=== PATIENT | male | born 1950 | race Caucasian/White ===

== ENCOUNTER 2022-12-19 16:28 | Inpatient (IN) ==
[2022-12-19] MEDS ORDERED: MoRPHine SULFATE 2 MG/ML CARP ONE (16:32)
[2022-12-19] MEDS ORDERED: NITROGLYCERIN SL 0.4 MG/TAB TAB ONE ×2 (16:38→16:56)
[2022-12-19] MEDS ORDERED: TICAGRELOR 90 MG TAB ONE (16:39)
[2022-12-19] MEDS ORDERED: HEPARIN SOD (PORCINE) 1000 UNIT/ML ONE (16:39)
[2022-12-19] MEDS ORDERED: MoRPHine SULFATE 2 MG/ML CARP IV ONE (16:45)
--- NOTE | 2022-12-19 16:46 | Emergency Department Note ---
History of Present Illness General Chief Complaint: Heart Alert History of Present Illness Provider Complaint: chest pain Onset (ago): hour(s) 1 Duration: constant Onset: other (occurred after doing yardwork and mowing lawn) Pain Location: substernal Pain Radiation: none Severity: moderate Current Pain Intensity: 7 Quality: + heaviness Relieved By: + nothing Exacerbated By: + nothing Context: no recent illness, no recent surgery, no recent travel or no trauma/injury Associated symptoms: + dyspnea Treatments prior to arrival: aspirin, nitroglycerin and other (fentanyl) Home Medications Medication Instructions Recorded Confirmed Type canagliflozin 300 mg tablet 300 mg PO QAM 09/04/22 12/19/22 History (Invokana) dulaglutide 4.5 mg/0.5 mL 4.5 mg subcut WK 09/04/22 12/19/22 History subcutaneous pen injector (Trulicity) gabapentin 300 mg capsule 300 mg PO AMHS 09/04/22 12/19/22 History lisinopril 2.5 mg tablet 2.5 mg PO QAM 09/04/22 12/19/22 History metformin 1,000 mg tablet 1,000 mg PO BIDM 09/04/22 12/19/22 History metoprolol tartrate 25 mg tablet 25 mg PO BID 09/04/22 12/19/22 History rosuvastatin 5 mg tablet 5 mg PO Q OTHER DAY 09/04/22 12/19/22 History aspirin 81 mg tablet,delayed 81 mg PO DAILY 12/19/22 12/19/22 History release polyethylene glycol 3350 17 gram 17 g PO DIRECTED PRN 12/19/22 12/19/22 History oral powder packet (Miralax) Constipation Allergies Allergy/AdvReac Type Severity Reaction Status Date / Time No Known Allergies Allergy Verified 12/19/22 21:27 Past Med/Surg History Medical History CAD (coronary artery disease) Carotid artery stenosis Diabetes mellitus, type 2 Hyperlipidemia Hypertension Myocardial Infarction [facility] 2005, no longer follows with cardio Surgical History History of colonoscopy History of coronary artery stent placement 2006, stents x 2 History of surgery surgery on nose skin lesion-pt unsure Social History Smoking Status: Former smoker Second Hand Exposure: No; Do You Dip or Chew Tobacco: No; Tobacco Cessation Education Requested by Patient: No Hx Alcohol Use: Yes Alcohol type: wine Hx Substance Use: No Preferred Language: Kosovan Communication Ability: Effective Paper Cleaner Required: No Beliefs That Will Affect Care: None Current Living Situation: Spouse Other Information That Helps Us Care for You: No Feels Safe at Home: Yes Safety Concerns: Feels Safe At This Time Assistive Devices: None Physical Exam Vital Signs Vital Signs - 24 hr 12/19/22 16:25 12/19/22 16:36 12/19/22 16:47 Temperature 37 C Temperature Source Oral Pulse Rate 83 81 Pulse Rate [Apical] 104 H Pulse Rate from SpO2 Sensor Respiratory Rate 20 18 Blood Pressure 164/90 H Blood Pressure [Left Arm] 126/99 Blood Pressure Mean 114 Blood Pressure Mean [Left Arm] 108 Pulse Oximetry 98 98 Oxygen Delivery Method Nasal Cannula Nasal Cannula Oxygen Flow Rate 2 2 Sepsis Recent Fever Within 48 Hours No Sepsis New/Unexplained Change in Mental Status No Sepsis Action Taken by Nursing No Action Required 12/19/22 16:32 12/19/22 17:01 12/19/22 19:00 Temperature Temperature Source Pulse Rate Pulse Rate [Apical] 96 H 86 Pulse Rate from SpO2 Sensor Respiratory Rate 18 18 Blood Pressure 108/86 Blood Pressure [Left Arm] 134/76 139/84 Blood Pressure Mean 92 Blood Pressure Mean [Left Arm] 95 102 Pulse Oximetry 99 100 Oxygen Delivery Method Nasal Cannula Nasal Cannula Oxygen Flow Rate 2 2 Sepsis Recent Fever Within 48 Hours Sepsis New/Unexplained Change in Mental Status Sepsis Action Taken by Nursing 12/19/22 19:00 Temperature Temperature Source Pulse Rate 61 Pulse Rate [Apical] Pulse Rate from SpO2 Sensor 60 Respiratory Rate 19 Blood Pressure Blood Pressure [Left Arm] Blood Pressure Mean Blood Pressure Mean [Left Arm] Pulse Oximetry 99 Oxygen Delivery Method Oxygen Flow Rate Sepsis Recent Fever Within 48 Hours Sepsis New/Unexplained Change in Mental Status Sepsis Action Taken by Nursing Physical Exam HENT: Exam performed. - Head: Normocephalic and atraumatic. NECK: Normal range of motion. Neck supple. No JVD present. CV: Normal rate, regular rhythm, normal heart sounds and intact distal pulses. There is no peripheral edema. Palpable radial pulses bue. PULM/CHEST: Effort normal and breath sounds normal. No respiratory distress. No stridor. no wheezes. no rales. NEURO: Motor and sensation grossly intact. SKIN: Skin is warm and dry. He is diaphoretic. PSYCH: normal mood and affect. Behavior is normal. Judgment and thought content normal. Course Course 1615: Received call from EMS. EKG from EMS shows ST elevation in leads I and aVF V2 V3 and ST depression in leads II, III and aVF. Heart alert called. 1629: The patient was evaluated in room B1. A history and physical exam was performed Cardiac monitoring: An order was placed for continuous cardiac monitoring. The monitor shows a rate of 70 with sinus rhythm interpreted by hi 1637: Dr. Yi at bedside requested the patient be loaded with Brilinta and heparin. Administered Medications Acetaminophen (Acetaminophen 325 Mg Tab) 650 mg PO Q4H PRN PRN Reason: MILD Pain (Scale 1,2,3) Stop: 01/18/23 19:11 Last Admin: 12/19/22 21:48 Dose: 650 mg Documented By: TP Gabapentin (Gabapentin 300 Mg Cap) 300 mg PO BID [facility] Stop: 01/18/23 22:24 Last Admin: 12/19/22 23:02 Dose: 300 mg Documented By: TP Sodium Chloride (Nss 1000ml) 1,000 mls @ 100 mls/hr IV .Q10H [facility] Stop: 12/20/22 00:14 Last Admin: 12/19/22 20:24 Dose: 100 mls/hr Documented By: TP Eptifibatide (Integrilin) 75 mg in 100 mls @ 15.76 mls/hr IV .Q6H21M [facility]; Protocol Stop: 12/20/22 07:00 Last Admin: 12/19/22 20:23 Dose: 2 mcg/kg/min, 15.8 mls/hr Documented By: TP Co-signed By: BRUNILDA Magnesium Sulfate/Dextrose (Magnesium Sulfate / D5w) 1 gm in 100 mls @ 50 mls/hr IV Q2H [facility] Stop: 12/20/22 00:44 Last Admin: 12/19/22 23:02 Dose: 50 mls/hr Documented By: Infusion: 12/19/22 22:52 Dose: 0 mls/hr Documented By: Admin: 12/19/22 20:52 Dose: 50 mls/hr Documented By: TP Insulin Aspart (Insulin Aspart Per Unit Charge) 0 units SC ACHS [facility] Stop: 01/18/23 20:59 Last Admin: 12/19/22 21:49 Dose: 4 units Documented By: TP Co-signed By: CF Insulin Glargine (Lantus Per Unit Charge) 5 units SQ HS [facility] Stop: 01/18/23 21:09 Last Admin: 12/19/22 21:49 Dose: 5 units Documented By: TP Co-signed By: CF Metoprolol Tartrate (Metoprolol Tartrate 25 Mg Tab) 25 mg PO BID [facility] Stop: 01/18/23 20:59 Last Admin: 12/19/22 20:20 Dose: 25 mg Documented By: TP Miscellaneous (Icu Protocol For Hyperglycemia) 1 each N/A [facility] Stop: 12/21/22 20:59 Last Admin: 12/19/22 21:40 Dose: 1 each Documented By: TP Morphine Sulfate (Morphine Sulfate 4 Mg/Ml 1 Ml Carp\Vial) 4 mg IV Q4H PRN PRN Reason: Pain Stop: 01/02/23 21:59 Last Admin: 12/19/22 23:01 Dose: 4 mg Documented By: TP Ondansetron HCl (Ondansetron Inj 2 Mg/Ml 2 Ml Vial) 4 mg IV Q6H PRN PRN Reason: Nausea And Vomiting Stop: 01/18/23 19:11 Last Admin: 12/19/22 21:48 Dose: 4 mg Documented By: TP Rosuvastatin Calcium (Rosuvastatin Calcium 5 Mg Tab) 5 mg PO Q2D@2100 [facility] Stop: 01/18/23 19:29 Last Admin: 12/19/22 20:20 Dose: 5 mg Documented By: TP Discontinued Medications Eptifibatide (Eptifibatide 2 Mg/Ml 10 Ml Vial ([place] Use Only)) Confirm Administered Dose 40 mg IV .STK-MED ONE Stop: 12/19/22 18:25 Last Admin: 12/19/22 19:48 Dose: Not Given Documented By: TP Eptifibatide (Eptifibatide 0.75 Mg/Ml 75mg Vial ([place] Use Only)) Confirm Administered Dose 75 mg IV .STK-MED ONE Stop: 12/19/22 18:25 Last Admin: 12/19/22 19:48 Dose: Not Given Documented By: TP Fentanyl Citrate (Fentanyl Citrate Pf 100 Mcg/2 Ml Vial) Confirm Administered Dose 100 mcg .ROUTE .STK-MED ONE Stop: 12/19/22 17:08 Last Admin: 12/19/22 19:48 Dose: Not Given Documented By: TP Heparin Sodium (Porcine) (Heparin Sod (Porcine) 1000 Unit/Ml) Confirm Administered Dose 1,000 units .ROUTE .STK-MED ONE Stop: 12/19/22 16:40 Last Admin: 12/19/22 16:42 Dose: 5,000 units Documented By: OL Co-signed By: NA Heparin Sodium (Porcine) (Heparin (Porcine) 1000 Unit/Ml 10 Ml ([place] Use Only)) Confirm Administered Dose 10,000 units .ROUTE .STK-MED ONE Stop: 12/19/22 17:04 Last Admin: 12/19/22 19:47 Dose: Not Given Documented By: TP Midazolam HCl (Midazolam Hcl 1 Mg/Ml 2ml Vial) Confirm Administered Dose 2 mg .ROUTE .STK-MED ONE Stop: 12/19/22 17:09 Last Admin: 12/19/22 19:48 Dose: Not Given Documented By: TP Morphine Sulfate (Morphine Sulfate 2 Mg/Ml Carp) Confirm Administered Dose 4 mg .ROUTE .STK-MED ONE Stop: 12/19/22 16:33 Last Admin: 12/19/22 16:39 Dose: Not Given Documented By: OL Morphine Sulfate (Morphine Sulfate 2 Mg/Ml Carp) 2 mg IV NOW ONE Stop: 12/19/22 16:46 Last Admin: 12/19/22 16:36 Dose: 2 mg Documented By: OL Nicardipine HCl (Nicardipine Hcl Inj 2.5 Mg/Ml 10 Ml Amp) Confirm Administered Dose 25 mg .ROUTE .STK-MED ONE Stop: 12/19/22 17:04 Last Admin: 12/19/22 19:47 Dose: Not Given Documented By: TP Nitroglycerin (Nitroglycerin Sl 0.4 Mg/Tab Tab) Confirm Administered Dose 0.4 mg .ROUTE .STK-MED ONE Stop: 12/19/22 16:39 Last Admin: 12/19/22 16:41 Dose: 0.4 mg Documented By: OL Nitroglycerin (Nitroglycerin Sl 0.4 Mg/Tab Tab) Confirm Administered Dose 0.4 mg .ROUTE .STK-MED ONE Stop: 12/19/22 16:57 Last Admin: 12/19/22 16:59 Dose: 0.4 mg Documented By: OL Nitroglycerin/Dextrose (Nitroglycerin/D5w 100mcg/Ml 20ml Syr) Confirm Administered Dose 2,000 mcg .ROUTE .STK-MED ONE Stop: 12/19/22 17:04 Last Admin: 12/19/22 19:48 Dose: Not Given Documented By: TP Ticagrelor (Ticagrelor 90 Mg Tab) Confirm Administered Dose 180 mg .ROUTE .STK- MED ONE Stop: 12/19/22 16:40 Last Admin: 12/19/22 16:44 Dose: 180 mg Documented By: OL Medical Decision Making Medical Records Attestation: I reviewed the patient's medical records. Medical records narrative: No previous EKGs in our EMR Laboratory Data Attestation: I reviewed the patient's lab results. 12/19/22 16:36 12/19/22 16:36 Labs: Lab Results 12/19/22 12/19/22 12/19/22 Range/Units 16:36 16:36 16:36 WBC 11.84 H (4.8-10.8) K/ul RBC 4.54 L (4.70-6.10) M/uL Hgb 14.0 (14.0-18.0) g/dl Hct 40.9 L (42.0-52.0) % MCV 90.1 (80.0-100.0) fL MCH 30.8 (25.0-34.0) pg MCHC 34.2 (32.0-36.0) g/dL RDW Std Deviation 41.3 (36.4-46.3) fL RDW Coeff of Darlene 12.5 (11.5-14.5) % Plt Count 268 (130-400) K/uL MPV 9.0 L (9.4-12.4) fL Immature Gran % (Auto) 0.5 % Neut % (Auto) 63.7 % Lymph % (Auto) 26.1 % [place] % (Auto) 8.4 % Eos % (Auto) 1.0 % Baso % (Auto) 0.3 % Neut # (Auto) 7.54 H (1.40-6.50) K/uL Lymph # (Auto) 3.09 (1.2-3.4) K/uL [place] # (Auto) 0.99 H (0.11-0.59) K/uL Eos # (Auto) 0.12 (0-0.50) K/uL Baso # (Auto) 0.04 (0-0.2) K/uL Immature Gran # (Auto) 0.06 (0.01-0.20) K/uL PT 11.7 (9.0-12.0) Seconds INR 1.1 (0.9-1.1) APTT 21.7 (21.0-31.0) Seconds PTT Ratio 0.8 Activ Coag Time Kaolin (94-140) SECONDS Sodium 142 (136-145) mmol/L Potassium 3.7 (3.5-5.1) mmol/L Chloride 108 H (98-107) mmol/L Carbon Dioxide 22 (21-32) mmol/L Anion Gap 12 H (3-11) BUN 22 (6-23) mg/dl Creatinine 0.92 (0.6-1.4) mg/dl Est Cr Clr Drug Dosing 82.1 ml/min Est GFR ( Amer) 97.3 ml/min Est GFR (Non-Af Amer) 84.0 ml/min BUN/Creatinine Ratio 23.9 H (10-20) Glucose 169 H (70-99(Fasting)) mg/dl Calcium 7.9 L (8.6-10.3) mg/dl Magnesium 1.6 L (1.7-2.4) mg/dl Total Bilirubin 0.9 (0.2-1.0) mg/dl AST 12 L (13-39) U/L ALT 12 (7-52) U/L Alkaline Phosphatase 56 (34-104) U/L Total Creatine Kinase 24 L (30-223) U/L Troponin I High Sens 13.1 (0-20) pg/ml B-Natriuretic Peptide (0-100) pg/ml Total Protein 6.5 (6.0-8.3) gm/dl Albumin 4.0 (3.4-5.0) gm/dl Globulin 2.5 (2.5-4.0) gm/dl Albumin/Globulin Ratio 1.6 (0.9-2) Lipase 18 (11-82) U/L TSH (0.300-4.500) uIu/ml Nasal Screen MRSA (PCR) (Negative) SARS-CoV-2, RNA, NAAT (NEGATIVE) 12/19/22 12/19/22 12/19/22 Range/Units 16:36 16:36 16:45 WBC (4.8-10.8) K/ul RBC (4.70-6.10) M/uL Hgb (14.0-18.0) g/dl Hct (42.0-52.0) % MCV (80.0-100.0) fL MCH (25.0-34.0) pg MCHC (32.0-36.0) g/dL RDW Std Deviation (36.4-46.3) fL RDW Coeff of Darlene (11.5-14.5) % Plt Count (130-400) K/uL MPV (9.4-12.4) fL Immature Gran % (Auto) % Neut % (Auto) % Lymph % (Auto) % [place] % (Auto) % Eos % (Auto) % Baso % (Auto) % Neut # (Auto) (1.40-6.50) K/uL Lymph # (Auto) (1.2-3.4) K/uL [place] # (Auto) (0.11-0.59) K/uL Eos # (Auto) (0-0.50) K/uL Baso # (Auto) (0-0.2) K/uL Immature Gran # (Auto) (0.01-0.20) K/uL PT (9.0-12.0) Seconds INR (0.9-1.1) APTT (21.0-31.0) Seconds PTT Ratio Activ Coag Time Kaolin (94-140) SECONDS Sodium (136-145) mmol/L Potassium (3.5-5.1) mmol/L Chloride (98-107) mmol/L Carbon Dioxide (21-32) mmol/L Anion Gap (3-11) BUN (6-23) mg/dl Creatinine (0.6-1.4) mg/dl Est Cr Clr Drug Dosing ml/min Est GFR ( Amer) ml/min Est GFR (Non-Af Amer) ml/min BUN/Creatinine Ratio (10-20) Glucose (70-99(Fasting)) mg/dl Calcium (8.6-10.3) mg/dl Magnesium (1.7-2.4) mg/dl Total Bilirubin (0.2-1.0) mg/dl AST (13-39) U/L ALT (7-52) U/L Alkaline Phosphatase (34-104) U/L Total Creatine Kinase (30-223) U/L Troponin I High Sens (0-20) pg/ml B-Natriuretic Peptide 16 (0-100) pg/ml Total Protein (6.0-8.3) gm/dl Albumin (3.4-5.0) gm/dl Globulin (2.5-4.0) gm/dl Albumin/Globulin Ratio (0.9-2) Lipase (11-82) U/L TSH 0.441 (0.300-4.500) uIu/ml Nasal Screen MRSA (PCR) (Negative) SARS-CoV-2, RNA, NAAT NEGATIVE (NEGATIVE) 12/19/22 12/19/22 Range/Units 17:35 19:00 WBC (4.8-10.8) K/ul RBC (4.70-6.10) M/uL Hgb (14.0-18.0) g/dl Hct (42.0-52.0) % MCV (80.0-100.0) fL MCH (25.0-34.0) pg MCHC (32.0-36.0) g/dL RDW Std Deviation (36.4-46.3) fL RDW Coeff of Darlene (11.5-14.5) % Plt Count (130-400) K/uL MPV (9.4-12.4) fL Immature Gran % (Auto) % Neut % (Auto) % Lymph % (Auto) % [place] % (Auto) % Eos % (Auto) % Baso % (Auto) % Neut # (Auto) (1.40-6.50) K/uL Lymph # (Auto) (1.2-3.4) K/uL [place] # (Auto) (0.11-0.59) K/uL Eos # (Auto) (0-0.50) K/uL Baso # (Auto) (0-0.2) K/uL Immature Gran # (Auto) (0.01-0.20) K/uL PT (9.0-12.0) Seconds INR (0.9-1.1) APTT (21.0-31.0) Seconds PTT Ratio Activ Coag Time Kaolin 360 H (94-140) SECONDS Sodium (136-145) mmol/L Potassium (3.5-5.1) mmol/L Chloride (98-107) mmol/L Carbon Dioxide (21-32) mmol/L Anion Gap (3-11) BUN (6-23) mg/dl Creatinine (0.6-1.4) mg/dl Est Cr Clr Drug Dosing ml/min Est GFR ( Amer) ml/min Est GFR (Non-Af Amer) ml/min BUN/Creatinine Ratio (10-20) Glucose (70-99(Fasting)) mg/dl Calcium (8.6-10.3) mg/dl Magnesium (1.7-2.4) mg/dl Total Bilirubin (0.2-1.0) mg/dl AST (13-39) U/L ALT (7-52) U/L Alkaline Phosphatase (34-104) U/L Total Creatine Kinase (30-223) U/L Troponin I High Sens (0-20) pg/ml B-Natriuretic Peptide (0-100) pg/ml Total Protein (6.0-8.3) gm/dl Albumin (3.4-5.0) gm/dl Globulin (2.5-4.0) gm/dl Albumin/Globulin Ratio (0.9-2) Lipase (11-82) U/L TSH (0.300-4.500) uIu/ml Nasal Screen MRSA (PCR) Negative (Negative) SARS-CoV-2, RNA, NAAT (NEGATIVE) Imaging Data Chest x-ray: Attestation: I personally reviewed and interpreted this imaging study as follows: My impression: Chest x-ray negative. Airway clear. No pneumothorax. No consolidation. No cardiomegaly or cephalization.. No free air under the diaphragm. No fractures of the skeletal structures. ECG Data Attestation: I personally reviewed and interpreted this ECG as follows: Indication: chest pain Rate (beats per minute): 62 Rhythm: normal sinus Findings: + ST depression (Leads II III aVF) and + ST elevation (Leads I, aVL, V2) Additional Comments: Prehospital EKG at 1610 showed sinus rhythm with rate of 66. SD QRS and QTc intervals within normal limits. ST elevation in leads I and aVF V2 V3 and ST depression in leads II, III and aVF. [facility] Narrative 1615: Received call from EMS. EKG from EMS shows ST elevation in leads I and aVF V2 V3 and ST depression in leads II, III and aVF. Heart alert called. 1629: The patient was evaluated in room B1. A history and physical exam was performed Cardiac monitoring: An order was placed for continuous cardiac monitoring. The monitor shows a rate of 70 with sinus rhythm interpreted by me 1637: Dr. Yi at bedside requested the patient be loaded with Brilinta and heparin. Impression & Plan ST elevation (STEMI) myocardial infarction Critical Care Time Critical Care Time: Yes Total Critical Care Time: 38 I have personally spent greater than 38 minutes of critical care time in the direct management of this patient. This includes bedside care, interpretation of diagnostic studies, and testing, discussion with consultants, patient, and family members, and other required patient management activities. This 38 minutes is in excess of all separately billable procedures. Discharge Plan Visit Data Chief Complaint: Heart Alert ED Provider: Damian Russo Discharge Problem: ST elevation (STEMI) myocardial infarction Patient Disposition: Admitted As Inpatient Discharge Instructions Interventions: ED Discharge Assessment Last Done: 12/19/22 17:05
[2022-12-19 16:52] LABS: Basophils # (auto) 0.04 K/uL (0-0.2); Basophils % (auto) 0.3 %; Eosinophils # (auto) 0.12 K/uL (0-0.50); Hematocrit (blood only) 40.9 % (42.0-52.0); Immature Granulocytes # (auto) 0.06 K/uL (0.01-0.20); Immature Granulocytes % (auto) 0.5 %; Lymphocytes # (auto) 3.09 K/uL (1.2-3.4); Lymphocytes % (auto) 26.1 %; Mean Corpuscular Hemoglobin 30.8 pg (25.0-34.0); Mean Corpuscular Hgb Conc 34.2 g/dL (32.0-36.0); Mean Corpuscular Volume 90.1 fL (80.0-100.0); Monocytes # (auto) 0.99 K/uL (0.11-0.59); Monocytes % (auto) 8.4 %; Neutrophils # (auto) 7.54 K/uL (1.40-6.50); Neutrophils % (auto) 63.7 %; Platelet Count 268 K/uL (130-400); RDW Coefficient of Variation 12.5 % (11.5-14.5); RDW Standard Deviation 41.3 fL (36.4-46.3); Red Blood Count 4.54 M/uL (4.70-6.10); White Blood Count 11.84 K/ul (4.8-10.8)
--- NOTE | 2022-12-19 17:01 | XRay Report ---
XR chest 1V portable CLINICAL HISTORY: Chest pain, nonspecific COMPARISON STUDY: Chest radiograph August 26, 2013. FINDINGS: Lung volumes are normal. Lungs are clear. There is no pneumothorax or pleural effusion. Car diac size is stable. Mediastinal contours are normal. There is no evidence for pulmonary edema. IMPRESSION: No acute cardiopulmonary findings. No significant change in appearance of the chest. ACT 112: Negative or not required by law. Electronically signed by: Steve Mullins M.D. 12/19/2022 4:59 PM
[2022-12-19 17:03] LABS: INR 1.1 (0.9-1.1); Partial Thromboplastin Ratio 0.8; Partial Thromboplastin Time 21.7 Seconds (21.0-31.0); Prothrombin Time 11.7 Seconds (9.0-12.0)
[2022-12-19] MEDS ORDERED: HEPARIN (PORCINE) 1000 UNIT/ML 10 ML (CATH LAB USE ONLY) ONE (17:03)
[2022-12-19] MEDS ORDERED: NITROGLYCERIN/D5W 100MCG/ML 20ML SYR ONE (17:03)
[2022-12-19] MEDS ORDERED: niCARdipine HCL INJ 2.5 MG/ML 10 ML AMP ONE (17:03)
[2022-12-19] MEDS ORDERED: fentaNYL citrate PF 100 MCG/2 ML VIAL ONE (17:07)
[2022-12-19] MEDS ORDERED: MIDAZOLAM HCL 1 MG/ML 2ML VIAL ONE (17:08)
[2022-12-19 17:11] LABS: Albumin Globulin Ratio 1.6 (0.9-2); BUN Creatinine Ratio 23.9 (10-20); Bilirubin,Total 0.9 mg/dl (0.2-1.0); Calcium 7.9 mg/dl (8.6-10.3); Creatinine Clr Calc Pharmacy 82.1 ml/min; Est GFR (African American) 97.3 ml/min; Globulin 2.5 gm/dl (2.5-4.0); Magnesium 1.6 mg/dl (1.7-2.4); Potassium 3.7 mmol/L (3.5-5.1); Total Protein 6.5 gm/dl (6.0-8.3)
[2022-12-19 17:16] LABS: Troponin I High Sensitivity 13.1 pg/ml (0-20)
--- NOTE | 2022-12-19 17:20 | Cardiology Consultation ---
Date of Consultation December 19, 2022 Assessment & Plan (1) ST elevation (STEMI) myocardial infarction: (2) CAD (coronary artery disease): (3) Hypertension: (4) Hyperlipidemia: Plan ASSESSMENT/PLAN: 1. STEMI: Recommend urgent cardiac catheterization. Ordered Brilinta load, heparin 5000 units, and has already received aspirin. Pain improved with morphine and redosing of sublingual nitroglycerin. Risk and benefits were discussed with him in detail. He was agreeable to proceed. Echo during this hospital stay. 2. CAD: [facility] suggested prior PTCA of RCA. Patient believes he had 2 stents. Details unknown. Aspirin 81 mg daily. Dual antiplatelet therapy following cath. High intensity statin therapy recommended. Continue beta-sara. Continue JESE inhibitor. 3. Hypertension: Was intermittently hypertensive in the emergency department. Continue home medications and titrate as appropriate. 4. Dyslipidemia: High intensity statin therapy recommended. 5. Disposition: Urgent cardiac catheterization when Mud Mixer Helper available. Mud Mixer Helper was occupied at the time of heart alert activation. Discussed with bow machine operator, Dr. Ybarra, who is proceeding with coronary angiography. His remained at the bedside and remained aware of plan. Highly complex medical issues. 45 minutes critical care time spent, including 35 minutes of acute management for STEMI. Remained with patient until taken to Mud Mixer Helper. Remaining time spent reviewing records, and completing documentation. Thank you for allowing me to participate in the care of your patient. Please call for any other questions or concerns. Sincerely, Sharan Yi M.D. History of Present Illness Reason for Consultation: Heart alert Requesting Physician: Dr. Russo Attending Physician: Dr. Russo History of Present Illness Mr. Wilkerson is a very pleasant 72-year-old gentleman with a history significant for CAD s/p prior NM and PTCA vs PCI, hypertension, 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, and type 2 diabetes. He formally was followed by Dr. Prakash (last note 2017). He [place] [facility]. He presented acutely to the emergency department today (12/19/2022) with chest discomfort and ST elevation in the lateral leads. Heart alert was activated. He had been outside trimming shrubs and using his riding lawnmower. He was not having chest discomfort but felt something in his throat and thought it was due to the pollen. He went inside and watch TV. While watching TV, he became nauseated and vomited. He had chest discomfort but denies shortness of breath. Symptoms occurred approximately 2 hours prior to presentation. He received aspirin 324 mg via EMS and nitroglycerin sublingual x2. Initially the chest discomfort was rated 8 out of 10. At the bedside, he continued to have angina and was hypertensive with systolic blood pressure in the 160s and diastolic in the 90s. Additional nitroglycerin was ordered. He was also given intravenous morphine. Chest pain improved to 0- 1, before eventually increasing to 2 out of 10. Additional nitroglycerin was given. He denies syncope, near syncope, palpitations, or edema. He denies melena, hematochezia, or hematuria. His last food was approximately 1 hour to 2 hours prior to presentation. Review of systems: As above. Family history: Noncontributory. Social history: He quit smoking approximately 6 years ago. No significant alcohol consumption. He lives at home with his , Dafne ([facility]). He is retired. His was present at the bedside in the ED. Allergies Allergy/AdvReac Type Severity Reaction Status Date / Time No Known Allergies Allergy Verified 09/10/22 06:10 Home Medications Medication Instructions Recorded Confirmed Type canagliflozin 300 mg tablet 300 mg PO QAM 09/04/22 09/10/22 History (Invokana) dulaglutide 4.5 mg/0.5 mL 4.5 mg subcut 1XD 09/04/22 09/10/22 History subcutaneous pen injector (Trulicity) gabapentin 300 mg capsule 300 mg PO BID 09/04/22 09/10/22 History lisinopril 2.5 mg tablet 2.5 mg PO QAM 09/04/22 09/10/22 History metformin 1,000 mg tablet 1,000 mg PO BID 09/04/22 09/10/22 History metoprolol tartrate 25 mg tablet 25 mg PO BID 09/04/22 09/10/22 History rosuvastatin 5 mg tablet 5 mg PO Q OTHER DAY 09/04/22 09/10/22 History Patient History Medical History CAD (coronary artery disease) Carotid artery stenosis Diabetes mellitus, type 2 Hyperlipidemia Hypertension Myocardial Infarction [facility] 2005, no longer follows with cardio Surgical History History of colonoscopy History of coronary artery stent placement 2006, stents x 2 History of surgery surgery on nose skin lesion-pt unsure Social History Smoking Status: Former smoker Second Hand Exposure: No; Do You Dip or Chew Tobacco: No; Hx Alcohol Use: No Hx Substance Use: No Preferred Language: Japanese Hydrogenation Still Operator Required: No Beliefs That Will Affect Care: None Current Living Situation: Spouse Feels Safe at Home: Yes Physical Exam Physical Exam: Gen.: No acute distress. Alert and oriented. HEENT: Anicteric sclera. Neck: No JVD. Cardiac: No ventricular heave. Regular. Normal S1-S2. No murmurs, rubs, or gallops. Pulmonary: Clear to auscultation bilaterally without wheezes, rales, or rhonchi. Abdomen: Soft, nontender, nondistended, with normoactive bowel sounds. No bruits noted. Extremities: 1+ right radial pulse. 2+ left radial pulse. 2+ posterior tibialis pulses bilaterally. No edema or cyanosis. Results & Data Vital Signs (Past 12 Hours) Vital Signs Temp Pulse Pulse Resp BP BP Pulse Ox 12/19/22 17:01 86 18 139/84 100 12/19/22 16:32 96 H 18 134/76 99 12/19/22 16:47 104 H 18 126/99 98 12/19/22 16:36 81 12/19/22 16:25 37 C 83 20 164/90 H 98 O2 Del Method O2 Flow Rate 12/19/22 17:01 Nasal Cannula 2 12/19/22 16:32 Nasal Cannula 2 12/19/22 16:47 Nasal Cannula 2 12/19/22 16:36 12/19/22 16:25 Nasal Cannula 2 Laboratory Results Laboratory Results - last 24 hr 12/19/22 12/19/22 12/19/22 16:36 16:36 16:36 WBC 11.84 H RBC 4.54 L Hgb 14.0 Hct 40.9 L MCV 90.1 MCH 30.8 MCHC 34.2 RDW Std Deviation 41.3 RDW Coeff of Darlene 12.5 Plt Count 268 MPV 9.0 L Immature Gran % (Auto) 0.5 Neut % (Auto) 63.7 Lymph % (Auto) 26.1 Gregory % (Auto) 8.4 Eos % (Auto) 1.0 Baso % (Auto) 0.3 Neut # (Auto) 7.54 H Lymph # (Auto) 3.09 Gregory # (Auto) 0.99 H Eos # (Auto) 0.12 Baso # (Auto) 0.04 Immature Gran # (Auto) 0.06 PT 11.7 INR 1.1 APTT 21.7 PTT Ratio 0.8 Sodium 142 Potassium 3.7 Chloride 108 H Carbon Dioxide 22 Anion Gap 12 H BUN 22 Creatinine 0.92 Est Cr Clr Drug Dosing 82.1 Est GFR ( Amer) 97.3 Est GFR (Non-Af Amer) 84.0 BUN/Creatinine Ratio 23.9 H Glucose 169 H Calcium 7.9 L Magnesium 1.6 L Total Bilirubin 0.9 AST 12 L ALT 12 Alkaline Phosphatase 56 Total Creatine Kinase 24 L Troponin I High Sens 13.1 B-Natriuretic Peptide Total Protein 6.5 Albumin 4.0 Globulin 2.5 Albumin/Globulin Ratio 1.6 Lipase 18 TSH SARS-CoV-2, RNA, NAAT 12/19/22 12/19/22 12/19/22 16:36 16:36 16:45 WBC RBC Hgb Hct MCV MCH MCHC RDW Std Deviation RDW Coeff of Darlene Plt Count MPV Immature Gran % (Auto) Neut % (Auto) Lymph % (Auto) Gregory % (Auto) Eos % (Auto) Baso % (Auto) Neut # (Auto) Lymph # (Auto) Gregory # (Auto) Eos # (Auto) Baso # (Auto) Immature Gran # (Auto) PT INR APTT PTT Ratio Sodium Potassium Chloride Carbon Dioxide Anion Gap BUN Creatinine Est Cr Clr Drug Dosing Est GFR ( Amer) Est GFR (Non-Af Amer) BUN/Creatinine Ratio Glucose Calcium Magnesium Total Bilirubin AST ALT Alkaline Phosphatase Total Creatine Kinase Troponin I High Sens B-Natriuretic Peptide 16 Total Protein Albumin Globulin Albumin/Globulin Ratio Lipase TSH Pending SARS-CoV-2, RNA, NAAT NEGATIVE Diagnostic Findings ECG personally reviewed: Sinus rhythm [address] elevation with inferior ST depression and T wave inversion. These findings are consistent with prehospital ECGs which were also personally reviewed. Labs reviewed from 12/19/2022: Normal hemoglobin, mild leukocytosis, normal renal function, normal potassium. Normal BNP. High-sensitivity troponin 13. Chest x-ray personally reviewed from 12/19/2022: No infiltrate. Per radiology, no acute cardiopulmonary findings. PG Care Time/CCT Total # of Minutes Spent Total Time Spent with Patient: Total time spent is greater than 50% in coordination of care (as documented) at patient's floor/unit and/or counseling patient: Critical Care Time: Yes Total Critical Care Time: 45 Coding Level of Care Code 55187 CRITICAL CARE 1ST 30-74M Diagnoses ST elevation (STEMI) myocardial infarction I21.3 CAD (coronary artery disease) I25.10 Hypertension I10 Hyperlipidemia E78.5 Additional Codes Critical Care Time - Critical Care Time: Yes ([id number])
[2022-12-19] MEDS ORDERED: EPTIFIBATIDE 0.75 MG/ML 75MG VIAL (CATH LAB USE ONLY) IV ONE (18:24)
[2022-12-19] MEDS ORDERED: EPTIFIBATIDE 2 MG/ML 10 ML VIAL (CATH LAB USE ONLY) IV ONE (18:24)
[2022-12-19] MEDS ORDERED: ACETAMINOPHEN 325 MG TAB PO PRN (19:12)
[2022-12-19] MEDS ORDERED: EPTIFIBATIDE BOLUS/DRIP IV STA (19:12)
[2022-12-19] MEDS ORDERED: ONDANSETRON INJ 2 MG/ML 2 ML VIAL IV PRN (19:12)
[2022-12-19] MEDS ORDERED: SODIUM CHLORIDE 0.9% 1000ML 1,000 ML IV SCH (19:15)
--- NOTE | 2022-12-19 19:26 | Post Anesthesia Assessment ---
Date of Service December 19, 2022 Post Sedation Assessment Vital Signs Temp Pulse Pulse Resp BP BP Pulse Ox 12/19/22 17:01 86 18 139/84 100 12/19/22 16:32 96 H 18 134/76 99 12/19/22 16:47 104 H 18 126/99 98 12/19/22 16:36 81 12/19/22 16:25 98.6 F 83 20 164/90 H 98 O2 Del Method O2 Flow Rate 12/19/22 17:01 Nasal Cannula 2 12/19/22 16:32 Nasal Cannula 2 12/19/22 16:47 Nasal Cannula 2 12/19/22 16:36 12/19/22 16:25 Nasal Cannula 2 Recovery Score Activity: Moves 4 extremities Respiration: Deep Breath/Cough Circulation: +/-20% PreAnes Value Consciousness: Fully Awake Oxygen Saturation: O2 needed for >90% Discharge Sedation Level of Care: Fast Track Phase II Post Sedation Plan On clinical assessment, the patient appears to have tolerated the sedation without complications. Patient is recovering as anticipated. Patient will continue to be monitored by nursing and may be discharged when sedation discharge criteria are met per below protocol. Upon Completions of procedure up to 15 minutes continue every 5 minute vital signs and the P.A.R. score; then discharge to a Phase I or Fast Track to Phase II per the following guidelines: * Discharge Patient to appropriate Phase II area if PAR is 8 or greater or return to pre- procedure baseline. The post - procedure orders will be as directed. * If PAR score is less than 8 or not return to pre-procedure baseline then patient will follow Phase I monitoring till PAR is reached for Phase II. The Phase I may be done in procedure room or may call to secure a Phase I area. * If naloxone or flumazenil are used for reversal, hold in Phase I for continued monitoring from when last reversal dose was given for a minimum of 60 minutes or longer pending the nurse and/or physician discretion of patient condition before discharge to Phase II. Please call the Sedation Physician to re-evaluate and complete post-note for discharge to Phase II area. Do NOT discharge from procedure sedation or Phase 1 until post- sedation evaluation note is complete by procedure /sedation MD Sedation Discharge Instructions to be given to the patient at discharge to home.
[2022-12-19] MEDS ORDERED: ROSUVASTATIN CALCIUM 5 MG TAB PO SCH (19:30)
--- NOTE | 2022-12-19 19:30 | Cardiac Catheterization ---
[facility] Data: Music Producer Cardiac Status Clinical evaluation leading to the procedure CAD Presenation: STEMI Anginal Classification: CCS IV Diagnostic Physicians Name: Conrado Ybarra MD Closure Device Recommendations: PCI without planned CABG Cardiac Cath Procedure Full Procedure Date December 19, 2022 Pre-Procedure Diagnosis Pre-Procedure Diagnosis: STEMI AUC Score AUC Score: 9 Post-Procedure Diagnosis Post-Procedure Diagnosis: Severe CAD, Successful PCI and Normal Intracardiac Pressures Procedure(s) Performed Procedure(s) Performed: Coronary Angiography, Left Heart Cath, Drug Eluting Stent and IVUS Canine Service Teacher Conrado Ybarra MD Telecommunications Repairer(s) [place] Estimated Blood Loss Estimated Blood Loss: 25 Medication(s) Medication(s): Clopidogrel, Fentanyl, Heparin, Integrilin, Lidocaine 1%, Nicardipine, Nitroglycerin and Versed Summary of Findings Indication: STEMI/Heart Alert Access: 6 Fr right ulnar artery Catheters: EBU 3.5 guide, diagnostic JR4 Findings: LM -normal caliber, mildly calcified, 20% distal stenosis LAD - Medium caliber, diffuse 50% proximal disease, mid segment angulated with hazy 90% disease. Distal vessel small and tapers prior to apex. Inferior branch of medium bifurcating D3 appears acutely occluded. Circumflex -small caliber, 50 to 60% proximal disease extending into medium caliber OM1. 60% stenosis after takeoff of OM1, remainder of small AV groove circumflex with mild diffuse disease RCA -dominant, large caliber, proximal to mid stents widely patent with minimal in-stent restenosis, mid/distal luminal irregularities. PDA, PLB without significant disease LVEDP -14 -- PCI -- Antithrombotic therapy: Heparin, Integrilin, clopidogrel Procedure: Left main cannulated with EBU 3.5 guide Sewing Machinist 50 wire passed across lesion into distal vessel Mid LAD lesion predilated with 2.5 compliant balloon Aliya IVUS catheter placed into mid LAD. Pullback revealed near occlusive noncalcified plaque/thrombus in mid segment, proximal LAD with eccentric calcified disease up to 50 to 60%. Minimal disease at LAD ostium and left main. Dilated lesion stented with 2.75 x 22 mm Hoskins GRADY Stent post-dilated with 3.0 noncompliant balloon Additional whisper wire navigated into inferior branch of occluded D3 attempted. Unable to pass balloon across stent into D3. Started on IV Integrilin IC vasodilators administered for spasm At completion of case chest pain-free, DESTINY 3 flow through stent, stent well expanded with minimal residual stenosis and no apparent cardiac complications. Inferior branch of D3 remained occluded Arterial Closure: TR band Summary: 1. Acute 90% mid LAD stenosis with 2. Moderate non-culprit coronary artery disease -50 to 60% proximal circumflex extending into OM1 Patent proximal to mid RCA stents with minimal in-stent restenosis 3. Normal intracardiac filling pressure 4. Successful PCI of mid LAD with single drug-eluting stent (2.75 x 22 mm Steven; postdilated with 3.0 NC). Recommendations: Admit to ICU for continued monitoring Loaded with clopidogrel 600 mg in Music Producer Continue dual-antiplatelet therapy for at least 1 year. Continue Integrilin infusion for 12 hours for residual downstream thrombus in branch of diagonal Trend troponins until peak, Check Echo Uptitrate beta-sara/JESE as BP allows High-dose statin Consult cardiac Rehab Hemodynamics Rest Ao:: 123/64/94 Final Ao: 125/69/95 LV: 125/14 Recommendations Recommendations: PCI without planned CABG Specimens Specimens: None Radiation Exposure (mGy) 4746 Contrast (mls) 200 Anesthesia Moderate 5653-9956 Procedural Complication(s) None Disposition ICU I attest to the content of the Intraoperative Record and any orders documented therein. Any exceptions are noted below. [facility] Card Cath Procedure Codes Cardiac Catheterization Procedure 1: Cardiovascular Cath Procedures: 74960 Coronaries and LHC (+/-LV) Therapeutic Services & Ancillary Procedure 1: Cardiovascular Tx and Anc Procedures: 62640 IV Ultrasound (Coronary or Graft) Moderate Sedation Procedure 1: Sedation/Anesthesia: 32825 Mod Sedation by the same physician;Init15 Min Child Age 5 & Up Procedure 2: Sedation/Anesthesia: 04785 Mod Sedation by the same physician; Ea [id number] Minutes Stenting Procedure 1: Cardiovascular Stent Procedures: 03840 Perc transluminal revascularization of acute sub/total occl, aMI PG Care Time/CCT Total # of Minutes Spent Total Time Spent with Patient: Total time spent is greater than 50% in coordination of care (as documented) at patient's floor/unit and/or counseling patient:
--- NOTE | 2022-12-19 19:59 | Critical Care Consultation ---
Date of Consultation December 19, 2022 Assessment & Plan (1) ST elevation (STEMI) myocardial infarction: (2) Hyperlipidemia: (3) Hypertension: (4) Diabetes mellitus, type 2: (5) CAD (coronary artery disease): Plan Reason Critically Ill: 72 YOM with presented to the EMD with chest pain, nausea vomitting. ECG with ST elevations lateral leads- heart alerted and taken urgently to labor/excavator where he received GRADY to mid-LAD. To ICU post cath on DAPT therapy. Neuro - No acute needs CAM ICU: NEGATIVE - alert awake oriented following sedation Cardiac - STEMI, S/P GRADY to mid LAD, CAD, prior PCI to RCA, HTN, HLD - Patient s/p stent placement- on DAPT therapy per cardiology- asa and Plavix, Integrilin infusion completing - Currently pain free- post cath ECG completed no acute changes- no ectopy - Right wrist TR band- per protocol - BB initiated by cardiology Metoprolol tartrate 25mg PO BID, Rosuvastatin continued 5 mg PO, JESE- 2.5mg PO qam continued - ECHO in morning- already ordered - previous smoker - lipid panel and HGBA1c in am Respiratory - No acute needs - wean oxygen as able GI - No acute needs - add H2 while on DAPT- Famotidine 10mg po daily RENAL/LYTES - No acute needs - ICU electrolyte protocol - replete mag - NO acute needs ENDO - DMII - deit heart healthy carb consistent - ICU hyperglycemic protocol- hold metformin and Invokana while inpatient - HGB A1c in am HEME - No acute needs - follow HGB with DAPT therapy ID - No acute needs LINES/IV ACCESS - PIV x2 Continue use of these lines DVT PROPHYLAXIS - SCDs, ASA ambulation DISPO- ICU s/p GRADY stent await ECHO results in AM I have personally spent 40 minutes of critical care time in the direct management of this patient. This is a life/limb threatening event. This includes time spent evaluating patient, direct bedside care, chart review, placing orders, interpretation of diagnostic studies, discussion with consultants, patient, and family members, as well as other required patient management activities. This time is exclusive of all separately billable procedures, and separate from and in addition to any other critical care service time. Thank you for allowing us to participate in the care of this patient. Please refer to my attending physician's documentation for any further recommendations. History of Present Illness Reason for Consultation: STEMI s/p GRADY to mid LAD Requesting Physician: Conrado Ybarra MD Attending Physician: Conrado Ybarra MD History of Present Illness 72 YOM with medical history of: CAD with PCI 2005 (RCA), DMII, HTN, HLD. Patient came to the EMD today following tightness in his throat that occurred while he was trimming his shrubs. He originally thought he inhaled pollen, so he went inside to rest. This progressed to having left sternal chest tightness and was then followed by nausea with vomiting. He then came to the EMD where he had routine labs performed as well as ECG obtained. He was noted have ST elevations in lateral leads and heart alert was called as well as evaluated by cardiology at bedside. He received ASA, was loaded on Brilinta and heparin, received nitroglycerine and morphine. Patient was then taken to the cath suite. He had GRADY placed to mid-lad. Following procedure patient was brought to the ICU with TR band in place. He is currently pain free, pending post cath ECG, trend troponins. Obtain lipid panel and HGB A1c in morning for medical optimization of co-morbids. CODE: FULL CONSULTS: CARDIOLOGY Allergies Allergy/AdvReac Type Severity Reaction Status Date / Time No Known Allergies Allergy Verified 09/10/22 06:10 Home Medications Medication Instructions Recorded Confirmed Type canagliflozin 300 mg tablet 300 mg PO QAM 09/04/22 09/10/22 History (Invokana) dulaglutide 4.5 mg/0.5 mL 4.5 mg subcut 1XD 09/04/22 09/10/22 History subcutaneous pen injector (Trulicity) gabapentin 300 mg capsule 300 mg PO BID 09/04/22 09/10/22 History lisinopril 2.5 mg tablet 2.5 mg PO QAM 09/04/22 09/10/22 History metformin 1,000 mg tablet 1,000 mg PO BID 09/04/22 09/10/22 History metoprolol tartrate 25 mg tablet 25 mg PO BID 09/04/22 09/10/22 History rosuvastatin 5 mg tablet 5 mg PO Q OTHER DAY 09/04/22 09/10/22 History Patient History Medical History CAD (coronary artery disease) Carotid artery stenosis Diabetes mellitus, type 2 Hyperlipidemia Hypertension Myocardial Infarction [facility] 2006, no longer follows with cardio Surgical History History of colonoscopy History of coronary artery stent placement 2006, stents x 2 History of surgery surgery on nose skin lesion-pt unsure Social History Smoking Status: Former smoker Second Hand Exposure: No; Do You Dip or Chew Tobacco: No; Tobacco Cessation Education Requested by Patient: No Hx Alcohol Use: Yes Alcohol type: wine Hx Substance Use: No Preferred Language: Egyptian Communication Ability: Effective Bottle Carrier Required: No Beliefs That Will Affect Care: None Current Living Situation: Spouse Other Information That Helps Us Care for You: No Feels Safe at Home: Yes Safety Concerns: Feels Safe At This Time Assistive Devices: None Review of Systems Review of Systems: REVIEW OF SYSTEMS: Constitutional: No fever, sweats or chills Eyes: No diplopia, no worsening or blurred vision ENT: normal hearing, no trouble swallowing Respiratory: No cough, sputum, dyspnea at rest or on exertion Cardiovascular: (+) chest pain, tightness or palpitations Abdomen: (+) nausea/vomiting- resolved, No pain, diarrhea or constipation Musculoskeletal: No joint pain, calf pain, swelling Neurologic: No weakness, numbness/tingling, or balance problems Psychiatric: No anxiety or depression Skin: No rash or itch Physical Exam Physical Exam: PHYSICAL EXAM: General: awake, alert, no apparent distress Head: Normocephalic, atraumatic ENT: PERRL, EOMI, no pharyngeal exudate, mucous membranes moist Neuro: AAO x 3, speech clear and appropriate, strength intact bilaterally 5/5, sensation intact and equal all extremities and dermatomes, no pronator drift Chest: equal rise and fall of the chest, no accessory muscle use, , Clear to auscultation, on room air, Cardiac: Regular rate and rhythm, telemetry reviewed- NSR no ectopy, skin warm dry, cap refill <3 seconds, peripheral puless +2 no JVD, no murmur, no edema GI: NABS x 4 quadrants, soft, nontender to palpation, no rebound, guarding or tenderness : Spontaneously voiding, no pain, no CVA tenderness, Extremities: Normal inspection, no peripheral edema or erythema, calfs nontender to palpation Psych: Normal mood and affect Skin: TR band to right wrist Results & Data Results & Data Vital Signs (Past 12 Hours) Vital Signs Temp Pulse Pulse Resp BP BP Pulse Ox 12/19/22 19:10 36.9 C 85 18 131/81 88 L 12/19/22 19:10 36.9 C 85 18 108/86 88 L 12/19/22 17:01 86 18 139/84 100 12/19/22 16:32 96 H 18 134/76 99 12/19/22 16:47 104 H 18 126/99 98 12/19/22 16:36 81 12/19/22 16:25 37 C 83 20 164/90 H 98 O2 Del Method O2 Flow Rate 12/19/22 19:10 Room Air 12/19/22 19:10 Room Air 12/19/22 17:01 Nasal Cannula 2 12/19/22 16:32 Nasal Cannula 2 12/19/22 16:47 Nasal Cannula 2 12/19/22 16:36 12/19/22 16:25 Nasal Cannula 2 Laboratory Results Abnormal lab results 12/19/22 12/19/22 12/19/22 Range/Units 16:36 16:36 17:35 WBC 11.84 H (4.8-10.8) K/ul RBC 4.54 L (4.70-6.10) M/uL Hct 40.9 L (42.0-52.0) % MPV 9.0 L (9.4-12.4) fL Neut # (Auto) 7.54 H (1.40-6.50) K/uL [place] # (Auto) 0.99 H (0.11-0.59) K/uL Activ Coag Time Kaolin 360 H (94-140) SECONDS Chloride 108 H (98-107) mmol/L Anion Gap 12 H (3-11) BUN/Creatinine Ratio 23.9 H (10-20) Glucose 169 H (70-99(Fasting)) mg/dl Calcium 7.9 L (8.6-10.3) mg/dl Magnesium 1.6 L (1.7-2.4) mg/dl AST 12 L (13-39) U/L Total Creatine Kinase 24 L (30-223) U/L Diagnostic Findings Chest X-Ray 12/19/22 16:26 XR chest 1V portable CLINICAL HISTORY: Chest pain, nonspecific COMPARISON STUDY: Chest radiograph August 26, 2013. FINDINGS: Lung volumes are normal. Lungs are clear. There is no pneumothorax or pleural effusion. Cardiac size is stable. Mediastinal contours are normal. There is no evidence for pulmonary edema. IMPRESSION: No acute cardiopulmonary findings. No significant change in appearance of the chest. ACT 112: Negative or not required by law. Electronically signed by: Steve Mullins M.D. 12/19/2022 4:59 PM Medications Administered Home Medications canagliflozin 300 mg tablet (Invokana) 300 mg PO QAM 09/04/22 [History Confirmed 09/10/22] dulaglutide 4.5 mg/0.5 mL subcutaneous pen injector (Trulicity) 4.5 mg subcut 1XD 09/04/22 [History Confirmed 09/10/22] gabapentin 300 mg capsule 300 mg PO BID 09/04/22 [History Confirmed 09/10/22] lisinopril 2.5 mg tablet 2.5 mg PO QAM 09/04/22 [History Confirmed 09/10/22] metformin 1,000 mg tablet 1,000 mg PO BID 09/04/22 [History Confirmed 09/10/22] metoprolol tartrate 25 mg tablet 25 mg PO BID 09/04/22 [History Confirmed 09/10/22] rosuvastatin 5 mg tablet 5 mg PO Q OTHER DAY 09/04/22 [History Confirmed 09/10/22] Active Medications Acetaminophen (Acetaminophen 325 Mg Tab) 650 mg PO Q4H PRN PRN Reason: MILD Pain (Scale 1,2,3) Stop: 01/18/23 19:11 Aspirin (Aspirin 81 Mg Ectab) [address] [facility] Stop: 01/19/23 08:59 Clopidogrel Bisulfate (Clopidogrel Bisulfate 75 Mg Tab) [address] [facility] Stop: 01/19/23 08:59 Sodium Chloride (Nss 1000ml) 1,000 mls @ 100 mls/hr IV .Q10H [facility] Stop: 12/20/22 00:14 Eptifibatide (Integrilin) 75 mg in 100 mls @ 15.76 mls/hr IV .Q6H21M [facility]; Protocol Stop: 12/20/22 07:00 Lisinopril (Lisinopril 2.5 Mg Tab) 2.5 mg PO QAM [facility] Stop: 01/19/23 08:59 Metoprolol Tartrate (Metoprolol Tartrate 25 Mg Tab) 25 mg PO BID [facility] Stop: 01/18/23 20:59 Miscellaneous (Icu Protocol For Hyperglycemia) 1 each N/A ACHS [facility] Stop: 12/21/22 20:59 Ondansetron HCl (Ondansetron Inj 2 Mg/Ml 2 Ml Vial) 4 mg IV Q6H PRN PRN Reason: Nausea And Vomiting Stop: 01/18/23 19:11 Rosuvastatin Calcium (Rosuvastatin Calcium 5 Mg Tab) 5 mg PO Q2D@2100 [facility] Stop: 01/18/23 19:29 Coding Level of Care Code 65512 CRITICAL CARE 1ST 30-74M Diagnoses ST elevation (STEMI) myocardial infarction I21.3 Hyperlipidemia E78.5 Hypertension I10 Diabetes mellitus, type 2 E11.9 CAD (coronary artery disease) I25.10
[2022-12-19] MEDS: METOPROLOL TARTRATE 25 MG TAB PO SCH (20:20)
[2022-12-19] MEDS: EPTIFIBATIDE 75 MG/100 ML VIAL IV SCH (20:23)
--- NOTE | 2022-12-19 20:51 | History & Physical Report ---
Date of Service December 19, 2022 Assessment & Plan (1) ST elevation (STEMI) myocardial infarction: Plan: Acute mid LAD stenosis status post PCI hx CAD status post CABG (2005) Home aspirin noncompliance for the last few years hypertension, stable hyperlipidemia on statin Rx DM2 on oral medications, suboptimal control as of recent hemoglobin A1c of 7.8 last November 2022 past tobacco abuse ICU monitoring post PCI Management of cardiac issues as per Cardiology Basal bolus insulin, ISS BG goal 1 40-1 80 appropriate for ICU level of care, carb count coverage DVT prophylaxis. Integrilin as per post PCI orders Full code Text document was generated using [employer] voice recognition software. It may contain grammatical or spelling errors. Kindly contact undersigned for clarification of any documentation item in question. Admission and Anticipated Discharge Date Admission Date: December 19, 2022 History of Present Illness Chief Complaint: Chest pain Primary Care Provider: Ivan Templeton MD History obtained from patient and records. Medical history significant for CAD status post CABG (2005), hypertension, hyperlipidemia, DM2 on oral medications, past tobacco abuse. Last confinement August 2013 for chest pain. ACS ruled out with negative stress test. Patient stopped taking aspirin home Rx 2 years ago because he did not like how it made him feel. Last outpatient follow-up visit with Gali [facility] geographic information systems analyst was in 2017. As per patient, he did not see need to follow-up with geographic information systems analyst because his primary care doctor "was asking me the same things". Patient experienced substernal discomfort without radiation while watching TV today. He earlier did some yard work. Subsequent nausea, emesis symptoms. EMS called by patient's neighbor. Aspirin, nitroglycerin administered by EMS. EKG from EMS shows ST elevation in leads I and aVF V2 V3 and ST depression in leads II, III and aVF. Heart alert called prior to patient's arrival at the ER. Chest pain somewhat improved after morphine administration at the ER. Patient underwent emergent diagnostic cardiac catheterization findings below: 1. Acute 90% mid LAD stenosis with 2. Moderate non-culprit coronary artery disease -50 to 60% proximal circumflex extending into OM1 Patent proximal to mid RCA stents with minimal in-stent restenosis Successful PCI of mid LAD with single drug-eluting stent done. Patient currently complaining of tolerable chest discomfort at the ICU. 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 Allergies Allergy/AdvReac Type Severity Reaction Status Date / Time No Known Allergies Allergy Verified 12/19/22 21:27 Home Medications Medication Instructions Recorded Confirmed Type canagliflozin 300 mg tablet 300 mg PO QAM 09/04/22 12/19/22 History (Invokana) dulaglutide 4.5 mg/0.5 mL 4.5 mg subcut WK 09/04/22 12/19/22 History subcutaneous pen injector (Trulicity) gabapentin 300 mg capsule 300 mg PO [facility] 09/04/22 12/19/22 History lisinopril 2.5 mg tablet 2.5 mg PO QAM 09/04/22 12/19/22 History metformin 1,000 mg tablet 1,000 mg PO BIDM 09/04/22 12/19/22 History metoprolol tartrate 25 mg tablet 25 mg PO BID 09/04/22 12/19/22 History rosuvastatin 5 mg tablet 5 mg PO Q OTHER DAY 09/04/22 12/19/22 History aspirin 81 mg tablet,delayed 81 mg PO DAILY 12/19/22 12/19/22 History release polyethylene glycol 3350 17 gram 17 g PO DIRECTED PRN 12/19/22 12/19/22 History oral powder packet (Miralax) Constipation Past Med/Surg History Medical History CAD (coronary artery disease) Carotid artery stenosis Diabetes mellitus, type 2 Hyperlipidemia Hypertension Myocardial Infarction [facility] 2005, no longer follows with cardio Surgical History History of colonoscopy History of coronary artery stent placement 2005, stents x 2 History of surgery surgery on nose skin lesion-pt unsure Social History Smoking Status: Former smoker Second Hand Exposure: No; Do You Dip or Chew Tobacco: No; Tobacco Cessation Education Requested by Patient: No Hx Alcohol Use: Yes Alcohol type: wine Hx Substance Use: No Preferred Language: Greenlandic Communication Ability: Effective Pipe Line Repairer Required: No Beliefs That Will Affect Care: None Current Living Situation: Spouse Other Information That Helps Us Care for You: No Feels Safe at Home: Yes Safety Concerns: Feels Safe At This Time Assistive Devices: None Review of Systems Review of Systems: As per HPI, all other systems reviewed and negative Physical Exam Physical Exam: GENERAL: Comfortable, obese, pleasant, no respiratory distress SKIN: Normal color, warm HEENT: [place] palpebral conjunctivae, no ptosis, dry buccal mucosa NECK : Supple, short neck, no tenderness CHEST : CTA, no tenderness HEART : RRR, no obvious murmurs ABDOMEN: Some distention, nontender EXTREMITIES : No LE swelling/tenderness, no other conspicuous deformities noted NEUROLOGIC : Coherent, no facial asymmetry, no other gross focality Results & Data Results & Data Vital Signs (Past 12 Hours) Vital Signs Temp Pulse Pulse Resp BP BP Pulse Ox 12/19/22 19:10 36.9 C 85 18 131/81 88 L 12/19/22 19:10 36.9 C 85 18 108/86 88 L 12/19/22 17:01 86 18 139/84 100 12/19/22 16:32 96 H 18 134/76 99 12/19/22 16:47 104 H 18 126/99 98 12/19/22 16:36 81 12/19/22 16:25 37 C 83 20 164/90 H 98 O2 Del Method O2 Flow Rate 12/19/22 19:10 Room Air 12/19/22 19:10 Room Air 12/19/22 17:01 Nasal Cannula 2 12/19/22 16:32 Nasal Cannula 2 12/19/22 16:47 Nasal Cannula 2 12/19/22 16:36 12/19/22 16:25 Nasal Cannula 2 Laboratory Results Laboratory Results WBC 11.84 K/ul (4.8-10.8) H 12/19/22 16:36 RBC 4.54 M/uL (4.70-6.10) L 12/19/22 16:36 Hgb 14.0 g/dl (14.0-18.0) 12/19/22 16:36 Hct 40.9 % (42.0-52.0) L 12/19/22 16:36 MCV 90.1 fL (80.0-100.0) 12/19/22 16:36 MCH 30.8 pg (25.0-34.0) 12/19/22 16:36 MCHC 34.2 g/dL (32.0-36.0) 12/19/22 16:36 RDW Std Deviation 41.3 fL (36.4-46.3) 12/19/22 16:36 RDW Coeff of Darlene 12.5 % (11.5-14.5) 12/19/22 16:36 Plt Count 268 K/uL (130-400) 12/19/22 16:36 MPV 9.0 fL (9.4-12.4) L 12/19/22 16:36 Immature Gran % (Auto) 0.5 % 12/19/22 16:36 Neut % (Auto) 63.7 % 12/19/22 16:36 Lymph % (Auto) 26.1 % 12/19/22 16:36 [place] % (Auto) 8.4 % 12/19/22 16:36 Eos % (Auto) 1.0 % 12/19/22 16:36 Baso % (Auto) 0.3 % 12/19/22 16:36 Neut # (Auto) 7.54 K/uL (1.40-6.50) H 12/19/22 16:36 Lymph # (Auto) 3.09 K/uL (1.2-3.4) 12/19/22 16:36 [place] # (Auto) 0.99 K/uL (0.11-0.59) H 12/19/22 16:36 Eos # (Auto) 0.12 K/uL (0-0.50) 12/19/22 16:36 Baso # (Auto) 0.04 K/uL (0-0.2) 12/19/22 16:36 Immature Gran # (Auto) 0.06 K/uL (0.01-0.20) 12/19/22 16:36 PT 11.7 Seconds (9.0-12.0) 12/19/22 16:36 INR 1.1 (0.9-1.1) 12/19/22 16:36 APTT 21.7 Seconds (21.0-31.0) 12/19/22 16:36 PTT Ratio 0.8 12/19/22 16:36 Activ Coag Time Kaolin 360 SECONDS (94-140) H 12/19/22 17:35 Sodium 142 mmol/L (136-145) 12/19/22 16:36 Potassium 3.7 mmol/L (3.5-5.1) 12/19/22 16:36 Chloride 108 mmol/L (98-107) H 12/19/22 16:36 Carbon Dioxide 22 mmol/L (21-32) 12/19/22 16:36 Anion Gap 12 (3-11) H 12/19/22 16:36 BUN 22 mg/dl (6-23) 12/19/22 16:36 Creatinine 0.92 mg/dl (0.6-1.4) 12/19/22 16:36 Est Cr Clr Drug Dosing 82.1 ml/min 12/19/22 16:36 Est GFR ( Amer) 97.3 ml/min 12/19/22 16:36 Est GFR (Non-Af Amer) 84.0 ml/min 12/19/22 16:36 BUN/Creatinine Ratio 23.9 (10-20) H 12/19/22 16:36 Glucose 169 mg/dl (70-99(Fasting)) H 12/19/22 16:36 Calcium 7.9 mg/dl (8.6-10.3) L 12/19/22 16:36 Magnesium 1.6 mg/dl (1.7-2.4) L 12/19/22 16:36 Total Bilirubin 0.9 mg/dl (0.2-1.0) 12/19/22 16:36 AST 12 U/L (13-39) L 12/19/22 16:36 ALT 12 U/L (7-52) 12/19/22 16:36 Alkaline Phosphatase 56 U/L (34-104) 12/19/22 16:36 Total Creatine Kinase 24 U/L (30-223) L 12/19/22 16:36 Troponin I High Sens 13.1 pg/ml (0-20) 12/19/22 16:36 B-Natriuretic Peptide 16 pg/ml (0-100) 12/19/22 16:36 Total Protein 6.5 gm/dl (6.0-8.3) 12/19/22 16:36 Albumin 4.0 gm/dl (3.4-5.0) 12/19/22 16:36 Globulin 2.5 gm/dl (2.5-4.0) 12/19/22 16:36 Albumin/Globulin Ratio 1.6 (0.9-2) 12/19/22 16:36 Lipase 18 U/L (11-82) 12/19/22 16:36 TSH 0.441 uIu/ml (0.300-4.500) 12/19/22 16:36 SARS-CoV-2, RNA, NAAT NEGATIVE (NEGATIVE) 12/19/22 16:45 Impressions Chest X-Ray 12/19/22 16:26 XR chest 1V portable CLINICAL HISTORY: Chest pain, nonspecific COMPARISON STUDY: Chest radiograph August 26, 2013. FINDINGS: Lung volumes are normal. Lungs are clear. There is no pneumothorax or pleural effusion. Cardiac size is stable. Mediastinal contours are normal. There is no evidence for pulmonary edema. IMPRESSION: No acute cardiopulmonary findings. No significant change in appearance of the chest. ACT 112: Negative or not required by law. Electronically signed by: Steve Mullins M.D. 12/19/2022 4:59 PM Diagnostic Findings EKG as per my interpretation : Rate 80, NSR, normal axis, ST elevation lateral leads, T wave abnormalities inferior leads (1) ST elevation (STEMI) myocardial infarction Involved coronary artery: unspecified coronary artery Qualified Code(s): I21.3 - ST elevation (STEMI) myocardial infarction of unspecified site
[2022-12-19] MEDS: MAGNESIUM SULFATE / D5W 1 GM/100 ML BAG IV SCH ×2 (20:52→23:02)
[2022-12-19] MEDS ORDERED: DEXTROSE 50% 50 ML SYRINGE IV PRN (20:58)
[2022-12-19] MEDS ORDERED: GLUCAGON FOR INJ 1 MG VIAL SQ PRN (20:58)
[2022-12-19] MEDS ORDERED: GLUCOSE 10 TAB/TUBE PO PRN (20:58)
[2022-12-19] MEDS ORDERED: CARBOHYDRATES FOR HYPOGLYCEMIA PO PRN (20:58)
[2022-12-19] MEDS ORDERED: GLUCOSE 40% GEL 15 GM TUBE PO PRN (20:58)
[2022-12-19] MEDS: ICU Protocol for HYPERglycemia SCH (21:40)
[2022-12-19] MEDS: LANTUS PER UNIT CHARGE SQ SCH (21:49)
[2022-12-19] MEDS: INSULIN ASPART PER UNIT CHARGE SC SCH (21:49)
[2022-12-19] MEDS ORDERED: MoRPHine SULFATE 4 MG/ML 1 ML CARP\\VIAL IV PRN (22:00)
[2022-12-19] MEDS ORDERED: traMADol HCL 50 MG TABLET PO PRN (22:00)
[2022-12-19] MEDS ORDERED: PROMETHAZINE HCL 12.5 MG in SODIUM CHLORIDE 0.9% 50 ML IV PRN (22:01)
[2022-12-19] MEDS ORDERED: POLYETHYLENE (MIRALAX) 17 GM PACK PO PRN (22:21)
[2022-12-19] MEDS: GABAPENTIN 300 MG CAP PO SCH (23:02)
[2022-12-20 05:00] LABS: Basophils # (auto) 0.04 K/uL (0-0.2); Basophils % (auto) 0.4 %; Eosinophils # (auto) 0.15 K/uL (0-0.50); Eosinophils % (auto) 1.6 %; Hematocrit (blood only) 37.5 % (42.0-52.0); Hemoglobin 12.8 g/dl (14.0-18.0); Immature Granulocytes # (auto) 0.03 K/uL (0.01-0.20); Immature Granulocytes % (auto) 0.3 %; Lymphocytes # (auto) 3.55 K/uL (1.2-3.4); Lymphocytes % (auto) 38.5 %; Mean Corpuscular Hemoglobin 30.7 pg (25.0-34.0); Mean Corpuscular Hgb Conc 34.1 g/dL (32.0-36.0); Mean Corpuscular Volume 89.9 fL (80.0-100.0); Mean Platelet Volume 9.1 fL (9.4-12.4); Monocytes # (auto) 0.94 K/uL (0.11-0.59); Monocytes % (auto) 10.2 %; Neutrophils # (auto) 4.52 K/uL (1.40-6.50); Platelet Count 228 K/uL (130-400); RDW Coefficient of Variation 12.5 % (11.5-14.5); RDW Standard Deviation 41.1 fL (36.4-46.3); Red Blood Count 4.17 M/uL (4.70-6.10); White Blood Count 9.23 K/ul (4.8-10.8)
[2022-12-20 05:18] LABS: BUN Creatinine Ratio 27.5 (10-20); Calcium 8.2 mg/dl (8.6-10.3); Chol HDL Ratio 3.1 (0-5); Creatinine Clr Calc Pharmacy 109.7 ml/min; Est GFR (African American) 111.5 ml/min; Est GFR (Non-African American) 96.2 ml/min; Magnesium 2.2 mg/dl (1.7-2.4); Phosphorus 4.2 mg/dl (2.5-4.9); Potassium 3.5 mmol/L (3.5-5.1)
[2022-12-20 05:35] LABS: Troponin I High Sensitivity 9915.5 pg/ml (0-20)
[2022-12-20] MEDS: ICU ELECTROLYTE REPLACEMENT PROTOCOL SCH ×2 (05:53→11:27)
[2022-12-20] MEDS: ICU Protocol for HYPERglycemia SCH ×4 (08:00→21:09)
[2022-12-20] MEDS: lisinopril 2.5 MG TAB PO SCH (08:18)
[2022-12-20] MEDS: CLOPIDOGREL BISULFATE 75 MG TAB PO SCH (08:18)
[2022-12-20] MEDS: FAMOTIDINE 10 MG TABLET PO SCH (08:18)
[2022-12-20] MEDS: METOPROLOL TARTRATE 25 MG TAB PO SCH ×2 (08:18→21:07)
[2022-12-20] MEDS: ASPIRIN 81 MG ECTAB PO SCH (08:18)
[2022-12-20] MEDS: INSULIN ASPART PER UNIT CHARGE SC SCH ×4 (08:18→21:10)
[2022-12-20] MEDS: GABAPENTIN 300 MG CAP PO SCH ×2 (08:18→21:07)
[2022-12-20] MEDS: POTASSIUM CHLORIDE CRTAB 20 MEQ TABCR PO SCH ×2 (08:19→12:08)
--- NOTE | 2022-12-20 08:25 | Critical Care Progress Note ---
Date of Service December 20, 2022 Assessment & Plan (1) ST elevation (STEMI) myocardial infarction: (2) Diabetes mellitus, type 2: (3) CAD (coronary artery disease): (4) History of coronary artery disease: (5) Diabetes: (6) Hypertension: (7) Hyperlipidemia: Plan Reason Critically Ill: 72 YOM with presented to the EMD with chest pain, nausea vomitting. 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 To ICU post cath on DAPT therapy. Neuro - No acute needs CAM ICU: NEGATIVE - alert awake oriented following sedation Cardiac -STEMI, S/P GRADY to mid LAD, CAD, prior PCI to RCA, HTN, HLD - Patient s/p stent placement- on DAPT therapy per cardiology- asa and Plavix, s/p Integrilin infusion -Continue with metoprolol tartrate 25mg PO BID, Rosuvastatin 5 mg PO, lisinopril 2.5 mg - Follow-up echo - previous smoker - lipid panel and HGBA1c in am Respiratory - No acute needs -- Ex-smoker GI - No acute needs Pepcid RENAL/LYTES - No acute needs Monitor BUNs/creatinine - NO acute needs ENDO -DMII Continue with ICU hypoglycemia protocol HEME - No acute needs -Monitor H&H ID - No acute needs --Prophylaxis VTE:IPC GI: Pepcid Lines: Peripheral Diet: Cardiac Plan: In/out: -1.7 L, urine output 3300 Potassium being replaced Continue with dual antiplatelet therapy along with beta-sara, lisinopril and statin Patient hemodynamically stable to be downgrade to medical floor Case was discussed with Dr. Be Please note the above document was generated using voice recognition software. It may contain grammatical, syntax or spelling errors.Any formal questions or concerns about the content, text or information contained within the body of this dictation should be directly addressed to the provider for clarification. Admission and Anticipated Discharge Date Admission Date: December 19, 2022 Subjective Patient seen and examined at bedside. No acute distress, no adverse events overnight Denies any chest pain, no shortness of breath, no headache, no nausea, no vomiting Fair appetite. Denies any dizziness Review of Systems Review of Systems: All systems reviewed & are unremarkable except as noted in Subjective Physical Exam Physical Exam: Constitutional: No acute distress HEENT: EOMI, PERRLA Respiratory system: Good air entry bilaterally, no wheeze, no rhonchi, no crackles CVS: S1-S2 positive, no murmurs or gallops Abdomen: Soft, nontender, nondistended, positive bowel sounds x4 Extremities: +2 pulses bilaterally radialis/ dorsalis pedis, no cyanosis, no edema Neuro: Awake alert oriented x3 Psych: Normal mood and affect G/U: No [place] Skin: no rashes, warm and dry Lymphatic: no cervical or axillary lymphadenopathy Results & Data Results & Data Vital Signs (Past 12 Hours) Vital Signs Temp Pulse Resp BP Pulse Ox O2 Del Method 12/20/22 08:00 Room Air 12/20/22 07:00 67 16 113/68 96 Room Air 12/20/22 07:53 36.5 C 12/20/22 07:09 36.6 C 12/20/22 01:30 70 22 93 12/20/22 01:00 71 15 92 12/20/22 00:30 75 14 91 12/20/22 00:01 76 15 94 12/20/22 00:01 92/75 L 12/20/22 00:00 85 17 94 12/19/22 23:30 82 6 L 94 12/19/22 23:00 86 20 94 12/19/22 23:00 134/75 12/19/22 22:30 85 20 94 12/19/22 22:15 76 19 95 12/19/22 22:00 93 H 23 98 12/19/22 22:00 137/79 12/19/22 21:45 100 H 18 90 12/19/22 21:30 96 H 18 97 12/19/22 21:30 142/89 H 12/19/22 21:15 90 23 99 12/19/22 21:00 90 18 99 12/19/22 20:45 73 14 99 12/19/22 20:30 84 16 100 12/19/22 20:30 127/85 Laboratory Results 12/20/22 04:09 12/20/22 04:09 Coding Level of Care Code 35153 SUB INP/OBS CARE 3/50MIN Diagnoses ST elevation (STEMI) myocardial infarction I21.3 Involved coronary artery: unspecified coronary artery Diabetes mellitus, type 2 E11.9 CAD (coronary artery disease) I25.10 History of coronary artery disease Z86.79 Diabetes E11.9 Hypertension I10 Hyperlipidemia E78.5 (1) ST elevation (STEMI) myocardial infarction Involved coronary artery: unspecified coronary artery Qualified Code(s): I21.3 - ST elevation (STEMI) myocardial infarction of unspecified site
[2022-12-20 08:56] LABS: Estimated Average Glucose 183 mg/dl
[2022-12-20] MEDS ORDERED: PANTOprazole 40 MG TAB PO SCH (09:00)
--- NOTE | 2022-12-20 10:22 | Cardiology Consultation ---
Date of Consultation December 20, 2022 Assessment & Plan (1) ST elevation (STEMI) myocardial infarction: (2) Diabetes mellitus, type 2: (3) Hypertension: (4) Hyperlipidemia: Plan The patient is clinically stable after going to the [facility] and having a stent placedin the LAD. I would continue his current medications for now and if he is well and able to ambulate on his own then he can be discharged tomorrow. History of Present Illness Attending Physician: Froilan Be MD History of Present Illness This is a 72-year-old male patient with a history of coronary artery disease. He underwent a PTCA of the right coronary artery in 2005. Unfortunately, he has not been seen in our practice since 2017. He has a history of chronic angina, hyperlipidemia, hypertension and diabetes. He was admitted post STEMI from the [facility] after receiving a stent in the LAD.. Today he is tired but feeling well. No additional chest pain since admission. All questions were answered. I reviewed the patient's resting echocardiogram and there are minimal wall motion abnormalities of the distal LAD distribution and otherwise normal LV function. Allergies Allergy/AdvReac Type Severity Reaction Status Date / Time No Known Allergies Allergy Verified 12/19/22 21:27 Home Medications Medication Instructions Recorded Confirmed Type canagliflozin 300 mg tablet 300 mg PO QAM 09/04/22 12/19/22 History (Invokana) dulaglutide 4.5 mg/0.5 mL 4.5 mg subcut WK 09/04/22 12/19/22 History subcutaneous pen injector (Trulicity) gabapentin 300 mg capsule 300 mg PO AMHS 09/04/22 12/19/22 History lisinopril 2.5 mg tablet 2.5 mg PO QAM 09/04/22 12/19/22 History metformin 1,000 mg tablet 1,000 mg PO BIDM 09/04/22 12/19/22 History metoprolol tartrate 25 mg tablet 25 mg PO BID 09/04/22 12/19/22 History rosuvastatin 5 mg tablet 5 mg PO Q OTHER DAY 09/04/22 12/19/22 History aspirin 81 mg tablet,delayed 81 mg PO DAILY 12/19/22 12/19/22 History release polyethylene glycol 3350 17 gram 17 g PO DIRECTED PRN 12/19/22 12/19/22 History oral powder packet (Miralax) Constipation Patient History Medical History CAD (coronary artery disease) Carotid artery stenosis Diabetes mellitus, type 2 Hyperlipidemia Hypertension Myocardial Infarction [facility] 2006, no longer follows with cardio Surgical History History of colonoscopy History of coronary artery stent placement 2006, stents x 2 History of surgery surgery on nose skin lesion-pt unsure Social History Smoking Status: Former smoker Second Hand Exposure: No; Do You Dip or Chew Tobacco: No; Tobacco Cessation Education Requested by Patient: No Hx Alcohol Use: Yes Alcohol type: wine Hx Substance Use: No Preferred Language: Sudanese Communication Ability: Effective 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 All other 10 point review of systems are negative. Physical Exam Physical Exam: General: no acute distress and stated age Head: normocephalic, no masses, lesions, tenderness or abnormalities Eyes: conjunctiva are pink and non-injected, sclera clear Neck: supple, no adenopathy, no bruits, normal jugular venous pulse, no hepatojugular reflux Chest: normal shape and normal respiratory effort Lungs: clear to auscultation and percussion Cardiac Exam: - regular rate & rhythm, no murmurs gallops or rubs - normal S1, normal S2 Pulses: 2(+) throughout Abdomen: abdomen soft, non-tender, no abnormal masses and no hepatosplenomegaly Musculoskeletal: no gait disturbance, no joint inflammation, no deforming arthritis Extremities: no edema and no cyanosis Neuro: grossly normal exam Results & Data Vital Signs (Past 12 Hours) Vital Signs Temp Pulse Resp BP Pulse Ox O2 Del Method 12/20/22 08:00 76 16 105/80 95 Room Air 12/20/22 08:00 Room Air 12/20/22 07:00 67 16 113/68 96 Room Air 12/20/22 07:53 36.5 C 12/20/22 07:09 36.6 C 12/20/22 01:30 70 22 93 12/20/22 01:00 71 15 92 12/20/22 00:30 75 14 91 12/20/22 00:01 76 15 94 12/20/22 00:01 92/75 L 12/20/22 00:00 85 17 94 12/19/22 23:30 82 6 L 94 12/19/22 23:00 86 20 94 12/19/22 23:00 134/75 12/19/22 22:30 85 20 94 Laboratory Results Laboratory Results - last 24 hr 12/19/22 12/19/22 12/19/22 16:36 16:36 16:36 WBC 11.84 H RBC 4.54 L Hgb 14.0 Hct 40.9 L MCV 90.1 MCH 30.8 MCHC 34.2 RDW Std Deviation 41.3 RDW Coeff of Darlene 12.5 Plt Count 268 MPV 9.0 L Immature Gran % (Auto) 0.5 Neut % (Auto) 63.7 Lymph % (Auto) 26.1 [place] % (Auto) 8.4 Eos % (Auto) 1.0 Baso % (Auto) 0.3 Neut # (Auto) 7.54 H Lymph # (Auto) 3.09 [place] # (Auto) 0.99 H Eos # (Auto) 0.12 Baso # (Auto) 0.04 Immature Gran # (Auto) 0.06 PT 11.7 INR 1.1 APTT 21.7 PTT Ratio 0.8 Activ Coag Time Kaolin Sodium 142 Potassium 3.7 Chloride 108 H Carbon Dioxide 22 Anion Gap 12 H BUN 22 Creatinine 0.92 Est Cr Clr Drug Dosing 82.1 Est GFR ( Amer) 97.3 Est GFR (Non-Af Amer) 84.0 BUN/Creatinine Ratio 23.9 H Glucose 169 H POC Glucose Estimat Average Glucose Hemoglobin A1c Calcium 7.9 L Phosphorus Magnesium 1.6 L Total Bilirubin 0.9 AST 12 L ALT 12 Alkaline Phosphatase 56 Total Creatine Kinase 24 L Troponin I High Sens 13.1 B-Natriuretic Peptide Total Protein 6.5 Albumin 4.0 Globulin 2.5 Albumin/Globulin Ratio 1.6 Triglycerides Cholesterol LDL Cholesterol, Calc VLDL Cholesterol, Calc HDL Cholesterol Cholesterol/HDL Ratio Lipase 18 TSH Nasal Screen MRSA (PCR) SARS-CoV-2, RNA, NAAT 12/19/22 12/19/22 12/19/22 16:36 16:36 16:45 WBC RBC Hgb Hct MCV MCH MCHC RDW Std Deviation RDW Coeff of Darlene Plt Count MPV Immature Gran % (Auto) Neut % (Auto) Lymph % (Auto) [place] % (Auto) Eos % (Auto) Baso % (Auto) Neut # (Auto) Lymph # (Auto) [place] # (Auto) Eos # (Auto) Baso # (Auto) Immature Gran # (Auto) PT INR APTT PTT Ratio Activ Coag Time Kaolin Sodium Potassium Chloride Carbon Dioxide Anion Gap BUN Creatinine Est Cr Clr Drug Dosing Est GFR ( Amer) Est GFR (Non-Af Amer) BUN/Creatinine Ratio Glucose POC Glucose Estimat Average Glucose Hemoglobin A1c Calcium Phosphorus Magnesium Total Bilirubin AST ALT Alkaline Phosphatase Total Creatine Kinase Troponin I High Sens B-Natriuretic Peptide 16 Total Protein Albumin Globulin Albumin/Globulin Ratio Triglycerides Cholesterol LDL Cholesterol, Calc VLDL Cholesterol, Calc HDL Cholesterol Cholesterol/HDL Ratio Lipase TSH 0.441 Nasal Screen MRSA (PCR) SARS-CoV-2, RNA, NAAT NEGATIVE 12/19/22 12/19/22 12/19/22 17:35 19:00 20:57 WBC RBC Hgb Hct MCV MCH MCHC RDW Std Deviation RDW Coeff of Darlene Plt Count MPV Immature Gran % (Auto) Neut % (Auto) Lymph % (Auto) [place] % (Auto) Eos % (Auto) Baso % (Auto) Neut # (Auto) Lymph # (Auto) [place] # (Auto) Eos # (Auto) Baso # (Auto) Immature Gran # (Auto) PT INR APTT PTT Ratio Activ Coag Time Kaolin 360 H Sodium Potassium Chloride Carbon Dioxide Anion Gap BUN Creatinine Est Cr Clr Drug Dosing Est GFR ( Amer) Est GFR (Non-Af Amer) BUN/Creatinine Ratio Glucose POC Glucose 206 H Estimat Average Glucose Hemoglobin A1c Calcium Phosphorus Magnesium Total Bilirubin AST ALT Alkaline Phosphatase Total Creatine Kinase Troponin I High Sens B-Natriuretic Peptide Total Protein Albumin Globulin Albumin/Globulin Ratio Triglycerides Cholesterol LDL Cholesterol, Calc VLDL Cholesterol, Calc HDL Cholesterol Cholesterol/HDL Ratio Lipase TSH Nasal Screen MRSA (PCR) Negative SARS-CoV-2, RNA, NAAT 12/20/22 12/20/22 12/20/22 04:09 04:09 04:09 WBC 9.23 RBC 4.17 L Hgb 12.8 L Hct 37.5 L MCV 89.9 MCH 30.7 MCHC 34.1 RDW Std Deviation 41.1 RDW Coeff of Darlene 12.5 Plt Count 228 MPV 9.1 L Immature Gran % (Auto) 0.3 Neut % (Auto) 49.0 Lymph % (Auto) 38.5 [place] % (Auto) 10.2 Eos % (Auto) 1.6 Baso % (Auto) 0.4 Neut # (Auto) 4.52 Lymph # (Auto) 3.55 H [place] # (Auto) 0.94 H Eos # (Auto) 0.15 Baso # (Auto) 0.04 Immature Gran # (Auto) 0.03 PT INR APTT PTT Ratio Activ Coag Time Kaolin Sodium 138 Potassium 3.5 Chloride 105 Carbon Dioxide 25 Anion Gap 8 BUN 19 Creatinine 0.69 Est Cr Clr Drug Dosing 109.7 Est GFR ( Amer) 111.5 Est GFR (Non-Af Amer) 96.2 BUN/Creatinine Ratio 27.5 H Glucose 84 POC Glucose Estimat Average Glucose 183 Hemoglobin A1c 8.0 H Calcium 8.2 L Phosphorus 4.2 Magnesium 2.2 Total Bilirubin AST ALT Alkaline Phosphatase Total Creatine Kinase Troponin I High Sens 9915.5 H* D B-Natriuretic Peptide Total Protein Albumin Globulin Albumin/Globulin Ratio Triglycerides 154 H Cholesterol 112 LDL Cholesterol, Calc 45 VLDL Cholesterol, Calc 31 H HDL Cholesterol 36 Cholesterol/HDL Ratio 3.1 Lipase TSH Nasal Screen MRSA (PCR) SARS-CoV-2, RNA, NAAT 12/20/22 12/20/22 07:16 11:21 WBC RBC Hgb Hct MCV MCH MCHC RDW Std Deviation RDW Coeff of Darlene Plt Count MPV Immature Gran % (Auto) Neut % (Auto) Lymph % (Auto) [place] % (Auto) Eos % (Auto) Baso % (Auto) Neut # (Auto) Lymph # (Auto) [place] # (Auto) Eos # (Auto) Baso # (Auto) Immature Gran # (Auto) PT INR APTT PTT Ratio Activ Coag Time Kaolin Sodium Potassium Chloride Carbon Dioxide Anion Gap BUN Creatinine Est Cr Clr Drug Dosing Est GFR ( Amer) Est GFR (Non-Af Amer) BUN/Creatinine Ratio Glucose POC Glucose 143 H 147 H Estimat Average Glucose Hemoglobin A1c Calcium Phosphorus Magnesium Total Bilirubin AST ALT Alkaline Phosphatase Total Creatine Kinase Troponin I High Sens B-Natriuretic Peptide Total Protein Albumin Globulin Albumin/Globulin Ratio Triglycerides Cholesterol LDL Cholesterol, Calc VLDL Cholesterol, Calc HDL Cholesterol Cholesterol/HDL Ratio Lipase TSH Nasal Screen MRSA (PCR) SARS-CoV-2, RNA, NAAT Medications Administered Current Inpatient Medications Acetaminophen (Acetaminophen 325 Mg Tab) 650 mg PO Q4H PRN PRN Reason: MILD Pain (Scale 1,2,3) Stop: 01/18/23 19:11 Last Admin: 12/19/22 21:48 Dose: 650 mg Aspirin (Aspirin 81 Mg Ectab) [facility] Stop: 01/19/23 08:59 Last Admin: 12/20/22 08:18 Dose: 81 mg Clopidogrel Bisulfate (Clopidogrel Bisulfate 75 Mg Tab) [facility] [place] Stop: 01/19/23 08:59 Last Admin: 12/20/22 08:18 Dose: 75 mg Dextrose (Dextrose 50% 50 Ml Syringe) 25 - 50 ml IV UD PRN; Protocol PRN Reason: Hypoglycemia Protocol Stop: 01/18/23 20:57 Famotidine (Famotidine 10 Mg Tablet) [facility] [place] Stop: 01/19/23 08:59 Last Admin: 12/20/22 08:18 Dose: 10 mg Gabapentin (Gabapentin 300 Mg Cap) 300 mg PO BID [facility] Stop: 01/18/23 22:24 Last Admin: 12/20/22 08:18 Dose: 300 mg Glucagon (Glucagon For Inj 1 Mg Vial) 1 mg SQ UD PRN; Protocol PRN Reason: Hypoglycemia Protocol Stop: 01/18/23 20:57 Glucose (Glucose 10 Tab/Tube) 4 - 8 tab PO UD PRN; Protocol PRN Reason: Hypoglycemia Treatment Stop: 01/18/23 20:57 Glucose (Glucose 40% Gel 15 Gm Tube) 15 - 30 gm PO UD PRN; Protocol PRN Reason: Hypoglycemia Protocol Stop: 01/18/23 20:57 Promethazine HCl 12.5 mg/ (Sodium Chloride) 50.5 mls @ 202 mls/hr IV Q6H PRN PRN Reason: Nausea And Vomiting Stop: 01/18/23 22:00 Insulin Aspart (Insulin Aspart Per Unit Charge) 0 units SC ACHS [facility] Stop: 01/18/23 20:59 Last Admin: 12/20/22 12:08 Dose: 5 units Insulin Glargine (Lantus Per Unit Charge) 5 units SQ HS [facility] Stop: 01/18/23 21:09 Last Admin: 12/19/22 21:49 Dose: 5 units Lisinopril (Lisinopril 2.5 Mg Tab) 2.5 mg PO QAM [facility] Stop: 01/19/23 08:59 Last Admin: 12/20/22 08:18 Dose: 2.5 mg Metoprolol Tartrate (Metoprolol Tartrate 25 Mg Tab) 25 mg PO BID [facility] Stop: 01/18/23 20:59 Last Admin: 12/20/22 08:18 Dose: 25 mg Miscellaneous (Icu Protocol For Hyperglycemia) 1 each N/A ACHS [facility] Stop: 12/21/22 20:59 Last Admin: 12/20/22 11:27 Dose: Not Given Miscellaneous (Icu Electrolyte Replacement Protocol) 1 each N/A BID@06,18 [facility]; Protocol Stop: 12/27/22 05:59 Last Admin: 12/20/22 11:27 Dose: Not Given Miscellaneous (Carbohydrates For Hypoglycemia ) 15 - 30 gm PO UD PRN PRN Reason: Hypoglycemia Protocol Stop: 01/18/23 20:57 Morphine Sulfate (Morphine Sulfate 4 Mg/Ml 1 Ml Carp\Vial) 4 mg IV Q4H PRN PRN Reason: Pain Stop: 01/02/23 21:59 Last Admin: 12/19/22 23:01 Dose: 4 mg Ondansetron HCl (Ondansetron Inj 2 Mg/Ml 2 Ml Vial) 4 mg IV Q6H PRN PRN Reason: Nausea And Vomiting Stop: 01/18/23 19:11 Last Admin: 12/19/22 21:48 Dose: 4 mg Polyethylene Glycol (Polyethylene (Miralax) 17 Gm Pack) 17 gm PO DAILY PRN PRN Reason: Constipation Stop: 01/18/23 22:20 Rosuvastatin Calcium (Rosuvastatin Calcium 5 Mg Tab) 5 mg PO Q2D@2100 [facility] Stop: 01/18/23 19:29 Last Admin: 12/19/22 20:20 Dose: 5 mg Tramadol HCl (Tramadol Hcl 50 Mg Tablet) 25 - 50 mg PO Q4H PRN PRN Reason: Pain Stop: 01/18/23 21:59 (1) ST elevation (STEMI) myocardial infarction Involved coronary artery: unspecified coronary artery Qualified Code(s): I21.3 - ST elevation (STEMI) myocardial infarction of unspecified site
--- NOTE | 2022-12-20 11:19 | Hospitalist Progress Note ---
Date of Service December 20, 2022 Assessment & Plan (1) ST elevation (STEMI) myocardial infarction: Plan: Acute mid LAD stenosis status post PCI Past medical history of hypertension, CAD status post right coronary artery PTCA in 2005. Presented with acute onset of chest pain. Found to have STEMI; Underwent cardiac cath on December 19, 2022; mid LAD stenosis status post PCI Admitted to ICU following the procedure. Telemetry overnight did not show any significant events. Labs reviewed; potassium 3.5; repleted Echocardiogram; EF of 60 to 65%; mild hypokinesis of distal anterior wall. On DAPT, rosuvastatin, lisinopril and metoprolol. Chronic conditions; Hypertensionstable ; Blood pressure within normal limits on lisinopril and metoprolol. Hyperlipidemiaon statin Type 2 diabetes mellitussuboptimal control with A1c of 7.8 on November 09, 2022. Please note the above document was generated using voice recognition software. It may contain grammatical, syntax or spelling errors. Any formal questions or concerns about the content, text or information contained within the body of this dictation should be directly addressed to the provider for clarification Admission and Anticipated Discharge Date Admission Date: December 19, 2022 Subjective Patient seen and examined in the ICU. Is sitting up on the chair; not in any distress. He denies any recurrence of chest pain. He is saturating well on room air. Review of Systems Review of Systems: All systems reviewed & are unremarkable except as noted in Subjective Physical Exam Physical Exam: Constitutional: WD/WN, vitals as above, NAD, sitting up in bed, pleasant, conversing easily Respiratory: normal respiratory effort, lungs clear to auscultation, no wheeze, rales, rhonchi. Normal insp/exp effort, no accessory muscle use Cardiovascular: RRR, no murmur, no edema Vessels: no JVD or carotid bruit Chest: normal inspection of chest Abdomen: normal bowel sounds, soft, nontender, no hepatosplenomegaly Musculoskeletal: no cyanosis or clubbing, extremities motor strength 5/5 Skin: no rashes, warm and dry normal turgor Neurologic: PERRL, EOMI, accommodation nl, no face palsy, no dysarthria CN's II- XI intact bilaterally and moves all extremities Psychiatric: A+Ox3, euthymic affect Lymphatic: no cervical or axillary lymphadenopathy : deferred Results & Data Results & Data Vital Signs (Past 12 Hours) Vital Signs Temp Pulse Resp BP Pulse Ox O2 Del Method 12/20/22 08:00 76 16 105/80 95 Room Air 12/20/22 08:00 Room Air 12/20/22 07:00 67 16 113/68 96 Room Air 12/20/22 07:53 36.5 C 12/20/22 07:09 36.6 C 12/20/22 01:30 70 22 93 12/20/22 01:00 71 15 92 12/20/22 00:30 75 14 91 12/20/22 00:01 76 15 94 12/20/22 00:01 92/75 L 12/20/22 00:00 85 17 94 12/19/22 23:30 82 6 L 94 Laboratory Results Laboratory Results WBC 9.23 K/ul (4.8-10.8) 12/20/22 04:09 RBC 4.17 M/uL (4.70-6.10) L 12/20/22 04:09 Hgb 12.8 g/dl (14.0-18.0) L 12/20/22 04:09 Hct 37.5 % (42.0-52.0) L 12/20/22 04:09 MCV 89.9 fL (80.0-100.0) 12/20/22 04:09 MCH 30.7 pg (25.0-34.0) 12/20/22 04:09 MCHC 34.1 g/dL (32.0-36.0) 12/20/22 04:09 RDW Std Deviation 41.1 fL (36.4-46.3) 12/20/22 04:09 RDW Coeff of Darlene 12.5 % (11.5-14.5) 12/20/22 04:09 Plt Count 228 K/uL (130-400) 12/20/22 04:09 MPV 9.1 fL (9.4-12.4) L 12/20/22 04:09 Immature Gran % (Auto) 0.3 % 12/20/22 04:09 Neut % (Auto) 49.0 % 12/20/22 04:09 Lymph % (Auto) 38.5 % 12/20/22 04:09 [place] % (Auto) 10.2 % 12/20/22 04:09 Eos % (Auto) 1.6 % 12/20/22 04:09 Baso % (Auto) 0.4 % 12/20/22 04:09 Neut # (Auto) 4.52 K/uL (1.40-6.50) 12/20/22 04:09 Lymph # (Auto) 3.55 K/uL (1.2-3.4) H 12/20/22 04:09 [place] # (Auto) 0.94 K/uL (0.11-0.59) H 12/20/22 04:09 Eos # (Auto) 0.15 K/uL (0-0.50) 12/20/22 04:09 Baso # (Auto) 0.04 K/uL (0-0.2) 12/20/22 04:09 Immature Gran # (Auto) 0.03 K/uL (0.01-0.20) 12/20/22 04:09 PT 11.7 Seconds (9.0-12.0) 12/19/22 16:36 INR 1.1 (0.9-1.1) 12/19/22 16:36 APTT 21.7 Seconds (21.0-31.0) 12/19/22 16:36 PTT Ratio 0.8 12/19/22 16:36 Activ Coag Time Kaolin 360 SECONDS (94-140) H 12/19/22 17:35 Sodium 138 mmol/L (136-145) 12/20/22 04:09 Potassium 3.5 mmol/L (3.5-5.1) 12/20/22 04:09 Chloride 105 mmol/L (98-107) 12/20/22 04:09 Carbon Dioxide 25 mmol/L (21-32) 12/20/22 04:09 Anion Gap 8 (3-11) 12/20/22 04:09 BUN 19 mg/dl (6-23) 12/20/22 04:09 Creatinine 0.69 mg/dl (0.6-1.4) 12/20/22 04:09 Est Cr Clr Drug Dosing 109.7 ml/min 12/20/22 04:09 Est GFR ( Amer) 111.5 ml/min 12/20/22 04:09 Est GFR (Non-Af Amer) 96.2 ml/min 12/20/22 04:09 BUN/Creatinine Ratio 27.5 (10-20) H 12/20/22 04:09 Glucose 84 mg/dl (70-99(Fasting)) 12/20/22 04:09 POC Glucose 143 mg/dl (70-99) H 12/20/22 07:16 Estimat Average Glucose 183 mg/dl 12/20/22 04:09 Hemoglobin A1c 8.0 % (4.5-5.6) H 12/20/22 04:09 Calcium 8.2 mg/dl (8.6-10.3) L 12/20/22 04:09 Phosphorus 4.2 mg/dl (2.5-4.9) 12/20/22 04:09 Magnesium 2.2 mg/dl (1.7-2.4) 12/20/22 04:09 Total Bilirubin 0.9 mg/dl (0.2-1.0) 12/19/22 16:36 AST 12 U/L (13-39) L 12/19/22 16:36 ALT 12 U/L (7-52) 12/19/22 16:36 Alkaline Phosphatase 56 U/L (34-104) 12/19/22 16:36 Total Creatine Kinase 24 U/L (30-223) L 12/19/22 16:36 Troponin I High Sens 9915.5 pg/ml (0-20) H* D 12/20/22 04:09 B-Natriuretic Peptide 16 pg/ml (0-100) 12/19/22 16:36 Total Protein 6.5 gm/dl (6.0-8.3) 12/19/22 16:36 Albumin 4.0 gm/dl (3.4-5.0) 12/19/22 16:36 Globulin 2.5 gm/dl (2.5-4.0) 12/19/22 16:36 Albumin/Globulin Ratio 1.6 (0.9-2) 12/19/22 16:36 Triglycerides 154 mg/dl (0-150) H 12/20/22 04:09 Cholesterol 112 mg/dl (0-200) 12/20/22 04:09 LDL Cholesterol, Calc 45 mg/dl 12/20/22 04:09 VLDL Cholesterol, Calc 31 mg/dl (0-30) H 12/20/22 04:09 HDL Cholesterol 36 mg/dl 12/20/22 04:09 Cholesterol/HDL Ratio 3.1 (0-5) 12/20/22 04:09 Lipase 18 U/L (11-82) 12/19/22 16:36 TSH 0.441 uIu/ml (0.300-4.500) 12/19/22 16:36 Nasal Screen MRSA (PCR) Negative (Negative) 12/19/22 19:00 SARS-CoV-2, RNA, NAAT NEGATIVE (NEGATIVE) 12/19/22 16:45 Impressions Chest X-Ray 12/19/22 16:26 XR chest 1V portable CLINICAL HISTORY: Chest pain, nonspecific COMPARISON STUDY: Chest radiograph August 26, 2013. FINDINGS: Lung volumes are normal. Lungs are clear. There is no pneumothorax or pleural effusion. Cardiac size is stable. Mediastinal contours are normal. There is no evidence for pulmonary edema. IMPRESSION: No acute cardiopulmonary findings. No significant change in appearance of the chest. ACT 112: Negative or not required by law. Electronically signed by: Steve Mullins M.D. 12/19/2022 4:59 PM (1) ST elevation (STEMI) myocardial infarction Involved coronary artery: unspecified coronary artery Qualified Code(s): I21.3 - ST elevation (STEMI) myocardial infarction of unspecified site
[2022-12-20] MEDS: EPTIFIBATIDE 75 MG/100 ML VIAL IV SCH (11:27)
[2022-12-20] MEDS: LANTUS PER UNIT CHARGE SQ SCH (21:09)
[2022-12-21] MEDS: ICU ELECTROLYTE REPLACEMENT PROTOCOL SCH ×2 (06:15→07:39)
[2022-12-21 06:31] LABS: Basophils # (auto) 0.05 K/uL (0-0.2); Basophils % (auto) 0.6 %; Eosinophils # (auto) 0.25 K/uL (0-0.50); Eosinophils % (auto) 3.1 %; Hematocrit (blood only) 41.6 % (42.0-52.0); Hemoglobin 14.1 g/dl (14.0-18.0); Immature Granulocytes # (auto) 0.01 K/uL (0.01-0.20); Immature Granulocytes % (auto) 0.1 %; Lymphocytes % (auto) 37.8 %; Mean Corpuscular Hemoglobin 30.3 pg (25.0-34.0); Mean Corpuscular Hgb Conc 33.9 g/dL (32.0-36.0); Mean Corpuscular Volume 89.5 fL (80.0-100.0); Monocytes # (auto) 0.79 K/uL (0.11-0.59); Monocytes % (auto) 9.9 %; Neutrophils # (auto) 3.84 K/uL (1.40-6.50); Neutrophils % (auto) 48.5 %; Platelet Count 227 K/uL (130-400); RDW Coefficient of Variation 12.5 % (11.5-14.5); RDW Standard Deviation 40.9 fL (36.4-46.3); Red Blood Count 4.65 M/uL (4.70-6.10); White Blood Count 7.94 K/ul (4.8-10.8)
[2022-12-21 07:02] LABS: Calcium 9.1 mg/dl (8.6-10.3); Creatinine Clr Calc Pharmacy 102.3 ml/min; Est GFR (African American) 108.3 ml/min; Est GFR (Non-African American) 93.5 ml/min; Magnesium 1.9 mg/dl (1.7-2.4); Phosphorus 3.6 mg/dl (2.5-4.9); Potassium 4.6 mmol/L (3.5-5.1)
[2022-12-21] MEDS: ICU Protocol for HYPERglycemia SCH ×2 (07:39→09:35)
[2022-12-21] MEDS: INSULIN ASPART PER UNIT CHARGE SC SCH ×2 (07:39→11:39)
[2022-12-21] MEDS: METOPROLOL TARTRATE 25 MG TAB PO SCH (09:34)
[2022-12-21] MEDS: FAMOTIDINE 10 MG TABLET PO SCH (09:35)
[2022-12-21] MEDS: CLOPIDOGREL BISULFATE 75 MG TAB PO SCH (09:35)
[2022-12-21] MEDS: ASPIRIN 81 MG ECTAB PO SCH (09:35)
[2022-12-21] MEDS: lisinopril 2.5 MG TAB PO SCH (09:35)
[2022-12-21] MEDS: GABAPENTIN 300 MG CAP PO SCH (09:35)
--- NOTE | 2022-12-21 12:23 | Discharge Summary ---
Date of Service December 21, 2022 Admission HPI Per Admitting Provider History obtained from patient and records. Medical history significant for CAD status post CABG (2005), hypertension, hyperlipidemia, DM2 on oral medications, past tobacco abuse. Last confinement August 2013 for chest pain. ACS ruled out with negative stress test. Patient stopped taking aspirin home Rx 2 years ago because he did not like how it made him feel. Last outpatient follow-up visit with Gali [facility] development officer was in 2017. As per patient, he did not see need to follow-up with development officer because his primary care doctor "was asking me the same things". Patient experienced substernal discomfort without radiation while watching TV today. He earlier did some yard work. Subsequent nausea, emesis symptoms. EMS called by patient's neighbor. Aspirin, nitroglycerin administered by EMS. EKG from EMS shows ST elevation in leads I and aVF V2 V3 and ST depression in leads II, III and aVF. Heart alert called prior to patient's arrival at the ER. Chest pain somewhat improved after morphine administration at the ER. Patient underwent emergent diagnostic cardiac catheterization findings below: 1. Acute 90% mid LAD stenosis with 2. Moderate non-culprit coronary artery disease -50 to 60% proximal circumflex extending into OM1 Patent proximal to mid RCA stents with minimal in-stent restenosis Successful PCI of mid LAD with single drug-eluting stent done. Patient currently complaining of tolerable chest discomfort at the ICU. 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 Admission Exam Per Admitting Provider GENERAL: Comfortable, obese, pleasant, no respiratory distress SKIN: Normal color, warm HEENT: [place] palpebral conjunctivae, no ptosis, dry buccal mucosa NECK : Supple, short neck, no tenderness CHEST : CTA, no tenderness HEART : RRR, no obvious murmurs ABDOMEN: Some distention, nontender EXTREMITIES : No LE swelling/tenderness, no other conspicuous deformities noted NEUROLOGIC : Coherent, no facial asymmetry, no other gross focality Principal Diagnosis STEMI with acute mid LAD stenosis status post PCI Discharge Exam Constitutional: WD/WN, vitals as above, NAD, sitting up in bed, pleasant, conversing easily Respiratory: normal respiratory effort, lungs clear to auscultation, no wheeze, rales, rhonchi. Normal insp/exp effort, no accessory muscle use Cardiovascular: RRR, no murmur, no edema Vessels: no JVD or carotid bruit Chest: normal inspection of chest Abdomen: normal bowel sounds, soft, nontender, no hepatosplenomegaly Musculoskeletal: no cyanosis or clubbing, extremities motor strength 5/5 Skin: no rashes, warm and dry normal turgor Neurologic: PERRL, EOMI, accommodation nl, no face palsy, no dysarthria CN's II- XI intact bilaterally and moves all extremities Psychiatric: A+Ox3, euthymic affect Lymphatic: no cervical or axillary lymphadenopathy : deferred Discharge Data Allergies Allergy/AdvReac Type Severity Reaction Status Date / Time No Known Allergies Allergy Verified 12/19/22 21:27 Consultations 12/19/22 19:19 Consult Insurance Sales Supervisor Routine 12/19/22 20:59 Consult Cardiology Routine Procedures Performed Operation Date: 12/19/22 16:30 Actual Procedures p Cineradiography w/Routine Exam - Zen Ybarra MD s IVUS Coronary Single Vessel - Zen Ybarra MD p Aspiration/PCI w/GRADY for Stemi - Zen Ybarra MD Ordered Studies 12/19/22 17:04 CL Cath Imgs for PACS use only Stat 12/19/22 18:40 CL IVUS Coronary Single Vessel Routine Hospital Course (1) ST elevation (STEMI) myocardial infarction: Acute mid LAD stenosis status post PCI Past medical history of hypertension, CAD status post right coronary artery PTCA in 2005. Presented with acute onset of chest pain. Found to have STEMI; Underwent cardiac cath on December 19, 2022; mid LAD stenosis status post PCI Admitted to ICU following the procedure. Telemetry during the hospitalization did not show any significant events. Echocardiogram; EF of 60 to 65%; mild hypokinesis of distal anterior wall. He was discharged on high-dose statin, dual antiplatelet agents, beta-sara and JESE inhibitor. Patient to follow-up with PCP and cardiology. Please note the above document was generated using voice recognition software. It may contain grammatical, syntax or spelling errors. Any formal questions or concerns about the content, text or information contained within the body of this dictation should be directly addressed to the provider for clarification Total Time Total Time Spent Total Time Spent (In Minutes): 35 Total Time Includes: Examination of the Patient, Discharge Planning, Medication Reconciliation, Communication With Other Providers and Other Discharge Plan Discharge Items Patient Disposition: Home - Self-Care Reason For Visit: HEART ALERT Discharge Diagnosis: ST elevation (STEMI) myocardial infarction Activity: Resume your previous activity Non-emergency contact: Primary Care Provider Call non-emergency contact if: you have any medication questions Follow-up/Referrals: Ivan Templeton MD [Primary Care Provider] - Diet: Regular Addtl Attending Provider Instructions: You were admitted to the hospital with a heart attack. A stent was placed in one of your heart vessels (LAD). You are prescribed following medications: 1) Antiplatelet agents (aspirin and Plavix) to be taken once a day at least for 1 year 2) Rosuvastatin 20 mg once daily 3) Nitroglycerin sublingual as needed for chest pain Please continue to take metoprolol and lisinopril as prescribed before. An appointment will be set up with your primary care doctor for sometime this week or early next week. Cardiology will also call you with an appointment. Pending Studies at Discharge: No Stand-Alone Forms: My [facility], Smoking Cessation Medications and DC Order Prescriptions: New clopidogrel 75 mg Tablet 75 mg PO QAM Qty: 30 0RF rosuvastatin 20 mg tablet 20 mg PO DAILY Qty: 30 0RF aspirin 81 mg Tablet,Delayed Release (Dr/Ec) 81 mg PO QAM Qty: 30 0RF nitroglycerin 0.4 mg tablet, sublingual 0.4 mg sublingual Q5M PRN (Reason: chest pain) Qty: 30 0RF Continued metformin 1,000 mg Tablet 1,000 mg PO BIDM Rx Instructions: Take with AM & EVENING MEALS. gabapentin 300 mg Capsule 300 mg PO AMHS lisinopril 2.5 mg Tablet 2.5 mg PO QAM metoprolol tartrate 25 mg Tablet 25 mg PO BID Invokana 300 mg Tablet 300 mg PO QAM Rx Instructions: tAKE BEBORE 1ST MEAL OF DAY Trulicity 4.5 mg/0.5 mL Pen Injector 4.5 mg SUBCUT WK Rx Instructions: QMonday polyethylene glycol 3350 [Miralax] 17 gram Powder In Packet 17 g PO DIRECTED PRN (Reason: Constipation) Discontinued rosuvastatin 5 mg Tablet 5 mg PO Q OTHER DAY Discharge Orders: Discharge Order (Routine); Ordered 12/21/22 Ordered By: Froilan Moralez/Other Patient Handouts: Managing Type 2 Diabetes Admission Data Admit Date/Time: 12/19/22 19:05 Attending Provider: Froilan Be Admit Provider: Zen Ybarra Primary Care Provider: Ivan Templeton Other Providers: Zen Ybarra ; Abdi Collier ; Trang Pal ; Johnathan Underwood ; Didier Prakash ; Davidson Beaulieu ; Saqib Ponce ; Eduar Powers ; Miryam Oviedo ; Simona Duarte ; Trang Sandoval ; Pascual Cantrell ; Nolvia Nj Other Interventions: Discharge Summary Assessment (RN) Last Done: 12/21/22 11:57
--- NOTE | 2022-12-21 19:53 | Electrocardiogram Report ---
Test Reason : Blood Pressure : / mmHG Vent. Rate : 062 BPM Atrial Rate : 062 BPM P-R Int : 152 ms QRS Dur : 098 ms QT Int : 406 ms P-R-T Axes : -04 013 -25 degrees QTc Int : 412 ms Sinus rhythm with Premature atrial complexes Anterolateral infarct , possibly acute T wave abnormality, consider inferior ischemia ACUTE WA / STEMI Abnormal ECG When compared with ECG of 27-AUG-2013 07:43, Premature atrial complexes are now Present ST now depressed in Inferior leads T wave inversion now evident in Inferior leads Confirmed by Josiah Ballard ([id number]) on 12/21/2022 7:52:30 PM Referred By: REFERRED SELF Confirmed By:Josiah Ballard
--- NOTE | 2022-12-21 20:07 | Electrocardiogram Report ---
Test Reason : Blood Pressure : / mmHG Vent. Rate : 083 BPM Atrial Rate : 083 BPM P-R Int : 158 ms QRS Dur : 086 ms QT Int : 378 ms P-R-T Axes : 060 056 006 degrees QTc Int : 444 ms Poor data quality, interpretation may be adversely affected Normal sinus rhythm Cannot rule out Anterior infarct (cited on or before 19-DEC-2022) Abnormal ECG When compared with ECG of 19-DEC-2022 16:32, (unconfirmed) Premature atrial complexes are no longer Present Confirmed by Josiah Ballard ([id number]) on 12/21/2022 8:07:05 PM Referred By: REFERRED SELF Confirmed By:Josiah Ballard
--- NOTE | 2022-12-23 10:32 | Electrocardiogram Report ---
Test Reason : Blood Pressure : / mmHG Vent. Rate : 069 BPM Atrial Rate : 069 BPM P-R Int : 178 ms QRS Dur : 104 ms QT Int : 410 ms P-R-T Axes : 054 083 071 degrees QTc Int : 439 ms Normal sinus rhythm Possible Anterolateral infarct (cited on or before 19-DEC-2022) Abnormal ECG When compared with ECG of 19-DEC-2022 18:53, T wave inversion no longer evident in Inferior leads Confirmed by Conraod Smith ([id number]) on 12/23/2022 10:31:34 AM Referred By: REFERRED SELF Confirmed By:Kameron Smith
== END 2022-12-21 12:30 | disposition home or self-care (01) | DRG 247 ==
LOC: ED 16:28 → OR 17:04 → SUATTDRO 19:05 → 1E 19:05

== ENCOUNTER 2023-11-04 16:59 | Inpatient (IN) ==
[2023-11-04] MEDS: SODIUM CHLORIDE 0.9% 1,000 ML IV ONE (17:26)
[2023-11-04] MEDS: ASPIRIN CHEW 324 MG PO STA (17:26)
--- NOTE | 2023-11-04 17:30 | Emergency Department Note ---
Impression & Plan Atrial flutter with rapid ventricular response, Chest pain, Viral URI ED Provider Note NAME: ALEJANDRO GALVAN AGE: 73 SEX: M : 1950 ARRIVES VIA: Walk-In INFORMANT: Patient ED PROVIDER(S): Donald Hernandez DO CHIEF COMPLAINT: cough HPI: Patient is a 73-year-old male who presents to the ER with past medical history of diabetes and CAD for feeling his heart race. Symptoms initially started yesterday with cough and congestion and not feeling well today. He notes that he is having some pain in his chest earlier this morning which lasted for several minutes after working out. That resolved. His Apple Watch has been alarming him that his heart rate has been up. Denies any dysuria, urgency, or frequency. No other exacerbating or remitting factors. ADDITIONAL HISTORY OBTAINED: Per HPI Chronic Medical/Social Conditions Affecting Care: Per HPI PAST MEDICAL HISTORY:See Below PAST SURGICAL HISTORY:See Below FAMILY HISTORY:See Below SOCIAL HISTORY:See Below HOME MEDICATIONS:See Below ALLERGIES:See Below VITALS:See Below PHYSICAL EXAMINATION: GENERAL: Sitting up in bed, alert, well appearing, well nourished, no distress, non-toxic EYE EXAM: normal conjunctiva. OROPHARYNX: mucous membranes are moist NECK: supple, no nuchal rigidity, no adenopathy, non-tender LUNGS: Clear to auscultation. Normal chest wall mechanics HEART: no murmurs, S1 normal and S2 normal ABDOMEN: abdomen soft, non-tender, normo-active bowel sounds, no masses, no rebound or guarding. BACK: Back is symmetrical on inspection and there is no deformity, no midline tenderness, no CVA tenderness. SKIN: no rashes and no bruising UPPER EXTREMITIES: upper extremities are grossly normal. LOWER EXTREMITIES: No pitting edema. NEURO EXAM: Normal sensorium, cranial nerves II-XII grossly intact, normal speech, no gross weakness of arms, no gross weakness of legs. MEDICAL DECISION MAKING: Patient is a 73-year-old male who presents ER for above-stated complaint. IV was established blood was obtained. Labs show mild leukocytosis 11,000. No significant anemia. BMP along LFTs and bilirubin was remarkable for BSG of 300. Troponins were negative. Lipase is unremarkable. Viral panel was negative. EKG confirms atrial flutter with RVR. Given 3 doses of IV Lopressor 5 mg with no significant change. He was given IV fluids. Updated bedside. Discussed case with the hospitalist for further evaluation management treatment. Consults/Care Managements Discussions: Per [facility] Triage Nursing notes reviewed. Limited review of prior medical records performed Vital Signs: reviewed and remarkable for tachy Differential diagnosis: Cardiac ischemia, aortic dissection, pulmonary embolism, pneumothorax, pneumonia, pericarditis, myocarditis, esophageal rupture, GERD, cholecystitis, pancreatitis, musculoskeletal, as well as other pathologies. ER treatment provided: See below Diagnostics interpreted by me include EKG and cardiac monitoring as listed below: -Cardiac Monitoring: An order was placed for continuous cardiac monitoring. The monitor shows a rate of 140 with AFLUTTER rhythm. -ECG: Atrial flutter rate of 135 Normal axis No PVCs Nonspecific ST wave changes in the lateral leads QTc 405 -Laboratory studies:Interpreted by me as stated above in MDM and shown below. Imaging studies: Xrays: As interpreted by me: Portable AP upright 1 view of the chest shows no focal infiltrate CTs show: none Procedures:none Critical Care: I have personally spent 35 minutes of critical care time in the direct management of this patient. This includes bedside care, interpretation of diagnostic studies, and testing, discussion with consultants, patient, and family members, and other required patient management activities. This 35 minutes is in excess of all separately billable procedures. Past Med/Surg History Medical History (Updated 11/04/23 @ 22:57 by Donald Hernandez DO) CAD (coronary artery disease) follows with Dr. Prakash. Carotid artery stenosis Myocardial Infarction 12/2022 -- hospitalized at [facility] - 1 stent placed. [facility] 2005, no longer follows with cardio Diabetes mellitus, type 2 Hypertension Hyperlipidemia Surgical History History of cardiac catheterization most recent 12/2022 [facility] - [place] - 1 stent 2 stents placed 2005 History of colonoscopy History of surgery surgery on nose skin lesion-pt unsure History of coronary artery stent placement 12/2022 x 1 stent 2006, stents x 2 Social History Smoking Status: Never smoker Second Hand Exposure: No; Do You Dip or Chew Tobacco: No; Hx Alcohol Use: Yes Alcohol type: wine Hx Substance Use: No Preferred Language: French Communication Ability: Effective Direct Selling Counselor Required: No Beliefs That Will Affect Care: None Current Living Situation: Spouse Other Information That Helps Us Care for You: No Feels Safe at Home: Yes Safety Concerns: Feels Safe At This Time Assistive Devices: Denture - Upper, Denture - Lower and Glasses Allergies Allergies Allergy/AdvReac Type Severity Reaction Status Date / Time rosuvastatin AdvReac Muscle Pain Verified 11/04/23 19:37 Home Meds Home Medications Medication Instructions Recorded Confirmed gabapentin 300 mg capsule 300 mg PO AMHS 09/04/22 11/04/23 lisinopril 2.5 mg tablet 2.5 mg PO QAM 09/04/22 11/04/23 metoprolol tartrate 25 mg tablet 25 mg PO BID 09/04/22 11/04/23 isosorbide mononitrate 30 mg 30 mg PO QAM 03/13/23 11/04/23 tablet,extended release 24 hr dulaglutide 3 mg/0.5 mL 3 mg subcut .QSUN 11/04/23 11/04/23 subcutaneous pen injector (Trulicity) empagliflozin 25 mg tablet 25 mg PO QAM 11/04/23 11/04/23 (Jardiance) evolocumab 420 mg/3.5 mL 420 mg subcut .QMONTH 11/04/23 11/04/23 subcutaneous wearable injector (Repatha Pushtronex) metformin 500 mg tablet 500 mg PO BID 11/04/23 11/04/23 Previous Rx's Medication Instructions Recorded aspirin 81 mg tablet,delayed 81 mg PO QAM #30 tabs 12/21/22 release clopidogrel 75 mg tablet 75 mg PO QAM #30 tabs 12/21/22 nitroglycerin 0.4 mg sublingual 0.4 mg sublingual Q5M PRN chest 12/21/22 tablet pain #30 tabs Results & Data (ED) Vital Signs Vital Signs - 24 hr 11/04/23 17:05 11/04/23 17:15 11/04/23 17:27 Temperature 36.8 C Temperature Source Temporal Artery Scan Pulse Rate 139 H 135 H 135 H Pulse Rate from SpO2 Sensor 137 H Respiratory Rate 18 22 Respiratory Effort / Characteristics Non-Labored Spontaneous Respiratory Depth Normal Respiratory Pattern Regular Blood Pressure 149/77 H 123/94 Blood Pressure Mean 101 103 Blood Pressure Position Sitting Pulse Oximetry 96 95 Oxygen Delivery Method Room Air Sepsis Recent Fever Within 48 Hours No Sepsis New/Unexplained Change in Mental Status No Sepsis Action Taken by Nursing No Action Required 11/04/23 17:30 11/04/23 17:30 11/04/23 17:30 Temperature Temperature Source Pulse Rate 137 H 140 H Pulse Rate from SpO2 Sensor 140 H Respiratory Rate 18 18 Respiratory Effort / Characteristics Respiratory Depth Respiratory Pattern Blood Pressure 114/72 Blood Pressure Mean 86 Blood Pressure Position Pulse Oximetry 95 94 Oxygen Delivery Method Room Air Room Air Sepsis Recent Fever Within 48 Hours Sepsis New/Unexplained Change in Mental Status Sepsis Action Taken by Nursing 11/04/23 18:00 11/04/23 18:18 11/04/23 18:30 Temperature Temperature Source Pulse Rate 139 H 141 H 141 H Pulse Rate from SpO2 Sensor 135 H 139 H Respiratory Rate 21 18 Respiratory Effort / Characteristics Respiratory Depth Respiratory Pattern Blood Pressure 106/75 106/75 123/79 Blood Pressure Mean 85 93 Blood Pressure Position Pulse Oximetry 94 97 Oxygen Delivery Method Room Air Room Air Sepsis Recent Fever Within 48 Hours Sepsis New/Unexplained Change in Mental Status Sepsis Action Taken by Nursing 11/04/23 18:36 Temperature Temperature Source Pulse Rate 138 H Pulse Rate from SpO2 Sensor Respiratory Rate Respiratory Effort / Characteristics Respiratory Depth Respiratory Pattern Blood Pressure 123/79 Blood Pressure Mean Blood Pressure Position Pulse Oximetry Oxygen Delivery Method Sepsis Recent Fever Within 48 Hours Sepsis New/Unexplained Change in Mental Status Sepsis Action Taken by Nursing Laboratory Data 11/04/23 17:16 11/04/23 17:16 Lab Results 11/04/23 11/04/23 Range/Units 17:16 17:28 WBC 11.25 H (4.8-10.8) K/ul RBC 5.26 (4.70-6.10) M/uL Hgb 15.8 (14.0-18.0) g/dl Hct 47.0 (42.0-52.0) % MCV 89.4 (80.0-100.0) fL MCH 30.0 (25.0-34.0) pg MCHC 33.6 (32.0-36.0) g/dL RDW Std Deviation 40.6 (36.4-46.3) fL RDW Coeff of Darlene 12.4 (11.5-14.5) % Plt Count 272 (130-400) K/uL MPV 9.2 L (9.4-12.4) fL Immature Gran % (Auto) 0.4 % Neut % (Auto) 64.8 % Lymph % (Auto) 24.1 % [place] % (Auto) 9.2 % Eos % (Auto) 1.1 % Baso % (Auto) 0.4 % Neut # (Auto) 7.29 H (1.40-6.50) K/uL Lymph # (Auto) 2.71 (1.20-3.40) K/uL [place] # (Auto) 1.04 H (0.11-0.59) K/uL Eos # (Auto) 0.12 (0.00-0.50) K/uL Baso # (Auto) 0.04 (0.00-0.20) K/uL Immature Gran # (Auto) 0.05 (0.01-0.20) K/uL Sodium 135 L (136-145) mmol/L Potassium 4.1 (3.5-5.1) mmol/L Chloride 101 (98-107) mmol/L Carbon Dioxide 26 (21-32) mmol/L Anion Gap 8 (3-11) BUN 21 (6-23) mg/dl Creatinine 0.96 (0.6-1.4) mg/dl Est Cr Clr Drug Dosing 75.1 ml/min Est GFR ( Amer) 91.8 ml/min Est GFR (Non-Af Amer) 79.2 ml/min BUN/Creatinine Ratio 21.9 H (10-20) Glucose 291 H (70-99(Fasting)) mg/dl Calcium 9.2 (8.6-10.3) mg/dl Total Bilirubin 0.4 (0.2-1.0) mg/dl AST 12 L (13-39) U/L ALT 16 (7-52) U/L Alkaline Phosphatase 75 (34-104) U/L Troponin I High Sens 14.0 (0-20) pg/ml Total Protein 7.2 (6.0-8.3) gm/dl Albumin 4.3 (3.4-5.0) gm/dl Globulin 2.9 (2.5-4.0) gm/dl Albumin/Globulin Ratio 1.5 (0.9-2) Lipase 25 (11-82) U/L Adenovirus (PCR) Not Detected (NotDetected) B. pertussis DNA (PCR) Not Detected (NotDetected) B.parapertussis DNA PCR Not Detected (NotDetected) C. pneumoniae DNA (PCR) Not Detected (NotDetected) Coronavirus OC43 (PCR) Not Detected (NotDetected) Coronavirus HKU1 (PCR) Not Detected (NotDetected) Coronavirus 229E (PCR) Not Detected (NotDetected) SARS-CoV-2 (PCR) Not Detected (NotDetected) Coronavirus NL63 (PCR) Not Detected (NotDetected) Human Metapneumovir PCR Not Detected (NotDetected) Influenza Type A (PCR) Not Detected (NotDetected) Influenza Type B (PCR) Not Detected (NotDetected) M. pneumoniae (PCR) Not Detected (NotDetected) Parainfluenza 1 (PCR) Not Detected (NotDetected) Parainfluenza 2 (PCR) Not Detected (NotDetected) Parainfluenza 3 (PCR) Not Detected (NotDetected) Parainfluenza 4 (PCR) Not Detected (NotDetected) RSV (PCR) Not Detected (NotDetected) Entero/Rhino (PCR) Not Detected (NotDetected) Administered Medications Gabapentin (Gabapentin 300 Mg Cap) 300 mg PO AMHS [facility] Stop: 12/04/23 20:59 Last Admin: 11/04/23 20:51 Dose: 300 mg Documented By: EMMIE Heparin Sodium/Dextrose (Heparin Iv Adult Wt-Based Standard *No* Initial Bolus Protocol) 1 each IV Q15M [facility]; Protocol Stop: 12/04/23 20:30 Last Admin: 11/04/23 21:17 Dose: 1 each Documented By: EMMIE Heparin Sodium/Dextrose (Heparin Sodium/Dextrose) 25,000 units in 500 mls @ 27 mls/hr IV .[id number] [facility]; Protocol Stop: 12/04/23 20:44 Last Admin: 11/04/23 21:17 Dose: 1,350 units/hr, 27 mls/hr Documented By: EMMIE Co-signed By: TARA Insulin Aspart (Insulin Aspart Per Unit Charge) 0 units SC Q6H [facility] Stop: 12/04/23 20:29 Last Admin: 11/04/23 21:27 Dose: 4 units Documented By: EMMIE Co-signed By: TARA Metoprolol Tartrate (Metoprolol Tartrate 25 Mg Tab) 25 mg PO TID ASIF Stop: 12/04/23 20:19 Last Admin: 11/04/23 20:50 Dose: 25 mg Documented By: T Metoprolol Tartrate (Metoprolol Tartrate 1 Mg/Ml Vial) 5 mg IV Q6 PRN PRN Reason: HEART RATE GREATER THAN 120 Stop: 12/04/23 20:26 Last Admin: 11/04/23 21:15 Dose: 5 mg Documented By: T Discontinued Medications Aspirin (Aspirin Chew 324 Mg) 324 mg PO NOW STA Stop: 11/04/23 17:24 Last Admin: 11/04/23 17:26 Dose: 324 mg Documented By: KYLIE Diltiazem HCl (Diltiazem Hcl 5 Mg/Ml 5 Ml Vial) 10 mg IV NOW STA Stop: 11/04/23 22:31 Last Admin: 11/04/23 22:39 Dose: 10 mg Documented By: T Co-signed By: MATIAS Sodium Chloride (Nss) 1,000 mls @ 999 mls/hr IV .Q1H1M ONE Stop: 11/04/23 18:22 Last Infusion: 11/04/23 18:27 Dose: Infused Documented By: Admin: 11/04/23 17:26 Dose: 999 mls/hr Documented By: KYLIE Metoprolol Tartrate (Metoprolol Tartrate 1 Mg/Ml Vial) 5 mg IV NOW STA Stop: 11/04/23 18:09 Last Admin: 11/04/23 18:18 Dose: 5 mg Documented By: KYLIE Metoprolol Tartrate (Metoprolol Tartrate 1 Mg/Ml Vial) 5 mg IV NOW STA Stop: 11/04/23 18:33 Last Admin: 11/04/23 18:36 Dose: 5 mg Documented By: KYLIE Metoprolol Tartrate (Metoprolol Tartrate 1 Mg/Ml Vial) 5 mg IV NOW STA Stop: 11/04/23 18:52 Last Admin: 11/04/23 19:01 Dose: 5 mg Documented By: KARLENE Imaging Data Radiologist's Impression: Chest X-Ray 11/04/23 17:12 XR chest 1V portable CLINICAL HISTORY: Chest pain, nonspecific TECHNIQUE: Single frontal radiograph of the chest was obtained. Comparison: Comparison is made to chest radiograph 12/19/2022 FINDINGS: No lines and tubes are seen. The cardiomediastinal silhouette is normal. The lungs are clear. No evidence of pleural effusion or pneumothorax. IMPRESSION: No acute chest disease. ACT 112: Negative or not required by law. Electronically signed by: Milan Mckeon M.D. 11/04/2023 5:40 PM Discharge Plan Visit Data Chief Complaint: Chest Pain Stated Complaint: CHEST DISCOMFORT, DIZZY, SOME TACHYCARDIA ED Provider: Donald Hernandez Discharge Problem: Atrial flutter with rapid ventricular response, Chest pain, Viral URI Patient Disposition: Admitted As Inpatient Discharge Instructions Interventions: ED Discharge Assessment Last Done: 11/04/23 20:12 Discharge Problem: Chest pain Qualifiers: Chest pain type: unspecified Qualified Code(s): R07.9 - Chest pain, unspecified
[2023-11-04 17:36] LABS: Basophils # (auto) 0.04 K/uL (0.00-0.20); Basophils % (auto) 0.4 %; Eosinophils # (auto) 0.12 K/uL (0.00-0.50); Eosinophils % (auto) 1.1 %; Hemoglobin 15.8 g/dl (14.0-18.0); Immature Granulocytes # (auto) 0.05 K/uL (0.01-0.20); Immature Granulocytes % (auto) 0.4 %; Lymphocytes # (auto) 2.71 K/uL (1.20-3.40); Lymphocytes % (auto) 24.1 %; Mean Corpuscular Hgb Conc 33.6 g/dL (32.0-36.0); Mean Corpuscular Volume 89.4 fL (80.0-100.0); Mean Platelet Volume 9.2 fL (9.4-12.4); Monocytes # (auto) 1.04 K/uL (0.11-0.59); Monocytes % (auto) 9.2 %; Neutrophils # (auto) 7.29 K/uL (1.40-6.50); Neutrophils % (auto) 64.8 %; Platelet Count 272 K/uL (130-400); RDW Coefficient of Variation 12.4 % (11.5-14.5); RDW Standard Deviation 40.6 fL (36.4-46.3); Red Blood Count 5.26 M/uL (4.70-6.10); White Blood Count 11.25 K/ul (4.8-10.8)
--- NOTE | 2023-11-04 17:41 | XRay Report ---
XR chest 1V portable CLINICAL HISTORY: Chest pain, nonspecific TECHNIQUE: Single frontal radiograph of the chest was obtained. Comparison: Comparison is made to chest radiograph 12/19/2022 FINDINGS: No lines and tubes are seen. The cardiomediastinal silhouette is normal. The lungs are clear. No evid ence of pleural effusion or pneumothorax. IMPRESSION: No acute chest disease. ACT 112: Negative or not required by law. Electronically signed by: Milan Mckeon M.D. 11/04/2023 5:40 PM
[2023-11-04 17:55] LABS: Albumin Globulin Ratio 1.5 (0.9-2); Albumin Level 4.3 gm/dl (3.4-5.0); BUN Creatinine Ratio 21.9 (10-20); Bilirubin,Total 0.4 mg/dl (0.2-1.0); Calcium 9.2 mg/dl (8.6-10.3); Creatinine Clr Calc Pharmacy 75.1 ml/min; Est GFR (African American) 91.8 ml/min; Est GFR (Non-African American) 79.2 ml/min; Globulin 2.9 gm/dl (2.5-4.0); Potassium 4.1 mmol/L (3.5-5.1); Total Protein 7.2 gm/dl (6.0-8.3)
[2023-11-04] MEDS: METOPROLOL TARTRATE 1 MG/ML VIAL IV STA ×3 (18:18→19:01)
[2023-11-04 18:31] LABS: Adenovirus PCR Not Detected (NotDetected); Bordetella parapertussis PCR Not Detected (NotDetected); Bordetella pertussis PCR Not Detected (NotDetected); Chlamydia pneumoniae PCR Not Detected (NotDetected); Coronavirus 229E PCR Not Detected (NotDetected); Coronavirus CoV-2 (COVID19)PCR Not Detected (NotDetected); Coronavirus HKU1 PCR Not Detected (NotDetected); Coronavirus NL63 PCR Not Detected (NotDetected); Coronavirus OC43PCR Not Detected (NotDetected); Human Metapneumovirus PCR Not Detected (NotDetected); Influenza A PCR Not Detected (NotDetected); Influenza B PCR Not Detected (NotDetected); Mycoplasma pneumoniae PCR Not Detected (NotDetected); Parainfluenza Virus 1 PCR Not Detected (NotDetected); Parainfluenza Virus 2 PCR Not Detected (NotDetected); Parainfluenza Virus 3 PCR Not Detected (NotDetected); Parainfluenza Virus 4 PCR Not Detected (NotDetected); Respiratory Syncytial VirusPCR Not Detected (NotDetected); Rhinovirus/Enterovirus PCR Not Detected (NotDetected)
--- NOTE | 2023-11-04 18:47 | History & Physical Report ---
Date of Service November 04, 2023 History of Present Illness Primary Care Provider: Ivan Templeton MD Allergies Allergy/AdvReac Type Severity Reaction Status Date / Time No Known Allergies Allergy Verified 03/23/23 06:28 Home Medications Medication Instructions Recorded Confirmed Type canagliflozin 300 mg tablet 300 mg PO QAM 09/04/22 03/23/23 History (Invokana) dulaglutide 4.5 mg/0.5 mL 4.5 mg subcut WK 09/04/22 03/23/23 History subcutaneous pen injector (Trulicity) gabapentin 300 mg capsule 300 mg PO AMHS 09/04/22 03/23/23 History lisinopril 2.5 mg tablet 2.5 mg PO QAM 09/04/22 03/23/23 History metformin 1,000 mg tablet 1,000 mg PO BIDM 09/04/22 03/23/23 History metoprolol tartrate 25 mg tablet 25 mg PO BID 09/04/22 03/23/23 History polyethylene glycol 3350 17 gram 17 g PO DIRECTED PRN 12/19/22 03/23/23 History oral powder packet (Miralax) Constipation aspirin 81 mg tablet,delayed 81 mg PO QAM #30 tabs 12/21/22 03/23/23 Rx release clopidogrel 75 mg tablet 75 mg PO QAM #30 tabs 12/21/22 03/23/23 Rx nitroglycerin 0.4 mg sublingual 0.4 mg sublingual Q5M PRN chest 12/21/22 03/23/23 Rx tablet pain #30 tabs rosuvastatin 20 mg tablet 20 mg PO DAILY #30 tabs 12/21/22 03/23/23 Rx isosorbide mononitrate 30 mg 30 mg PO QAM 03/13/23 03/23/23 History tablet,extended release 24 hr Past Med/Surg History Medical History CAD (coronary artery disease) follows with Dr. Prakash. Carotid artery stenosis Myocardial Infarction 12/2022 -- hospitalized at [facility] - 1 stent placed. [facility] 2005, no longer follows with cardio Diabetes mellitus, type 2 Hypertension Hyperlipidemia Surgical History History of cardiac catheterization most recent 12/2022 [facility] - [place] - 1 stent 2 stents placed 2006 History of colonoscopy History of surgery surgery on nose skin lesion-pt unsure History of coronary artery stent placement 12/2022 x 1 stent 2006, stents x 2 Social History Smoking Status: Never smoker Second Hand Exposure: No; Do You Dip or Chew Tobacco: No; Hx Alcohol Use: Yes Alcohol type: wine Hx Substance Use: No Preferred Language: Peruvian Communication Ability: Effective 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
[2023-11-04] MEDS ORDERED: GLUCOSE 40% GEL 15 GM TUBE PO PRN (20:27)
[2023-11-04] MEDS ORDERED: GLUCOSE 10 TAB/TUBE PO PRN (20:27)
[2023-11-04] MEDS ORDERED: DEXTROSE 50% 50 ML SYRINGE IV PRN (20:27)
[2023-11-04] MEDS ORDERED: GLUCAGON FOR INJ 1 MG VIAL SQ PRN (20:27)
[2023-11-04] MEDS ORDERED: CARBOHYDRATES FOR HYPOGLYCEMIA PO PRN (20:27)
[2023-11-04] MEDS ORDERED: NITROGLYCERIN SL 0.4 MG/TAB TAB SL PRN (20:27)
--- NOTE | 2023-11-04 20:33 | History & Physical Report ---
Date of Service November 04, 2023 Assessment & Plan (1) Atrial flutter with rapid ventricular response: Plan: 73-year-old male with past medical history significant for CAD and ST elevated [place] s/p stents, hyperlipidemia, diabetes, hypertension presents with chest di scomfort and found to be in atrial flutter. Patient states since last couple of days he has some sore throat and cough. Has some runny nose. 5 days a week he goes to the gym and walks 1 mile on treadmill 2.5 mph and also does light weights. Today morning when he was in gym was not feeling well and after the gym he felt some mild chest discomfort. And felt dizzy. Not feeling well. And his Apple Watch showing his heart rate in 140s. As not getting better he called [facility] and advised to come to the ER. In the ER he was found to be in a flutter. Received IV Lopressor. Current resting comfortably . States that his chest discomfort comes and goes. Denies any shortness of breath. No headache. No blurred visions or double visions. Some mild runny nose. No earaches. No nausea or vomiting. No abdominal pain. Normal bowel and bladder movements. Denies any blood in the stools. Denies any hematuria. No swelling the legs. A flutter with rapid ventricular response Will change home metoprolol to 25 mg p.o. 3 times daily IV Lopressor as needed IV heparin Will follow serial cardiac enzymes and echo Telemetry Consult cardiology in a.m. further recommendations History of CAD s/p stents On aspirin, Plavix, lisinopril mononitrate, metoprolol Will follow echo History of diabetes Hold metformin and Jardiance Sliding scale Will follow HbA1c Hyperlipidemia On Repatha shots DVT prophylaxis SCDs for now Disposition Telemetry Full code Admission and Anticipated Discharge Date Admission Date: November 04, 2023 History of Present Illness Chief Complaint: Chest discomfort and a flutter Primary Care Provider: Ivan Templeton MD 73-year-old male with past medical history significant for CAD and ST elevated [place] s/p stents, hyperlipidemia, diabetes, hypertension presents with chest discomfort and found to be in atrial flutter. Patient states since last couple of days he has some sore throat and cough. Has some runny nose. 5 days a week he goes to the gym and walks 1 mile on treadmill 2.5 mph and also does light weights. Today morning when he was in gym was not feeling well and after the gym he felt some mild chest discomfort. And felt dizzy. Not feeling well. And his Apple Watch showing his heart rate in 140s. As not getting better he called [facility] clinic and advised to come to the ER. In the ER he was found to be in a flutter. Received IV Lopressor. Current resting comfortably . States that his chest discomfort comes and goes. Denies any shortness of breath. No headache. No blurred visions or double visions. Some mild runny nose. No earaches. No nausea or vomiting. No abdominal pain. Normal bowel and bladder movements. Denies any blood in the stools. Denies any hematuria. No swelling the legs. Past medical history. As mentioned above Past surgical history. Left shoulder arthroscopy. Colonoscopy. S/p cardiac cath and s/p stents Social history. . Quit smoking in 2017. Smoked 1 pack a day for 40 years. No alcohol use. No drug use. Family history. Mother had glaucoma. Sister had eye problems. Aunt had glaucoma. Allergies Allergy/AdvReac Type Severity Reaction Status Date / Time rosuvastatin AdvReac Muscle Pain Verified 11/04/23 19:37 Home Medications Medication Instructions Recorded Confirmed Type gabapentin 300 mg capsule 300 mg PO AMHS 09/04/22 11/04/23 History lisinopril 2.5 mg tablet 2.5 mg PO QAM 09/04/22 11/04/23 History metoprolol tartrate 25 mg tablet 25 mg PO BID 09/04/22 11/04/23 History aspirin 81 mg tablet,delayed 81 mg PO QAM #30 tabs 12/21/22 11/04/23 Rx release clopidogrel 75 mg tablet 75 mg PO QAM #30 tabs 12/21/22 11/04/23 Rx nitroglycerin 0.4 mg sublingual 0.4 mg sublingual Q5M PRN chest 12/21/22 11/04/23 Rx tablet pain #30 tabs isosorbide mononitrate 30 mg 30 mg PO QAM 03/13/23 11/04/23 History tablet,extended release 24 hr dulaglutide 3 mg/0.5 mL 3 mg subcut .QSUN 11/04/23 11/04/23 History subcutaneous pen injector (Trulicity) empagliflozin 25 mg tablet 25 mg PO QAM 11/04/23 11/04/23 History (Jardiance) evolocumab 420 mg/3.5 mL 420 mg subcut .QMONTH 11/04/23 11/04/23 History subcutaneous wearable injector (Repatha Pushtronex) metformin 500 mg tablet 500 mg PO BID 11/04/23 11/04/23 History Past Med/Surg History Medical History (Updated 11/04/23 @ 22:57 by Donald Hernandez DO) CAD (coronary artery disease) follows with Dr. Prakash. Carotid artery stenosis Myocardial Infarction 12/2022 -- hospitalized at [facility] - 1 stent placed. [facility] 2005, no longer follows with cardio Diabetes mellitus, type 2 Hypertension Hyperlipidemia Surgical History History of cardiac catheterization most recent 12/2022 [facility] - [place] - 1 stent 2 stents placed 2005 History of colonoscopy History of surgery surgery on nose skin lesion-pt unsure History of coronary artery stent placement 12/2022 x 1 stent 2006, stents x 2 Social History Smoking Status: Never smoker Second Hand Exposure: No; Do You Dip or Chew Tobacco: No; Hx Alcohol Use: Yes Alcohol type: wine Hx Substance Use: No Preferred Language: Tamaz[place] Communication Ability: Effective 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 ENT- oropharynx clear Neck- supple, no JVD Lungs- clear to auscultation no wheezing or crackles. Heart- irregular rhythm;Tachycardia, no murmur, no gallop. Abdomen- normal bowel sounds, soft, nontender, no distension. Extremities- no pretibial edema, no erythema seen. Neuro- alert, oriented PERRL, no facial palsy; no dysarthria; moves extremities. Skin- warm & dry Results & Data Results & Data Vital Signs (Past 12 Hours) Vital Signs Temp Pulse Pulse Resp BP BP Pulse Ox 11/04/23 20:00 147/98 H 11/04/23 20:00 137 H 18 97 11/04/23 19:43 140 H 25 H 97 11/04/23 19:30 139 H 17 93 11/04/23 19:30 92/70 L 11/04/23 19:16 138 H 121/87 11/04/23 19:11 137 H 19 96 11/04/23 19:11 121/87 11/04/23 19:08 139 H 111/83 11/04/23 19:08 140 H 11/04/23 19:05 111/83 11/04/23 19:05 138 H 15 96 11/04/23 19:01 137 H 119/78 11/04/23 19:00 119/78 11/04/23 19:00 139 H 16 95 11/04/23 19:00 138 H 16 111/83 11/04/23 18:36 138 H 123/79 11/04/23 18:30 141 H 18 123/79 97 11/04/23 18:18 141 H 106/75 11/04/23 18:00 139 H 21 106/75 94 11/04/23 17:30 140 H 18 114/72 94 11/04/23 17:30 137 H 18 95 11/04/23 17:30 11/04/23 17:27 135 H 11/04/23 17:15 135 H 22 123/94 95 11/04/23 17:05 36.8 C 139 H 18 149/77 H 96 O2 Del Method 11/04/23 20:00 11/04/23 20:00 11/04/23 19:43 11/04/23 19:30 11/04/23 19:30 11/04/23 19:16 11/04/23 19:11 11/04/23 19:11 11/04/23 19:08 11/04/23 19:08 11/04/23 19:05 11/04/23 19:05 11/04/23 19:01 11/04/23 19:00 11/04/23 19:00 11/04/23 19:00 11/04/23 18:36 11/04/23 18:30 Room Air 11/04/23 18:18 11/04/23 18:00 Room Air 11/04/23 17:30 11/04/23 17:30 Room Air 11/04/23 17:30 Room Air 11/04/23 17:27 11/04/23 17:15 11/04/23 17:05 Room Air Diagnostic Findings Laboratory Results WBC 11.25 K/ul (4.8-10.8) H 11/04/23 17:16 RBC 5.26 M/uL (4.70-6.10) 11/04/23 17:16 Hgb 15.8 g/dl (14.0-18.0) 11/04/23 17:16 Hct 47.0 % (42.0-52.0) 11/04/23 17:16 MCV 89.4 fL (80.0-100.0) 11/04/23 17:16 MCH 30.0 pg (25.0-34.0) 11/04/23 17:16 MCHC 33.6 g/dL (32.0-36.0) 11/04/23 17:16 RDW Std Deviation 40.6 fL (36.4-46.3) 11/04/23 17:16 RDW Coeff of Darlene 12.4 % (11.5-14.5) 11/04/23 17:16 Plt Count 272 K/uL (130-400) 11/04/23 17:16 MPV 9.2 fL (9.4-12.4) L 11/04/23 17:16 Immature Gran % (Auto) 0.4 % 11/04/23 17:16 Neut % (Auto) 64.8 % 11/04/23 17:16 Lymph % (Auto) 24.1 % 11/04/23 17:16 Cass % (Auto) 9.2 % 11/04/23 17:16 Eos % (Auto) 1.1 % 11/04/23 17:16 Baso % (Auto) 0.4 % 11/04/23 17:16 Neut # (Auto) 7.29 K/uL (1.40-6.50) H 11/04/23 17:16 Lymph # (Auto) 2.71 K/uL (1.20-3.40) 11/04/23 17:16 Cass # (Auto) 1.04 K/uL (0.11-0.59) H 11/04/23 17:16 Eos # (Auto) 0.12 K/uL (0.00-0.50) 11/04/23 17:16 Baso # (Auto) 0.04 K/uL (0.00-0.20) 11/04/23 17:16 Immature Gran # (Auto) 0.05 K/uL (0.01-0.20) 11/04/23 17:16 Sodium 135 mmol/L (136-145) L 11/04/23 17:16 Potassium 4.1 mmol/L (3.5-5.1) 11/04/23 17:16 Chloride 101 mmol/L (98-107) 11/04/23 17:16 Carbon Dioxide 26 mmol/L (21-32) 11/04/23 17:16 Anion Gap 8 (3-11) 11/04/23 17:16 BUN 21 mg/dl (6-23) 11/04/23 17:16 Creatinine 0.96 mg/dl (0.6-1.4) 11/04/23 17:16 Est Cr Clr Drug Dosing 75.1 ml/min 11/04/23 17:16 Est GFR ( Amer) 91.8 ml/min 11/04/23 17:16 Est GFR (Non-Af Amer) 79.2 ml/min 11/04/23 17:16 BUN/Creatinine Ratio 21.9 (10-20) H 11/04/23 17:16 Glucose 291 mg/dl (70-99(Fasting)) H 11/04/23 17:16 Calcium 9.2 mg/dl (8.6-10.3) 11/04/23 17:16 Total Bilirubin 0.4 mg/dl (0.2-1.0) 11/04/23 17:16 AST 12 U/L (13-39) L 11/04/23 17:16 ALT 16 U/L (7-52) 11/04/23 17:16 Alkaline Phosphatase 75 U/L (34-104) 11/04/23 17:16 Troponin I High Sens 14.2 pg/ml (0-20) 11/04/23 19:45 Total Protein 7.2 gm/dl (6.0-8.3) 11/04/23 17:16 Albumin 4.3 gm/dl (3.4-5.0) 11/04/23 17:16 Globulin 2.9 gm/dl (2.5-4.0) 11/04/23 17:16 Albumin/Globulin Ratio 1.5 (0.9-2) 11/04/23 17:16 Lipase 25 U/L (11-82) 11/04/23 17:16 Adenovirus (PCR) Not Detected (NotDetected) 11/04/23 17:28 B. pertussis DNA (PCR) Not Detected (NotDetected) 11/04/23 17:28 B.parapertussis DNA PCR Not Detected (NotDetected) 11/04/23 17:28 C. pneumoniae DNA (PCR) Not Detected (NotDetected) 11/04/23 17:28 Coronavirus OC43 (PCR) Not Detected (NotDetected) 11/04/23 17:28 Coronavirus HKU1 (PCR) Not Detected (NotDetected) 11/04/23 17:28 Coronavirus 229E (PCR) Not Detected (NotDetected) 11/04/23 17:28 SARS-CoV-2 (PCR) Not Detected (NotDetected) 11/04/23 17:28 Coronavirus NL63 (PCR) Not Detected (NotDetected) 11/04/23 17:28 Human Metapneumovir PCR Not Detected (NotDetected) 11/04/23 17:28 Influenza Type A (PCR) Not Detected (NotDetected) 11/04/23 17:28 Influenza Type B (PCR) Not Detected (NotDetected) 11/04/23 17:28 M. pneumoniae (PCR) Not Detected (NotDetected) 11/04/23 17:28 Parainfluenza 1 (PCR) Not Detected (NotDetected) 11/04/23 17:28 Parainfluenza 2 (PCR) Not Detected (NotDetected) 11/04/23 17:28 Parainfluenza 3 (PCR) Not Detected (NotDetected) 11/04/23 17:28 Parainfluenza 4 (PCR) Not Detected (NotDetected) 11/04/23 17:28 RSV (PCR) Not Detected (NotDetected) 11/04/23 17:28 Entero/Rhino (PCR) Not Detected (NotDetected) 11/04/23 17:28 Impressions Chest X-Ray 11/04/23 17:12 XR chest 1V portable CLINICAL HISTORY: Chest pain, nonspecific TECHNIQUE: Single frontal radiograph of the chest was obtained. Comparison: Comparison is made to chest radiograph 12/19/2022 FINDINGS: No lines and tubes are seen. The cardiomediastinal silhouette is normal. The lungs are clear. No evidence of pleural effusion or pneumothorax. IMPRESSION: No acute chest disease. ACT 112: Negative or not required by law. Electronically signed by: Milan Mckeon M.D. 11/04/2023 5:40 PM ECG Additional Comments: A-flutter with 2 is to 1 conduction rate of 135. Nonspecific ST and T wave abnormalities. ST depression seen inferior and lateral leads
[2023-11-04] MEDS: METOPROLOL TARTRATE 25 MG TAB PO SCH (20:50)
[2023-11-04] MEDS: GABAPENTIN 300 MG CAP PO SCH (20:51)
[2023-11-04] MEDS: METOPROLOL TARTRATE 1 MG/ML VIAL IV PRN (21:15)
[2023-11-04] MEDS: Heparin IV Adult Wt-Based Standard *NO* INITIAL Bolus Protocol IV SCH (21:17)
[2023-11-04] MEDS: HEPARIN SODIUM/DEXTROSE 25,000 UNITS/500 ML BAG IV SCH (21:17)
[2023-11-04] MEDS: INSULIN ASPART PER UNIT CHARGE SC SCH (21:27)
[2023-11-04] MEDS: dilTIAZem HCl 5 MG/ML 5 ML VIAL IV STA (22:39)
[2023-11-05] MEDS: MELATONIN 3 MG TAB PO PRN (00:04)
[2023-11-05] MEDS: dilTIAZem HCl 5 MG/ML 5 ML VIAL IV STA (05:03)
[2023-11-05 05:05] LABS: ANTI-Xa, UFH(UnfractionatedHep 0.36 IU/ml (0.3-0.7)
[2023-11-05] MEDS: METOPROLOL TARTRATE 25 MG TAB PO STA (07:03)
[2023-11-05 07:58] LABS: Basophils # (auto) 0.05 K/uL (0.00-0.20); Basophils % (auto) 0.5 %; Eosinophils # (auto) 0.21 K/uL (0.00-0.50); Eosinophils % (auto) 2.3 %; Hematocrit (blood only) 42.4 % (42.0-52.0); Hemoglobin 14.2 g/dl (14.0-18.0); Immature Granulocytes # (auto) 0.03 K/uL (0.01-0.20); Immature Granulocytes % (auto) 0.3 %; Lymphocytes # (auto) 2.96 K/uL (1.20-3.40); Lymphocytes % (auto) 31.8 %; Mean Corpuscular Hemoglobin 29.8 pg (25.0-34.0); Mean Corpuscular Hgb Conc 33.5 g/dL (32.0-36.0); Mean Corpuscular Volume 88.9 fL (80.0-100.0); Mean Platelet Volume 9.3 fL (9.4-12.4); Monocytes # (auto) 0.85 K/uL (0.11-0.59); Monocytes % (auto) 9.1 %; Neutrophils # (auto) 5.21 K/uL (1.40-6.50); Platelet Count 234 K/uL (130-400); RDW Coefficient of Variation 12.4 % (11.5-14.5); RDW Standard Deviation 40.8 fL (36.4-46.3); Red Blood Count 4.77 M/uL (4.70-6.10); White Blood Count 9.31 K/ul (4.8-10.8)
[2023-11-05 08:03] LABS: Estimated Average Glucose 220 mg/dl; Hemoglobin A1C 9.3 % (4.5-5.6)
[2023-11-05 08:22] LABS: BUN Creatinine Ratio 28.2 (10-20); Calcium 8.3 mg/dl (8.6-10.3); Creatinine Clr Calc Pharmacy 93.5 ml/min; Est GFR (African American) 105.3 ml/min; Est GFR (Non-African American) 90.8 ml/min; Magnesium 1.8 mg/dl (1.7-2.4); Potassium 4.1 mmol/L (3.5-5.1)
[2023-11-05 08:29] LABS: Troponin I High Sensitivity 12.5 pg/ml (0-20)
[2023-11-05] MEDS: lisinopril 2.5 MG TAB PO SCH (09:00)
[2023-11-05] MEDS: ISOSORBIDE MONO EXTENDED REL 30 MG TABCR PO SCH (09:00)
[2023-11-05] MEDS: CLOPIDOGREL BISULFATE 75 MG TAB PO SCH (09:08)
[2023-11-05] MEDS: ASPIRIN 81 MG ECTAB PO SCH (09:08)
[2023-11-05] MEDS: METOPROLOL TARTRATE 25 MG TAB PO SCH (10:05)
[2023-11-05] MEDS: LACTATED RINGER'S 500 ML IV ONE (10:08)
--- OUTSIDE RECORDS SUMMARY | 2023-11-05 11:43 | External Medical Summary | Summary of Care ---
Author Name Unknown Organization [facility] Address [address] [place] [address] Phone [phone] Care Team Providers Care Rehabilitation Construction Specialist Name Role Phone Ivan Templeton MD Primary Care Provider [phone]- [phone] Reason for Visit * Reason Comments Outpatient Testing Encounter Details Date Type Department Care Team (Late st Contact Info) Description 09/08/2023 11:50 AM EST Laboratory Laboratory, [place] [address] [place] [address] [place] [address] [place] [address] Dyslipidemia, goal LDL below 70 Allergies Active Allergy Reactions Criticality Noted Date Comments Rosuvastatin Muscle pain 04/27/2023 documented as of this encounter (statuses as of 09/10/2023) Medications Medication Sig Dispensed Refills Start Date End Date Status Glucose Blood (ONETOUCH ULTRA BLUE) STRPIndications:DM type 2, not at goal ([facility]),Type 2 diabetes mellitus with hemoglobin A1c goal of less than 7.0% ([facility]) Use 2 times a day as directed DX:E11.9 Diabetes Type 2 uncontrolled 300 Strip 5 04/15/2018 Active ONETOUCH LANCETS MISCIndications:Type 2 diabetes mellitus with hemoglobin A1c goal of less than 7.0% (HCC),DM type 2, not at goal (HCC) Use to test blood sugar up to twice daily: dx 250.00 3 Box Dosing Unit 5 04/15/2018 Active Lidocaine, Anorectal, 5 % CREAIndications:Exte rnal hemorrhoid, thrombosed Apply to affected area 3-4 times as needed for pain 28 g 0 07/07/2018 Active FreeStyle Alice 14 Day [place] Device Use as directed. 1 Each 0 07/27/2020 Active FreeStyle Alice 14 Day Sensor Use as directed. Use as directed to check blood sugars 4 times per day. 2 Each 4 07/27/2020 Active Polyethylene Glycol 3350 17 GM/SCOOP Oral Powder (MiraLax)Indications :Constipation, unspecified constipation type Take 17 g as needed by mouth for Constipation. Dissolve one heaping tablespoon in 8 ounces of water or juice. 850 g 1 09/03/2021 Active Nitroglycerin 0.4 MG Sublingual Tablet Sublingual (Nitrostat) Place 1 Tablet under the tongue as needed. 0 12/21/2022 Active Aleve PM 220-25 MG Oral Tablet (Naproxen Sod-diphenhydrAMINE) Take 1 Tablet by mouth at bedtime. 0 Active Aspirin 81 MG Oral Tablet Delayed Release Take 1 Tablet by mouth in the morning. 90 Tablet 3 07/20/2023 Active Clopidogrel Bisulfate 75 MG Oral Tablet (pLAVix)Indications: ST elevation myocardial infarction (STEMI) of anterior wall (HCC),History of heart artery stent Take 1 Tablet by mouth in the morning. 90 Tablet 3 07/20/2023 Active Canagliflozin 300 MG Oral Tablet (Invokana) Take 1 Tablet by mouth in the morning. 90 Tablet 3 07/20/2023 Active Gabapentin 300 MG Oral Capsule (Neurontin)Indicatio ns:Diabetic polyneuropathy associated with type 2 diabetes mellitus (HCC) Take 1 Capsule by mouth in the morning and 1 Capsule before bedtime. 180 Capsule 1 07/20/2023 Active Isosorbide Mononitrate ER 30 MG Oral Tablet Extended Release 24 Hour (Imdur)Indications:S T elevation myocardial infarction (STEMI) of anterior wall (HCC),Coronary artery disease involving squaxin coronary artery of squaxin heart without angina pectoris Take 1 Tablet by mouth in the morning. 90 Tablet 3 07/20/2023 Active Lisinopril 2.5 MG Oral Tablet (Prinivil) Take 1 Tablet by mouth in the morning. 90 Tablet 3 07/20/2023 Active metFORMIN HCl 500 MG Oral Tablet (Glucophage) Take 1 Tablet by mouth 2 times a day with morning and evening meals. 180 Tablet 3 07/20/2023 Active Metoprolol Succinate ER 25 MG Oral Tablet Extended Release 24 Hour (toPROL XL) Take 1 Tablet by mouth in the morning and 1 Tablet before bedtime. 180 Tablet 3 07/20/2023 Active Trulicity 4.5 MG/0.5ML Subcutaneous Solution Pen-injector (Dulaglutide)Indicat ions:Type 2 diabetes mellitus with hemoglobin A1c goal of less than 7.0% (HCC) Inject 4.5 mg under the skin once a week. 6 mL 3 07/20/2023 Active Repatha Pushtronex System 420 MG/3.5ML Subcutaneous Solution Cartridge (Evolocumab with Infusor)Indications: Dyslipidemia, goal LDL below 70,Coronary artery disease involving squaxin coronary artery of squaxin heart without angina pectoris Inject 420 mg (1 cartridge) under the skin Every Month. 10.5 mL 3 08/27/2023 Active documented as of this encounter (statuses as of 09/10/2023) Active Problems Problem Noted Date Diagnosed Date Type 2 diabetes mellitus with diabetic polyneuro fanta 10/27/2018 History of tobacco use 05/06/2018 Overview: 40 pack years HTN, goal below 140/90 11/12/2017 Dyslipidemia, goal LDL below 70 01/09/2017 Old [place] (myocardial infarction) 03/31/2012 Overview: Coronary disease, single vessel, status post PTCA of the right coronary artery in 2005. 2. Anterior STEMI 12/20/22 receiving GRADY to the mid LAD with moderate 50-60% stenosis circumflex extending into OM1; Patent prox to mid RCA stents with mild in stent restenosis. Inferior branch of D3 remained occluded with residual thrombus. 2.Stable class I angina pectoris. Type 2 diabetes mellitus wit h hemoglobin A1c goal of less than 7.0% 10/18/2008 Overview: ICD-10 update of inactive term Chronic ischemic heart disease 02/08/2008 documented as of this encounter (statuses as of 09/10/2023) Resolved Problems Problem Noted Date Diagnosed Date Resolved Date Chronic ischemic heart disease 12/12/2019 11/26/2020 Other specified inflammatory spondylopathies, lumbar region 05/05/2019 05/09/2019 Overview: Lumbar Facet Arthropathy Sprain of anterior talofibul ar ligament of left ankle 04/08/2018 10/27/2018 Inflamed seborrheic keratosis 07/04/2014 07/10/2017 Type 2 diabetes mellitus wit h hemoglobin A1c goal of less than 7.0% 10/04/2013 01/09/2017 Overview: ICD-10 update of inactive term Nail disorder 02/01/2013 07/10/2017 Dermatitis 02/01/2013 07/10/2017 Dyslipidemia, goal LDL below 70 07/24/2009 01/09/2017 Overview: Per Lipid Taxonomy. DM type 2, not at goal 02/13/200904/04 Benign neoplasm of colon 05/26/200808/2016 Overview: benign/repeat colonoscopy in 5 yrs Mixed 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 02/08/2008 Overview: Per Lipid Taxonomy. AORTOCORONARY BYPASS STATUS 07/200602/08/2008 03/31/2012 ACUTE OR NOS (07/14/06) 11/22/200701/09 Tobacco use disorder 11/22/2007 018 ADVANCE DIRECTIVE INFORMATION 07/27/2007 01/09/2017 Overview: Yes, Patient instructed to provide copy of advance directive for provider to review and to be scanned into Electronic Medical Record Govind 06/14/2004 07/10/2017 documented as of this encounter (statuses as of 09/10/2023) Immunizations Name Administration Dates Next Due COVID-19 mRNA, LNP-s, No Pre serve, 2-Dose Series (Moderna) 10/03/2020,09/05/2020 COVID-19, MRNA-LNP, 23-24, P F, 50 MCG/0.5 mL, 12 YRS AND ABOVE, IM (MODERNA-Spikevax) 06/15/2023 COVID-19, mRNA, LNP-s, PF, B ooster, 100mcg/0.5mg (Moderna) 06/19/2021 Covid-19, Mrna, Lnp-s, Pf, B ivalent, 50 Mcg, IM, 12 yrs and above (Moderna) 06/29/2022 Pneumococcal Conjugate Vacc, 13 Valent (Prevnar) 06/29/2022,11/12/2017 Pneumococcal Polysaccharide PPV23 (Pneumovax) 12/01/2019,07/24/2008 Seasonal Influenza, PF, 6 M & above, IM , (FluLaval or Fluzone) 05/09/2019,05/29/2018,07/10/2017 Seasonal Influenza, Quadriva lent Hd (Fluzone Hd) 05/01/2022 Seasonal Influenza, Quadriva lent Hd, 65+ Yrs 05/15/2020 Seasonal Influenza, Quadriva lent, No Preserve, IM 05/29/2018,06/23/2016,05/29/2015 Seasonal Influenza, Split, I IV3, With Preserve, Inj 05/19/2014,06/10/2013,06/03/2012,05/06,05/10/2010,2009,07/24/2008 TDAP (age 11 and older)(Adacel) 07/24/2008 Varicella Zoster Vaccine (Adult) 04/25/2013 Zoster Vaccine Recombinant (Shingrix) 09/09/2018 ,06/29/2018 documented as of this encounter Social History Tobacco Use Types Packs/Day Years Used Date Smoking Tobacco: Former Cigarettes 1 40 Q uit: 03/19/2017 Smokeless Tobacco: Never Comments:a pack a day Alcohol Use Standard Drinks/Week Comments Not Currently 0 (1 standard drink = 0.6 oz pur e alcohol) PHQ-2 Answer Date Recorded PHQ Adult Total Score 1 11/21/2022 Hunger Vital Sign Answer Date Recorded Within the past 12 months, y ou worried that your food would run out before you got the money to buy more. Never true 11/22/19 23 Within the past 12 months, t he food you bought just didn't last and you didn't have money to get more. Never true 11/21/2022 Sex and Gender Information Value Date Recorded Sex Assigned at Male 11/25/2019 11:52 AM EDT Gender Identity Male 11/25/2019 11:52 AM EDT Sexual Orientation Straight 11/25/2019 11 :52 AM EDT Job Start Date Occupation Industry Not on file Not on file Not on file documented as of this encounter Miscellaneous Notes * Result Encounter Note - Cecilia Sánchez RPh - 09/10/2023 4:12 PM EST LDL cholesterol at goal/well controlled. Will review at upcoming appointment. documented in this encounter Plan of Treatment Upcoming Encounters Date Type Department Care Team (Late st Contact Info) Description 09/17/2023 5:30 PM EST Pharmacy [facility] [place] [facility] [address] [place] [address] [address] [facility] [address] [facility] [place] [address] 09/30/2023 2:00 PM EST [facility] [place] [address] Miryam Oviedo PA-C [address] [place] [address] 10/02/2023 11:30 AM EST Office Visit Cardiology, [facility] [address] [facility] [place] [address] [facility] Cardiology [facility] [address] [facility] [place] [address] 12/05/2023 9:00 AM EDT Office Visit Family Practice [facility] [address] [facility] [place] [address] Ivan Templeton MD [address] [place] [address] Scheduled Procedures Name Priority Associated Diagnoses Date/Ti me COLONOSCOPY FLEXIBLE PROXIMAL DIAGNOSTIC Recall History of colon polyps Health Maintenance Due Date Last Done Comments Hepatitis B (1 of 3 - Risk 3-dose series) 2012 DTaP,Tdap,and Td Vaccines (2 - Td or Tdap) 07/24/2018 07/24/2008 Diabetic Foot Exam 07/27/2021 07/27/2020, 0 05/09/2019, 05/06/2018, Additional history exists Influenza Vaccine (FLU shot) (#1) 2023 05/01/2022, 05/15/2020, 05/09/2019, Additional history exists Diabetic Eye Exam 07/14/2023 07/14/2022, , 01/18/2018, Additional history exists Albumin/Creatinine Ratio 11/14/2023 023, 10/04/2021, 03/22/2021, Additional history exists Depression Screening 11/22/2023 11/21/2022 HbA1c 01/14/2024 07/15/2023, 03/12, 11/13/2022, Additional history exists GFR 04/08/2024 04/08/2023, 01/08, 11/13/2022, Additional history exists COLONOSCOPY-EVERY 5 YRS AGES 18-100 05/30/2025 05/30/2020, 05/30/2020, 08/24/2018, Additional history exists AAA Screening Completed 07/27/2017 Zoster Vaccines Completed 09/09/2018, 06/11, 04/25/2013 Pneumococcal Vaccine: 65+ Years Completed 06/29/2022, 12/01/2019, 11/12/2017, Additional history exists LUNG CANCER SCREENING - USE SMARTSET 45764 Completed 01/26/2023 COVID-19 Vaccine Completed 06/15/2023, , 06/19/2021, Additional history exists GARDASIL-HPV IMMUNIZATION SERIES Aged Out No longer eligible based on patient's age to complete this topic MENINGOCOCCAL (MENACTRA/MENVEO) Aged Out No longer eligible based on patient's age to complete this topic documented as of this encounter Medical Devices Implanted Type Area Flow Match Sofa Cutter Device Identifier Shelf Expiration Date Model / Serial / Lot Biocomposite Knotless Swivelock Gepp Implanted:Qty: 1 on 11/08/2021 by Saqib Edmond, DO at OR [facility] Left: Shoulder [employer] 09/09/2025 [id number] / / [id number] Description:with Blue #2 Sut ure documented as of this encounter Procedures Procedure Name Priority Date/Time Associated Diagnosis Comments LIPID PANEL WITH DIRECT LDL IF TG IS HIGH Routine 09/08/2023 11:58 AM EST Dyslipidemia, goal LDL below 70 documented in this encounter Results * LIPID PANEL WITH DIRECT LDL IF TG IS HIGH (09/08/2023 11:58 AM EST) Triglycerides 124 <=174 mg/dL 09/09/2023 12:07 AM EST [facility] Comment: Triglyceride Reference Ranges (mg/dL): <150 Acceptable 150-174 Borderline high 175-499 High >=500 Very high Cholesterol 100 <200 mg/dL 09/09/2023 12:07 AM EST [facility] Comment: Total Cholesterol Reference Ranges (mg/dL): <200 Desirable 200-239 Borderline high >=240 High HDL Cholesterol 53 >39 mg/dL 12:07 AM EST [facility] Comment: HDL Cholesterol Reference Ranges (mg/dL): >=60 High (Desirable) <50 Low (Undesirable) For Females <40 Low (Undesirable) For Males Non-HDL Cholesterol 47 <=159 mg/dL 09/09/2023 12:07 AM EST [facility] Comment: Non-HDL Cholesterol Reference Range (mg/dL): <100 Target level for high risk ASCVD patient <130 Optimal for general population 130-159 Near optimal for general population 160-189 Borderline High 190-219 High >=220 Very High LDL Cholesterol 22 <=129 mg/dL 09/09/2023 12:07 AM EST [facility] Comment: LDL Cholesterol Reference Ranges (mg/dL): <70 Target level for high risk ASCVD patient <100 Optimal for general population 100-129 Near optimal for general population 130-159 Borderline high 160-189 High >=190 Very high Blood Venous blood specimen / Unknown Venipuncture / Unknown 09/08/2023 11:58 AM EST 09/08/2023 11:58 AM EST Cecilia Sánchez [facility] BLOOD ORDERA BLES [facility] [address] [place] [address] documented in this encounter Visit Diagnoses Diagnosis Dyslipidemia, goal LDL below 70 Other and unspecified hyperlipidemia documented in this encounter Care Teams Rehabilitation Construction Specialist Relationship Specialty Start Date End Date Ivan Templeton MD [address] [place] [address] PCP - General Family Medicine 07/29/12 documented as of this encounter
--- OUTSIDE RECORDS SUMMARY | 2023-11-05 11:43 | External Medical Summary | Summary of Care ---
Author Name Unknown Organization [facility] Address [address] [place] [address] Phone [phone] Care Team Providers Care Medical Records Administrator Name Role Phone Ivan Templeton MD Primary Care Provider +1- [phone] Encounter Details Date Type Department Care Team (Late st Contact Info) Description 09/08/2023 Telephone [facility] [address] [place] [address] Ivan Templeton MD [address] [place] [address] Allergies Active Allergy Reactions Criticality Noted Date Comments Rosuvastatin Muscle pain 04/27/2023 documented as of this encounter (statuses as of 09/24/2023) Medications Medication Sig Dispensed Refills Start Date End Date Status Glucose Blood (ONETOUCH ULTRA BLUE) STRPIndications:DM type 2, not at goal ([facility]),Type 2 diabetes mellitus with hemoglobin A1c goal of less than 7.0% ([facility]) Use 2 times a day as directed DX:E11.9 Diabetes Type 2 uncontrolled 300 Strip 5 8 Active ONETOUCH LANCETS MISCIndications:Typ e 2 diabetes mellitus with hemoglobin A1c goal of less than 7.0% ([facility]),DM type 2, not at goal ([facility]) Use to test blood sugar up to twice daily: dx 250.00 3 Box Dosing Unit 5 8 Active Lidocaine, Anorectal, 5 % CREAIndications:Ext ernal hemorrhoid, thrombosed Apply to affected area 3-4 times as needed for pain 28 g 0 8 Active FreeStyle Alice 14 Day [place] Device Use as directed. 1 Each 0 0 Active FreeStyle Alice 14 Day Sensor Use as directed. Use as directed to check blood sugars 4 times per day. 2 Each 4 0 Active Polyethylene Glycol 3350 17 GM/SCOOP Oral Powder (MiraLax)Indication s:Constipation, unspecified constipation type Take 17 g as needed by mouth for Constipation. Dissolve one heaping tablespoon in 8 ounces of water or juice. 850 g 1 2 Active Nitroglycerin 0.4 MG Sublingual Tablet Sublingual (Nitrostat) Place 1 Tablet under the tongue as needed. 0 3 Active Aleve PM 220-25 MG Oral Tablet (Naproxen Sod-diphenhydrAMINE ) Take 1 Tablet by mouth at bedtime. 0 Active Aspirin 81 MG Oral Tablet Delayed Release Take 1 Tablet by mouth in the morning. 90 Tablet 3 3 Active Clopidogrel Bisulfate 75 MG Oral Tablet (pLAVix)Indications :ST elevation myocardial infarction (STEMI) of anterior wall (HCC),History of heart artery stent Take 1 Tablet by mouth in the morning. 90 Tablet 3 3 Active Canagliflozin 300 MG Oral Tablet (Invokana) Take 1 Tablet by mouth in the morning. 90 Tablet 3 3 Active Gabapentin 300 MG Oral Capsule (Neurontin)Indicati ons:Diabetic polyneuropathy associated with type 2 diabetes mellitus (HCC) Take 1 Capsule by mouth in the morning and 1 Capsule before bedtime. 180 Capsule 1 3 Active Isosorbide Mononitrate ER 30 MG Oral Tablet Extended Release 24 Hour (Imdur)Indications: ST elevation myocardial infarction (STEMI) of anterior wall (HCC),Coronary artery disease involving qagan tayagungin coronary artery of qagan [place] heart without angina pectoris Take 1 Tablet by mouth in the morning. 90 Tablet 3 3 Active Lisinopril 2.5 MG Oral Tablet (Prinivil) Take 1 Tablet by mouth in the morning. 90 Tablet 3 3 Active metFORMIN HCl 500 MG Oral Tablet (Glucophage) Take 1 Tablet by mouth 2 times a day with morning and evening meals. 180 Tablet 3 3 Active Metoprolol Succinate ER 25 MG Oral Tablet Extended Release 24 Hour (toPROL XL) Take 1 Tablet by mouth in the morning and 1 Tablet before bedtime. 180 Tablet 3 3 Active Trulicity 4.5 MG/0.5ML Subcutaneous Solution Pen-injector (Dulaglutide)Indica tions:Type 2 diabetes mellitus with hemoglobin A1c goal of less than 7.0% (HCC) Inject 4.5 mg under the skin once a week. 6 mL 3 3 Active Repatha Pushtronex System 420 MG/3.5ML Subcutaneous Solution Cartridge (Evolocumab with Infusor)Indications :Dyslipidemia, goal LDL below 70,Coronary artery disease involving qagan tayagungin coronary artery of qagan tayagungin heart without angina pectoris Inject 420 mg (1 cartridge) under the skin Every Month. 10.5 mL 3 4 Active Trulicity 3 MG/0.5ML Subcutaneous Solution Pen-injector (Dulaglutide) Inject 3 mg under the skin once a week. 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 AORTOCORONARY BYPASS STATUS 07/200602/08/2008 03/31/2012 ACUTE PR NOS (07/14/06) 11/22/200701/09 Tobacco use disorder 11/22/2007 018 ADVANCE DIRECTIVE INFORMATION 07/27/2007 01/09/2017 Overview: Yes, Patient instructed to provide copy of advance directive for provider to review and to be scanned into Electronic Medical Record Yajairaa 06/14/2004 07/10/2017 documented as of this encounter (statuses as of 09/24/2023) Immunizations Name Administration Dates Next Due COVID-19 [...] as of this encounter Miscellaneous Notes * Telephone Encounter - Promise Rhoades LPN - 09/24/2023 2:21 PM EST See other encounter * Telephone Encounter - Dang Ramos LPN - 09/14/2023 6:53 PM EST Spoke with pt. He is going to check with his pharmacy to see which one is cheeper than call us backto get a RX for either invokana or jardiance . Pt was given our phone number [phone] * Telephone Encounter - Ivan Templeton MD - 09/11/2023 4:41 PM EST Please check with pt to be sure. We have invokana on his med list. He may be requesting jardiance in place of invokana due to insurance reasons with the start of the new year - but please check to besure that he is not taking both invokana and jardiance * Telephone Encounter - Ludy De La Rosa CCMA - 09/10/2023 3:35 PM EST Pt requesting a script for jardiance be sent to [facility] pharmacy. * Telephone Encounter - Nicki Gonzales LPN - 09/10/2023 1:47 PM EST I had called patient for a care gaps follow up. He inquired about the trulicity. I gave him the message from Dr. Sandoval. He will call his pharmacy and let us know. He also asked that a script for his jardiance be sent to [facility]. It looks like it was discontinued in July? Please advise. * Telephone Encounter - Ivan Templeton MD - 09/10/2023 9:17 AM EST Please call pt. He can call around to see if he can find trulicity 4.5 mg at a different pharmacy. If so, let us know and we will send rx there. The other option is to see if his current pharmacy hasthe 3 mg dose in stock. I have sent them a prescription in case they do. It would be better to go to the 3 mg dose than be without the med or change to a different one. If they don't have the 3 mg dose available, he could even check about the 1.5 mg dose. * Telephone Encounter - Almaz Loza OSA - 09/08/2023 11:53 AM EST 09/08/23 Please see updated Telephone Encounter regarding script for Trulicity. Pt has been without script for a week and [facility] is on back order for the med. Please call pt to advise on med situation. documented in this encounter Plan of Treatment Upcoming Encounters Date Type Department Care Team (Late st Contact Info) Description 09/30/2023 2:00 PM EST [facility] [address] [place] [address] Miryam Oviedo PA-C [address] [address] 10/02/2023 11:30 AM EST [facility] [address] [place] [address] [facility] [place] [address] [place] [address] 12/05/2023 9:00 AM EDT Office Visit Family Practice [facility] [address] [place] [address] Ivan Templeton MD [address] [place] [address] Scheduled Procedures Name Priority Associated Diagnoses Date/Ti [...] exists LUNG CANCER SCREENING - USE SMARTSET [id number] Completed 01/26/2023 COVID-19 Vaccine Completed 06/15/2023, , 06/19/2021, Additional history exists GARDASIL-HPV IMMUNIZATION SERIES Aged Out No longer eligible based on patient's age to complete this topic MENINGOCOCCAL (MENACTRA/MENVEO) Aged Out No longer eligible based on patient's age to complete this topic documented as of this encounter Medical Devices Implanted Type Area Plan Examiner Device Identifier Shelf Expiration Date Model / Serial / Lot Biocomposite Knotless Swivelock Bow Implanted:Qty: 1 on 11/08/2021 by Saqib Edmond, DO at OR [facility] Left: Shoulder [employer] 09/09/2025 [id number] / / [id number] Description:with Blue #2 Sut ure documented as of this encounter Care Teams Medical Records Administrator Relationship Specialty Start Date End Date Ivan Templeton MD [address], [place] [id number] PCP - General Family Medicine 07/29/12 documented as of this encounter
--- OUTSIDE RECORDS SUMMARY | 2023-11-05 11:43 | External Medical Summary | Summary of Care ---
Author Name Unknown Organization [facility] Address [address] [facility] [place] [address] Phone [phone] Care Team Providers Care Collection Systems Foreman Name Role Phone Ivan Templeton MD Primary Care Provider [phone] Reason for Visit * Reason Comments Follow Up Encounter Details Date Type Department Care Team (Late st Contact Info) Description 09/30/2023 2:00 PM EST Office Visit Cardiology, [facility] [address] [place] [address] Miryam Oviedo PA-C [address] [place] [address] Coronary artery disease involving white earth coronary artery of white earth heart without angina pectoris*; Chronic ischemic heart disease; Dyslipidemia, goal LDL below 70; HTN, goal below 140/90; Statin intolerance Allergies Active Allergy Reactions Criticality Noted Date Comments Rosuvastatin Muscle pain 04/27/2023 documented as of this encounter (statuses as of 10/16/2023) Medications Medication Sig Dispensed Refills Start Date End Date Status Glucose Blood (ONETOUCH ULTRA BLUE) STRPIndications:DM type 2, not at goal (HCC),Type 2 diabetes mellitus with hemoglobin A1c goal of less than 7.0% (HCC) Use 2 times a day as directed [...] 0 8 Active FreeStyle Alice 14 Day Chatom Device Use as directed. 1 Each 0 [...] or juice. 850 g 1 2 Active Additional Information Patient not taking.Reported on 09/30/2023 Nitroglycerin 0.4 MG Sublingual Tablet Sublingual (Nitrostat) [...] elevation myocardial infarction (STEMI) of anterior wall ([facility]),History of heart artery stent Take 1 Tablet by mouth in the morning. 90 Tablet 3 3 Active Canagliflozin 300 MG Oral Tablet (Invokana) Take 1 Tablet by mouth in the morning. 90 Tablet 3 3 Active Additional Information Patient not taking.Reported on 09/30/2023 Gabapentin 300 MG Oral Capsule (Neurontin)Indicati ons:Diabetic polyneuropathy associated with type 2 diabetes mellitus (HCC) Take 1 Capsule by mouth in the morning and 1 Capsule before bedtime. 180 Capsule 1 3 Active Isosorbide Mononitrate ER 30 MG Oral Tablet Extended Release 24 Hour (Imdur)Indications: ST elevation myocardial infarction (STEMI) of anterior wall ([facility]),Coronary artery disease involving white earth coronary artery of white earth heart without angina pectoris Take 1 Tablet [...] goal LDL below 70,Coronary artery disease involving white earth coronary artery of white earth heart without angina pectoris Inject 420 mg (1 cartridge) under the skin Every Month. 10.5 mL 3 4 Active Empagliflozin 25 MG Oral Tablet (Jardiance)Indicati ons:Type 2 diabetes mellitus with hemoglobin A1c goal of less than 7.0% (HCC) Take 1 Tablet by mouth in the morning. 90 Tablet 3 4 Active Trulicity 3 MG/0.5ML Subcutaneous Solution Pen-injector (Dulaglutide) Inject 3 mg under the skin once a week. 2 mL 1 4 10/12/19 24 Discontinu ed(Refill) documented as of this encounter (statuses as of 10/16/2023) Active Problems Problem Noted Date Diagnosed Date Type 2 diabetes mellitus with diabetic polyneuro fanta 10/27/2018 History of tobacco use 05/06/2018 Overview: 40 pack years HTN, goal below 140/90 11/12/2017 Dyslipidemia, goal LDL below 70 01/09/2017 [place] (myocardial infarction) 03/31/2012 Overview: Coronary disease, single [...] as of this encounter (statuses as of 10/16/2023) Resolved Problems Problem Noted Date Diagnosed Date [...] Taxonomy. AORTOCORONARY BYPASS STATUS 07/200602/08/2008 03/31/2012 ACUTE TX NOS (07/14/06) 11/22/200701/09 Tobacco use disorder 11/22/2007 018 ADVANCE DIRECTIVE INFORMATION 07/27/2007 01/09/2017 Overview: Yes, Patient instructed to provide copy of advance directive for provider to review and to be scanned into Electronic Medical Record Govind 06/14/2004 07/10/2017 documented as of this encounter (statuses as of 10/16/2023) Immunizations Name Administration Dates Next Due COVID-19 [...] Date Smoking Tobacco: Former Cigarettes 1 40 0 03/19/1977 - 03/19/2017 Smokeless Tobacco: Never Comments:a pack a [...] money to buy more. Never true 11/22/19 Within the past 12 months, t he [...] on file documented as of this encounter Last Filed Vital Signs Vital Sign Reading Time Taken Comments Blood Pressure 104/66 09/30/2023 1:52 PM EST Pulse 80 09/30/2023 1:52 PM EST Temperature - - Respiratory Rate - - Oxygen Saturation - - Inhaled Oxygen Concentration - - Weight 93.9 kg (207 lb) 09/30/2023 1:52 PM EST Height - - Body Mass Index 33.41 12/25/2022 3:01 PM EDT documented in this encounter Progress Notes * Miryam Oviedo PA-C - 09/30/2023 2:05 PM EST Cardiology F/U: HPI: Patient is a 73-year-old male here today for routine cardiology f/u. Last clinic evaluation approx 6 months ago with the undersigned. History includes: 1. Coronary disease, single vessel, status post PTCA of the right coronary artery in 2005. 2. Anterior STEMI 12/20/22 receiving GRADY to the mid LAD with moderate 50-60% stenosis circumflex extending into OM1; Patent prox to mid RCA stents with mild in stent restenosis. Inferior branch of D3 remained occluded with residual thrombus. 2. Stable class I angina pectoris. 3. Hyperlipidemia. 4. Hypertension. 5. Type 2 diabetes mellitus. 6. Past statin-induced myalgias on low-dose Crestor now tolerating PCSK9 inhibitor Patient presents today feeling well. He denies acute cardiac complaints. Remains active on a regular basis. Blood pressure well controlled. Exercises 4-5 days per week approximately 25 minutes. No exertional symptoms. He is looking forward to an [employer] cruise. No chest pain, palpitations, dizziness, syncope or near syncope. No orthopnea, PND, or increased lower extremity edema. No fever, chills, cough, hematochezia, melena, or hemoptysis. Review of Systems: See HPI for pertinent positives. All others negative, other than those noted in HPI. Patient Active Problem List Diagnosis Code Chronic ischemic heart disease I25.9 Type 2 diabetes mellitus with hemoglobin A1c goal of less than 7.0% ([facility]) E11.9 [place] (myocardial infarction) I25.2 Dyslipidemia, goal LDL below 70 E78.5 HTN, goal below 140/90 I10 History of tobacco use Z87.891 Type 2 diabetes mellitus with diabetic polyneuropathy ([facility]) E11.42 Social History Tobacco Use Smoking status: Former Current packs/day: 0.00 Average packs/day: 1 pack/day for 40.0 years (40.0 ttl pk-yrs) Types: Cigarettes Start date: 03/19/1977 Quit date: 03/19/2017 Years since quittin.5 Smokeless tobacco: Never Tobacco comments: a pack a day Vaping Use Vaping Use: Never used Substance Use Topics Alcohol use: Not Currently Drug use: No Family History Problem Relation Age of Onset Glaucoma Aunt (Unspecified) Glaucoma Mother Eye Problems Sister DENIES FM: RD, AMD Other (BLINDNESS) Sister RESULTED FROM SURGERY Past Surgical History: Procedure Laterality Date LEONARDO WALTERS,W/ROTATOR CUFF Left 11/08/2021 ARTHROSCOPY SHOULDER ROTATOR CUFF performed by Saqib Edmond DO at OR [facility] COLONOSCOPY W/ LESION REMOVAL, SNARE 05/26/2008 repeat 5 yrs benign COLONOSCOPY, DIAGNOSTIC (RECTUM) 06/01/2013 COLONOSCOPY FLEXIBLE PROXIMAL DIAGNOSTIC performed by Syl Saeed DO at ENDOSCOPY [facility] COLONOSCOPY, DIAGNOSTIC (RECTUM) 08/24/2018 poor prep, repeat procedure/COLONOSCOPY FLEXIBLE PROXIMAL DIAGNOSTIC performed by Syl Saeed DO at ENDOSCOPY [facility] COLONOSCOPY, DIAGNOSTIC (RECTUM) 05/30/2020 normal, repeat 5 yrs / COLONOSCOPY FLEXIBLE PROXIMAL DIAGNOSTIC performed by Syl Saeed DO at ENDOSCOPY [facility] INFORMATION 06/27/[address] wire [address]BITTERLY L-/S-SPINE PARAVERTEBRAL FACET INJ,1 LEVEL 06/24/2018 L-/S-SPINE PARAVERTEBRAL FACET INJ, 1 LEVEL performed by Braydon Higginbotham DO at OR [facility] L-/S-SPINE PARAVERTEBRL FACET INJ,2 LEVELS 06/24/2018 L-/S-SPINE PARAVERTEBRAL FACET INJ, 2 LEVELS performed by Braydon Higginbotham DO at OR [facility] PATIENT HAS A CORONARY ARTERY STENT 12/2022 PATIENT HAS A CORONARY ARTERY STENT 2005 Review of patient's allergies indicates: Allergen Reactions Rosuvastatin Muscle pain Outpatient Medications Marked as Taking for the 09/30/23 encounter (Office Visit) with Willa Oviedo PA-C Medication Sig Trulicity 3 MG/0.5ML Subcutaneous Solution Pen-injector (Dulaglutide) Inject 3 mg under the skin once a week. Empagliflozin 25 MG Oral Tablet (Jardiance) Take 1 Tablet by mouth in the morning. Repatha Pushtronex System 420 MG/3.5ML Subcutaneous Solution Cartridge (Evolocumab with Infusor) Inject 420 mg (1 cartridge) under the skin Every Month. Aspirin 81 MG Oral Tablet Delayed Release Take 1 Tablet by mouth in the morning. Clopidogrel Bisulfate 75 MG Oral Tablet (pLAVix) Take 1 Tablet by mouth in the morning. Gabapentin 300 MG Oral Capsule (Neurontin) Take 1 Capsule by mouth in the morning and 1 Capsule before bedtime. Isosorbide Mononitrate ER 30 MG Oral Tablet Extended Release 24 Hour (Imdur) Take 1 Tablet by mouthin the morning. Lisinopril 2.5 MG Oral Tablet (Prinivil) Take 1 Tablet by mouth in the morning. metFORMIN HCl 500 MG Oral Tablet (Glucophage) Take 1 Tablet by mouth 2 times a day with morning andevening meals. Trulicity 4.5 MG/0.5ML Subcutaneous Solution Pen-injector (Dulaglutide) Inject 4.5 mg under the skin once a week. Aleve PM 220-25 MG Oral Tablet (Naproxen Sod-diphenhydrAMINE) Take 1 Tablet by mouth at bedtime. PHYSICAL EXAMINATION: BP 104/66 | Pulse 80 | Wt 93.9 kg (207 lb) | BMI 33.41 kg/m | BSA 2.09 m On my repeat 98/60 Wt Readings from Last 3 Encounters: 09/30/23 93.9 kg (207 lb) 07/20/23 93.3 kg (205 lb 9.6 oz) 02/24/23 91.2 kg (201 lb) General: NAD. A+Ox3. HEENT: Normocephalic. Atraumatic. PERRL. EOMI. Conjunctiva and sclera clear. NECK: No carotid bruits. No JVD. Carotid upstrokes are brisk. Heart: RRR. S1 and S2 noted without murmur, rubs, gallops. PMI non displaced. Lungs: Clear to auscultation and percussion. No wheezes, rhonchi, rales. Abdomen: Normal bowel sounds. Soft. Nontender. No masses or organomegaly. No abdominal bruits. Extremities: No edema. No clubbing or cyanosis. Pulses: radial=2/4, posterior tibial=2/4, dorsalis pedis = 2/4. NEURO: No focal deficits. PSYCH: Normal. DATA: EKG performed today and reviewed personally: Normal sinus rhythm with sinus arrhythmia Possible Lateral infarct (cited on or before 07-JAN-2023) Abnormal ECG When compared with ECG of 07-JAN-2023 11:10, T wave inversion no longer evident in Anterior-lateral leads Echocardiogram report reviewed dated February 19, 2023: Interpretation Summary The examination is adequate to evaluate the referral indication. The left ventricular cavity size is normal. The LV wall thickness is moderately increased (concentric). The left ventricular wall motion is normal. The left ventricular systolic function is normal. The qualitative LV ejection fraction is 60-64% (normal). The left ventricular diastolic function is mildly abnormal (grade I). No significant valvular disease EKG performed December 2022: Normal sinus rhythm Possible Lateral infarct , age undetermined Abnormal ECG When compared with ECG of 07-NOV-2021 09:19, Borderline criteria for Lateral infarct are now Present T wave inversion now evident in Anterior-lateral leads Cath report reviewed dated 12/19/22: Summary: 1. Acute 90% mid LAD stenosis with 2. Moderate non-culprit coronary artery disease -50 to 60% proximal circumflex extending into OM1 -Pa tent proximal to mid RCA stents with minimal in-stent restenosis 3. Normal intracardiac filling pressure 4. Successful PCI of mid LAD with single drug-eluting stent (2.75 x 22 mm Steven; post dilated with 3.0 NC). Echocardiogram during admission reviewed dated 12/20/22: LV is normal in sie. LV systolic function is normal. EF 60-65% Mild hypokinesis of the distal anterior wall RV systolic function is normal LA size is normal RA size is normal No significant valvular pathology. Latest Reference Range & Units 09/08/23 11:58 Triglycerides <=174 mg/dL 124 Cholesterol <200 mg/dL 100 Non-HDL Cholesterol <=159 mg/dL 47 HDL Cholesterol >39 mg/dL 53 LDL Cholesterol <=129 mg/dL 22 IMPRESSION: 73 year-old male: ICD-10-CM 1. Coronary artery disease involving white earth coronary artery of white earth heart without angina [id number] 2. Chronic ischemic heart disease I25.9 3. Dyslipidemia, goal LDL below 70 E78.5 4. HTN, goal below 140/90 I10 5. Statin intolerance Z78.9 PLAN: Stable cardiac symptoms. No anginal complaints. BP controlled Lipids controlled and tolerating Repatha. The patient is to continue all current medications as listed above. No changes were made at today'svisit. Recommend regular aerobic exercise. [place] goal would be minimum of 30 minutes done daily. Exercise can be done in divided time periods if needed. Told to avoid extremes in temperature. Patient is being evaluated in the cardiology office for ongoing care/risk management for CAD; HTN; 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. I spent a total of 30 minutes on the date of service in preparation, delivery, and documentation ofthe care provided to Ousmane Wilkerson excluding any time spent in the performance of separately billed services. The patient agrees to the above plan and will call with additional questions or concerns. ER with all emergencies advised. Follow Up: Return in about 6 months (around 03/30/2024). Miryam Oviedo PA-C Department of Cardiology This chart was completed in part utilizing [employer] Speech Voice Recognition Software. Grammatical errors, random word insertions, prounoun errors, and incomplete sentences are an occasional consequence of this system due to software limitations, ambient noise, and hardware issues. Any formal questions or concerns about the content, text, or information contained within the body of this dictation should be directly addressed to the provider for clarification. 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 Reason for Visit: for follow up Interim Hospitalization(s): denies Problems/Concerns:occ dizziness Chest Pain/SOB: rare chest discomfort gets SOB when its cold out [facility] Discussed: Not applicable [facility] is a way you can talk to your provider online through e-mail. Would you like to sign up? I can activate it for you? ALREADY ACTIVE Patient was instructed to not get up on the exam table until directed and assisted by their provider; patient is to remain seated in the chair/ wheelchair/ exam table for fall prevention and safety reasons. Patient is aware to have assistance to step down off exam table with personnel. Patient voiced full comprehension of instructions. documented in this encounter Plan of Treatment Upcoming Encounters Date Type Department Care Team (Late st Contact Info) Description 12/05/2023 9:00 AM EDT Office Visit [address] [place] [address] Ivan Templeton MD [address] [place] [address] Scheduled Procedures Name Priority Associated Diagnoses Date/Ti me COLONOSCOPY FLEXIBLE PROXIMAL DIAGNOSTIC Recall History of colon polyps Health Maintenance Due Date Last Done Comments DTaP,Tdap,and Td Vaccines (2 - Td or [...] exists LUNG CANCER SCREENING - USE SMARTSET 15363 Completed 01/26/2023 COVID-19 Vaccine Completed 06/15/2023, , 06/19/2021, Additional history exists GARDASIL-HPV IMMUNIZATION SERIES Aged Out No longer eligible based on patient's age to complete this topic Hepatitis B Aged Out No longer eligi ble based on patient's age to complete this topic MENINGOCOCCAL (MENACTRA/MENVEO) Aged Out No longer eligible based on patient's age to complete this topic documented as of this encounter Medical Devices Implanted Type Area Hardwood Flooring Specialist Device Identifier Shelf Expiration Date Model / Serial / Lot Biocomposite Swivelock C Suture Gramercy Implanted:Qty: 1 on 11/08/2021 by Saqib Edmond DO at OR [facility] Left: Shoulder [employer] 07/09/2024 [id number]-[id number] T / / [id number] Description:with Closed PEEK Eyelet and FiberTape Loop Biocomposite Swivelock C Suture Gramercy Implanted:Qty: 1 on 11/08/2021 by Saqib Edmond DO at OR [facility] Left: Shoulder [employer] 06/09/2025 [id number]-[id number] TT / / [id number] Description:wit Closed PEEK eyelet and TigerTape Loop Biocomposite Knotless Swivelock Gramercy Implanted:Qty: 1 on 11/08/2021 by Saqib Edmond DO at OR [facility] Left: Shoulder [employer] 10/07/2025 [id number] C / / [id number] Description:with Blue #2 Sut ure Biocomposite Knotless Swivelock Gramercy Implanted:Qty: 1 on 11/08/2021 by Saqib Edmond DO at OR [facility] Left: Shoulder [employer] 09/09/2025 [id number] C / / [id number] Description:with Blue #2 Sut ure documented as of this encounter Procedures Procedure Name Priority Date/Time Associated Diagnosis Comments ND ECG ROUTINE ECG W/LEAST 12 LDS W/I&R Routine 09/30/2023 1:48 PM EST Chronic ischemic heart disease documented in this encounter Results * EKG COMPLETE (TRACING AND INTERP) (09/30/2023 1:48 PM EST) 09/30/2023 1:48 PM EST Narrative Procedure Note Didier Prakash MD - 09/30/2023 1:48 PM EST REASON FOR STUDY: CAD without angina; HTN; 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; 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 CONCLUSIONS: Normal sinus rhythm with sinus arrhythmia Possible Lateral infarct (cited on or before 07-JAN-2023) Abnormal ECG When compared with ECG of 07-JAN-2023 11:10, T wave inversion no longer evident in Anterior-lateral leads Ventricular Rate: 79 Atrial Rate: 79 ND Interval: 162 QRS Duration: 98 QT/QTc: 386/442 ms P-R-T Brinson: 40 : 62 : 34 degrees Miryam Oviedo PA-C EKG Performing Organization Address City/State/ZIP Co nm Phone Number [facility] documented in this encounter Visit Diagnoses Diagnosis Coronary artery disease involving white earth coronary artery of white earth heart without angina pectoris- Primary Chronic ischemic heart disease Chronic ischemic heart disease, unspecified Dyslipidemia, goal LDL below 70 Other and unspecified hyperlipidemia HTN, goal below 140/90 Unspecified essential hypertension Statin intolerance Other drug allergy documented in this encounter Care Teams Collection Systems Foreman Relationship Specialty Start Date End Date Ivan Templeton MD [address] [place] [address] PCP - General Family Medicine 07/29/12 documented as of this encounter"
--- OUTSIDE RECORDS SUMMARY | 2023-11-05 11:43 | External Medical Summary | Summary of Care ---
Author Name Unknown Organization [facility] Address [address] [place] [address] Phone [phone] Care Team Providers Care Manager Financial Reporting Name Role Phone Ivan Templeton MD Primary Care Provider +1- [phone] Reason for Visit * Reason Comments Outpatient Testing Encounter Details Date Type Department Care Team (Late st Contact Info) Description 09/08/2023 11:50 AM EST Laboratory Laboratory, [place] [address] [place] [address] [place] [address] [place] [address] Dyslipidemia, goal LDL below 70 [...] 0 07/07/2018 Active FreeStyle Alice 14 Day [place] Device Use as directed. 1 Each 0 [...] of anterior wall (HCC),Coronary artery disease involving eyak coronary artery of eyak heart without angina pectoris Take 1 Tablet [...] goal LDL below 70,Coronary artery disease involving eyak coronary artery of eyak heart without angina pectoris Inject 420 mg [...] Dyslipidemia, goal LDL below 70 01/09/2017 Old [place] (myocardial infarction) 03/31/2012 Overview: Coronary disease, single [...] Taxonomy. AORTOCORONARY BYPASS STATUS 07/200602/08/2008 03/31/2012 ACUTE [place] NOS (07/14/06) 11/22/200701/09 Tobacco use disorder 11/22/2007 [...] Note - Cecilia Sánchez RPh - 09/10/2023 4:13 PM EST LDL cholesterol at goal/well controlled. Will review at upcoming appointment. * Result Encounter Note - Cecilia Sánchez RPh - 09/10/2023 4:12 PM EST LDL cholesterol at goal/well controlled. Will review at upcoming appointment. documented in this encounter Plan of Treatment Upcoming Encounters Date Type Department Care Team (Late st Contact Info) Description 09/17/2023 5:30 PM EST Pharmacy Cardiology [place] [facility] [address] [facility] [place] [address] [place] [address] [place] [address] [place] [address] 09/30/2023 2:00 PM EST Office Visit Cardiology, [facility] [address] [address] Miryam Oviedo PA-C [address] [place] [address] 10/02/2023 11:30 AM EST Office Visit Cardiology, [facility] [address] [address] [facility] [place] [facility] Cardiology [facility] [address] [address] 12/05/2023 9:00 AM EDT Office Visit Family Practice [facility] [address] [address] Ivan Templeton MD [address] [place] [address] Scheduled Procedures Name Priority Associated Diagnoses Date/Ti [...] exists LUNG CANCER SCREENING - USE SMARTSET 72490 Completed 01/26/2023 COVID-19 Vaccine Completed 06/15/2023, , 06/19/2021, Additional history exists GARDASIL-HPV IMMUNIZATION SERIES Aged Out No longer eligible based on patient's age to complete this topic MENINGOCOCCAL (MENACTRA/MENVEO) Aged Out No longer eligible based on patient's age to complete this topic documented as of this encounter Medical Devices Implanted Type Area Blankbook Stitching Machine Operator Device Identifier Shelf Expiration Date Model / Serial / Lot Biocomposite Knotless Swivelock [place] Implanted:Qty: 1 on 11/08/2021 by Saqib Edmond DO at OR [facility] Left: Shoulder [employer] 09/09/2025 [id number] C / / [id number] Description:with Blue #2 Sut ure documented as [...] <=174 mg/dL 09/09/2023 12:07 AM EST LABORATORY [facility] Comment: Triglyceride Reference Ranges (mg/dL): <150 Acceptable 150-174 Borderline high 175-499 High >=500 Very high Cholesterol 100 <200 mg/dL 09/09/2023 12:07 AM EST LABORATORY [facility] Comment: Total Cholesterol Reference Ranges (mg/dL): <200 Desirable 200-239 Borderline high >=240 High HDL Cholesterol 53 >39 mg/dL 12:07 AM EST LABORATORY [facility] Comment: HDL Cholesterol Reference Ranges (mg/dL): >=60 High (Desirable) <50 Low (Undesirable) For Females <40 Low (Undesirable) For Males Non-HDL Cholesterol 47 <=159 mg/dL 09/09/2023 12:07 AM EST LABORATORY [facility] Comment: Non-HDL Cholesterol Reference Range (mg/dL): <100 Target level for high risk ASCVD patient <130 Optimal for general population 130-159 Near optimal for general population 160-189 Borderline High 190-219 High >=220 Very High LDL Cholesterol 22 <=129 mg/dL 09/09/2023 12:07 AM EST LABORATORY [facility] Comment: LDL Cholesterol Reference Ranges (mg/dL): <70 Target level for high risk ASCVD patient <100 Optimal for general population 100-129 Near optimal for general population 130-159 Borderline high 160-189 High >=190 Very high Blood Venous blood specimen / Unknown Venipuncture / Unknown 09/08/2023 11:58 AM EST 09/08/2023 11:58 AM EST Cecilia Cranetunde [facility] [place] [facility] LAB BLOOD ORDERA BLES LABORATORY [facility] [address] [place] [address] documented in this encounter Visit Diagnoses Diagnosis Dyslipidemia, goal LDL below 70 Other and unspecified hyperlipidemia documented in this encounter Care Teams Manager Financial Reporting Relationship Specialty Start Date End Date Ivan Templeton MD [address], [place] [id number] PCP - General Family Medicine 07/29/12 documented as of this encounter
--- OUTSIDE RECORDS SUMMARY | 2023-11-05 11:43 | External Medical Summary | Summary of Care ---
Author Name Unknown Organization [facility] Address [address] [facility] [place] [address] Phone [phone] Care Team Providers Care Toy Electric Train Repairer Name Role Phone Ivan Templeton MD Primary Care Provider +1- [phone] Reason for Visit * Reason Comments Dosage Adjustment In Person (Anticoag Cl inic) Hypercholesterolemia Encounter Details Date Type Department Care Team (Late st Contact Info) Description 10/02/2023 11:30 AM EST Office Visit Cardiology, [facility] [address] [facility] [place] [address] [facility] Cardiology [facility] [address] [facility] [place] [address] Dyslipidemia, goal LDL below 70* Allergies Active Allergy Reactions Criticality Noted Date Comments Rosuvastatin Muscle pain 04/27/2023 documented as of this encounter (statuses as of 10/02/2023) Medications Medication Sig Dispensed Refills Start Date [...] 0 07/07/2018 Active FreeStyle Alice 14 Day [place] Device Use as directed. 1 Each 0 [...] or juice. 850 g 1 09/03/2021 Active Additional Information Patient not taking.Reported on [...] the morning. 90 Tablet 3 07/20/2023 Active Additional Information Patient not taking.Reported on 09/30/2023 Gabapentin 300 MG Oral Capsule (Neurontin)Indicatio ns:Diabetic polyneuropathy associated with type 2 diabetes mellitus (HCC) Take 1 Capsule by mouth in the morning and 1 Capsule before bedtime. 180 Capsule 1 07/20/2023 Active Isosorbide Mononitrate ER 30 MG Oral Tablet Extended Release 24 Hour (Imdur)Indications:S T elevation myocardial infarction (STEMI) of anterior wall (HCC),Coronary artery disease involving [place] coronary artery of k[place] heart without angina pectoris Take 1 Tablet [...] goal LDL below 70,Coronary artery disease involving k[place]sel dehe [place] coronary artery of k[place]sel dehe [place] heart without angina pectoris Inject 420 mg (1 cartridge) under the skin Every Month. 10.5 mL 3 08/27/2023 Active Empagliflozin 25 MG Oral Tablet (Jardiance)Indicatio ns:Type 2 diabetes mellitus with hemoglobin A1c goal of less than 7.0% (HCC) Take 1 Tablet by mouth in the morning. 90 Tablet 3 09/16/2023 Active Trulicity 3 MG/0.5ML Subcutaneous Solution Pen-injector (Dulaglutide) Inject 3 mg under the skin once a week. 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 AORTOCORONARY BYPASS STATUS 07/200602/08/2008 03/31/2012 ACUTE [place] NOS (07/14/06) 11/22/200701/09 Tobacco use disorder 11/22/2007 018 ADVANCE DIRECTIVE INFORMATION 07/27/2007 01/09/2017 Overview: Yes, Patient instructed to provide copy of advance directive for provider to review and to be scanned into Electronic Medical Record [place] 06/14/2004 07/10/2017 documented as of this encounter (statuses as of 10/02/2023) Immunizations Name Administration Dates Next Due COVID-19 [...] on file documented as of this encounter Patient Instructions * Patient Instructions* Cecilia Sánchez RPh - 10/02/2023 11:36 AM EST Repatha coverage: [employer] yue: [employer] Card ID:[id number] Group: [id number] BIN: [id number] PCN: [id number] Please [phone] if any questions or concerns documented in this encounter Plan of Treatment Upcoming Encounters Date Type Department Care Team (Late st Contact Info) Description 12/05/2023 9:00 AM EDT Office [address] [address] Ivan Templeton MD [address] [place], [place] [id number] Scheduled Procedures Name Priority Associated Diagnoses Date/Ti [...] exists LUNG CANCER SCREENING - USE SMARTSET [id number] Completed 01/26/2023 COVID-19 Vaccine Completed 06/15/2023, , [...] this encounter Medical Devices Implanted Type Area Asphalt Blender Device Identifier Shelf Expiration Date Model / Serial / Lot Biocomposite Swivelock C Suture [place] Implanted:Qty: 1 on 11/08/2021 by Saqib Edmond DO at OR [facility] Left: Shoulder [employer] 07/09/2024 AR-2324BCC T / / [id number] Description:with Closed PEEK Eyelet and FiberTape Loop Biocomposite Swivelock C Suture [place] Implanted:Qty: 1 on 11/08/2021 by Saqib Edmond DO at OR [facility] Left: Shoulder [employer] 06/09/2025 AR-2324BCC TT / / [id number] Description:wit Closed PEEK eyelet and TigerTape Loop Biocomposite Knotless Swivelock [place] Implanted:Qty: 1 on 11/08/2021 by Saqib Edmond DO at OR [facility] Left: Shoulder [employer] 10/07/2025 [facility]2324[facility] C / / [id number] Description:with Blue #2 Sut ure Biocomposite Knotless Swivelock [place] Implanted:Qty: 1 on 11/08/2021 by Saqib Edmond DO at OR [facility] Left: Shoulder [employer] 09/09/2025 [facility]2324[facility] C / / [id number] Description:with Blue #2 Sut ure documented as of this encounter Visit Diagnoses Diagnosis Dyslipidemia, goal LDL below 70- Primary Other and unspecified hyperlipidemia documented in this encounter Care Teams Toy Electric Train Repairer Relationship Specialty Start Date End Date Ivan Templeton MD [address] [place] [address] PCP - General Family Medicine 07/29/12 documented as of this encounter
--- OUTSIDE RECORDS SUMMARY | 2023-11-05 11:43 | External Medical Summary | Summary of Care ---
Author Name Unknown Organization [facility] Address [address] [place] [address] Phone [phone] Care Team Providers Care Water Technician Name Role Phone Ivan Templeton MD Primary Care Provider +1- [phone] Reason for Visit * Reason Onset Date Comments Medication Question 09/18/2023 Encounter Details Date Type Department Care Team (Late st Contact Info) Description 09/18/2023 Telephone [facility] [address] [place] [address] Ivan Templeton MD [address] [place] [address] Medication Question Allergies Active Allergy Reactions Criticality Noted Date Comments Rosuvastatin Muscle pain 04/27/2023 documented as of this encounter (statuses as of 09/18/2023) Medications Medication Sig Dispensed Refills Start Date End Date Status Glucose Blood (ONETOUCH ULTRA BLUE) STRPIndications:DM type 2, not at goal ([facility]),Type 2 diabetes mellitus with hemoglobin A1c goal of less than 7.0% ([facility]) Use 2 times a day as directed DX:E11.9 Diabetes Type 2 uncontrolled 300 Strip 5 8 Active ONETOUCH LANCETS MISCIndications:Typ e 2 diabetes mellitus with hemoglobin A1c goal of less than 7.0% ([facility]),DM type 2, not at goal ([facility]) Use to test blood sugar up to twice daily: dx 250.00 3 Box Dosing Unit 5 8 Active Lidocaine, Anorectal, 5 % CREAIndications:Ext ernal hemorrhoid, thrombosed Apply to affected area 3-4 times as needed for pain 28 g 0 8 Active FreeStyle Alice 14 Day [place] Device Use as directed. 1 Each 0 [...] of anterior wall (HCC),Coronary artery disease involving [place] coronary artery of [place] heart without angina pectoris Take 1 Tablet [...] goal LDL below 70,Coronary artery disease involving [place] coronary artery of [place] heart without angina pectoris Inject 420 mg [...] once a week. 2 mL 1 4 Active Trulicity 3 MG/0.5ML Subcutaneous Solution Pen-injector (Dulaglutide) Inject 3 mg under the skin once a week. 2 mL 1 4 09/18/19 24 Discontinu ed(Refill) documented as of this encounter (statuses as of 09/18/2023) Active Problems Problem Noted Date Diagnosed Date [...] as of this encounter (statuses as of 09/18/2023) Resolved Problems Problem Noted Date Diagnosed Date [...] as of this encounter (statuses as of 09/18/2023) Immunizations Name Administration Dates Next Due COVID-19 [...] encounter Miscellaneous Notes * Telephone Encounter - Dang Ramos LPN - 09/18/2023 3:28 PM EST Did you pend patient's preferred pharmacy and medication before forwarding?yes Pharmacy: [facility] [address] [address] [address] Received a fax that pharmacy needs a clarification on the RX below. Pending Prescriptions: Disp Refills Trulicity 3 MG/0.5ML Subcutaneous Solutio*2 mL 1 Sig: Inject 3 mg under the skin once a week. Last Visit: 07/20/2023 (in office), Visit date not found (telemedicine) Next Visit: Visit date not found If no future appointments scheduled, and last appointment is greater than a year ago, please schedule patient for a follow-up appointment Last date the medication was ordered: 09/10/2023 Is this request for a controlled substance?No Urine Drug Screen:No results found for this or any previous visit. Patient Phone Numbers [employer] [phone] Labs: Lab Results Component Value Date/Time CREAT 0.9 04/08/2023 08:49 AM CREAT 0.8 07/23/2020 10:38 AM POTASSIUM 4.7 04/08/2023 08:49 AM POTASSIUM 4.6 07/23/2020 10:38 AM TSH 0.93 08/11/2019 09:06 AM LDLCALC 22 09/08/2023 11:58 AM LDLCALC 64 03/22/2020 08:21 AM LDLDIRECT NOT APPLICABLE 03/22/2020 08:21 AM LDLDIRECT 86 10/10/2013 10:45 AM ALT 17 04/08/2023 08:49 AM ALT 30 07/23/2020 10:38 AM HGBA1C 7.9 (H) 07/15/2023 11:18 AM HGBA1C 8.8 (H) 07/23/2020 10:38 AM documented in this encounter Plan of Treatment Upcoming Encounters Date Type Department Care Team (Late st Contact Info) Description 09/30/2023 2:00 PM EST Office Visit Cardiology, [facility] 132 [facility] [place] [address] Miryam Oviedo PA-C 132 [facility] [place] [address] 10/02/2023 11:30 AM EST Office Visit Cardiology, [facility] [address] [facility] [place] [address] [facility] Cardiology [facility] 132 [facility] [place] [address] 12/05/2023 9:00 AM EDT Office Visit Family Practice [facility] [address] [facility] [place] [address] Ivan Templeton MD [address] [place] [address] Scheduled Procedures Name Priority Associated Diagnoses Date/Ti [...] exists LUNG CANCER SCREENING - USE SMARTSET [id number] Completed 01/26/2023 COVID-19 Vaccine Completed 06/15/2023, , 06/19/2021, Additional history exists GARDASIL-HPV IMMUNIZATION SERIES Aged Out No longer eligible based on patient's age to complete this topic MENINGOCOCCAL (MENACTRA/MENVEO) Aged Out No longer eligible based on patient's age to complete this topic documented as of this encounter Medical Devices Implanted Type Area It Field Technician Device Identifier Shelf Expiration Date Model / Serial / Lot Biocomposite Knotless Swivelock [place] Implanted:Qty: 1 on 11/08/2021 by Saqib Edmond, DO at OR [facility] Left: Shoulder [employer] 09/09/2025 AR-[id number] C / / [id number] Description:with Blue #2 Sut ure documented as of this encounter Care Teams Water Technician Relationship Specialty Start Date End Date Ivan Templeton MD [address] [place], [place] [phone] PCP - General Family Medicine 07/29/12 documented as of this encounter
--- OUTSIDE RECORDS SUMMARY | 2023-11-05 11:43 | External Medical Summary | Summary of Care ---
Author Name Unknown Organization [facility] Address [address] [place] [address] Phone [phone] Care Team Providers Care Clinical Educator Name Role Phone Ivan Templeton MD Primary Care Provider +1- [phone] Reason for Visit * Reason Onset Date Comments Med Request 09/16/2023 Encounter Details Date Type Department Care Team (Late st Contact Info) Description 09/16/2023 Telephone [facility] [address] [place] [address] Ivan Templeton MD [address] [place] [address] Med Request Allergies Active Allergy Reactions Criticality Noted Date Comments Rosuvastatin Muscle pain 04/27/2023 documented as of this encounter (statuses as of 09/16/2023) Medications Medication Sig Dispensed Refills Start Date End Date Status Glucose Blood (ONETOUCH ULTRA BLUE) STRPIndications:DM type 2, not at goal (HCC),Type 2 diabetes mellitus with hemoglobin A1c goal of less than 7.0% ([facility]) Use 2 times a day as [...] 0 07/07/2018 Active FreeStyle Alice 14 Day [place] Device Use as directed. 1 Each 0 [...] of anterior wall (HCC),Coronary artery disease involving nikolai coronary artery of nikolai heart without angina pectoris Take 1 Tablet [...] goal LDL below 70,Coronary artery disease involving nikolai coronary artery of nikolai heart without angina pectoris Inject 420 mg (1 cartridge) under the skin Every Month. 10.5 mL 3 08/27/2023 Active Trulicity 3 MG/0.5ML Subcutaneous Solution Pen-injector (Dulaglutide) Inject 3 mg under the skin once a week. 2 mL 1 09/10/2023 Active Empagliflozin 25 MG Oral Tablet (Jardiance)Indicatio ns:Type 2 diabetes mellitus with hemoglobin A1c goal of less than 7.0% (HCC) Take 1 Tablet by mouth in the morning. 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 AORTOCORONARY BYPASS STATUS 07/200602/08/2008 03/31/2012 ACUTE [place] NOS (07/14/06) 11/22/200701/09 Tobacco use disorder 11/22/2007 018 ADVANCE DIRECTIVE INFORMATION 07/27/2007 01/09/2017 Overview: Yes, Patient instructed to provide copy of advance directive for provider to review and to be scanned into Electronic Medical Record [place] 06/14/2004 07/10/2017 documented as of this encounter (statuses as of 09/16/2023) Immunizations Name Administration Dates Next Due COVID-19 [...] encounter Miscellaneous Notes * Telephone Encounter - Ivan Templeton MD - 09/16/2023 6:06 PM EST Jardiance sent erx * Telephone Encounter - Thu Monzon LPN - 09/16/2023 12:59 PM EST Patient calling to request a script for Jardiance so he can see if it's cheaper than Invokana. The Invokana is $229 a month. Pharmacy confirmed. documented in this encounter Plan of Treatment Upcoming Encounters Date Type Department Care Team (Late st Contact Info) Description 09/30/2023 2:00 PM EST Office Visit Cardiology, [facility] [address] [address] Miryam Oviedo PA-C [address] [place] [address] 10/02/2023 11:30 AM EST Office Visit Cardiology, [facility] [address] [address] [facility] Cardiology [facility] [address] [place] [address] 12/05/2023 9:00 AM EDT Office Visit Family Practice [facility] [address] [place] [address] [facility] [address] [facility] [id number] Scheduled Procedures Name Priority Associated Diagnoses Date/Ti [...] exists LUNG CANCER SCREENING - USE SMARTSET [id number] Completed 01/26/2023 COVID-19 Vaccine Completed 06/15/2023, , 06/19/2021, Additional history exists GARDASIL-HPV IMMUNIZATION SERIES Aged Out No longer eligible based on patient's age to complete this topic MENINGOCOCCAL (MENACTRA/MENVEO) Aged Out No longer eligible based on patient's age to complete this topic documented as of this encounter Medical Devices Implanted Type Area Deputy Juvenile Officer Device Identifier Shelf Expiration Date Model / Serial / Lot Biocomposite Knotless Swivelock [place] Implanted:Qty: 1 on 11/08/2021 by Saqib Edmond, at OR [facility] Left: Shoulder [employer] 09/09/2025 [id number] C / / [id number] Description:with Blue #2 Sut ure documented as of this encounter Visit Diagnoses Diagnosis Type 2 diabetes mellitus with hemoglobin A1c goal of less than 7.0% (HCC)- Primary documented in this encounter Care Teams Clinical Educator Relationship Specialty Start Date End Date Ivan Templeton MD [address] [place] [address] PCP - General Family Medicine 07/29/12 documented as of this encounter
--- OUTSIDE RECORDS SUMMARY | 2023-11-05 11:43 | External Medical Summary | Summary of Care ---
Author Name Unknown Organization [facility] Address [address] [place] [address] Phone [phone] Care Team Providers Care Stamp Collector Name Role Phone Ivan Templeton MD Primary Care Provider +1- [phone] Reason for Visit * Reason Comments Lipid Management Encounter Details Date Type Department Care Team (Late st Contact Info) Description 09/10/2023 8:20 AM EST Telemedicine Cardiology [facility], [place] [address], [place] [id number] [place] [address], Pharmacist Cardiology [facility] [address], [place] [id number] Dyslipidemia, goal LDL below 70* Allergies Active Allergy Reactions Criticality Noted Date Comments Rosuvastatin Muscle pain 04/27/2023 documented as of this encounter (statuses as of 09/10/2023) Medications Medication Sig Dispensed Refills Start Date End Date Status Glucose Blood (ONETOUCH ULTRA BLUE) STRPIndications:DM type 2, not at goal ([facility]),Type 2 diabetes mellitus with hemoglobin A1c goal of less than 7.0% ([facility]) Use 2 times a day as directed [...] 0 07/07/2018 Active FreeStyle Alice 14 Day [place] Device Use as directed. 1 Each 0 [...] of anterior wall (HCC),Coronary artery disease involving [place] coronary artery of [place] heart without angina pectoris Take 1 Tablet [...] goal LDL below 70,Coronary artery disease involving [place] coronary artery of [place] heart without angina pectoris Inject 420 mg (1 cartridge) under the skin Every Month. 10.5 mL 3 08/27/2023 Active Trulicity 3 MG/0.5ML Subcutaneous Solution Pen-injector (Dulaglutide) Inject 3 mg under the skin once a week. 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 AORTOCORONARY BYPASS STATUS 07/200602/08/2008 03/31/2012 ACUTE [place] NOS (07/14/06) 11/22/200701/09 Tobacco use disorder 11/22/2007 [...] on file documented as of this encounter Progress Notes * Nitin Kennedy RPh - 09/10/2023 6:18 PM EST PCSK-9 Inhibitor Follow Up After connecting to the patient via telephone, the patient was identified by name and date of . Patient was then informed that this was a telephone call only visit. The patient agreed to participate Visit Disposition: Status check/routine follow up Duration: 10 minutes Primary Compilation Clerk/Ordering Provider: Miryam Oviedo PA-C HPI: Ousmane Wilkerson is a 73 year old year old male. Target LDL: <70 Patient Active Problem List Diagnosis Code Chronic ischemic heart disease I25.9 Type 2 diabetes mellitus with hemoglobin A1c goal of less than 7.0% ([facility]) E11.9 Old [place] (myocardial infarction) I25.2 Dyslipidemia, goal LDL below 70 E78.5 HTN, goal below 140/90 I10 History of tobacco use Z87.891 Type 2 diabetes mellitus with diabetic polyneuropathy ([facility]) E11.42 Review of patient's allergies indicates: Allergen Reactions Rosuvastatin Muscle pain LABS: Latest Reference Range & Units 04/08/23 08:49 09/08/23 11:58 Triglycerides <=174 mg/dL 188 (H) 124 Cholesterol <200 mg/dL 204 (H) 100 Non-HDL Cholesterol <=159 mg/dL 158 47 HDL Cholesterol >39 mg/dL 46 53 LDL Cholesterol <=129 mg/dL 120 22 ASSESSMENT I spoke with patient and reviewed his labs, they are great on repatha. He will continue with current dosing. He is unable to switch back to [facility]. He was also told with new insurance that he wouldhave to switch to [facility] to have med filled. I sent him the information in case he needs to switch pharmacy CC to [facility], PharmD Clinical Pharmacist [facility] - Cardiology 09/10/2023, 6:27 PM documented in this encounter Plan of Treatment Upcoming Encounters Date Type Department Care Team (Late st Contact Info) Description 09/17/2023 5:30 PM EST Pharmacy Cardiology [facility] [address] [place] [address] [facility] [address] [place] [address] 09/30/2023 2:00 PM EST Office Visit Cardiology, [facility] [address] [place] [address] Miryam Oviedo PA-C [address] [facility] [place] [place] [address] 10/02/2023 11:30 AM EST Office Visit Cardiology, [facility] [address] [facility] [place] [address] [facility] Cardiology [facility] [address] [facility] [address] 12/05/2023 9:00 AM EDT Office Visit Family Practice [facility] [address] [facility] [place] [address] Ivan Templeton MD [address] [place] [address] Scheduled Procedures Name Priority Associated Diagnoses Date/Ti [...] exists LUNG CANCER SCREENING - USE SMARTSET [id number] Completed 01/26/2023 COVID-19 Vaccine Completed 06/15/2023, , 06/19/2021, Additional history exists GARDASIL-HPV IMMUNIZATION SERIES Aged Out No longer eligible based on patient's age to complete this topic MENINGOCOCCAL (MENACTRA/MENVEO) Aged Out No longer eligible based on patient's age to complete this topic documented as of this encounter Medical Devices Implanted Type Area Bread Baker Device Identifier Shelf Expiration Date Model / Serial / Lot Biocomposite Knotless Swivelock [place] Implanted:Qty: 1 on 11/08/2021 by Saqib Edmond, at OR [facility] Left: Shoulder [employer] 09/09/2025 [id number] C / / [id number] Description:with Blue #2 Sut ure documented as of this encounter Visit Diagnoses Diagnosis Dyslipidemia, goal LDL below 70- Primary Other and unspecified hyperlipidemia documented in this encounter Care Teams Stamp Collector Relationship Specialty Start Date End Date Ivan Templeton MD [address] [place] [address] PCP - General Family Medicine 07/29/12 documented as of this encounter
--- OUTSIDE RECORDS SUMMARY | 2023-11-05 11:43 | External Medical Summary | Summary of Care ---
Author Name Unknown Organization [facility] Address [address] [place] [address] Phone [phone] Care Team Providers Care Pole Incisor Operator Name Role Phone Ivan Templeton MD Primary Care Provider +1- [phone] Encounter Details Date Type Department Care Team (Late st Contact Info) Description 06/16/2023 Telephone Rheumatology, [place] [address], [place] [id number] Steven Carranza, [address] [place], [place] [phone] Allergies Active Allergy Reactions Criticality Noted Date Comments Rosuvastatin Muscle pain 04/27/2023 documented as of this encounter (statuses as of 09/15/2023) Medications Medication Sig Dispensed Refills Start Date End Date Status Glucose Blood (ONETOUCH ULTRA BLUE) STRPIndications:DM type 2, not at goal ([facility]),Type 2 diabetes mellitus with hemoglobin A1c goal of less than 7.0% ([facility]) Use 2 times a day as directed DX:E11.9 Diabetes Type 2 uncontrolled 300 Strip 5 04/15/2018 Active ONETOUCH LANCETS MISCIndications:Ty pe 2 diabetes mellitus with hemoglobin A1c goal of less than 7.0% ([facility]),DM type 2, not at goal ([facility]) Use to test blood sugar up to twice daily: dx 250.00 3 Box Dosing Unit 5 04/15/2018 Active Lidocaine, Anorectal, 5 % CREAIndications:Ex ternal hemorrhoid, thrombosed Apply to affected area 3-4 times as needed for pain 28 g 0 07/07/2018 Active SCI [place] Alice 14 Day [place] Device Use as directed. 1 Each 0 07/27/2020 Active FreeStyle Alice 14 Day Sensor Use as directed. Use as directed to check blood sugars 4 times per day. 2 Each 4 07/27/2020 Active Polyethylene Glycol 3350 17 GM/SCOOP Oral Powder (MiraLax)Indicatio ns:Constipation, unspecified constipation type Take 17 g as needed by mouth for Constipation. Dissolve one heaping tablespoon in 8 ounces of water or juice. 850 g 1 09/03/2021 Active Nitroglycerin 0.4 MG Sublingual Tablet Sublingual (Nitrostat) Place 1 Tablet under the tongue as needed. 0 12/21/2022 Active Aleve PM 220-25 MG Oral Tablet (Naproxen Sod-diphenhydrAMIN E) Take 1 Tablet by mouth at bedtime. 0 Active documented as of this encounter (statuses as of 09/15/2023) Active Problems Problem Noted Date Diagnosed Date [...] as of this encounter (statuses as of 09/15/2023) Resolved Problems Problem Noted Date Diagnosed Date [...] as of this encounter (statuses as of 09/15/2023) Immunizations Name Administration Dates Next Due COVID-19 [...] on file documented as of this encounter Plan of Treatment Upcoming Encounters Date Type Department Care Team (Late st Contact Info) Description 09/30/2023 2:00 PM EST Office Visit Cardiology, [facility] [address] [place] [address] Miryam Oviedo PA-C [address] [place] [address] 10/02/2023 11:30 AM EST Office Visit Cardiology, [facility] [address] [place] [address] [facility] Cardiology [facility] [address] [place] [address] 12/05/2023 9:00 AM EDT Office Visit Family Practice [facility] 132 [facility] [place] [address] Ivan Templeton MD [address] [place] [address] Scheduled Procedures Name Priority Associated Diagnoses Date/Ti [...] exists LUNG CANCER SCREENING - USE SMARTSET [id number] Completed 01/26/2023 COVID-19 Vaccine Completed 06/15/2023, , 06/19/2021, Additional history exists GARDASIL-HPV IMMUNIZATION SERIES Aged Out No longer eligible based on patient's age to complete this topic MENINGOCOCCAL (MENACTRA/MENVEO) Aged Out No longer eligible based on patient's age to complete this topic documented as of this encounter Medical Devices Implanted Type Area Structural Steel Erector Device Identifier Shelf Expiration Date Model / Serial / Lot Biocomposite Knotless Swivelock [place] Implanted:Qty: 1 on 11/08/2021 by Saqib Edmond, at OR [facility] Left: Shoulder [employer] 09/09/2025 [id number] C / / [id number] Description:with Blue #2 Sut ure documented as of this encounter Care Teams Pole Incisor Operator Relationship Specialty Start Date End Date Ivan Templeton MD [address] [place] [address] PCP - General Family Medicine 07/29/12 documented as of this encounter
--- OUTSIDE RECORDS SUMMARY | 2023-11-05 11:43 | External Medical Summary | Summary of Care ---
Author Name Unknown Organization [facility] Address [address] [place] [address] Phone [phone] Care Team Providers Care Clinical Data Research Name Role Phone Sy Ann MD Primary Care Provider +1- [phone] Reason for Visit * Reason Onset Date Comments Medication Refill 10/12/2023 Encounter Details Date Type Department Care Team (Late st Contact Info) Description 10/12/2023 Refill [facility] [address] [place] [address] Sy Ann MD [address] [place] [address] Allergies Active Allergy Reactions Criticality Noted Date Comments Rosuvastatin Muscle pain 04/27/2023 documented as of this encounter (statuses as of 10/14/2023) Medications Medication Sig Dispensed Refills Start Date End Date Status Glucose Blood (ONETOUCH ULTRA BLUE) STRPIndications:DM type 2, not at goal ([facility]),Type 2 diabetes mellitus with hemoglobin A1c goal of less than 7.0% ([facility]) Use 2 times a day as directed DX:E11.9 Diabetes Type 2 uncontrolled 300 Strip 5 8 Active ONETOUCH LANCETS MISCIndications:Typ e 2 diabetes mellitus with hemoglobin A1c goal of less than 7.0% ([facility]),DM type 2, not at goal ([facility]) Use to test blood sugar up to twice daily: dx 250.00 3 Box Dosing Unit 5 8 Active Lidocaine, Anorectal, 5 % CREAIndications:Ext ernal hemorrhoid, thrombosed Apply to affected area 3-4 times as needed for pain 28 g 0 8 Active FreeStyle Alice 14 Day [place] Device Use as directed. 1 Each 0 [...] of anterior wall (HCC),Coronary artery disease involving [place] coronary artery of [place] heart without angina pectoris Take 1 Tablet [...] goal LDL below 70,Coronary artery disease involving [place] coronary artery of [place] heart without angina pectoris Inject 420 mg [...] the skin once a week. 6 mL 1 4 Active Trulicity 3 MG/0.5ML Subcutaneous Solution Pen-injector (Dulaglutide) Inject 3 mg under the skin once a week. 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 AORTOCORONARY BYPASS STATUS 07/200602/08/2008 03/31/2012 ACUTE [place] NOS (07/14/06) 11/22/200701/09 Tobacco use disorder 11/22/2007 018 ADVANCE DIRECTIVE INFORMATION 07/27/2007 01/09/2017 Overview: Yes, Patient instructed to provide copy of advance directive for provider to review and to be scanned into Electronic Medical Record Govind 06/14/2004 07/10/2017 documented as of this encounter (statuses as of 10/14/2023) Immunizations Name Administration Dates Next Due COVID-19 [...] encounter Miscellaneous Notes * Telephone Encounter - Nba Jean RPh - 10/14/2023 9:23 AM ESTSigned Prescriptions: Disp Refills Trulicity 3 MG/0.5ML Subcutaneous Solution*6 mL 1 Sig: Inject 3 mg under the skin once a week.Authorizing Provider: SY ANN User: NBA JEAN NN documented in this encounter Plan of Treatment Upcoming Encounters Date Type Department Care Team (Late st Contact Info) Description 12/05/2023 9:00 AM EDT Office Visit Family [facility] [address] [facility] [place] [address] Sy Ann MD [address] [facility] [place] [address] Scheduled Procedures Name Priority Associated Diagnoses Date/Ti [...] exists LUNG CANCER SCREENING - USE SMARTSET [id number] Completed 01/26/2023 COVID-19 Vaccine Completed 06/15/2023, , [...] this encounter Medical Devices Implanted Type Area Aerospace Medicine Physician Device Identifier Shelf Expiration Date Model / Serial / Lot Biocomposite Swivelock C Suture [place] Implanted:Qty: 1 on 11/08/2021 by Saqib Edmond, DO at OR [facility] Left: Shoulder [employer] 07/09/2024 AR-[id number] T / / [id number] Description:with Closed PEEK Eyelet and FiberTape Loop Biocomposite Swivelock C Suture [place] Implanted:Qty: 1 on 11/08/2021 by Saqib Edmond DO at OR [facility] Left: Shoulder [employer] 06/09/2025 AR-2324BCC TT / / [id number] Description:wit Closed PEEK eyelet and TigerTape Loop Biocomposite Knotless Swivelock [place] Implanted:Qty: 1 on 11/08/2021 by Saqib Edmond DO at OR [facility] Left: Shoulder [employer] 10/07/2025 [id number] C / / [id number] Description:with Blue #2 Sut ure Biocomposite Knotless Swivelock [place] Implanted:Qty: 1 on 11/08/2021 by Saqbi Edmond DO at OR [facility] Left: Shoulder [employer] 09/09/2025 AR-2324KB C / / [id number] Description:with Blue #2 Sut ure documented as of this encounter Care Teams Clinical Data Research Relationship Specialty Start Date End Date Sy Ann MD [address], [place] [phone] PCP - General Family Medicine 07/29/12 documented as of this encounter
--- OUTSIDE RECORDS SUMMARY | 2023-11-05 11:43 | External Medical Summary | Summary of Care ---
Author Name Unknown Organization [facility] Address [address] [facility] [place] [address] Phone [phone] Care Team Providers Care Textile Machinery Instructor Name Role Phone Ivan Templeton MD Primary Care Provider +1- [phone] Reason for Visit * Reason Comments Dosage Adjustment In Person (Anticoag Cl inic) Hypercholesterolemia Encounter Details Date Type Department Care Team (Late st Contact Info) Description 10/02/2023 11:30 AM EST Office Visit Cardiology, [facility] 132 [facility] [place] [address] [facility] Cardiology [facility] [address] [facility] [place] [address] Dyslipidemia, goal LDL below 70* Allergies Active [...] 0 07/07/2018 Active FreeStyle Alice 14 Day [place] Device Use as directed. 1 Each 0 07/27/2020 Active FreeStyle Ailce 14 Day Sensor Use as directed. Use [...] of anterior wall (HCC),Coronary artery disease involving [place] coronary artery of [place] heart without angina pectoris Take 1 Tablet [...] goal LDL below 70,Coronary artery disease involving [place] coronary artery of [place] heart without angina pectoris Inject 420 mg [...] Dyslipidemia, goal LDL below 70 01/09/2017 Old [place] (myocardial infarction) 03/31/2012 Overview: Coronary disease, single [...] Taxonomy. AORTOCORONARY BYPASS STATUS 07/200602/08/2008 03/31/2012 ACUTE [place] NOS (07/14/06) 11/22/200701/09 Tobacco use disorder 11/22/2007 [...] - 10/02/2023 11:36 AM EST Repatha coverage: WalletKit yue: [facility] Card ID:[id number] Group: [id number] BIN: [id number] PCN: [id number] Please [id number] if any questions or concerns documented in this encounter Progress Notes * Cecilia Sánchez RPh - 10/01/2023 11:39 PM EST PHARMACY CHRONIC DISEASE MANAGEMENT - HYPERLIPIDEMIA HPI: Ousmane Wilkerson is a 73 year old year old male. Referred for HLD management by Miryam Oviedo PA-C. Diet review: unchanged Exercise review: just got back from gym today Patient Active Problem List Diagnosis Code Chronic ischemic heart disease I25.9 Type 2 diabetes mellitus with hemoglobin A1c goal of less than 7.0% (HCC) E11.9 Old [place] (myocardial infarction) I25.2 Dyslipidemia, goal LDL below 70 E78.5 HTN, goal below 140/90 I10 History of tobacco use Z87.891 Type 2 diabetes mellitus with diabetic polyneuropathy (HCC) E11.42 Review of patient's allergies indicates: Allergen Reactions Rosuvastatin Muscle pain Objective: Lab Results Component Value Date/Time LDL (CALCULATED)-OUTSIDE LAB 94 11/17/2019 12:00 AM LDL (CALCULATED)-OUTSIDE LAB 96 10/20/2018 12:00 AM LDL (CALCULATED)-OUTSIDE LAB 80 03/18/2018 12:00 AM LDL CHOLESTEROL (CALCULATED) - [facility] 22 09/08/2023 11:58 AM LDL CHOLESTEROL (CALCULATED) - [facility] 120 04/08/2023 08:49 AM LDL CHOLESTEROL (CALCULATED) - [facility] 27 01/20/2023 11:07 AM LDL CHOLESTEROL (CALCULATED) - [facility] 64 03/22/2020 08:21 AM LDL CHOLESTEROL (CALCULATED) - [facility] 110 06/29/2017 08:50 AM LDL CHOLESTEROL (CALCULATED) - [facility] 103 10/24/2016 09:22 AM LDL CHOLESTEROL (DIRECT MEASURE) - [facility] NOT APPLICABLE 03/22/2020 08:21 AM LDL CHOLESTEROL (DIRECT MEASURE) - [facility] NOT APPLICABLE 06/29/2017 08:50 AM LDL CHOLESTEROL (DIRECT MEASURE) - [facility] NOT APPLICABLE 10/24/2016 09:22 AM LDL CHOLESTEROL (DIRECT MEASURE) - [facility] 86 10/10/2013 10:45 AM LDL CHOLESTEROL (DIRECT MEASURE) - [facility] 52 07/15/2012 10:32 AM LDL CHOLESTEROL (DIRECT MEASURE) - [facility] 138 (H) 04/02/2011 08:39 AM Lab Results Component Value Date/Time AST - [facility] 16 04/08/2023 08:49 AM AST - [facility] 17 01/20/2023 11:07 AM AST - [facility] 16 05/21/2022 01:13 PM AST - [facility] 18 07/23/2020 10:38 AM AST - [facility] 15 03/22/2020 08:21 AM AST - [facility] 23 06/29/2017 08:50 AM Lab Results Component Value Date/Time ALT - [facility] 17 04/08/2023 08:49 AM ALT - [facility] 19 01/20/2023 11:07 AM ALT - [facility] 19 05/21/2022 01:13 PM ALT - [facility] 30 07/23/2020 10:38 AM ALT - [facility] 26 03/22/2020 08:21 AM ALT - [facility] 43 06/29/2017 08:50 AM ALT-OUTSIDE LAB 18 10/20/2018 12:00 AM ALT-OUTSIDE LAB 22 06/24/2018 12:00 AM ALT-OUTSIDE LAB 20 03/18/2018 12:00 AM Lab Results Component Value Date/Time CK - [facility] 48 02/07/2023 11:04 AM CK - [facility] 106 07/19/2006 06:30 AM CK-MB - [facility] 6.8 07/19/2006 06:30 AM No results found for: "25-HYDROXY" Lab Results Component Value Date/Time TSH - [facility] 0.93 08/11/2019 09:06 AM No results found for: "T4" Lab Results Component Value Date/Time MICROALBUMIN RATIO-OUTSIDE LAB 2.8 03/18/2018 12:00 AM No components found for: "[id number]" Current Hyperlipidemia Medication(s): Nitro 0.4 mg PRN Metoprolol Succinate ER 25 mg once daily Lisinopril 2.5 mg once daily Isosorbide mononitrate ER 30 mg once daily Plavis 75 mg once daily ASA 81 mg once daily Repatha 420 mg once monthly - started 06/19/23- first dose 2 weeks ago Diabetes Medications: Jardiance 25 mg once daily Metformin HCL 500 mg -2 tabs BID Trulicity 4.5 mg once weekly CGM-Alice 14 day Assessment & Plan: Controlled Hyperlipidemia - Target LDL <70 ( Per ADA LDL <55) -Statin intolerance -Continue Repatha 420 mg once monthly ([employer] Card) -[facility] sign off Patient recently switched to [employer] Medicare Supplement, and had to get PA to continue Repatha. PA was approved. yue info was provided to patient. LDL significantly improved 22 and now within goal. TG improved as well and within target. Pt tolerating medication well and has no complaints. Since HLD controlled will sign off on pt from [facility] clinic. 2. ASCVD - STEMI 12/20/22 receiving GRADY to the mid LAD with moderate 50-60% stenosis -MD in 2011 -Continue ASA, Plavis, metoprolol, lisinopril 3. CAD - post PTCA of the right coronary artery in 2005 -Continue medications 4. Controlled HTN - Goal BP 140/90 -Continue medications 5. Controlled Type 2 diabetes - A1c goal <7% vs <8% due to patient's age and risk of hypoglcyemia. 6. Angina - stable Medication changes: none Labs Due: (not ordered) Lipid panel 08/2024 A1c 10/2023 Follow up: [facility] sign off Cecilia Sánchez [facility] Clinical Pharmacist 11:40 PM, 10/01/23 documented in this encounter Plan of Treatment Upcoming Encounters Date Type Department Care Team (Late st Contact Info) Description 12/05/2023 9:00 AM EDT Office Visit Family [facility] [address] [facility] [place] [address] Ivan Templeton MD [address] [place] [address] Scheduled Procedures Name Priority Associated Diagnoses Date/Ti [...] exists LUNG CANCER SCREENING - USE SMARTSET [id number] Completed 01/26/2023 COVID-19 Vaccine Completed 06/15/2023, , [...] this encounter Medical Devices Implanted Type Area Title Investigator Device Identifier Shelf Expiration Date Model / Serial / Lot Biocomposite Swivelock C Suture [place] Implanted:Qty: 1 on 11/08/2021 by Saqib Edmond DO at OR [facility] Left: Shoulder [employer] 07/09/2024 AR-2324BCC T / / [id number] Description:with Closed PEEK Eyelet and FiberTape Loop Biocomposite Swivelock C Suture [place] Implanted:Qty: 1 on 11/08/2021 by Saqib Edmond DO at OR [facility] Left: Shoulder [employer] 06/09/2025 AR-2324BCC TT / / [id number] Description:wit Closed PEEK eyelet and TigerTape Loop Biocomposite Knotless Swivelock [place] Implanted:Qty: 1 on 11/08/2021 by Saqib Edmond DO at OR [facility] Left: Shoulder [employer] 10/07/2025 AR-[id number] C / / [id number] Description:with Blue #2 Sut ure Biocomposite Knotless Swivelock [place] Implanted:Qty: 1 on 11/08/2021 by Saqib Edmond DO at OR [facility] Left: Shoulder [employer] 09/09/2025 AR-[id number] C / / [id number] Description:with Blue #2 Sut ure documented as of this encounter Visit Diagnoses Diagnosis Dyslipidemia, goal LDL below 70- Primary Other and unspecified hyperlipidemia documented in this encounter Care Teams Textile Machinery Instructor Relationship Specialty Start Date End Date Ivan Templeton MD [address] [place] [address] PCP - General Family Medicine 07/29/12 documented as of this encounter
--- OUTSIDE RECORDS SUMMARY | 2023-11-05 11:43 | External Medical Summary | Summary of Care ---
Author Name Unknown Organization [facility] Address [address] [facility] [place] [address] Phone [phone] Care Team Providers Care Logistics Intern Name Role Phone Ivan Tempelton MD Primary Care Provider +1- [phone] Reason for Visit * Reason Onset Date Comments Precert Approved 09/21/2023 Repatha Pushtro nex System 420mg/3.5mL cartridges (reauth - change of insurance) Encounter Details Date Type Department Care Team (Late st Contact Info) Description 09/21/2023 Telephone Cardiology, [facility] [address] [place] [address] Saqib Ponce, [address] [place] [address] Precert Approved (Repatha Pushtronex Syste... Allergies Active Allergy Reactions Criticality Noted Date Comments Rosuvastatin Muscle pain 04/27/2023 documented as of this encounter (statuses as of 09/29/2023) Medications Medication Sig Dispensed Refills Start Date End Date Status Glucose Blood (ONETOUCH ULTRA BLUE) STRPIndications:DM type 2, not at goal (HCC),Type 2 diabetes mellitus with hemoglobin A1c goal of less than 7.0% ([facility]) Use 2 times a day as directed DX:E11.9 Diabetes Type 2 uncontrolled 300 Strip 5 04/15/2018 Active ONETOUCH LANCETS MISCIndications:Type 2 diabetes mellitus with hemoglobin A1c goal of less than 7.0% ([facility]),DM type 2, not at goal ([facility]) Use to test blood sugar up to twice daily: dx 250.00 3 Box Dosing Unit 5 04/15/2018 Active Lidocaine, Anorectal, 5 % CREAIndications:Exte rnal hemorrhoid, thrombosed Apply to affected area 3-4 times as needed for pain 28 g 0 07/07/2018 Active FreeStyle Alice 14 Day [place] Device Use as directed. 1 Each 0 [...] elevation myocardial infarction (STEMI) of anterior wall ([facility]),History of heart artery stent Take 1 Tablet by mouth in the morning. 90 Tablet 3 07/20/2023 Active Canagliflozin 300 MG Oral Tablet (Invokana) Take 1 Tablet by mouth in the morning. 90 Tablet 3 07/20/2023 Active Gabapentin 300 MG Oral Capsule (Neurontin)Indicatio ns:Diabetic polyneuropathy associated with type 2 diabetes mellitus ([facility]) Take 1 Capsule by mouth in the morning and 1 Capsule before bedtime. 180 Capsule 1 07/20/2023 Active Isosorbide Mononitrate ER 30 MG Oral Tablet Extended Release 24 Hour (Imdur)Indications:S T elevation myocardial infarction (STEMI) of anterior wall ([facility]),Coronary artery disease involving august[place] coronary artery of augustine heart without angina pectoris Take 1 Tablet [...] goal LDL below 70,Coronary artery disease involving augustine coronary artery of augustine heart without angina pectoris Inject 420 mg [...] as of this encounter (statuses as of 09/29/2023) Active Problems Problem Noted Date Diagnosed Date 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 AORTOCORONARY BYPASS STATUS 07/200602/08/2008 03/31/2012 ACUTE [place] NOS (07/14/06) 11/22/200701/09 Tobacco use disorder 11/22/2007 018 ADVANCE DIRECTIVE INFORMATION 07/27/2007 01/09/2017 Overview: Yes, Patient instructed to provide copy of advance directive for provider to review and to be scanned into Electronic Medical Record Govind 06/14/2004 07/10/2017 documented as of this encounter (statuses as of 09/29/2023) Immunizations Name Administration Dates Next Due COVID-19 [...] encounter Miscellaneous Notes * Telephone Encounter - Delores Barnes CMA - 09/21/2023 3:49 PM EST Received correspondence from patient's insurance company that [employer] 420/3.5 [employer] requires prior-auth. Please assist. documented in this encounter Plan of Treatment Upcoming Encounters Date Type Department Care Team (Late st Contact Info) Description 09/30/2023 2:00 PM EST Office Visit Cardiology, [facility] [address] [place] [address] Miryam Oviedo PA-C [address] [place] [address] 10/02/2023 11:30 AM EST Office Visit Cardiology, [facility] [address] [place] [address] [facility] Cardiology [facility] [address] [place] [address] 12/05/2023 9:00 AM EDT Office Visit Family Practice [facility] [address] [place] [address] Ivan Templeton MD [address] [place] [address] Scheduled Procedures Name Priority Associated Diagnoses Date/Ti [...] exists LUNG CANCER SCREENING - USE SMARTSET [id number] Completed 01/26/2023 COVID-19 Vaccine Completed 06/15/2023, , [...] this encounter Medical Devices Implanted Type Area Bar Pointer Device Identifier Shelf Expiration Date Model / Serial / Lot Biocomposite Swivelock C Suture [place] Implanted:Qty: 1 on 11/08/2021 by Saqib Edmond DO at OR [facility] Left: Shoulder [employer] 07/09/2024 [id number] T / / [id number] Description:with Closed PEEK Eyelet and FiberTape Loop Biocomposite Swivelock C Suture [place] Implanted:Qty: 1 on 11/08/2021 by Saqib Edmond DO at OR [facility] Left: Shoulder [employer] 06/09/2025 AR-[id number] TT / / [id number] Description:wit Closed PEEK eyelet and TigerTape Loop Biocomposite Knotless Swivelock [place] Implanted:Qty: 1 on 11/08/2021 by Saqib Edmond DO at OR [facility] Left: Shoulder [employer] 10/07/2025 [id number] C / / [id number] Description:with Blue #2 Sut ure Biocomposite Knotless Swivelock [place] Implanted:Qty: 1 on 11/08/2021 by Saqib Edmond DO at OR [facility] Left: Shoulder [employer] 09/09/2025 AR-[id number] C / / [id number] Description:with Blue #2 Sut ure documented as of this encounter Care Teams Logistics Intern Relationship Specialty Start Date End Date Ivan Templeton MD [address] [place] [address] PCP - General Family Medicine 07/29/12 documented as of this encounter
--- OUTSIDE RECORDS SUMMARY | 2023-11-05 11:44 | External Medical Summary ---
Author Name Unknown Address Unknown Organization [id number]:LABORATORY [facility] - [facility] [address] [facility] [address] [facility] [address] Laboratory Report Ordering Provider Test Date Status JUSTICE CURRIE 07/15/2023 11:18:12 Final Observation Date Value Abnormality Reference (Units ) Status HbA1C 07/15/2023 11:18:12 7.9 Above high normal 4. 0-5.6 (%) Final The use of HbA1c to monitor glycemic status is based on normal hemoglobin and HbA composition. This test should not be used in patients with abnormal hemoglobin that affects the half life of the red blood cell or the in vivo glycation rates. Glucose, estimated average 07/15/2023 11:18:12 180 Above high normal <126 (mg/dL) Christiano gabriel Performing Location LAB[facility]ATORY [facility] - [address] [facility] [address]
--- OUTSIDE RECORDS SUMMARY | 2023-11-05 11:44 | External Medical Summary | Summary of Care ---
Author Name Unknown Organization [facility] Address [address] [place] [address] Phone [phone] Care Team Providers Care Human Resources Training Manager Name Role Phone Ivan Templeton MD Primary Care Provider +1- [phone] Reason for Visit * Reason Comments Outpatient Testing Encounter Details Date Type Department Care Team (Late st Contact Info) Description 07/15/2023 11:30 AM EST Laboratory Laboratory, [facility] [address] [place] [address] [facility] [address] [place] [address] Type 2 diabetes mellitus with hemoglobin A1c goal of less than 7.0% ([facility]); Routine medical exam; Encounter for long-term (current) use of medications Allergies Active Allergy Reactions Criticality Noted Date Comments Rosuvastatin Muscle pain 04/27/2023 documented as of this encounter (statuses as of 07/15/2023) Medications Medication Sig Dispensed Refills Start Date [...] 0 07/07/2018 Active FreeStyle Alice 14 Day [place] Device Use as directed. 1 Each 0 [...] or juice. 850 g 1 09/03/2021 Active Cyanocobalamin 1000 MCG Oral Tablet (Cyanocobalamin) Take 1 Tablet by mouth in the morning. 90 Tablet 1 08/28/2022 Active Nitroglycerin 0.4 MG Sublingual Tablet Sublingual (Nitrostat) Place 1 Tablet under the tongue as needed. 0 12/21/2022 Active Aleve PM 220-25 MG Oral Tablet (Naproxen Sod-diphenhydrAMINE) Take 1 Tablet by mouth at bedtime. 0 Active Clopidogrel Bisulfate 75 MG Oral Tablet (pLAVix)Indications: ST elevation myocardial infarction (STEMI) of anterior wall (HCC),History of heart artery stent Take 1 Tablet by mouth in the morning. 90 Tablet 3 04/28/2023 Active Gabapentin 300 MG Oral Capsule (Neurontin)Indicatio ns:Diabetic polyneuropathy associated with type 2 diabetes mellitus (HCC) Take 1 Capsule by mouth in the morning and 1 Capsule before bedtime. 180 Capsule 0 04/28/2023 Active Isosorbide Mononitrate ER 30 MG Oral Tablet Extended Release 24 Hour (Imdur)Indications:S T elevation myocardial infarction (STEMI) of anterior wall (HCC),Coronary artery disease involving [place] coronary artery of [place] heart without angina pectoris Take 1 Tablet by mouth in the morning. 90 Tablet 3 04/28/2023 Active Lisinopril 2.5 MG Oral Tablet (Prinivil) Take 1 Tablet by mouth in the morning. 90 Tablet 3 04/28/2023 Active metFORMIN HCl 500 MG Oral Tablet (Glucophage)Indicati ons:Type 2 diabetes mellitus without complications (HCC) Take 1 Tablet by mouth 2 times a day with morning and evening meals. 180 Tablet 3 04/28/2023 Active Metoprolol Succinate ER 25 MG Oral Tablet Extended Release 24 Hour (toPROL XL) Take 1 Tablet by mouth in the morning and 1 Tablet before bedtime. 180 Tablet 3 04/28/2023 Active Trulicity 4.5 MG/0.5ML Subcutaneous Solution Pen-injector (Dulaglutide)Indicat ions:Type 2 diabetes mellitus with hemoglobin A1c goal of less than 7.0% (HCC) Inject 4.5 mg under the skin once a week. 6 mL 3 04/28/2023 Active Aspirin 81 MG Oral Tablet Delayed Release Take 1 Tablet by mouth in the morning. 90 Tablet 3 04/28/2023 Active Empagliflozin 25 MG Oral Tablet (Jardiance)Indicatio ns:Type 2 diabetes mellitus with hemoglobin A1c goal of less than 7.0% (HCC) Take 1 Tablet by mouth in the morning. 90 Tablet 3 05/12/2023 Active Repatha Pushtronex System 420 MG/3.5ML Subcutaneous Solution Cartridge (Evolocumab with Infusor) Inject 420 mg under the skin every month. Administer over 5 minutes. Remove from refrigerator 45 minutes prior to injection. 10.5 mL 3 06/19/2023 Active documented as of this encounter (statuses as of 07/15/2023) Active Problems Problem Noted Date Diagnosed Date Type 2 diabetes mellitus with diabetic polyneuro fanta 10/27/2018 History of tobacco use 05/06/2018 Overview: 40 pack years HTN, goal below 140/90 11/12/2017 Dyslipidemia, goal LDL below 70 01/09/2017 Old [place] (myocardial infarction) 03/31/2012 Overview: Coronary disease, single [...] as of this encounter (statuses as of 07/15/2023) Resolved Problems Problem Noted Date Diagnosed Date [...] Taxonomy. AORTOCORONARY BYPASS STATUS 07/200602/08/2008 03/31/2012 ACUTE [place] NOS (07/14/06) 11/22/200701/09 Tobacco use disorder 11/22/2007 018 ADVANCE DIRECTIVE INFORMATION 07/27/2007 01/09/2017 Overview: Yes, Patient instructed to provide copy of advance directive for provider to review and to be scanned into Electronic Medical Record Rosacea 06/14/2004 07/10/2017 documented as of this encounter (statuses as of 07/15/2023) Immunizations Name Administration Dates Next Due COVID-19 [...] (Prevnar) 06/29/2022,11/12/2017 Pneumococcal Polysaccharide PPV23 (Pneumovax) 12/01/2019,07/24/2008 SEASONAL INFLUENZA, PF, 6 M & Above, IM , (FLULAVAL or FLUZONE) 05/09/2019,05/29/2018,07/10/2017 Seasonal Influenza, Quadriva lent Hd (Fluzone [...] Care Team (Late st Contact Info) Description 07/20/2023 1:20 PM EST Office Visit [facility] [address] [facility] [place] [address] Ivan Templeton MD [address] [place] [address] 09/14/2023 2:00 PM EST Office Visit Cardiology, [facility] [address] [place] [address] Miryam Oviedo PA-C [address] [place] [address] 09/17/2023 5:30 PM EST Pharmacy Cardiology [facility] [address] [facility] [place] [address] [facility] [address] [place] [address] [place] [address] 10/02/2023 11:30 AM EST Office Visit Cardiology, [facility] [address] [place] [address] [facility] Cardiology [facility] [address] [place] [address] Pending Results Name Type Priority Associated Diagnoses Date /Time HEMOGLOBIN A1C Lab Routine Type 2 diabetes mellitus with hemoglobin A1c goal of less than 7.0% (HCC) Routine medical exam Encounter for long-term (current) use of medications 07/15/2023 11:18 AM EST Scheduled Procedures Name Priority Associated Diagnoses Date/Ti [...] 07/14/2023 07/14/2022, , 01/18/2018, Additional history exists HbA1c 10/08/2023 04/08/2023, 04/0 01/2023, 05/21/2022, Additional history exists Albumin/Creatinine Ratio 11/14/2023 023, 10/04/2021, 03/22/2021, Additional history exists Depression Screening 11/22/2023 11/21/2022 GFR 04/08/2024 04/08/2023, 01/08, 11/13/2022, Additional history exists COLONOSCOPY-EVERY 5 YRS AGES 18-100 05/30/2025 05/30/2020, 05/30/2020, 08/24/2018, Additional history exists AAA Screening Completed 07/27/2017 Zoster Vaccines Completed 09/09/2018, 06/11, 04/25/2013 Pneumococcal Vaccine: 65+ Years Completed 06/29/2022, 12/01/2019, 11/12/2017, Additional history exists LUNG CANCER SCREENING - USE SMARTSET [id number] Completed 01/26/2023 COVID-19 Vaccine Completed 06/15/2023, , 06/19/2021, Additional history exists GARDASIL-HPV IMMUNIZATION SERIES Aged Out No longer eligible based on patient's age to complete this topic MENINGOCOCCAL (MENACTRA/MENVEO) Aged Out No longer eligible based on patient's age to complete this topic documented as of this encounter Medical Devices Implanted Type Area Integrated Circuit Ic Layout Designer Device Identifier Shelf Expiration Date Model / Serial / Lot Biocomposite Knotless Swivelock [place] Implanted:Qty: 1 on 11/08/2021 by Saqib Edmond DO at OR [facility] Left: Shoulder [employer] 09/09/2025 AR-[id number] C / / [id number] Description:with Blue #2 Sut ure documented as of this encounter Visit Diagnoses Diagnosis Type 2 diabetes mellitus with hemoglobin A1c goal of less than 7.0% (HCC) Routine medical exam Routine general medical examination at a health care facility Encounter for long-term (current) use of medications Encounter for long-term (current) use of other medications documented in this encounter Care Teams Human Resources Training Manager Relationship Specialty Start Date End Date Ivan Templeton MD [address], [place] [id number] PCP - General Family Medicine 07/29/12 documented as of this encounter
--- OUTSIDE RECORDS SUMMARY | 2023-11-05 11:44 | External Medical Summary | Summary of Care ---
Author Name Unknown Organization [facility] Address [address] [place] [address] Phone [phone] Care Team Providers Care Automotive Salesperson Name Role Phone Ivan Templeton MD Primary Care Provider +1- [phone] Reason for Visit * Reason Comments Lipid Management Encounter Details Date Type Department Care Team (Late st Contact Info) Description 08/27/2023 10:00 AM EST Telemedicine Cardiology [facility] [address] [place], [place] [phone] [place] [address], Pharmacist Cardiology [facility] [address], [place] [phone] Dyslipidemia, goal LDL below 70*; Coronary artery disease involving [place] coronary artery of [place] heart without angina pectoris Allergies Active Allergy Reactions Criticality Noted Date Comments Rosuvastatin Muscle pain 04/27/2023 documented as of this encounter (statuses as of 08/27/2023) Medications Medication Sig Dispensed Refills Start Date End Date Status Glucose Blood (ONETOUCH ULTRA BLUE) STRPIndications:DM type 2, not at goal (HCC),Type 2 diabetes mellitus with hemoglobin A1c goal of less than 7.0% (HCC) Use 2 times a day as directed DX:E11.9 Diabetes Type 2 uncontrolled 300 Strip 8 Active ONETOUCH LANCETS MISCIndications:Typ e 2 [...] 0 8 Active FreeStyle Alice 14 Day [place] Device Use as directed. 1 Each 0 [...] of anterior wall (HCC),Coronary artery disease involving [place] coronary artery of [place] heart without angina pectoris Take 1 Tablet [...] goal LDL below 70,Coronary artery disease involving [place] coronary artery of [place] heart without angina pectoris Inject 420 mg under the skin Every Month. 10.5 mL 3 4 Active Repatha Pushtronex System 420 MG/3.5ML Subcutaneous Solution Cartridge (Evolocumab with Infusor) Inject 420 mg under the skin every month. Administer over 5 minutes. Remove from refrigerator 45 minutes prior to injection. 10.5 mL 3 3 08/27/19 24 Discontinu ed(Refill) documented as of this encounter (statuses as of 08/27/2023) Active Problems Problem Noted Date Diagnosed Date [...] as of this encounter (statuses as of 08/27/2023) Resolved Problems Problem Noted Date Diagnosed Date [...] as of this encounter (statuses as of 08/27/2023) Immunizations Name Administration Dates Next Due COVID-19 [...] as of this encounter Progress Notes * Karolina Cedeño, irrigation equipment remover - 08/27/2023 9:58 AM EST PCSK-9 Inhibitor Follow Up After connecting to the patient via telephone, the patient was identified by name and date of . Patient was then informed that this was a telephone call only visit. The patient agreed to participate Visit Disposition: Status check/routine follow up Duration: 15 minutes Primary Gas Tester/Ordering Provider: Miryam Oviedo PA-C HPI: Ousmane Wilkerson is a 73 year old year old male. Target LDL: <70 Patient Active Problem List Diagnosis Code Chronic ischemic heart disease I25.9 Type 2 diabetes mellitus with hemoglobin A1c goal of less than 7.0% ([facility]) E11.9 Old [place] (myocardial infarction) I25.2 Dyslipidemia, goal LDL below 70 E78.5 HTN, goal below 140/90 I10 History of tobacco use Z87.891 Type 2 diabetes mellitus with diabetic polyneuropathy (HCC) E11.42 Review of patient's allergies indicates: Allergen Reactions Rosuvastatin Muscle pain LABS: Lab Results Component Value Date/Time LDL (CALCULATED)-OUTSIDE LAB 94 11/17/2019 12:00 AM LDL (CALCULATED)-OUTSIDE LAB 96 10/20/2018 12:00 AM LDL (CALCULATED)-OUTSIDE LAB 80 03/18/2018 12:00 AM LDL CHOLESTEROL (CALCULATED) - [facility] 120 04/08/2023 08:49 AM LDL CHOLESTEROL (CALCULATED) - [facility] 27 01/20/2023 11:07 AM LDL CHOLESTEROL (CALCULATED) - [facility] 73 05/21/2022 01:13 PM LDL CHOLESTEROL (CALCULATED) - [facility] 64 03/22/2020 [...] - [facility] 138 (H) 04/02/2011 08:39 AM ASSESSMENT There are no diagnoses linked to this encounter. Patient is on the following medication(s): Repatha PLAN OF ACTION Medication Regimen: CONTINUE Patient is tolerating medication and doing well overall. Patient recently switched to [employer]edic[employer] Supplement, and is now having coverage issues with Repatha. Patient stated he would like to try to switch back to [facility] after discussing options that included obtaining prior authorization for medication. He took last dose of Repatha on 08/24/23. Will follow-up with patient in 2 weeks toaddress coverage concerns. Labs Needed: yes Follow-Up Appointment(s): Pharmacist: 2 weeks Physician: 09/30/23 Karolina Cedeño, [facility]D [facility] 08/27/2023,2:25 PM documented in this encounter Plan of Treatment Upcoming Encounters Date Type Department Care Team (Late st Contact Info) Description 09/11/2023 8:10 AM EST Pharmacy Cardiology [facility] [place] [address] [place] [address] [place] [address], Pharmacist Cardiology [place] [address] [place] [address] 09/17/2023 5:30 PM EST Pharmacy Cardiology [place] [facility] [place] [address] [place] [address] [place] [address] [facility] Cardiology [address] [place], [place] [address] [address] 09/30/2023 2:00 PM EST Office Visit Cardiology, [facility] [address] [facility] [place] [address] Miryam Oviedo PA-C [address] [facility] [place] [address] 10/02/2023 11:30 AM EST Office Visit Cardiology, [facility] [address] [facility] [place] [address] [facility] Cardiology [facility] [address] [facility] [place] [address] 12/05/2023 9:00 AM EDT Office Visit Family Practice [facility] [address] [facility] [place] [address] Ivan Templeton MD [address] [place] [address] Scheduled Procedures Name Priority Associated Diagnoses Date/Ti [...] exists LUNG CANCER SCREENING - USE SMARTSET [id number] Completed 01/26/2023 COVID-19 Vaccine Completed 06/15/2023, , 06/19/2021, Additional history exists GARDASIL-HPV IMMUNIZATION SERIES Aged Out No longer eligible based on patient's age to complete this topic MENINGOCOCCAL (MENACTRA/MENVEO) Aged Out No longer eligible based on patient's age to complete this topic documented as of this encounter Medical Devices Implanted Type Area Criminal Lawyer Device Identifier Shelf Expiration Date Model / Serial / Lot Biocomposite Knotless Swivelock [place] Implanted:Qty: 1 on 11/08/2021 by Saqib Edmond, at OR [facility] Left: Shoulder [employer] 09/09/2025 [id number] C / / [id number] Description:with Blue #2 Sut ure documented as of this encounter Visit Diagnoses Diagnosis Dyslipidemia, goal LDL below 70- Primary Other and unspecified hyperlipidemia Coronary artery disease involving [place] coronary artery of [place] heart without angina pectoris documented in this encounter Care Teams Automotive Salesperson Relationship Specialty Start Date End Date Ivan Templeton MD [address] [place] [address] PCP - General Family Medicine 07/29/12 documented as of this encounter
--- OUTSIDE RECORDS SUMMARY | 2023-11-05 11:44 | External Medical Summary ---
Author Name Unknown Address Unknown Organization K01:LABORATORY [facility] - [address] [facility] [address] Laboratory Report Ordering Provider Test Date Status MANUEL TORREZTOLA 09/08/2023 11:58:16 Final Observation Date Value Abnormality Reference (Units ) Status Triglyceride 09/08/2023 11:58:16 124 <=174 ( mg/dL) Final Triglyceride Reference Range s (mg/dL):
<150 Acceptable
150-174 Borderline high
175-499 High
>=500 Very high Cholesterol 09/08/2023 11:58:16 100 <200 (mg /dL) Final Total Cholesterol Reference Ranges (mg/dL):
<200 Desirable
200-239 Borderline high
>=240 High HDL 09/08/2023 11:58:16 53 >39 (mg/dL ) Final HDL Cholesterol Reference Ra nges (mg/dL):
>=60 High (Desirable)
<50 Low (Undesirable) For Females
<40 Low (Undesirable) For Males NON-HDL CHOLESTEROL 09/08/2023 11:58:16 47 <=159 (mg/dL) Final Non-HDL Cholesterol Referenc e Range (mg/dL):
<100 Target level for high risk ASCVD patient
<130 Optimal for general population
130-159 Near optimal for general population
160-189 Borderline High
190-219 High
>=220 Very High LDL, (calculated) 09/08/2023 11:58:16 22 <= 129 (mg/dL) Final LDL Cholesterol Reference Ra nges (mg/dL):
<70 Target level for high risk ASCVD patient
<100 Optimal for general population
100-129 Near optimal for general population
130-159 Borderline high
160-189 High
>=190 Very high Performing Location LABORATORY [facility] - [address] [facility] [address]
--- OUTSIDE RECORDS SUMMARY | 2023-11-05 11:44 | External Medical Summary | Summary of Care ---
Author Name Unknown Organization [facility] Address [address] [place] [address] Phone [phone] Care Team Providers Care Nuclear Physics Professor Name Role Phone Ivan Templeton MD Primary Care Provider [phone]- [phone] Reason for Visit * Reason Onset Date Comments Health Maintenance 09/10/2023 Encounter Details Date Type Department Care Team (Late st Contact Info) Description 09/10/2023 Telephone [facility] [address] [place] [address] Ivan Templeton MD [address] [place] [address] Health Maintenance Allergies Active Allergy Reactions Criticality Noted Date Comments Rosuvastatin Muscle pain 04/27/2023 documented as of this encounter (statuses as of 09/10/2023) Medications Medication Sig Dispensed Refills Start Date End Date Status Glucose Blood (ONETOUCH ULTRA BLUE) STRPIndications:DM type 2, not at goal (HCC),Type 2 diabetes mellitus with hemoglobin A1c goal of less than 7.0% ([facility]) Use 2 times a day as directed [...] 0 07/07/2018 Active FreeStyle Alice 14 Day [place] Device Use as directed. 1 Each 0 [...] of anterior wall (HCC),Coronary artery disease involving [place] coronary artery of [place] heart without angina pectoris Take 1 Tablet [...] goal LDL below 70,Coronary artery disease involving [place] coronary artery of [place] heart without angina pectoris Inject 420 mg [...] Dyslipidemia, goal LDL below 70 01/09/2017 Old CA (myocardial infarction) 03/31/2012 Overview: Coronary disease, single [...] benign/repeat colonoscopy in 5 yrs Mixed 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 02/08/200807/24/ 9 Overview: Per Lipid Taxonomy. AORTOCORONARY BYPASS STATUS 07/200602/08/2008 03/31/2012 ACUTE CA NOS (07/14/06) 11/22/200701/09 Tobacco use disorder 11/22/2007 [...] encounter Miscellaneous Notes * Telephone Encounter - Nicki Gonzales LPN - 09/10/2023 1:46 PM EST Spoke to patient. Ov already scheduled. Eye kesha will request * Telephone Encounter - Nicki Gonzales LPN - 09/10/2023 10:18 AM EST Care Gaps Comprehensive Care Outreach Last Office/Telemedicine Visit: 07/20/2023 (in office), Visit date not found (telemedicine) Next Office Visit: Visit date not found Hemoglobin AIC Results: Lab Results Component Value Date/Time HEMOGLOBIN A1C - [facility] 7.9 (H) 07/15/2023 11:18 AM HEMOGLOBIN A1C - [facility] 8.0 (H) 04/08/2023 08:49 AM HEMOGLOBIN A1C - [facility] 7.8 (H) 11/13/2022 03:10 PM HEMOGLOBIN A1C - [facility] 8.8 (H) 07/23/2020 10:38 AM HEMOGLOBIN A1C - [facility] 8.6 (H) 03/22/2020 08:21 AM HEMOGLOBIN A1C - [facility] 9.0 (H) 08/11/2019 09:06 AM BP Readings from Last 1 Encounters: 07/20/23 108/62 Reviewed Health Maintenance below: Health Maintenance Topic Date Due Hepatitis B (1 of 3 - Risk 3-dose series) Never done DTaP,Tdap,and Td Vaccines (2 - Td or Tdap) 07/24/2018 Diabetic Foot Exam 07/27/2021 Influenza Vaccine (FLU shot) (1) 04/10/2023 Diabetic Eye Exam 07/14/2023 Albumin/Creatinine Ratio 11/14/2023 Depression Screening 11/22/2023 HbA1c 01/14/2024 Ov around nove[facility] Margie already ordered awv Care Gap Outreach Action Taken: Left message documented in this encounter Plan of Treatment Upcoming Encounters Date Type Department Care Team (Late st Contact Info) Description 09/17/2023 5:30 PM EST Pharmacy Cardiology [facility] [address] [place] [address] [facility] [address] [place] [address] 09/30/2023 2:00 PM EST Office Visit Cardiology, [facility] [address] [facility] [place] [address] Miryam Oviedo PA-C [address] [facility] [place] [address] 10/02/2023 11:30 AM EST Office Visit Cardiology, [facility] [address] [facility] [place] [address] [facility] Cardiology [facility] [address] [place] [address] 12/05/2023 9:00 AM EDT Office Visit Family Practice [facility] [address] [facility] [place] [address] Ivan Templeton MD [address] [place] [address] Scheduled Procedures Name Priority Associated Diagnoses Date/Ti [...] exists LUNG CANCER SCREENING - USE SMARTSET [id number] Completed 01/26/2023 COVID-19 Vaccine Completed 06/15/2023, , 06/19/2021, Additional history exists GARDASIL-HPV IMMUNIZATION SERIES Aged Out No longer eligible based on patient's age to complete this topic MENINGOCOCCAL (MENACTRA/MENVEO) Aged Out No longer eligible based on patient's age to complete this topic documented as of this encounter Medical Devices Implanted Type Area Junior Staff Accountant Device Identifier Shelf Expiration Date Model / Serial / Lot Biocomposite Knotless Swivelock [place] Implanted:Qty: 1 on 11/08/2021 by Saqib Edmond, at OR [id number] Left: Shoulder [employer] 09/09/2025 [id number] / / [id number] Description:with Blue #2 Sut ure documented as of this encounter Care Teams Nuclear Physics Professor Relationship Specialty Start Date End Date Ivan Templeton MD [address] [place] [address] PCP - General Family Medicine 07/29/12 documented as of this encounter
--- OUTSIDE RECORDS SUMMARY | 2023-11-05 11:44 | External Medical Summary | Summary of Care ---
Author Name Unknown Organization [facility] Address [address] [place] [address] Phone [phone] Care Team Providers Care Bead Worker Sewing Name Role Phone Ivan Templeton MD Primary Care Provider [phone]- [phone] Reason for Visit * Reason Onset Date Comments Advice 08/27/2023 Encounter Details Date Type Department Care Team (Late st Contact Info) Description 08/27/2023 Telephone [facility] [address] [place] [address] Ivan Templeton MD [address] [place] [address] Advice (/) Allergies Active Allergy Reactions Criticality Noted Date Comments Rosuvastatin Muscle pain 04/27/2023 documented as of this encounter (statuses as of 08/27/2023) Medications Medication Sig Dispensed Refills Start Date End Date Status Glucose Blood (ONETOUCH ULTRA BLUE) STRPIndications:DM type 2, not at goal (HCC),Type 2 diabetes mellitus with hemoglobin A1c goal of less than 7.0% ([facility]) Use 2 times a day as directed [...] 0 07/07/2018 Active FreeStyle Alice 14 Day [place] Device Use as directed. 1 Each 0 [...] Tablet by mouth at bedtime. 0 Active Repatha Pushtronex System 420 MG/3.5ML Subcutaneous Solution Cartridge (Evolocumab with Infusor) Inject 420 mg under the skin every month. Administer over 5 minutes. Remove from refrigerator 45 minutes prior to injection. 10.5 mL 3 06/19/2023 Active Aspirin 81 MG Oral Tablet Delayed [...] of anterior wall (HCC),Coronary artery disease involving [place] coronary artery of [place] heart without angina pectoris Take 1 Tablet [...] a week. 6 mL 3 07/20/2023 Active documented as of this encounter (statuses [...] Telephone Encounter - Ivan Templeton MD - 08/27/2023 12:58 PM EST Of course he should. He has been prescribed them many times and does not tolerate them. That is whyhe is on repatha. * Telephone Encounter - Christal Silva LPN - 08/27/2023 12:51 PM EST Christal Morton from [facility]. Patient's insurance reached out to them and requested that they reached out to PCP. Insurance company believes that patient should be on a statin since he is diabetic. Please advise documented in this encounter Plan of Treatment Upcoming Encounters Date Type Department Care Team (Late st Contact Info) Description 09/17/2023 5:30 PM EST Pharmacy Cardiology [place] [facility] [place] [address] [place] [place] [address] [facility] [address] [facility] [place] [address] 09/30/2023 2:00 PM EST Office Visit Cardiology, [facility] [address] [facility] [place] [address] Miryam Oviedo PA-C [address] [place] [address] 10/02/2023 11:30 AM EST Office Visit Cardiology, [facility] [address] [place] [address] [facility] Cardiology [facility] [place] [address] 12/05/2023 9:00 AM EDT Office Visit Family Practice [facility] [address] [place] [address] Ivan Templeton MD [address] [facility] [place] [id number] Scheduled Procedures Name Priority Associated Diagnoses Date/Ti [...] exists LUNG CANCER SCREENING - USE SMARTSET [id number] Completed 01/26/2023 COVID-19 Vaccine Completed 06/15/2023, , 06/19/2021, Additional history exists GARDASIL-HPV IMMUNIZATION SERIES Aged Out No longer eligible based on patient's age to complete this topic MENINGOCOCCAL (MENACTRA/MENVEO) Aged Out No longer eligible based on patient's age to complete this topic documented as of this encounter Medical Devices Implanted Type Area Hand Bender Device Identifier Shelf Expiration Date Model / Serial / Lot Biocomposite Knotless Swivelock [place] Implanted:Qty: 1 on 11/08/2021 by Saqib Edmond, DO at OR [facility] Left: Shoulder [employer] 09/09/2025 [id number] / / [id number] Description:with Blue #2 Sut ure documented as of this encounter Care Teams Bead Worker Sewing Relationship Specialty Start Date End Date Ivan Templeton MD [address] [place], [place] [phone] PCP - General Family Medicine 07/29/12 documented as of this encounter
--- OUTSIDE RECORDS SUMMARY | 2023-11-05 11:44 | External Medical Summary | Summary of Care ---
Author Name Unknown Organization [facility] Address [address] [place] [address] Phone [phone] Care Team Providers Care Hairspring Truing Inspector Name Role Phone Ivan Templeton MD Primary Care Provider +1- [phone] Reason for Visit * Reason Comments Re-Check Encounter Details Date Type Department Care Team (Latest Contact Info) Description 07/20/2023 1:20 PM EST Office Visit [facility] [address] [place] [address] Ivan Templeton MD [address] [place] [address] Coronary artery disease involving skagway coronary artery of skagway heart without angina pectoris*; ST elevation myocardial infarction (STEMI) of anterior wall ([facility]); History of heart artery stent; Diabetic polyneuropathy associated with type 2 diabetes mellitus ([facility]); Type 2 diabetes mellitus with hemoglobin A1c goal of less than 7.0% ([facility]); Dizziness; Type 2 diabetes mellitus with diabetic polyneuropathy, without long-term current use of insulin ([facility]); Dyslipidemia, goal LDL below 70; HTN, goal below 140/90 Allergies Active Allergy Reactions Criticality Noted Date Comments Rosuvastatin Muscle pain 04/27/2023 documented as of this encounter (statuses as of 08/03/2023) Medications Medication Sig Dispensed Refills Start Date End Date Status Glucose Blood (ONETOUCH ULTRA BLUE) STRPIndications:DM type 2, not at goal ([facility]),Type 2 diabetes mellitus with hemoglobin A1c goal of less than 7.0% ([facility]) Use 2 times a day as directed DX:E11.9 Diabetes Type 2 uncontrolled 300 Strip 5 8 Active ONETOUCH LANCETS MISCIndications:Typ e 2 diabetes mellitus with hemoglobin A1c goal of less than 7.0% ([facility]),DM type 2, not at goal ([facility]) Use to test blood sugar up to twice daily: dx 250.00 3 Box Dosing Unit 5 8 Active Lidocaine, Anorectal, 5 % CREAIndications:Ext ernal hemorrhoid, thrombosed Apply to affected area 3-4 times as needed for pain 28 g 0 8 Active FreeStyle Alice 14 Day [place] Device Use as directed. 1 Each 0 [...] prior to injection. 10.5 mL 3 3 Active Aspirin 81 MG Oral Tablet Delayed Release Take 1 Tablet by mouth in the morning. 90 Tablet 3 3 Active Clopidogrel Bisulfate 75 MG Oral Tablet (pLAVix)Indications :ST elevation myocardial infarction (STEMI) of anterior wall ([facility]),History of heart artery stent Take 1 Tablet [...] of anterior wall (HCC),Coronary artery disease involving skagway coronary artery of skag[place] heart without angina pectoris Take 1 Tablet [...] than 7.0% ([facility]) Inject 4.5 mg under the skin once a week. 6 mL 3 3 Active Cyanocobalamin 1000 MCG Oral Tablet (Cyanocobalamin) Take 1 Tablet by mouth in the morning. 90 Tablet 1 3 07/20/20 23 Discontinu ed(Medicat ion List Clean Up) Clopidogrel Bisulfate 75 MG Oral Tablet (pLAVix)Indications :ST elevation myocardial infarction (STEMI) of anterior wall (HCC),History of heart artery stent Take 1 Tablet by mouth in the morning. 90 Tablet 3 3 07/20/20 23 Discontinu ed(Refill) Gabapentin 300 MG Oral Capsule (Neurontin)Indicati ons:Diabetic polyneuropathy associated with type 2 diabetes mellitus (HCC) Take 1 Capsule by mouth in the morning and 1 Capsule before bedtime. 180 Capsule 0 3 07/20/20 23 Discontinu ed(Refill) Isosorbide Mononitrate ER 30 MG Oral Tablet Extended Release 24 Hour (Imdur)Indications: ST elevation myocardial infarction (STEMI) of anterior wall (HCC),Coronary artery disease involving skagway coronary artery of skagway heart without angina pectoris Take 1 Tablet by mouth in the morning. 90 Tablet 3 3 07/20/20 23 Discontinu ed(Refill) Lisinopril 2.5 MG Oral Tablet (Prinivil) Take 1 Tablet by mouth in the morning. 90 Tablet 3 3 07/20/20 23 Discontinu ed(Refill) metFORMIN HCl 500 MG Oral Tablet (Glucophage)Indicat ions:Type 2 diabetes mellitus without complications (HCC) Take 1 Tablet by mouth 2 times a day with morning and evening meals. 180 Tablet 3 3 07/20/20 23 Discontinu ed(Refill) Metoprolol Succinate ER 25 MG Oral Tablet Extended Release 24 Hour (toPROL XL) Take 1 Tablet by mouth in the morning and 1 Tablet before bedtime. 180 Tablet 3 3 07/20/20 23 Discontinu ed(Refill) Trulicity 4.5 MG/0.5ML Subcutaneous Solution Pen-injector (Dulaglutide)Indica tions:Type 2 diabetes mellitus with hemoglobin A1c goal of less than 7.0% (HCC) Inject 4.5 mg under the skin once a week. 6 mL 3 3 07/20/20 23 Discontinu ed(Refill) Aspirin 81 MG Oral Tablet Delayed Release Take 1 Tablet by mouth in the morning. 90 Tablet 3 3 07/20/20 23 Discontinu ed(Refill) Empagliflozin 25 MG Oral Tablet (Jardiance)Indicati ons:Type 2 diabetes mellitus with hemoglobin A1c goal of less than 7.0% (HCC) Take 1 Tablet by mouth in the morning. 90 Tablet 3 3 07/20/20 23 Discontinu ed(Medicat ion/Dose Changed) documented as of this encounter (statuses as of 08/03/2023) Active Problems Problem Noted Date Diagnosed Date Type 2 diabetes mellitus with diabetic polyneuro fanta 10/27/2018 History of tobacco use 05/06/2018 Overview: 40 pack years HTN, goal below 140/90 11/12/2017 Dyslipidemia, goal LDL below 70 01/09/2017 Old [place] (myocardial infarction) 03/31/2012 Overview: Coronary disease, single vessel, status post PTCA of the right coronary artery in 2006. 2. Anterior STEMI 12/20/22 receiving GRADY to [...] as of this encounter (statuses as of 08/03/2023) Resolved Problems Problem Noted Date Diagnosed Date [...] Taxonomy. AORTOCORONARY BYPASS STATUS 07/200602/08/2008 03/31/2012 ACUTE [place] NOS (07/14/06) 11/22/200701/09 Tobacco use disorder 11/22/2007 018 ADVANCE DIRECTIVE INFORMATION 07/27/2007 01/09/2017 Overview: Yes, Patient instructed to provide copy of advance directive for provider to review and to be scanned into Electronic Medical Record Malinimaeve 06/14/2004 07/10/2017 documented as of this encounter (statuses as of 08/03/2023) Immunizations Name Administration Dates Next Due COVID-19 [...] 40 Q uit: 03/19/2017 Smokeless Tobacco: Never Tobacco Cessation:Counseling Given: Not Answered Comments:a pack a day Alcohol Use Standard [...] Sign Reading Time Taken Comments Blood Pressure 108/62 07/20/2023 1:23 PM EST Pulse 75 07/20/2023 1:23 PM EST Temperature 36.3 C (97.3 F) 07/20/2023 1:23 PM ES T Respiratory Rate 16 07/20/2023 1:23 PM EST Oxygen Saturation 93% 07/20/2023 1:23 PM EST Inhaled Oxygen Concentration - - Weight 93.3 kg (205 lb 9.6 oz) 07/20/2023 1:23 P M EST Height - - Body Mass Index 33.18 12/25/2022 3:01 PM EDT documented in this encounter Progress Notes * Ivan Templeton MD - 07/20/2023 1:38 PM EST Subjective: Ousmane Wilkerson is a 73 year old male here today for Chief Complaint Patient presents with Re-Check Some shortness of breath at home - up and down steps. Some dizziness. Past Medical History: Diagnosis Date Benign neoplasm of colon 05/26/08 benign/repeat colonoscopy in 5 yrs Old [place] (myocardial infarction) 2006 2 [facility] [place] Surgical History: Procedure Laterality Date LEONARDO WALTERS W/ROTATOR CUFF Left 11/08/2021 ARTHROSCOPY SHOULDER ROTATOR CUFF performed by Saqib Edmond DO at OR [facility] COLONOSCOPY W/ LESION REMOVAL, SNARE 05/26/2008 repeat 5 yrs benign COLONOSCOPY, DIAGNOSTIC (RECTUM) 06/01/2013 COLONOSCOPY FLEXIBLE PROXIMAL DIAGNOSTIC performed by Syl Saeed DO at ENDOSCOPY [facility] COLONOSCOPY, DIAGNOSTIC (RECTUM) 08/24/2018 poor prep, repeat procedure/COLONOSCOPY FLEXIBLE PROXIMAL DIAGNOSTIC performed by Syl Saeed DO at ENDOSCOPY [facility] COLONOSCOPY, DIAGNOSTIC (RECTUM) 05/30/2020 normal, repeat 5 yrs / COLONOSCOPY FLEXIBLE PROXIMAL DIAGNOSTIC performed by Syl Saeed DO at ENDOSCOPY [facility] INFORMATION 06/27/2004 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 INJ,1 LEVEL 06/24/2018 L-/S-SPINE PARAVERTEBRAL FACET INJ, 1 LEVEL performed by Braydon Higginbotham DO at OR [facility] L-/S-SPINE PARAVERTEBRL FACET INJ,2 LEVELS 06/24/2018 L-/S-SPINE PARAVERTEBRAL FACET INJ, 2 LEVELS performed by Braydon Higginbotham DO at OR [facility] PATIENT HAS A CORONARY ARTERY STENT 12/2022 PATIENT HAS A CORONARY ARTERY STENT 2005 Review of patient's allergies indicates: Allergen Reactions Rosuvastatin Muscle pain Current Outpatient Medications Medication Sig Dispense Refill Glucose Blood (ONETOUCH ULTRA BLUE) STRP Use 2 times a day as directed DX:E11.9 Diabetes Type 2 uncontrolled 300 Strip 5 FreeStyle Alice 14 Day Beverly Device Use as directed. 1 Each 0 FreeStyle Alice 14 Day Sensor Use as directed. Use as directed to check blood sugars 4 times per day. 2 Each 4 Polyethylene Glycol 3350 17 GM/SCOOP Oral Powder (MiraLax) Take 17 g as needed by mouth for Constipation. Dissolve one heaping tablespoon in 8 ounces of water or juice. 850 g 1 Repatha Pushtronex System 420 MG/3.5ML Subcutaneous Solution Cartridge (Evolocumab with Infusor) Inject 420 mg under the skin every month. Administer over 5 minutes. Remove from refrigerator 45 minutes prior to injection. 10.5 mL 3 Aspirin 81 MG Oral Tablet Delayed Release Take 1 Tablet by mouth in the morning. 90 Tablet 3 Clopidogrel Bisulfate 75 MG Oral Tablet (pLAVix) Take 1 Tablet by mouth in the morning. 90 Tablet 3 Canagliflozin 300 MG Oral Tablet (Invokana) Take 1 Tablet by mouth in the morning. 90 Tablet 3 Gabapentin 300 MG Oral Capsule (Neurontin) Take 1 Capsule by mouth in the morning and 1 Capsule before bedtime. 180 Capsule 1 Isosorbide Mononitrate ER 30 MG Oral Tablet Extended Release 24 Hour (Imdur) Take 1 Tablet by mouthin the morning. 90 Tablet 3 Lisinopril 2.5 MG Oral Tablet (Prinivil) Take 1 Tablet by mouth in the morning. 90 Tablet 3 metFORMIN HCl 500 MG Oral Tablet (Glucophage) Take 1 Tablet by mouth 2 times a day with morning andevening meals. 180 Tablet 3 Metoprolol Succinate ER 25 MG Oral Tablet Extended Release 24 Hour (toPROL XL) Take 1 Tablet by mouth in the morning and 1 Tablet before bedtime. 180 Tablet 3 Trulicity 4.5 MG/0.5ML Subcutaneous Solution Pen-injector (Dulaglutide) Inject 4.5 mg under the skin once a week. 6 mL 3 ONETOUCH LANCETS [facility] Use to test blood sugar up to twice daily: dx 250.00 3 Box Dosing Unit 5 Lidocaine, Anorectal, 5 % CREA Apply to affected area 3-4 times as needed for pain 28 g 0 Nitroglycerin 0.4 MG Sublingual Tablet Sublingual (Nitrostat) Place 1 Tablet under the tongue as needed. (Patient not taking: Reported on 02/24/2023) Aleve PM 220-25 MG Oral Tablet (Naproxen Sod-diphenhydrAMINE) Take 1 Tablet by mouth at bedtime. No current facility-administered medications for this visit. Objective: BP 108/62 | Pulse 75 | Temp 36.3 C (97.3 F) | Resp 16 | Wt 93.3 kg (205 lb 9.6 oz) |SpO2 93% | BMI 33.18 kg/m | BSA 2.08 m GEN: NAD HEENT: Benign NECK: Supple with no LAD, TM, JVD CHEST: CTA B CV: RRR ABD: Soft, NT/ND, No HSM, NABS EXT: No c,c,e Assessment and Plan: Coronary artery disease involving skagway coronary artery of skag[place] heart without angina pectoris (Primary) - Isosorbide Mononitrate ER 30 MG Oral Tablet Extended Release 24 Hour (Imdur); Take 1 Tablet by mouth in the morning. ST elevation myocardial infarction (STEMI) of anterior wall ([facility]) - Clopidogrel Bisulfate 75 MG Oral Tablet (pLAVix); Take 1 Tablet by mouth in the morning. - Isosorbide Mononitrate ER 30 MG Oral Tablet Extended Release 24 Hour (Imdur); Take 1 Tablet by mouth in the morning. History of heart artery stent - Clopidogrel Bisulfate 75 MG Oral Tablet (pLAVix); Take 1 Tablet by mouth in the morning. Diabetic polyneuropathy associated with type 2 diabetes mellitus ([facility]) - Gabapentin 300 MG Oral Capsule (Neurontin); Take 1 Capsule by mouth in the morning and 1 Capsule before bedtime. Type 2 diabetes mellitus without complications ([facility]) - metFORMIN HCl 500 MG Oral Tablet (Glucophage); Take 1 Tablet by mouth 2 times a day with morning and evening meals. - HEMOGLOBIN A1C; Future; Expected date: 07/20/2023 Type 2 diabetes mellitus with hemoglobin A1c goal of less than 7.0% ([facility]) - Trulicity 4.5 MG/0.5ML Subcutaneous Solution Pen-injector (Dulaglutide); Inject 4.5 mg under the skin once a week. Dizziness - CBC; Future; Expected date: 07/20/2023 Type 2 diabetes mellitus with diabetic polyneuropathy, without long-term current use of insulin ([facility]) Dyslipidemia, goal LDL below 70 HTN, goal below 140/90 Other orders - Aspirin 81 MG Oral Tablet Delayed Release; Take 1 Tablet by mouth in the morning. - Canagliflozin 300 MG Oral Tablet (Invokana); Take 1 Tablet by mouth in the morning. - Lisinopril 2.5 MG Oral Tablet (Prinivil); Take 1 Tablet by mouth in the morning. - Metoprolol Succinate ER 25 MG Oral Tablet Extended Release 24 Hour (toPROL XL); Take 1 Tablet by mouth in the morning and 1 Tablet before bedtime. Follow Up: Return in about 4 months (around 11/19/2023). 36 min with pt Ivan Templeton MD documented in this encounter Nursing Notes * Promise Rhoades LPN - 07/20/2023 1:24 PM EST Return visit documented in this encounter Plan of Treatment Upcoming Encounters Date Type Department Care Team (Late st Contact Info) Description 09/14/2023 2:00 PM EST Office Visit Cardiology, [facility] [address] [facility] [place] [address] Miryam Oviedo, GIOVANNI [address] [facility] [place] [address] 09/17/2023 5:30 PM EST Pharmacy Cardiology [place] [facility]ett[facility]owler [address] [facility] [place] [address] [facility] [address] [facility] [address] 10/02/2023 11:30 AM EST Office Visit Cardiology, [facility] [address] [facility] [place] [address] [facility] Cardiology [facility] [address] [facility] [place] [address] 12/05/2023 9:00 AM EDT Office Visit Family Practice [facility] [address] [facility] [place] [address] Ivan Templeton MD [address] [place] [address] Scheduled Orders Name Type Priority Associated Diagnoses Orde r Schedule HEMOGLOBIN A1C Lab Routine Expected: 07/20/2023 (Approximate), Expires: 07/19/2024 CBC Lab Routine Dizziness Expected: 07/20/2023 (Approximate), Expires: 07/19/2024 Scheduled Procedures Name Priority Associated Diagnoses Date/Ti [...] exists LUNG CANCER SCREENING - USE SMARTSET 72169 Completed 01/26/2023 COVID-19 Vaccine Completed 06/15/2023, , 06/19/2021, Additional history exists GARDASIL-HPV IMMUNIZATION SERIES Aged Out No longer eligible based on patient's age to complete this topic MENINGOCOCCAL (MENACTRA/MENVEO) Aged Out No longer eligible based on patient's age to complete this topic documented as of this encounter Medical Devices Implanted Type Area Mail Clerk Bills Device Identifier Shelf Expiration Date Model / Serial / Lot Biocomposite Knotless Swivelock [place] Implanted:Qty: 1 on 11/08/2021 by Saqib Edmond, DO at OR [facility] Left: Shoulder [employer] 09/09/2025 [id number] / / [id number] Description:with Blue #2 Sut ure documented as of this encounter Visit Diagnoses Diagnosis Coronary artery disease involving skagway coronary artery of skagway heart without angina pectoris- Primary ST elevation myocardial infarction (STEMI) of anterior wall (HCC) Acute myocardial infarction of other anterior wall, episode of care unspecified History of heart artery stent Postsurgical percutaneous transluminal coronary angioplasty status Diabetic polyneuropathy associated with type 2 diabetes mellitus (HCC) Type 2 diabetes mellitus with hemoglobin A1c goal of less than 7.0% ([facility]) Dizziness Dizziness and giddiness Type 2 diabetes mellitus with diabetic polyneuropathy, without long-term current use of insulin ([facility]) Dyslipidemia, goal LDL below 70 Other and unspecified hyperlipidemia HTN, goal below 140/90 Unspecified essential hypertension documented in this encounter Care Teams Hairspring Truing Inspector Relationship Specialty Start Date End Date Ivan Templeton MD [address] [place] [address] PCP - General Family Medicine 07/29/12 documented as of this encounter"
--- OUTSIDE RECORDS SUMMARY | 2023-11-05 11:44 | External Medical Summary | Summary of Care ---
Author Name Unknown Organization [facility] Address [address] [place] [address] Phone [phone] Care Team Providers Care Powdered Metal Supervisor Name Role Phone Ivan Templeton MD Primary Care Provider +1- [phone] Reason for Visit * Reason Onset Date Comments Health Maintenance 09/10/2023 Encounter Details Date Type Department Care Team (Late st Contact Info) Description 09/10/2023 Telephone [facility] [address] [place] [address] Ivan Templeton MD [address] [place] [address] Health Maintenance Allergies Active Allergy Reactions Criticality Noted Date Comments Rosuvastatin Muscle pain 04/27/2023 documented as of this encounter (statuses as of 09/10/2023) Medications Medication Sig Dispensed Refills Start Date End Date Status Glucose Blood (ONETOUCH ULTRA BLUE) STRPIndications:DM type 2, not at goal (HCC),Type 2 diabetes mellitus with hemoglobin A1c goal of less than 7.0% ([facility]) Use 2 times a day [...] 0 07/07/2018 Active FreeStyle Alice 14 Day [place] Device Use as directed. 1 Each 0 [...] of anterior wall (HCC),Coronary artery disease involving [place] coronary artery of [place] heart without angina pectoris Take 1 Tablet [...] goal LDL below 70,Coronary artery disease involving [place] coronary artery of [place] heart without angina pectoris Inject 420 mg [...] Dyslipidemia, goal LDL below 70 01/09/2017 Old [place] (myocardial infarction) 03/31/2012 Overview: Coronary disease, single [...] Taxonomy. AORTOCORONARY BYPASS STATUS 07/200602/08/2008 03/31/2012 ACUTE [place] NOS (07/14/06) 11/22/200701/09 Tobacco use disorder 11/22/2007 [...] Description 09/11/2023 8:10 AM EST Pharmacy Cardiology [place] [facility] [place] [address] [place] [address] [place] [address], Pharmacist Cardiology [facility] [address] [place] [address] 09/17/2023 5:30 PM EST Pharmacy Cardiology [place] [facility] [address] [facility] [place] [address] [facility] [address] [place] [address] [facility] [place] [address] 09/30/2023 2:00 PM EST [facility] [address] Miryam Oviedo PA-C [facility] [address] 10/02/2023 11:30 AM EST Office Visit Cardiology, [facility] [address] [facility] [address] [facility] Cardiology [facility] [address] [place] [address] 12/05/2023 9:00 AM EDT Office Visit Family Practice [facility] [address] [facility] [address] Ivan Templeton MD [address] [place] [address] Scheduled Procedures Name Priority Associated Diagnoses Date/Ti [...] exists LUNG CANCER SCREENING - USE SMARTSET 09805 Completed 01/26/2023 COVID-19 Vaccine Completed 06/15/2023, , 06/19/2021, Additional history exists GARDASIL-HPV IMMUNIZATION SERIES Aged Out No longer eligible based on patient's age to complete this topic MENINGOCOCCAL (MENACTRA/MENVEO) Aged Out No longer eligible based on patient's age to complete this topic documented as of this encounter Medical Devices Implanted Type Area Electric Container Tester Device Identifier Shelf Expiration Date Model / Serial / Lot Biocomposite Knotless Swivelock [place] Implanted:Qty: 1 on 11/08/2021 by Saqib Edmond, at OR [facility] Left: Shoulder [employer] 09/09/2025 [id number] C / / [id number] Description:with Blue #2 Sut ure documented as of this encounter Care Teams Powdered Metal Supervisor Relationship Specialty Start Date End Date Ivan Templeton MD [address] [place] [address] PCP - General Family Medicine 07/29/12 documented as of this encounter
--- OUTSIDE RECORDS SUMMARY | 2023-11-05 11:44 | External Medical Summary | Summary of Care ---
Author Name Unknown Organization [facility] Address [address] [place] [address] Phone [phone] Care Team Providers Care Strapping Machine Operator Name Role Phone Ivan Templeton MD Primary Care Provider +1- [phone] Encounter Details Date Type Department Care Team ([facility] st Contact Info) Description 09/10/2023 Specialty Pharmacy [facility], [address] [address] Medication, [facility] Specialty Refill, [address] [address] Allergies Active Allergy Reactions Criticality Noted Date Comments Rosuvastatin Muscle pain 04/27/2023 documented as of this encounter (statuses as of 09/10/2023) Medications Medication Sig Dispensed Refills Start Date End Date Status Glucose Blood (ONETOUCH ULTRA BLUE) STRPIndications:DM type 2, not at goal ([facility]),Type 2 diabetes mellitus with hemoglobin A1c goal of less than 7.0% ([facility]) Use 2 times a day as directed DX:E11.9 Diabetes Type 2 uncontrolled 300 Strip 5 04/15/2018 Active ONETOUCH LANCETS MISCIndications:Type 2 diabetes mellitus with hemoglobin A1c goal of less than 7.0% ([facility]),DM type 2, not at goal ([facility]) Use to test blood sugar up to twice daily: dx 250.00 3 Box Dosing Unit 5 04/15/2018 Active Lidocaine, Anorectal, 5 % CREAIndications:Exte rnal hemorrhoid, thrombosed Apply to affected area 3-4 times as needed for pain 28 g 0 07/07/2018 Active FreeStyle Alice 14 Day [place] Device Use as directed. 1 Each 0 [...] of anterior wall (HCC),Coronary artery disease involving [place] coronary artery of [place] heart without angina pectoris Take 1 Tablet [...] goal LDL below 70,Coronary artery disease involving [place] coronary artery of [place] heart without angina pectoris Inject 420 mg [...] Dyslipidemia, goal LDL below 70 01/09/2017 Old [place] (myocardial infarction) 03/31/2012 Overview: Coronary disease, single [...] Taxonomy. AORTOCORONARY BYPASS STATUS 07/200602/08/2008 03/31/2012 ACUTE [place] NOS (07/14/06) 11/22/200701/09 Tobacco use disorder 11/22/2007 018 ADVANCE DIRECTIVE INFORMATION 07/27/2007 01/09/2017 Overview: Yes, Patient instructed to provide copy of advance directive for provider to review and to be scanned into Electronic Medical Record Rosajimenaa 06/14/2004 07/10/2017 documented as of this encounter [...] as of this encounter Progress Notes * Afia Alba PHARM Tech - 09/10/2023 2:23 PM EST Prescribed medication: Medication: Repatha Shipment date: 09/14 Delivery method: Specialty Mail Location Medication Delivered too? Prescription Address: [address] [place] [address] [facility] 09/10/2023,2:23 PM documented in this encounter Plan of Treatment Upcoming Encounters Date Type Department Care Team (Late st Contact Info) Description 09/17/2023 5:30 PM EST Pharmacy Cardiology [facility] [address] [place] [address] [facility] Card[facility] [address] [place] [address] [place] [address] 09/30/2023 2:00 PM EST Office Visit Cardiology, [facility] [address] [place] [address] Miryam Oviedo PA-C [address] [facility] [place] [address] 10/02/2023 11:30 AM EST Office Visit Cardiology, [facility] [address] [place] [address] [facility] Cardiology [facility] [place] [address] 12/05/2023 9:00 AM EDT Office Visit Family Practice [facility] [address] [place] [address] Ivan Templeton MD [address] [place] [address] Scheduled Procedures Name Priority Associated Diagnoses Date/Ti [...] exists LUNG CANCER SCREENING - USE SMARTSET 77771 Completed 01/26/2023 COVID-19 Vaccine Completed 06/15/2023, , 06/19/2021, Additional history exists GARDASIL-HPV IMMUNIZATION SERIES Aged Out No longer eligible based on patient's age to complete this topic MENINGOCOCCAL (MENACTRA/MENVEO) Aged Out No longer eligible based on patient's age to complete this topic documented as of this encounter Medical Devices Implanted Type Area Sales And Merchandising Associate Device Identifier Shelf Expiration Date Model / Serial / Lot Biocomposite Knotless Swivelock [employer] [place] Implanted:Qty: 1 on 11/08/2021 by Saqib Edmond DO at OR [facility] Left: Shoulder [employer] 09/09/2025 [id number] C / / [id number] Description:with Blue #2 Sut ure documented as of this encounter Care Teams Strapping Machine Operator Relationship Specialty Start Date End Date Ivan Templeton MD [address] [place] [address] PCP - General Family Medicine 07/29/12 documented as of this encounter
--- OUTSIDE RECORDS SUMMARY | 2023-11-05 11:44 | External Medical Summary | Summary of Care ---
Author Name Unknown Organization [facility] Address [address] [place] [address] Phone [phone] Care Team Providers Care Manager Target Name Role Phone Ivan Templeton MD Primary Care Provider +1- [phone] Reason for Visit * Reason Comments Outpatient Testing Encounter Details Date Type Department Care Team (Late st Contact Info) Description 09/08/2023 11:50 AM EST Laboratory Laboratory, [place] [address] [place] [address] May, Laboratory [address] [place] [address] Dyslipidemia, goal LDL below 70 Allergies Active Allergy Reactions Criticality Noted Date Comments Rosuvastatin Muscle pain 04/27/2023 documented as of this encounter (statuses as of 09/08/2023) Medications Medication Sig Dispensed Refills Start Date End Date Status Glucose Blood (ONETOUCH ULTRA BLUE) STRPIndications:DM type 2, not at goal ([facility]),Type 2 diabetes mellitus with hemoglobin A1c goal of less than 7.0% ([facility]) Use 2 times a day as [...] 0 07/07/2018 Active FreeStyle Alice 14 Day [place] Device Use as directed. 1 Each 0 [...] of anterior wall (HCC),Coronary artery disease involving [place] coronary artery of [place] heart without angina pectoris Take 1 Tablet [...] goal LDL below 70,Coronary artery disease involving nez perce coronary artery of nez perce heart without angina pectoris Inject 420 mg (1 cartridge) under the skin Every Month. 10.5 mL 3 08/27/2023 Active documented as of this encounter (statuses as of 09/08/2023) Active Problems Problem Noted Date Diagnosed Date [...] as of this encounter (statuses as of 09/08/2023) Resolved Problems Problem Noted Date Diagnosed Date [...] as of this encounter (statuses as of 09/08/2023) Immunizations Name Administration Dates Next Due COVID-19 [...] Description 09/11/2023 8:10 AM EST Pharmacy Cardiology [facility] [place] [address] [place] [address] [place], Pharmacist Cardiology [facility] [address] [place] [address] 09/17/2023 5:30 PM EST [facility] [address] [facility] [place] [address] [facility] [address] [facility] [address] 09/30/2023 2:00 PM EST Office Visit Cardiology, [facility] [address] [facility] [place] [address] Miryam Oviedo PA-C 132 [facility] [place] [address] 10/02/2023 11:30 AM EST Office Visit Cardiology, [facility] [address] [facility] [place] [address] [facility] Cardiology [facility] 132 [facility] [place] [address] 12/05/2023 9:00 AM EDT Office Visit Family Practice [facility] [address] [facility] [place] [address] Ivan Templeton MD [address] [place] [address] Pending Results Name Type Priority Associated Diagnoses Date /Time LIPID PANEL WITH DIRECT LDL IF TG IS HIGH Lab Routine Dyslipidemia, goal LDL below 70 09/08/2023 11:58 AM EST Scheduled Procedures Name Priority Associated [...] exists LUNG CANCER SCREENING - USE SMARTSET 59028 Completed 01/26/2023 COVID-19 Vaccine Completed 06/15/2023, , 06/19/2021, Additional history exists GARDASIL-HPV IMMUNIZATION SERIES Aged Out No longer eligible based on patient's age to complete this topic MENINGOCOCCAL (MENACTRA/MENVEO) Aged Out No longer eligible based on patient's age to complete this topic documented as of this encounter Medical Devices Implanted Type Area Power Plant Operator Device Identifier Shelf Expiration Date Model / Serial / Lot Biocomposite Knotless Swivelock [place] Implanted:Qty: 1 on 11/08/2021 by Saqib Edmond at OR [facility] Left: Shoulder [employer] 09/09/2025 [id number] C / / [id number] Description:with Blue #2 Sut ure documented as of this encounter Visit Diagnoses Diagnosis Dyslipidemia, goal LDL below 70 Other and unspecified hyperlipidemia documented in this encounter Care Teams Manager Target Relationship Specialty Start Date End Date Ivan Templeton MD [address] [place] [address] PCP - General Family Medicine 07/29/12 documented as of this encounter
--- OUTSIDE RECORDS SUMMARY | 2023-11-05 11:45 | External Medical Summary | Summary of Care ---
Author Name Unknown Organization [facility] Address [address] [facility] [place] [address] Phone [phone] Care Team Providers Care Senior Reactor Operator Name Role Phone Ivan Templeton MD Primary Care Provider +1- [phone] Reason for Visit * Reason Onset Date Comments Precert In Process 06/05/2023 27 [place] [facility] REP ATHA Precert Approved 06/05/2023 REPATHA Encounter Details Date Type Department Care Team (Late st Contact Info) Description 06/05/2023 Telephone Cardiology, [facility] [address] [facility] [place] [address] [facility] [address] [place], [place] [phone] Precert In Process (27 [place] [facility] REPATHA); Pr... Allergies Active Allergy Reactions Criticality Noted Date Comments Rosuvastatin Muscle pain 04/27/2023 documented as of this encounter (statuses as of 06/15/2023) Medications Medication Sig Dispensed Refills Start Date End Date Status Glucose Blood (ONETOUCH ULTRA BLUE) STRPIndications:DM type 2, not at goal (HCC),Type 2 diabetes mellitus with hemoglobin A1c goal of less than 7.0% ([facility]) Use 2 times a day as directed [...] 0 07/07/2018 Active FreeStyle Alice 14 Day [place] Device Use as directed. 1 Each 0 [...] of anterior wall (HCC),Coronary artery disease involving [place] coronary artery of [place] heart without angina pectoris Take 1 Tablet [...] the morning. 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 AORTOCORONARY BYPASS STATUS 07/200602/08/2008 03/31/2012 ACUTE [place] NOS (07/14/06) 11/22/200701/09 Tobacco use disorder 11/22/2007 018 ADVANCE DIRECTIVE INFORMATION 07/27/2007 01/09/2017 Overview: Yes, Patient instructed to provide copy of advance directive for provider to review and to be scanned into Electronic Medical Record Govind 06/14/2004 07/10/2017 documented as of this encounter (statuses as of 06/15/2023) Immunizations Name Administration Dates Next Due COVID-19 mRNA, LNP-s, No Pre serve, 2-Dose Series (Moderna) 10/03/2020,09/05/2020 COVID-19, mRNA, LNP-s, PF, B ooster, 100mcg/0.5mg [...] encounter Miscellaneous Notes * Telephone Encounter - Glenny Stevens CPhT - 06/15/2023 2:16 PM EST Yonas from [facility] Prior Auth calling to advise Repatha is approved from 06/05/2023 to 06/06/2024 and is asking if med can be ordered at [facility] Thank you, Glenny Stevens Register Repairer II [facility]ized Clinical Pharmacy Services (CCPS) (formerly Telepharmacy) 06/15/2023 2:17 PM * Telephone Encounter - Cecilia Sánchez [facility] - 06/05/2023 1:25 PM EDT PCSK-9 Inhibitor Prior-Authorization Request Medication/Disease State Information: PCSK9 inhibitor needing prior auth: Repatha 420 mg once monthly Diagnosis: Hyperlipidemia; ASCVD Quantity (30 or 90 day): 90 day Failed or Intolerant to or Contraindicated: Atorvastatin and low dose Crestor = myalgia which resolved upon discontinuation LDL Goal: < 70 mg/dL Pre-Treatment LDL: 120 mg/dL Date: 04/08/23 Current therapy: not on cholesterol medications Trial of max tolerated dose of Statin and Ezetimibe: Pt intolerant to 2 different statins. Zetia would not bring pt to target LDL <70 as it only has 20 -25% LDL lowering effect. Lipid Panel Results: Results for orders placed or performed in visit on 02/19/18 LIPID PANEL Result Value Ref Range HOURS FASTING TRIGLYCERIDES-OUTSIDE LAB 206 (H) <150 MG/DL CHOLESTEROL-OUTSIDE LAB 141 <199 MG/DL HDL-OUTSIDE LAB 31 (L) >40 MG/DL CHOL/HDL RATIO-OUTSIDE LAB 4.5 <5.0 LDL (CALCULATED)-OUTSIDE LAB 80 0 - 100 MG/DL Results for orders placed or performed in visit on 04/08/23 LIPID PANEL WITH DIRECT LDL IF TG IS HIGH Result Value Ref Range Triglycerides 188 (H) <=174 mg/dL Cholesterol 204 (H) <200 mg/dL HDL Cholesterol 46 >39 mg/dL Non-HDL Cholesterol 158 <=159 mg/dL LDL Cholesterol 120 <=129 mg/dL Route referral message to CARDIOLOGY PHARMACIST [place] [[id number]]. Please submit to BOTH primary insurance and secondary insurance (ex PACE/PACENET) if applicable. documented in this encounter Plan of Treatment Upcoming Encounters Date Type Department Care Team (Late st Contact Info) Description 07/20/2023 1:20 PM EST Office Visit [facility] [address] [place] [address] Ivan Templeton MD [address] [place] [address] 09/14/2023 2:00 PM EST Office Visit Cardiology, [facility] [place] [address] Miryam Oviedo PA-C [address] [place] [address] 09/17/2023 5:30 PM EST Pharmacy Cardiology [place] [address] [facility] [place] [address] [facility] Cardiology [address] [facility] [place] [address] 10/02/2023 11:30 AM EST Office Visit Cardiology, [facility] 132 [facility] [place] [address] [facility] Cardiology [facility] [place] [address] Scheduled Procedures Name Priority Associated Diagnoses Date/Ti me COLONOSCOPY FLEXIBLE PROXIMAL DIAGNOSTIC Recall History of colon polyps Health Maintenance Due Date Last Done Comments Hepatitis B (1 of 3 - Risk 3-dose series) 2012 DTaP,Tdap,and Td Vaccines (2 - Td or Tdap) 07/24/2018 07/24/2008 Diabetic Foot Exam 07/27/2021 07/27/2020, 0 05/09/2019, 05/06/2018, Additional history exists COVID-19 Vaccine ( season) 2023 06/29/2022, 06/19/2021, 10/03/2020, Additional history exists Influenza Vaccine (FLU shot) [...] exists LUNG CANCER SCREENING - USE SMARTSET 59038 Completed 01/26/2023 GARDASIL-HPV IMMUNIZATION SERIES Aged Out No longer eligible based on patient's age to complete this topic MENINGOCOCCAL (MENACTRA/MENVEO) Aged Out No longer eligible based on patient's age to complete this topic documented as of this encounter Medical Devices Implanted Type Area Associate Store Director Device Identifier Shelf Expiration Date Model / Serial / Lot Biocomposite Knotless Swivelock [place] Implanted:Qty: 1 on 11/08/2021 by Saqib Edmond, DO at OR [facility] Left: Shoulder [employer] 09/09/2025 [id number] C / / [id number] Description:with Blue #2 Sut ure documented as of this encounter Care Teams Senior Reactor Operator Relationship Specialty Start Date End Date Ivan Templeton MD [address] [facility] [place] [address] PCP - General Family Medicine 07/29/12 documented as of this encounter
--- OUTSIDE RECORDS SUMMARY | 2023-11-05 11:45 | External Medical Summary | Summary of Care ---
Author Name Unknown Organization [facility] Address [address] [facility] [place] [address] Phone [phone] Care Team Providers Care Show Card Writer Name Role Phone Ivan Templeton MD Primary Care Provider +1- [phone] Reason for Visit * Reason Onset Date Comments Precert In Process 06/05/2023 27 [place] [facility] REP ATHA Precert Approved 06/05/2023 REPATHA Encounter Details Date Type Department Care Team (Late st Contact Info) Description 06/05/2023 Telephone Cardiology, [facility] [address] [facility] [place] [address] [facility] [address] [place], [place] [phone] Precert In Process (27 [place] [facility] REPATHA); Pr... Allergies Active Allergy Reactions Criticality Noted Date Comments Rosuvastatin Muscle pain 04/27/2023 documented as of this encounter (statuses as of 06/16/2023) Medications Medication Sig Dispensed Refills Start Date End Date Status Glucose Blood (ONETOUCH ULTRA BLUE) STRPIndications:DM type 2, not at goal (HCC),Type 2 diabetes mellitus with hemoglobin A1c goal of less than 7.0% ([facility]) Use 2 times a day as [...] 0 07/07/2018 Active FreeStyle Alice 14 Day [place] Device Use as directed. 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 AORTOCORONARY BYPASS STATUS 07/200602/08/2008 03/31/2012 ACUTE [place] NOS (07/14/06) 11/22/200701/09 Tobacco use disorder 11/22/2007 018 ADVANCE DIRECTIVE INFORMATION 07/27/2007 01/09/2017 Overview: Yes, Patient instructed to provide copy of advance directive for provider to review and to be scanned into Electronic Medical Record Govind 06/14/2004 07/10/2017 documented as of this encounter (statuses as of 06/16/2023) Immunizations Name Administration Dates Next Due COVID-19 [...] encounter Miscellaneous Notes * Telephone Encounter - Elizabeth Chaudhary RPh - 06/16/2023 9:51 AM EST New or re-auth: New authorization Approved/Denied: Approved Drug Name and Formulation: REPATHA 410 MG ML How Prescribed(directions/sig): INJECT 420 MONTHLY Day Supply: 3.5 ML PER 29 Did you receive insurance information from outside the chart? No, received insurance information within the chart Valid auth start date: 06/05/2023 Valid auth end date: 06/06/2024 Rx Insurance Info: Luca VELASCO Reference #: Rx Benefits Verified through/on date: [facility] 05/2023 Referral (TE) received from: [facility] Test claim $107.31 [facility] looking for assistance. Recommend HW cardiomyopathy yue. Will hold off on sending Rx until assistance determined. Elizabeth Chaudhary Pharm D Clinical Pharmacist Cardiology 06/16/2023,10:39 AM * Addendum Note - Delores Gaviria CMA - 06/15/2023 3:03 PM ESTAddended by: DELORES GAVIRIA on: 06/15/2023 03:03 PM Modules accepted: Orders * Telephone Encounter - Glenny Stevens CPhT - 06/15/2023 2:16 PM EST Yonas from [facility] Prior Auth calling to advise Repatha is approved from 06/05/2023 to 06/06/2024 and is asking if med can be ordered at [facility] Thank you, Glenny Stevens Aemt II Centralized Clinical Pharmacy Services (CCPS) (formerly Telepharmacy) 06/15/2023 2:17 PM * Telephone Encounter - Cecilia Sánchez RPh - 06/05/2023 1:25 PM EDT PCSK-9 Inhibitor [...] mg/dL Route referral message to CARDIOLOGY PHARMACIST [place] [[id number]]. Please submit to BOTH primary insurance and secondary insurance (ex PACE/PACENET) if applicable. documented in this encounter Plan of Treatment Upcoming Encounters Date Type Department Care Team (Late st Contact Info) Description 07/20/2023 1:20 PM EST Office Visit [facility] [address] [place] [facility] [place] [address] Ivan Templeton MD [address] [place] [address] 09/14/2023 2:00 PM EST Office Visit Cardiology, [facility] [address] [place] [address] Miryam Oviedo, GIOVANNI [address] [place] [address] 09/17/2023 5:30 PM EST Pharmacy Cardiology [facility] [address] [place] [address] [facility] [address] [place] [address] 10/02/2023 11:30 AM EST Office Visit Cardiology, [facility] [place] [address] [facility] Cardiology [facility] [address] [place] [address] Scheduled Procedures Name Priority Associated Diagnoses Date/Ti [...] 01/2023, 05/21/2022, Additional history exists Albumin/Creatinine Ratio 11/14/20232 023, 10/04/2021, 03/22/2021, Additional history exists Depression Screening 11/22/2023 11/21/2022 GFR 04/08/2024 04/08/2023, 01/08, 11/13/2022, Additional history exists COLONOSCOPY-EVERY 5 YRS AGES 18-100 05/30/2025 05/30/2020, 05/30/2020, 08/24/2018, Additional history exists AAA Screening Completed 07/27/2017 Zoster Vaccines Completed 09/09/2018, 06/11, 04/25/2013 Pneumococcal Vaccine: 65+ Years Completed 06/29/2022, 12/01/2019, 11/12/2017, Additional history exists LUNG CANCER SCREENING - USE SMARTSET 88083 Completed 01/26/2023 COVID-19 Vaccine Completed 06/15/2023, , 06/19/2021, Additional history exists GARDASIL-HPV IMMUNIZATION SERIES Aged Out No longer eligible based on patient's age to complete this topic MENINGOCOCCAL (MENACTRA/MENVEO) Aged Out No longer eligible based on patient's age to complete this topic documented as of this encounter Medical Devices Implanted Type Area Weight Training Instructor Device Identifier Shelf Expiration Date Model / Serial / Lot Biocomposite Knotless Swivelock [place] Implanted:Qty: 1 on 11/08/2021 by Saqib Edmond, at OR [facility] Left: Shoulder [employer] 09/09/2025 [id number] C / / [id number] Description:with Blue #2 Sut ure documented as of this encounter Visit Diagnoses Diagnosis Dyslipidemia, goal LDL below 70- Primary Other and unspecified hyperlipidemia Statin intolerance Other drug allergy documented in this encounter Care Teams Show Card Writer Relationship Specialty Start Date End Date Ivan Templeton MD [address] [place] [address] PCP - General Family Medicine 07/29/12 documented as of this encounter
--- OUTSIDE RECORDS SUMMARY | 2023-11-05 11:45 | External Medical Summary | Summary of Care ---
Author Name Unknown Organization [facility] Address [address] [place] [address] Phone [phone] Care Team Providers Care Hospital Aides And Assistants Teacher Name Role Phone Ivan Templeton MD Primary Care Provider +1- [phone] Reason for Visit * Reason Onset Date Comments Med Request 06/30/2023 Encounter Details Date Type Department Care Team (Late st Contact Info) Description 06/30/2023 Telephone [facility] [address] [place] [address] Ivan Templeton MD [address] [place] [address] Med Request Allergies Active Allergy Reactions Criticality Noted Date Comments Rosuvastatin Muscle pain 04/27/2023 documented as of this encounter (statuses as of 07/01/2023) Medications Medication Sig Dispensed Refills Start Date End Date Status Glucose Blood (ONETOUCH ULTRA BLUE) STRPIndications:DM type 2, not at goal (HCC),Type 2 diabetes mellitus with hemoglobin A1c goal of less than 7.0% ([facility]) Use 2 times a [...] 0 07/07/2018 Active FreeStyle Alice 14 Day [place] Device Use as directed. 1 Each 0 [...] of anterior wall (HCC),Coronary artery disease involving [place] coronary artery of [place] heart without angina pectoris Take 1 Tablet [...] as of this encounter (statuses as of 07/01/2023) Active Problems Problem Noted Date Diagnosed Date [...] as of this encounter (statuses as of 07/01/2023) Resolved Problems Problem Noted Date Diagnosed Date [...] as of this encounter (statuses as of 07/01/2023) Immunizations Name Administration Dates Next Due COVID-19 [...] encounter Miscellaneous Notes * Telephone Encounter - Christal Jaime OSA - 06/30/2023 5:14 PM EST Medication was damaged in shipping repatha 420MG [email or web address].[facility] is looking for verbal permission. documented in this encounter Plan of Treatment Upcoming Encounters Date Type Department Care Team (Late st Contact Info) Description 07/03/2023 3:00 PM EST Office Visit Cardiology, [facility] [address] [facility] [place] [address] [facility] [address] [facility] [place] [address] PHARMACY CHRONIC DISEASE MANAGEMENT - HYPERLIPIDEMIA 07/20/2023 1:20 PM EST Office Visit [facility] [address] [place] [address] Ivan Templeton MD [address] [place] [address] 09/14/2023 2:00 PM EST Office Visit Cardiology, [facility] [address] [facility] [place] [address] Miryam Oviedo PA-C [address] [place] [address] 09/17/2023 5:30 PM EST Pharmacy [facility] [address] [place] [address] [facility] [address] [place] [address] 10/02/2023 11:30 AM EST Office Visit Cardiology, [facility] [address] [facility] [place] [address] [facility] Cardiology [facility] [address] [place] [address] Scheduled Procedures Name Priority Associated Diagnoses Date/Ti [...] exists LUNG CANCER SCREENING - USE SMARTSET 61018 Completed 01/26/2023 COVID-19 Vaccine Completed 06/15/2023, , 06/19/2021, Additional history exists GARDASIL-HPV IMMUNIZATION SERIES Aged Out No longer eligible based on patient's age to complete this topic MENINGOCOCCAL (MENACTRA/MENVEO) Aged Out No longer eligible based on patient's age to complete this topic documented as of this encounter Medical Devices Implanted Type Area Bioprocess Development Engineer Device Identifier Shelf Expiration Date Model / Serial / Lot Biocomposite Knotless Swivelock [place] Implanted:Qty: 1 on 11/08/2021 by Saqib Edmond, at OR [facility] Left: Shoulder [employer] 09/09/2025 [id number] C / / [id number] Description:with Blue #2 Sut ure documented as of this encounter Care Teams Hospital Aides And Assistants Teacher Relationship Specialty Start Date End Date Ivan Templeton MD [address], [place] [phone] PCP - General Family Medicine 07/29/12 documented as of this encounter
--- OUTSIDE RECORDS SUMMARY | 2023-11-05 11:45 | External Medical Summary | Summary of Care ---
Author Name Unknown Organization [facility] Address [address] [place] [address] Phone [phone] Care Team Providers Care Lot Associate Name Role Phone Ivan Templeton MD Primary Care Provider +1- [phone] Reason for Visit * Reason Onset Date Comments Advice 06/25/2023 Encounter Details Date Type Department Care Team (Late st Contact Info) Description 06/25/2023 Telephone [facility] [address] [place] [address] Ivan Templeton MD [address] [place] [address] Advice Allergies Active Allergy Reactions Criticality Noted Date Comments Rosuvastatin Muscle pain 04/27/2023 documented as of this encounter (statuses as of 06/27/2023) Medications Medication Sig Dispensed Refills Start Date End Date Status Glucose Blood (ONETOUCH ULTRA BLUE) STRPIndications:DM type 2, not at goal ([facility]),Type 2 diabetes mellitus with hemoglobin A1c goal of less than 7.0% ([facility]) Use 2 times a day as directed DX:E11.9 Diabetes Type 2 uncontrolled 300 Strip 5 04/15/2018 Active ONETOUCH LANCETS MISCIndications:Type 2 diabetes mellitus with hemoglobin A1c goal of less than 7.0% ([facility]),DM type 2, not at goal ([facility]) Use to test blood sugar up to twice daily: dx 250.00 3 Box Dosing Unit 5 04/15/2018 Active Lidocaine, Anorectal, 5 % CREAIndications:Exte rnal hemorrhoid, thrombosed Apply to affected area 3-4 times as needed for pain 28 g 0 07/07/2018 Active FreeStyle Alice 14 Day [place] Device Use as directed. 1 Each 0 [...] of anterior wall (HCC),Coronary artery disease involving [place] coronary artery of [place] heart without angina pectoris Take 1 Tablet [...] as of this encounter (statuses as of 06/27/2023) Active Problems Problem Noted Date Diagnosed Date [...] as of this encounter (statuses as of 06/27/2023) Resolved Problems Problem Noted Date Diagnosed Date [...] as of this encounter (statuses as of 06/27/2023) Immunizations Name Administration Dates Next Due COVID-19 [...] encounter Miscellaneous Notes * Telephone Encounter - Eunice Parsons OSA - 06/27/2023 11:02 AM EST Called Pt to schedule, no answer left message for return call. Appt reserved for Pt on 07/03, but will reschedule if this does not work for him. * Telephone Encounter - Elizabeth Chaudhary RPh - 06/26/2023 1:51 PM EST Sure, I am happy to help patient with next injection Scheduling--- please assist pt with getting an appt with me. He can come to [place] on a /Thursday or [facility] [place] on a Thursday Please have him bring injection with him Elizabeth Chaudhary Pharm D Clinical Pharmacist Cardiology 06/26/2023,1:56 PM * Telephone Encounter - Delores Barnes CMA - 06/26/2023 12:50 PM EST Please advise if you are able to assist patient with medication. * Telephone Encounter - Tootie Dutton OSA - 06/25/2023 8:51 AM EST Spoke with patient - He is having issues with the Repatha Patient stated he made a mistake with the 1 st one and is asking for an appt to be shown how to useit Patient is asking if he can be seen at his PCP's office with the nurses for education on how to usethe Repatha Please contact and advise Ty documented in this encounter Plan of Treatment Upcoming Encounters Date Type Department Care Team (Late st Contact Info) Description 07/03/2023 3:00 PM EST Office Visit Cardiology, [facility] [address] [place] [address] [facility] [address] [facility] [place] [address] 07/20/2023 1:20 PM EST Office Visit [facility] [address] [place] [address] Ivan Templeton MD [address] [place] [address] 09/14/2023 2:00 PM EST [facility] [address] [facility] [place] [address] Miryam Oviedo PA-C [address] [place] [address] 09/17/2023 5:30 PM EST Pharmacy Cardiology [facility] [address] [facility] [place] [address] [facility] Cardiology [address] [place] [address] [place] [address] 10/02/2023 11:30 AM EST [facility] [address] [facility] [place] [address] [facility] [address] [facility] [place] [address] Scheduled Procedures Name Priority Associated Diagnoses Date/Ti [...] exists LUNG CANCER SCREENING - USE SMARTSET 24429 Completed 01/26/2023 COVID-19 Vaccine Completed 06/15/2023, , 06/19/2021, Additional history exists GARDASIL-HPV IMMUNIZATION SERIES Aged Out No longer eligible based on patient's age to complete this topic MENINGOCOCCAL (MENACTRA/MENVEO) Aged Out No longer eligible based on patient's age to complete this topic documented as of this encounter Medical Devices Implanted Type Area Long Term Acute Care Registered Nurse Device Identifier Shelf Expiration Date Model / Serial / Lot Biocomposite Knotless Swivelock [place] Implanted:Qty: 1 on 11/08/2021 by Saqib Edmond, at OR [facility] Left: Shoulder [employer] 09/09/2025 [id number] C / / [id number] Description:with Blue #2 Sut ure documented as of this encounter Care Teams Lot Associate Relationship Specialty Start Date End Date Ivan Templeton MD [address] [place] [address] PCP - General Family Medicine 07/29/12 documented as of this encounter
--- OUTSIDE RECORDS SUMMARY | 2023-11-05 11:45 | External Medical Summary | Summary of Care ---
Author Name Unknown Organization [facility] Address [address] [facility] [place] [address] Phone [phone] Care Team Providers Care English Tutor Name Role Phone Ivan Templeton MD Primary Care Provider +1- [phone] Reason for Visit * Reason Onset Date Comments Precert In Process 06/05/2023 27 [place] [facility] REP ATHA Precert Approved 06/05/2023 REPATHA Encounter Details Date Type Department Care Team (Late st Contact Info) Description 06/05/2023 Telephone Cardiology, [facility] [address] [facility] [place] [address] [facility] [address] [place], [place] [phone] Precert In Process (27 [place] [facility] REPATHA); Pr... Allergies Active Allergy Reactions Criticality Noted Date Comments Rosuvastatin Muscle pain 04/27/2023 documented as of this encounter (statuses as of 06/19/2023) Medications Medication Sig Dispensed Refills Start Date End Date Status Glucose Blood (ONETOUCH ULTRA BLUE) STRPIndications:DM type 2, not at goal (HCC),Type 2 diabetes mellitus with hemoglobin A1c goal of less than 7.0% ([facility]) Use 2 times a day [...] 0 07/07/2018 Active FreeStyle Alice 14 Day [place] Device Use as directed. 1 Each 0 [...] of anterior wall (HCC),Coronary artery disease involving [place] coronary artery of [place] heart without angina pectoris Take 1 Tablet [...] Infusor) Inject 420 mg under the skin Every Month. Administer over 5 minutes. Remove from refrigerator 45 minutes prior to injection. 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 AORTOCORONARY BYPASS STATUS 07/200602/08/2008 03/31/2012 ACUTE ME NOS (07/14/06) 11/22/200701/09 Tobacco use disorder 11/22/2007 018 ADVANCE DIRECTIVE INFORMATION 07/27/2007 01/09/2017 Overview: Yes, Patient instructed to provide copy of advance directive for provider to review and to be scanned into Electronic Medical Record Rosacea 06/14/2004 07/10/2017 documented as of this encounter (statuses as of 06/19/2023) Immunizations Name Administration Dates Next Due COVID-19 [...] as of this encounter Miscellaneous Notes * Addendum Note - Elizabeth Chaudhary RPh - 06/19/2023 10:11 AM EST Addended by: ELIZABETH CHAUDHARY on: 06/19/2023 10:11 AM Modules accepted: Orders * Telephone Encounter - Elizabeth Chaudhary RPh - 06/19/2023 10:09 AM EST Type of assistance: [facility] Card ID:[id number] Group: [id number] BIN: [id number] PCN: [id number] Rx for Repatha sent to [facility] myG sent to pt to make aware Elizabeth Chaudhary Pharm D Clinical Pharmacist Cardiology 06/19/2023,10:10 AM * Telephone Encounter - Elizabeth Chaudhary RPh [...] auth end date: 06/06/2024 Rx Insurance Info: CHERYL VELASCO Reference #: Rx Benefits Verified through/on date: [facility] 05/2023 Referral (TE) [facility] Test claim $107.31 [facility] looking for assistance. Recommend HW cardiomyopathy yue. Will hold off on sending Rx until assistance determined. Eliazbeth Chaudhary Pharm D Clinical Pharmacist Cardiology 06/16/2023,10:39 AM * Addendum Note - Delores Gaviria CMA - 06/15/2023 3:03 PM ESTAddended by: DELORES GAVIRIA on: 06/15/2023 03:03 PM Modules accepted: Orders * Telephone Encounter - Glenny Stevens CPhT - 06/15/2023 2:16 PM EST Yonas from [facility] Prior Auth calling to advise Repatha is approved from 06/05/2023 to 06/06/2024 and is asking if med can be ordered at [facility] pharmacy Thank you, Glenny Stevens Pickling Tank Operator II [facility] ([facility]) (formerly [...] mg/dL Route referral message to CARDIOLOGY PHARMACIST [place] [[id number]]. Please submit to BOTH primary insurance and secondary insurance (ex PACE/PACENET) if applicable. documented in this encounter Plan of Treatment Upcoming Encounters Date Type Department Care Team (Late st Contact Info) Description 07/20/2023 1:20 PM EST Office Visit [facility] [address] [place] [address] Ivan Templeton MD [address] [place] [address] 09/14/2023 2:00 PM EST Office Visit Cardiology, [facility] [address] [facility] [place] [address] Miryam Oviedo, GIOVANNI [address] [facility] [place] [address] 09/17/2023 5:30 PM EST Pharmacy Cardiology [place] [address] [place] [address] [place], [facility] Cardiology [address] [place] [address] 10/02/2023 11:30 AM EST Office Visit Cardiology, [facility] [address] [facility] [place] [address] [place] [facility] Cardiology Elizabeth [address] [place] [address] Scheduled Procedures Name Priority Associated Diagnoses Date/Ti [...] exists LUNG CANCER SCREENING - USE SMARTSET 51283 Completed 01/26/2023 COVID-19 Vaccine Completed 06/15/2023, , 06/19/2021, Additional history exists GARDASIL-HPV IMMUNIZATION SERIES Aged Out No longer eligible based on patient's age to complete this topic MENINGOCOCCAL (MENACTRA/MENVEO) Aged Out No longer eligible based on patient's age to complete this topic documented as of this encounter Medical Devices Implanted Type Area Numerical Analysis Group Manager Device Identifier Shelf Expiration Date Model / Serial / Lot Biocomposite Knotless Swivelock [place] Implanted:Qty: 1 on 11/08/2021 by Saqib Edmond, DO at OR [facility] Left: Shoulder [employer] 09/09/2025 [id number] C / / [id number] Description:with Blue #2 Sut ure documented as of this encounter Visit Diagnoses Diagnosis Dyslipidemia, goal LDL below 70- Primary Other and unspecified hyperlipidemia Statin intolerance Other drug allergy documented in this encounter Care Teams English Tutor Relationship Specialty Start Date End Date Ivan Templeton MD [address] [place] [address] PCP - General Family Medicine 07/29/12 documented as of this encounter
--- OUTSIDE RECORDS SUMMARY | 2023-11-05 11:45 | External Medical Summary | Summary of Care ---
Author Name Unknown Organization [facility] Address [address] [facility] [place] [address] Phone [phone] Care Team Providers Care Fire Prevention Chief Name Role Phone Ivan Templeton MD Primary Care Provider +1- [phone] Reason for Visit * Reason Onset Date Comments Precert In Process 06/05/2023 27 [place] [facility] REP ATHA Precert Approved 06/05/2023 REPATHA Encounter Details Date Type Department Care Team (Late st Contact Info) Description 06/05/2023 Telephone Cardiology, [facility] [address] [facility] [place] [address] [facility] [address] [place], [place] [phone] Precert In Process (27 [place] GH REPATHA); [...] of less than 7.0% ([facility]) Use 2 times a day [...] 0 07/07/2018 Active FreeStyle Alice 14 Day [place] Device Use as directed. 1 Each 0 [...] of anterior wall (HCC),Coronary artery disease involving [place] coronary artery of [place] heart without angina pectoris Take 1 Tablet [...] Reference #: Rx Benefits Verified through/on date: [facility] 05/2023 Referral (TE) received from: [facility] Test claim $107.31 [facility] looking [...] - 06/15/2023 2:16 PM EST Yonas from [facility] Prior Auth calling to advise Repatha is approved from 06/05/2023 to 06/06/2024 and is asking if med can be ordered at [facility] Thank you, Glenny Stevens Aromatherapist II [facility] ([facility]) (formerly [...] Route referral message to CARDIOLOGY PHARMACIST [place] [[id number]]. Please submit to BOTH primary insurance and secondary insurance (ex PACE/PACENET) if applicable. documented in this encounter Plan of Treatment Upcoming Encounters Date Type Department Care Team (Late st Contact Info) Description 07/20/2023 1:20 PM EST Office Visit [facility] [address] [facility] [place] [address] Ivan Templeton MD [address] [place] [address] 09/14/2023 2:00 PM EST Office Visit Cardiology, [facility] [address] [place] [address] Miryam Oviedo, GIOVANNI [address] [place] [address] 09/17/2023 5:30 PM EST Pharmacy Cardiology [place] [facility] [address] [place] [address] [facility] [address] [place] [address] 10/02/2023 11:30 AM EST Office Visit Cardiology, [facility] [place] [address] [facility] Cardiology [facility] [address] [place] [address] Scheduled Procedures Name Priority Associated Diagnoses Date/Ti [...] exists LUNG CANCER SCREENING - USE SMARTSET [address] Completed 01/26/2023 COVID-19 Vaccine Completed 06/15/2023, , 06/19/2021, Additional history exists GARDASIL-HPV IMMUNIZATION SERIES Aged Out No longer eligible based on patient's age to complete this topic MENINGOCOCCAL (MENACTRA/MENVEO) Aged Out No longer eligible based on patient's age to complete this topic documented as of this encounter Medical Devices Implanted Type Area Pulverizer Tender Device Identifier Shelf Expiration Date Model / Serial / Lot Biocomposite Knotless Swivelock [place] Implanted:Qty: 1 on 11/08/2021 by Saqib Edmond, at OR [facility] Left: Shoulder [employer] 09/09/2025 [id number] C / / [id number] Description:with Blue #2 Sut ure documented as of this encounter Visit Diagnoses Diagnosis Dyslipidemia, goal LDL below 70- Primary Other and unspecified hyperlipidemia Statin intolerance Other drug allergy documented in this encounter Care Teams Fire Prevention Chief Relationship Specialty Start Date End Date Ivan Templeton MD [address] [place] [address] PCP - General Family Medicine 07/29/12 documented as of this encounter
--- OUTSIDE RECORDS SUMMARY | 2023-11-05 11:45 | External Medical Summary | Summary of Care ---
Author Name Unknown Organization [facility] Address [address] [place] [address] Phone [phone] Care Team Providers Care Physical Therapist Technician Name Role Phone Ivan Templeton MD Primary Care Provider +1- [phone] Reason for Visit * Reason Comments Dosage Adjustment In Person (Anticoag Cl inic) Hypercholesterolemia * Precert (Within 10 days (routine)) - Authorized Specialty Diagnoses / Procedures Referred By Contac t Referred To Contact Pharmacy Diagnoses Hyperlipidemia, unspecified Atherosclerotic heart disease of [place] coronary artery without angina pectoris Miryam Oviedo PA-C [address] [place] [address] Referral ID Status Reason Start Date Expiration Date V isits Requested Visits Authorized [id number] Authorized Precert 06/05/2023 06/06/2024 [id number] Encounter Details Date Type Department Care Team (Late st Contact Info) Description 07/03/2023 3:00 PM EST Office Visit Cardiology, [facility] 132 [facility] [place] [address] [facility] Cardiology [facility] 132 [facility] [place] [address] Dyslipidemia, goal LDL below 70* Allergies Active Allergy Reactions Criticality Noted Date Comments Rosuvastatin Muscle pain 04/27/2023 documented as of this encounter (statuses as of 07/03/2023) Medications Medication Sig Dispensed Refills Start Date End Date Status Glucose Blood (Panther Technology GroupUCH ULTRA BLUE) STRPIndications:DM type 2, not at goal ([facility]),Type 2 diabetes mellitus with hemoglobin A1c goal of less than 7.0% ([facility]) Use 2 times a day as directed DX:E11.9 Diabetes Type 2 uncontrolled 300 Strip 5 04/15/2018 Active ONETOUCH LANCETS MISCIndications:Type 2 diabetes mellitus with hemoglobin A1c goal of less than 7.0% ([facility]),DM type 2, not at goal ([facility]) Use to test blood sugar up to twice daily: dx 250.00 3 Box Dosing Unit 5 04/15/2018 Active Lidocaine, Anorectal, 5 % CREAIndications:Exte rnal hemorrhoid, thrombosed Apply to affected area 3-4 times as needed for pain 28 g 0 07/07/2018 Active FreeStyle Alice 14 Day [place] Device Use as directed. 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 AORTOCORONARY BYPASS STATUS 07/200602/08/2008 03/31/2012 ACUTE [place] NOS (07/14/06) 11/22/200701/09 Tobacco use disorder 11/22/2007 018 ADVANCE DIRECTIVE INFORMATION 07/27/2007 01/09/2017 Overview: Yes, Patient instructed to provide copy of advance directive for provider to review and to be scanned into Electronic Medical Record Govind 06/14/2004 07/10/2017 documented as of this encounter (statuses as of 07/03/2023) Immunizations Name Administration Dates Next Due COVID-19 [...] * Patient Instructions* Cecilia Sánchez RPh - 07/03/2023 3:20 PM EST Please don't obtain fasting lipid panel until 1 week prior to follow up (3 months after starting Repatha). Follow up on 10/02/23 at 11:30am documented in this encounter Plan of Treatment Upcoming Encounters Date Type Department Care Team (Late st Contact Info) Description 07/20/2023 1:20 PM EST [facility] [address] [facility] [address] Ivan Templeton MD [address] [place] [address] 09/14/2023 2:00 PM EST Office Visit Cardiology, [facility] [address] [place] [address] Miryam Oviedo, GIOVANNI [address] [place] [address] 09/17/2023 5:30 PM EST Pharmacy Cardiology [place] Trevon Li [address] [place] [address] [facility] [address] [place] [address] 10/02/2023 11:30 AM EST [facility] [address] [facility] [place] [address] [facility] Cardiology [facility] [address] [place] [address] Scheduled Procedures Name Priority Associated Diagnoses Date/Ti [...] exists LUNG CANCER SCREENING - USE SMARTSET [address] Completed 01/26/2023 COVID-19 Vaccine Completed 06/15/2023, , 06/19/2021, Additional history exists GARDASIL-HPV IMMUNIZATION SERIES Aged Out No longer eligible based on patient's age to complete this topic MENINGOCOCCAL (MENACTRA/MENVEO) Aged Out No longer eligible based on patient's age to complete this topic documented as of this encounter Medical Devices Implanted Type Area Supervisor Post Wave Device Identifier Shelf Expiration Date Model / Serial / Lot Biocomposite Knotless Swivelock [place] Implanted:Qty: 1 on 11/08/2021 by Saqib Edmond, DO at OR [facility] Left: Shoulder [employer] 09/09/2025 [id number] C / / [id number] Description:with Blue #2 Sut ure documented as of this encounter Visit Diagnoses Diagnosis Dyslipidemia, goal LDL below 70- Primary Other and unspecified hyperlipidemia documented in this encounter Care Teams Physical Therapist Technician Relationship Specialty Start Date End Date Ivan Templeton MD [address] [facility] [place] [id number] PCP - General Family Medicine 07/29/12 documented as of this encounter
--- OUTSIDE RECORDS SUMMARY | 2023-11-05 11:45 | External Medical Summary | Summary of Care ---
Author Name Unknown Organization [facility] Address [address] [facility] [place] [address] Phone [phone] Care Team Providers Care Mechanical Engineering Intern Name Role Phone Ivan Templeton MD Primary Care Provider +1- [phone] Reason for Visit * Reason Onset Date Comments Precert In Process 06/05/2023 27 [place] [facility] REP ATHA Precert Approved 06/05/2023 REPATHA Encounter Details Date Type Department Care Team (Late st Contact Info) Description 06/05/2023 Telephone Cardiology, [facility] [address] [facility] [place] [address] [facility] [address] [place], [place] [id number] Precert In Process (27 [place] [facility] REPATHA); Pr... Allergies Active Allergy Reactions Criticality Noted Date Comments Rosuvastatin Muscle pain 04/27/2023 documented as of this encounter (statuses as of 06/15/2023) Medications Medication Sig Dispensed Refills Start Date End Date Status Glucose Blood (ONETOUCH ULTRA BLUE) STRPIndications:DM type 2, not at goal (HCC),Type 2 diabetes mellitus with hemoglobin A1c goal of less than 7.0% ([facility]) Use 2 times a day [...] 0 07/07/2018 Active FreeStyle Alice 14 Day [place] Device Use as directed. 1 Each 0 [...] of anterior wall (HCC),Coronary artery disease involving [place] coronary artery of [place] heart without angina pectoris Take 1 Tablet [...] encounter Miscellaneous Notes * Addendum Note - Delores Gaviria CMA - 06/15/2023 3:03 PM ESTAddended by: DELORES GAVIRIA on: 06/15/2023 03:03 PM Modules accepted: Orders * Telephone Encounter - Glenny Stevens CPhT - 06/15/2023 2:16 PM EST Yonas from [facility] Prior Auth calling to advise Repatha is approved from 06/05/2023 to 06/06/2024 and is asking if med can be ordered at [facility] Thank you, Glenny Stevens [employer] [facility] ([facility]) (formerly [...] mg/dL Route referral message to [facility] [place] [[id number]]. Please submit to BOTH primary insurance and secondary insurance (ex PACE/PACENET) if applicable. documented in this encounter Plan of Treatment Upcoming Encounters Date Type Department Care Team (Late st Contact Info) Description 07/20/2023 1:20 PM EST Office Visit [facility] [address] [place] [address] Ivan Templeton MD [address] [place] [address] 09/14/2023 2:00 PM EST Office Visit Cardiology, [facility] 132 [facility] [place] [address] Miryam Oviedo PA-C 132 [facility] [place] [address] 09/17/2023 5:30 PM EST Pharmacy Cardiology [address] [place] [address] [facility] [address] [place] [address] [place] [address] 10/02/2023 11:30 AM EST [facility] [address] [facility] [place] [address] Scheduled Procedures Name Priority Associated Diagnoses Date/Ti [...] exists LUNG CANCER SCREENING - USE SMARTSET [address]24[address] Completed 01/26/2023 GARDASIL-HPV IMMUNIZATION SERIES Aged Out No longer eligible based on patient's age to complete this topic MENINGOCOCCAL (MENACTRA/MENVEO) Aged Out No longer eligible based on patient's age to complete this topic documented as of this encounter Medical Devices Implanted Type Area Terrazzo Finisher Device Identifier Shelf Expiration Date Model / Serial / Lot Biocomposite Knotless Swivelock [place] Implanted:Qty: 1 on 11/08/2021 by Saqib Edmond DO at OR [facility] Left: Shoulder [employer] 09/09/2025 [id number] C / / [id number] Description:with Blue #2 Sut ure documented as of this encounter Visit Diagnoses Diagnosis Dyslipidemia, goal LDL below 70- Primary Other and unspecified hyperlipidemia Statin intolerance Other drug allergy documented in this encounter Care Teams Mechanical Engineering Intern Relationship Specialty Start Date End Date Ivan Templeton MD [address] [place] [address] PCP - General Family Medicine 07/29/12 documented as of this encounter
--- OUTSIDE RECORDS SUMMARY | 2023-11-05 11:45 | External Medical Summary | Summary of Care ---
Author Name Unknown Organization [facility] Address [address] [place] [address] Phone [phone] Care Team Providers Care Web Marketing Specialist Name Role Phone Ivan Templeton MD Primary Care Provider +1- [phone] Reason for Visit * Reason Onset Date Comments Med Request 06/30/2023 Encounter Details Date Type Department Care Team (Late st Contact Info) Description 06/30/2023 Telephone [facility] [address] [place] [address] Ivan Templeton MD [address] [place] [address] Med Request Allergies Active Allergy [...] 0 07/07/2018 Active FreeStyle Alice 14 Day [place] Device Use as directed. 1 Each 0 [...] of anterior wall (HCC),Coronary artery disease involving [place] coronary artery of [place] heart without angina pectoris Take 1 Tablet [...] Dyslipidemia, goal LDL below 70 01/09/2017 Old [place] (myocardial infarction) 03/31/2012 Overview: Coronary disease, single [...] Taxonomy. AORTOCORONARY BYPASS STATUS 07/200602/08/2008 03/31/2012 ACUTE [place] NOS (07/14/06) 11/22/200701/09 Tobacco use disorder 11/22/2007 [...] encounter Miscellaneous Notes * Telephone Encounter - Miryam Oviedo PA-C - 07/01/2023 2:29 PM EST I'm not sure I understand what is needed from me Permission to resend? * Telephone Encounter - Christal Jaime OSA - 06/30/2023 5:14 PM EST Medication was damaged in shipping repatha 420MG [facility] is looking for verbal permission. documented in this encounter Plan of Treatment Upcoming Encounters Date Type Department Care Team (Late st Contact Info) Description 07/03/2023 3:00 PM EST Office Visit Cardiology, [facility] 132 [facility] [place] [address] [facility] Cardiology [facility] 132 [facility] [place] [address] PHARMACY CHRONIC DISEASE MANAGEMENT - HYPERLIPIDEMIA 07/20/2023 1:20 PM EST Office [facility] [address] [facility] [address] Ivan Templeton MD [address] [facility] [place] [address] 09/14/2023 2:00 PM EST [facility] 132 [facility] [place] [address] Miryam Oviedo PA-C [address] [place] [address] 09/17/2023 5:30 PM EST Pharmacy Cardiology [place] [address] [place] [address] [facility] [address] [place] [address] 10/02/2023 11:30 AM EST Office Visit Cardiology, [facility] [address] [place] [address] [facility] Cardiology [facility] [address] [place] [address] Scheduled Procedures Name Priority Associated Diagnoses Date/Ti [...] exists LUNG CANCER SCREENING - USE SMARTSET 04118 Completed 01/26/2023 COVID-19 Vaccine Completed 06/15/2023, , 06/19/2021, Additional history exists GARDASIL-HPV IMMUNIZATION SERIES Aged Out No longer eligible based on patient's age to complete this topic MENINGOCOCCAL (MENACTRA/MENVEO) Aged Out No longer eligible based on patient's age to complete this topic documented as of this encounter Medical Devices Implanted Type Area Respiratory Therapy Technician Device Identifier Shelf Expiration Date Model / Serial / Lot Biocomposite Knotless Swivelock [place] Implanted:Qty: 1 on 11/08/2021 by Saqib Edmond, DO at OR [facility] Left: Shoulder [employer] 09/09/2025 [id number] C / / [id number] Description:with Blue #2 Sut ure documented as of this encounter Care Teams Web Marketing Specialist Relationship Specialty Start Date End Date Ivan Templeton MD [address] [facility] [place] [address] PCP - General Family Medicine 07/29/12 documented as of this encounter
--- OUTSIDE RECORDS SUMMARY | 2023-11-05 11:45 | External Medical Summary | Summary of Care ---
Author Name Unknown Organization [facility] Address [address] [place] [address] Phone [phone] Care Team Providers Care Flatwork Finisher Hand Name Role Phone Ivan Templeton MD Primary Care Provider +1- [phone] Reason for Visit * Reason Onset Date Comments Med Request 06/30/2023 Encounter Details Date Type Department Care Team (Late st Contact Info) Description 06/30/2023 Telephone [facility] [address] [place] [address] Ivan Templeton MD [address] [place] [address] Med Request Allergies Active Allergy Reactions Criticality Noted Date Comments Rosuvastatin Muscle pain 04/27/2023 documented as of this encounter (statuses as of 07/06/2023) Medications Medication Sig Dispensed Refills Start Date End Date Status Glucose Blood (ONETOUCH ULTRA BLUE) STRPIndications:DM type 2, not at goal (HCC),Type 2 diabetes mellitus with hemoglobin A1c goal of less than 7.0% ([facility]) Use 2 times a day as directed [...] 0 07/07/2018 Active FreeStyle Alice 14 Day [place] Device Use as directed. 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 AORTOCORONARY BYPASS STATUS 07/200602/08/2008 03/31/2012 ACUTE [place] NOS (07/14/06) 11/22/200701/09 Tobacco use disorder 11/22/2007 018 ADVANCE DIRECTIVE INFORMATION 07/27/2007 01/09/2017 Overview: Yes, Patient instructed to provide copy of advance directive for provider to review and to be scanned into Electronic Medical Record Ros[place] 06/14/2004 07/10/2017 documented as of this encounter (statuses as of 07/06/2023) Immunizations Name Administration Dates Next Due COVID-19 [...] encounter Miscellaneous Notes * Telephone Encounter - Eliazbeth Chaudhary RPh - 07/06/2023 10:02 AM EST Pt called offset label rewinder ([employer]) for replacement dose and was informed that they need a prescription faxed by physician office to replace unadministered dose of Repatha. [employer] (offset label rewinder) contact information and office hours are as follows: M-F 8am-8pm. Called [facility] who does product replacement at [phone]. Verbal Rx given myG sent to patient to make aware Elizabeth Chaudhary Pharm D Clinical Pharmacist Cardiology 07/06/2023,10:05 AM * Telephone Encounter - Miryam Oviedo PA-C [...] Description 07/20/2023 1:20 PM EST Office Visit [place] [address] [facility] [place] [address] Ivan Templeton MD [address] [place] [address] 09/14/2023 2:00 PM EST Office Visit Cardiology, [facility] 132 [facility] [place] [address] Miryam Oviedo, PALauraC 132 [facility] [place] [address] 09/17/2023 5:30 PM EST Pharmacy Cardiology [facility] [address] [facility] [place] [address] [facility] Cardiology [address] [place], [place] [address] [address] 10/02/2023 11:30 AM EST Office Visit [facility], [facility] [place] [address] [facility] Cardiology [facility] [address] Scheduled Procedures Name Priority Associated Diagnoses Date/Ti [...] exists LUNG CANCER SCREENING - USE SMARTSET [address] Completed 01/26/2023 COVID-19 Vaccine Completed 06/15/2023, , 06/19/2021, Additional history exists GARDASIL-HPV IMMUNIZATION SERIES Aged Out No longer eligible based on patient's age to complete this topic MENINGOCOCCAL (MENACTRA/MENVEO) Aged Out No longer eligible based on patient's age to complete this topic documented as of this encounter Medical Devices Implanted Type Area Flooring Machine Feeder Device Identifier Shelf Expiration Date Model / Serial / Lot Biocomposite Knotless Swivelock [place] Implanted:Qty: 1 on 11/08/2021 by Saqib Edmond, DO at OR [facility] Left: Shoulder [employer] 09/09/2025 [id number] C / / [id number] Description:with Blue #2 Sut ure documented as of this encounter Care Teams Flatwork Finisher Hand Relationship Specialty Start Date End Date Ivan Templeton MD [address] [place] [address] PCP - General Family Medicine 07/29/12 documented as of this encounter
--- OUTSIDE RECORDS SUMMARY | 2023-11-05 11:45 | External Medical Summary | Summary of Care ---
Author Name Unknown Organization [facility] Address [address] [facility] [place] [address] Phone [phone] Care Team Providers Care Brewery Technician Name Role Phone Ivan Templeton MD Primary Care Provider [phone]- [phone] Reason for Visit * Reason Comments Dosage Adjustment In Person (Anticoag Cl inic) Hypercholesterolemia * Evaluate & Treat - Unlimited Visits (Within 30 days (routine)) - Pending Review Specialty Diagnoses / Procedures Referred By Contac t Referred To Contact Pharmacist / Pharmacy Diagnoses Dyslipidemia, goal LDL below 70 Coronary artery disease involving [place] coronary artery of [place] creek heart without angina pectoris ST elevation myocardial infarction (STEMI) of anterior wall (HCC) Statin intolerance Miryam Ovieod PA-C [address] [place] [address] Referral ID Status Reason Start Date Expiration Date Visits Requested Visits Authorized [id number] Pending Review Specialty Services Required 05/01/[phone] Encounter Details Date Type Department Care Team (Late st Contact Info) Description 06/05/2023 11:00 AM EDT [facility] [address] [place] [address] [facility] Cardiology [facility] [address] [place] [address] Dyslipidemia, goal LDL below 70*; Type 2 diabetes mellitus with hemoglobin A1c goal of less than 7.0% (HCC) Allergies Active Allergy Reactions Criticality Noted Date Comments Rosuvastatin Muscle pain 04/27/2023 documented as of this encounter (statuses as of 06/30/2023) Medications Medication Sig Dispensed Refills Start Date End Date Status Glucose Blood (ONETOUCH ULTRA BLUE) STRPIndications:DM type 2, not at goal ([facility]),Type 2 diabetes mellitus with hemoglobin A1c goal of less than 7.0% ([facility]) Use 2 times a day as directed DX:E11.9 Diabetes Type 2 uncontrolled 300 Strip 5 04/15/2018 Active ONETOUCH LANCETS MISCIndications:Type 2 diabetes mellitus with hemoglobin A1c goal of less than 7.0% ([facility]),DM type 2, not at goal ([facility]) Use to test blood sugar up to twice daily: dx 250.00 3 Box Dosing Unit 5 04/15/2018 Active Lidocaine, Anorectal, 5 % CREAIndications:Exte rnal hemorrhoid, thrombosed Apply to affected area 3-4 times as needed for pain 28 g 0 07/07/2018 Active FreeStyle Alice 14 Day [place] Device Use as directed. 1 Each 0 [...] elevation myocardial infarction (STEMI) of anterior wall ([facility]),History of heart artery stent Take 1 Tablet by mouth in the morning. 90 Tablet 3 04/28/2023 Active Gabapentin 300 MG Oral Capsule (Neurontin)Indicatio ns:Diabetic polyneuropathy associated with type 2 diabetes mellitus ([facility]) Take 1 Capsule by mouth in the morning and 1 Capsule before bedtime. 180 Capsule 0 04/28/2023 Active Isosorbide Mononitrate ER 30 MG Oral Tablet Extended Release 24 Hour (Imdur)Indications:S T elevation myocardial infarction (STEMI) of anterior wall (HCC),Coronary artery disease involving cro[place] creek coronary artery of [place] heart without angina pectoris Take 1 [...] as of this encounter (statuses as of 06/30/2023) Active Problems Problem Noted Date Diagnosed Date Type 2 diabetes mellitus with diabetic polyneuro fanta 10/27/2018 History of tobacco use 05/06/2018 Overview: 40 pack years HTN, goal below 140/90 11/12/2017 Dyslipidemia, goal LDL below 70 01/09/2017 Old GA (myocardial infarction) 03/31/2012 Overview: Coronary disease, single [...] as of this encounter (statuses as of 06/30/2023) Resolved Problems Problem Noted Date Diagnosed Date [...] Taxonomy. AORTOCORONARY BYPASS STATUS 07/200602/08/2008 03/31/2012 ACUTE GA NOS (07/14/06) 11/22/200701/09 Tobacco use disorder 11/22/2007 018 ADVANCE DIRECTIVE INFORMATION 07/27/2007 01/09/2017 Overview: Yes, Patient instructed to provide copy of advance directive for provider to review and to be scanned into Electronic Medical Record Govind 06/14/2004 07/10/2017 documented as of this encounter (statuses as of 06/30/2023) Immunizations Name Administration Dates Next Due COVID-19 [...] * Patient Instructions* Cecilia Sánchez RPh - 06/05/2023 10:48 AM EDT START Repatha 420 mg once monthly Obtain follow up fasting lab work 1 week prior to follow up visit. Patient assistance team will reach out regarding cost documented in this encounter Progress Notes * Cecilia Sánchez RPh - 06/04/2023 10:22 PM EDT PHARMACY CHRONIC DISEASE MANAGEMENT - HYPERLIPIDEMIA HPI: Ousmane Wilkerson is a 73 year old year old male. Referred for HLD management by Miryam Oviedo PA-C. Previous medication use: atorvastatin and low dose Crestor- myalgia - when stopping, myalgia resolved History of statin intolerance: yes Statin names, doses, frequency tried and outcome: see above Any contraindications to HLD medications: none Current medications which can be contributing: beta blockers Family history of HLD: no Current genetic disorder diagnosis: no Smoking history: never Alcohol use: none Diagnosis of diabetes: yes Clinical ASCVD/Risk Score: The ASCVD Risk score (Jennifer OWUSU, et al., 2019) failed to calculate for the following reasons: The patient has a prior GA or stroke diagnosis Diet review: BF: cereal once a week, strawberry waffles L: soup, sandwich S: out to eat, turkey, mashed potatoes, corn, hoagie, yi fries S: banana popsicle 2-3, fudge, chips D: crystal lite lemonade, OJ , water Exercise review: Gym 5 days a week- 1 mile & weights training Patient Active Problem List Diagnosis Code Chronic ischemic heart disease I25.9 Type 2 diabetes mellitus with hemoglobin A1c goal of less than 7.0% ([facility]) E11.9 Old GA (myocardial infarction) I25.2 Dyslipidemia, goal LDL below 70 E78.5 HTN, goal below 140/90 I10 History of tobacco use Z87.891 Type 2 diabetes mellitus with diabetic polyneuropathy ([facility]) E11.42 Review of patient's allergies indicates: Allergen [...] 03/18/2018 12:00 AM No components found for: "[id number]" Current Hyperlipidemia Medication(s): Nitro 0.4 mg PRN Metoprolol Succinate ER 25 mg once daily Lisinopril 2.5 mg once daily Isosorbide mononitrate ER 30 mg once daily Plavis 75 mg once daily ASA 81 mg once daily Diabetes Medications: Jardiance 25 mg once daily- Has not started, 2 months of Invokana 300 mg once daily left; $416 copay for Jardiance? Metformin HCL 500 mg -2 tabs BID Trulicity 4.5 mg once weekly- copay $70.50 CGM-Alice 14 day Assessment & Plan: Uncontrolled Hyperlipidemia - Target LDL <70 ( Per ADA LDL <55) -Statin intolerance -Initiate Repatha 420 mg once monthly (PA process started) Reviewed most recent lipid panel results with patient; discussed each component of lipid panel and optimal levels of such components (i.e. TG,HDL-chol,LDL-chol). Lengthy discussion with patient regarding diet. Counseled patient to reduce dietary intake of fats,especially trans-fat. Counseled patient to limit dietary cholesterol intake to less than 200mg daily. Counseled patient to consume a dietary pattern that emphasized intake of vegetables, fruits, and whole-grains; includes low-fat dairy products, poultry, fish, legumes, non-tropical vegetable oils, and nuts; and limit intake of sweets, sugar-sweetened beverages, cheeses, fried foods and red meats. Pt admits diet is an issue but stated "at this age, I dont want to change what I like to eat." Explained importance of diet with cholesterol management and provided pt alternatives to sugary snacks and fried foods. Also reviewed complications from elevated LDL as pt already had 2 Mis. Counseled patient to engage in aerobic physical activity at least 3 to 4 sessions weekly, lasting on average 40 minutes per session and involving cmzqothq-mb-mweynykz intensity physical activity. Pt stated he walks 1 mile every day and does light weight lifting. Encouraged pt to continue the good wo rk. Pt has history of intolerance to Crestor and Lipitor due to myalgia. Symptoms resolved after trial off statin. Stopped Crestor on 04/27/23. Patient currently not taking any cholesterol reducing medications. Lipid panel on 04/08/23 showed LDL 120, TG 188. Zetia likely not going to bring LDL to target. Will initiate Repatha 420 mg once monthly. Pt agreeable. Will start PA process. Informed pt to obtain fasting lipid panel in 3 months. Will f/u in 4 months. Pt worried about cost bringing pt to [facility].Informed pt that assistance team will reach out to help with affordability. Informed pt to call with any questions or issues. Pt demonstrated understanding Educated patient on Repatha. Instructed patient to take 420 mg SQ once monthly. Reviewed subcutaneous injection technique. Do not shake. If refrigerated, allow to stand at room temperature for at least 30-45 minutes. Administer into areas of abdomen except for 2 inches from the navel. May also administer in thigh, or upper arm. Do not administer other injectable drugs at the same injection site. Rotate injection site with each injection. Instructed patient to monitor for hypersensitivity reactions. Educated the patient on common adverse reactions such as nasopharyngitis. Instructed patient tostore in the refrigerator until ready to use, however, it may be kept at room temperature for 30 days. For missed doses, instructed patient to administer dose within 7 days from the missed dose and resume original schedule. If an [id number] dose is not administered within 7 days, wait until the next dose on the original schedule. If a once-monthly dose is not administered within 7 days, administer the dose and start a new schedule based on this date. 2. ASCVD - STEMI 12/20/22 receiving GRADY to the mid LAD with moderate 50-60% stenosis -GA in 2011 -Continue ASA, Plavis, metoprolol, lisinopril 3. CAD - post PTCA of the right coronary artery in 2005 -Continue medications 4. Controlled HTN - Goal BP 140/90 -Continue medications 5. Controlled Type 2 diabetes - A1c goal <7% vs <8% due to patient's age and risk of hypoglcyemia. -Follows with PCP - upcoming appt in July -Patient assistance team will call with possible savings for Trulicity and Jardiance Last A1c on 04/08 was 8%. Used to follow with [facility] but discharged pt 2 years ago since A1c <8%. Reviewed DM with pt briefly. Pt stated increase in A1c likely due to diet. Reviewed healthy alternatives to current snacks and supper choices. Will recheck A1c before upcoming PCP appt in July. Pt switched insurance to [employer] and now receives medications from [facility]. Stated cost of Trulicity, Jardiance, and Repatha will bring him into [facility]. Pt does not meet PACE income requirements. Will involve patient assistance team to help with cost of Jardiance and Trulicity. Pt has 2 month supply of Invokana left. Informed pt to finish invokana supply then switch to Jardiance. Pt assista nce team will reach out to screen pts for PAP. Pt may qualify for Fernanda To PAP for Trulicity. Pt aware he may make too much income for cost assistance. 6. Angina - stable -Used Nitro once for localized chest pain Medication changes: Nitro 0.4 mg PRN Metoprolol Succinate ER 25 mg once daily Lisinopril 2.5 mg once daily Isosorbide mononitrate ER 30 mg once daily Plavis 75 mg once daily ASA 81 mg once daily START Repatha 420 mg once monthly Invokana 300 mg once daily for 2 months then will start Jardiance 25 mg once daily Metformin HCL 500 mg -2 tabs BID Trulicity 4.5 mg once weekly Labs Due: (ordered) Lipid panel 3 months A1c 07/09/23 Follow up: 4 months Cecilia Sánchez RPh Clinical Pharmacist 10:23 PM, 06/04/23 documented in this encounter Plan of Treatment Upcoming Encounters Date Type Department Care Team (Late st Contact Info) Description 07/03/2023 3:00 PM EST Office Visit Cardiology, [facility] [address] [facility] [place] [address] [facility] Cardiology [facility] [address] [facility] [place] [address] 07/20/2023 1:20 PM EST Office Visit [facility] [address] [place] [id number] Ivan Templeton MD [address] [place] [address] 09/14/2023 2:00 PM EST Office Visit Cardiology, [facility] [address] [facility] [place] [address] Miryam Oviedo PA-C [address] [place] [address] 09/17/2023 5:30 PM EST Pharmacy Cardiology [place] [facility] [address] [place] [place] [address] [place] Card[facility] [address] [place] [address] 10/02/2023 11:30 AM EST [facility] [address] [place] [address] [facility] Card[facility] [address] [place] [address] Scheduled Orders Name Type Priority Associated Diagnoses Orde r Schedule LIPID PANEL WITH DIRECT LDL IF TG IS HIGH Lab Routine Dyslipidemia, goal LDL below 70 Expected: 09/05/2023, Expires: 06/05/2024 Scheduled Procedures Name Priority Associated Diagnoses Date/Ti [...] exists LUNG CANCER SCREENING - USE SMARTSET 00183 Completed 01/26/2023 COVID-19 Vaccine Completed 06/15/2023, , 06/19/2021, Additional history exists GARDASIL-HPV IMMUNIZATION SERIES Aged Out No longer eligible based on patient's age to complete this topic MENINGOCOCCAL (MENACTRA/MENVEO) Aged Out No longer eligible based on patient's age to complete this topic documented as of this encounter Medical Devices Implanted Type Area Technical Marketing Engineer Device Identifier Shelf Expiration Date Model / Serial / Lot Biocomposite Knotless Swivelock R[place] Implanted:Qty: 1 on 11/08/2021 by Saqib Edmond, at OR [facility] Left: Shoulder [employer] 09/09/2025 [id number] / / [id number] Description:with Blue #2 Sut ure documented as of this encounter Visit Diagnoses Diagnosis Dyslipidemia, goal LDL below 70- Primary Other and unspecified hyperlipidemia Type 2 diabetes mellitus with hemoglobin A1c goal of less than 7.0% (HCC) documented in this encounter Care Teams Brewery Technician Relationship Specialty Start Date End Date Ivan Templeton MD [address], [place] [id number] PCP - General Family Medicine 07/29/12 documented as of this encounter
--- OUTSIDE RECORDS SUMMARY | 2023-11-05 11:45 | External Medical Summary | Summary of Care ---
Author Name Unknown Organization [facility] Address [address] [facility] [place] [place] [address] Phone [phone] Care Team Providers Care Patrol Commander Name Role Phone Ivan Templeton MD Primary Care Provider [phone]- [phone] Encounter Details Date Type Department Care Team ([facility] st Contact Info) Description 06/19/2023 Specialty Pharmacy [facility], [address] [address] Medication, [facility] Specialty, [address] [address] Allergies Active Allergy Reactions Criticality Noted Date Comments Rosuvastatin Muscle pain 04/27/2023 documented as of this encounter (statuses as of 06/19/2023) Medications Medication Sig Dispensed Refills Start Date End Date Status Glucose Blood (ONETOUCH ULTRA BLUE) STRPIndications:DM type 2, not at goal ([facility]),Type 2 diabetes mellitus with hemoglobin A1c goal of less than 7.0% ([facility]) Use 2 times a day as directed DX:E11.9 Diabetes Type 2 uncontrolled 300 Strip 5 04/15/2018 Active ONETOUCH LANCETS MISCIndications:Type 2 diabetes mellitus with hemoglobin A1c goal of less than 7.0% ([facility]),DM type 2, not at goal ([facility]) Use to test blood sugar up to twice daily: dx 250.00 3 Box Dosing Unit 5 04/15/2018 Active Lidocaine, Anorectal, 5 % CREAIndications:Exte rnal hemorrhoid, thrombosed Apply to affected area 3-4 times as needed for pain 28 g 0 07/07/2018 Active FreeStyle Alice [facility] [place] Device Use as directed. 1 Each 0 [...] of anterior wall (HCC),Coronary artery disease involving mechoopda coronary artery of mechoopda heart without angina pectoris Take 1 Tablet [...] as of this encounter Progress Notes * Colton Johns RPh - 06/19/2023 11:49 AM EST Prescribed medication: Medication: Repatha Shipment date: 06/23 Delivery method: Specialty Mail Location Medication Delivered too? Prescription Address: [address] [place] [address] [place] [address] Colton Johns RPh [facility] 06/19/2023,12:05 PM documented in this encounter Plan of Treatment Upcoming Encounters Date Type Department Care Team (Late st Contact Info) Description 07/20/2023 1:20 PM EST Office Visit [facility] [address] [place] [address] Ivan Templeton MD [address] [place] [address] 09/14/2023 2:00 PM EST Office Visit Cardiology, [facility] [address] [facility] [place] [address] Miryam Oviedo PA-C [address] [facility] [address] 09/17/2023 5:30 PM EST Pharmacy Cardiology [place] [place] [address] [place] [address] [place] [address] [facility] [address] [facility] [address] 10/02/2023 11:30 AM EST Office Visit Cardiology, [facility] [address] [facility] [place] [address] [place] Cardiology [place] [address] [place] [address] Scheduled Procedures Name Priority Associated Diagnoses Date/Ti [...] exists LUNG CANCER SCREENING - USE SMARTSET 93469 Completed 01/26/2023 COVID-19 Vaccine Completed 06/15/2023, , 06/19/2021, Additional history exists GARDASIL-HPV IMMUNIZATION SERIES Aged Out No longer eligible based on patient's age to complete this topic MENINGOCOCCAL (MENACTRA/MENVEO) Aged Out No longer eligible based on patient's age to complete this topic documented as of this encounter Medical Devices Implanted Type Area Frequency Checker Device Identifier Shelf Expiration Date Model / Serial / Lot Biocomposite Knotless Swivelock [place] Implanted:Qty: 1 on 11/08/2021 by Saqib Edmond DO at OR [facility] Left: Shoulder [employer] 09/09/2025 [id number] / / [id number] Description:with Blue #2 Sut ure documented as of this encounter Care Teams Patrol Commander Relationship Specialty Start Date End Date Ivan Templeton MD [address] [place] [address] PCP - General Family Medicine 07/29/12 documented as of this encounter
--- OUTSIDE RECORDS SUMMARY | 2023-11-05 11:45 | External Medical Summary | Summary of Care ---
Author Name Unknown Organization [facility] Address [address] [place] [address] Phone [phone] Care Team Providers Care Paper Cone Machine Tender Name Role Phone Ivan Templeton MD Primary Care Provider [phone]- [phone] Reason for Visit * Reason Comments Dosage Adjustment In Person (Anticoag Cl inic) Hypercholesterolemia * Precert (Within 10 days (routine)) - Authorized Specialty Diagnoses / Procedures Referred By Contac t Referred To Contact Pharmacy Diagnoses Hyperlipidemia, unspecified Atherosclerotic heart disease of aki[place] coronary artery without angina pectoris Miryam Oviedo PA-C [address] [place] [address] Referral ID Status Reason Start Date Expiration Date V isits Requested Visits Authorized [id number] Authorized Precert 06/05/2023 06/06/[phone] Encounter Details Date Type Department Care Team (Late st Contact Info) Description 07/03/2023 3:00 PM EST Office Visit Cardiology, [facility] [address] [place] [address] [facility] Cardiology [facility] [[email or web address] [address] [place] [address] Dyslipidemia, goal LDL below 70* Allergies Active Allergy Reactions Criticality Noted Date Comments Rosuvastatin Muscle pain 04/27/2023 documented as of this encounter (statuses as of 07/07/2023) Medications Medication Sig Dispensed Refills Start Date End Date Status Glucose Blood (GoodChime!UCH ULTRA BLUE) STRPIndications:DM type 2, not at goal ([facility]),Type 2 diabetes mellitus with hemoglobin A1c goal of less than 7.0% ([facility]) Use 2 times a day as directed DX:E11.9 Diabetes Type 2 uncontrolled 300 Strip 5 04/15/2018 Active ONETOUCH LANCETS MISCIndications:Type 2 diabetes mellitus with hemoglobin A1c goal of less than 7.0% ([facility]),DM type 2, not at goal ([facility]) Use to test blood sugar up to twice daily: dx 250.00 3 Box Dosing Unit 5 04/15/2018 Active Lidocaine, Anorectal, 5 % CREAIndications:Exte rnal hemorrhoid, thrombosed Apply to affected area 3-4 times as needed for pain 28 g 0 07/07/2018 Active FreeStyle Alice 14 Day [place] Device Use as directed. 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 AORTOCORONARY BYPASS STATUS 07/200602/08/2008 03/31/2012 ACUTE [place] NOS (07/14/06) 11/22/200701/09 Tobacco use disorder 11/22/2007 018 ADVANCE DIRECTIVE INFORMATION 07/27/2007 01/09/2017 Overview: Yes, Patient instructed to provide copy of advance directive for provider to review and to be scanned into Electronic Medical Record Govind 06/14/2004 07/10/2017 documented as of this encounter (statuses as of 07/07/2023) Immunizations Name Administration Dates Next Due COVID-19 [...] 10/02/23 at 11:30am documented in this encounter Progress Notes * Cecilia Sánchez RPh - 06/30/2023 4:23 PM EST PHARMACY CHRONIC DISEASE MANAGEMENT - HYPERLIPIDEMIA HPI: Ousmane Wilkerson is a 73 year old year old male. Referred for HLD management by Miryam Oviedo PA-C. Diet review: remains unchanged Exercise review: not reviewed Patient Active Problem List Diagnosis Code Chronic ischemic heart disease I25.9 Type 2 diabetes mellitus with hemoglobin A1c goal of less than 7.0% (HCC) E11.9 Old [place] (myocardial infarction) I25.2 Dyslipidemia, goal LDL below [...] 03/18/2018 12:00 AM No components found for: "[id number]" CCurrent Hyperlipidemia Medication(s): Nitro 0.4 mg PRN Metoprolol [...] weekly CGM-Alice 14 day Assessment & Plan: Uncontrolled Hyperlipidemia - Target LDL <70 ( Per ADA LDL <55) -Statin intolerance -Education on Repatha 420 mg once monthly (Cartour Card) -Contact gummed tape press operator for replacement (in the process) Repatha was approved and then started on 06/19. Patient admitted to trouble with administration of once monthly Repatha. Pt stated he pressed dose release button prior to placing on site and it did not allow him to use device to administer dose. Pt denies any injecting of that dose of Repatha. Pt then tried with different Repatha dose and successfully administered medication. Offered review with demo again but pt denied. Pt unhappy that no one reached out to him regarding trouble with administration. Informed pt that [employer] is a great way to see providers responses to call backs as well. Pt called gummed tape press operator ([employer]) for replacement dose and was informed that they need a prescription faxed by physician office to replace unadministered dose of Repatha. [employer] (gummed tape press operator) contact information and office hours are as follows: M-F 8am-8pm. Tried to call gummed tape press operator with no success getting through. On hold for 40 mins. Will try again on Thursday. 2. ASCVD - STEMI 12/20/22 receiving GRADY to the mid LAD with moderate 50-60% stenosis -NE in 2011 -Continue ASA, Plavis, metoprolol, lisinopril 3. CAD - post PTCA of the right coronary artery in 2005 -Continue medications 4. Controlled HTN - Goal BP 140/90 -Continue medications 5. Controlled Type 2 diabetes - A1c goal <7% vs <8% due to patient's age and risk of hypoglcyemia. -Follows with PCP - upcoming appt in July Discussed cost of Trulicity and Jardiance again. Informed pt that I reached out to assistance team and unfortunately pt is over income for PAP for Jardiance. As well as, informed pt that Trulicity PAP no longer taking applications at this time. Explained that even switching to Ozempic, pt likely above income of $78,880. Pt stated will discuss further with PCP. 6. Angina - stable Medication changes: none Labs Due: (ordered) Lipid panel 3 months A1c 07/09/23 Follow up: current scheduled visit Cecilia Sánchez [facility] Clinical Pharmacist 4:29 PM, 06/30/23 documented in this encounter Plan of Treatment Upcoming Encounters Date Type Department Care Team (Late st Contact Info) Description 07/20/2023 1:20 PM EST Office Visit [facility] [address] [phone] Ivan Templeton MD [address] [facility] [place] [address] 09/14/2023 2:00 PM EST Office Visit Cardiology, [facility] [address] [place] [address] Miryam Oviedo, PA-C [address] [place] [address] 09/17/2023 5:30 PM EST Pharmacy Cardiology [place] [facility] [address] [place] [address] [facility] [address] [place] [address] 10/02/2023 11:30 AM EST Office Visit Cardiology, [facility] [address] [place] [address] [facility] Cardiology [facility] [[email or web address]] [address] [place] [address] Scheduled Procedures Name Priority Associated Diagnoses Date/Ti [...] exists LUNG CANCER SCREENING - USE SMARTSET 10063 Completed 01/26/2023 COVID-19 Vaccine Completed 06/15/2023, , 06/19/2021, Additional history exists GARDASIL-HPV IMMUNIZATION SERIES Aged Out No longer eligible based on patient's age to complete this topic MENINGOCOCCAL (MENACTRA/MENVEO) Aged Out No longer eligible based on patient's age to complete this topic documented as of this encounter Medical Devices Implanted Type Area Website/Blog Editor Device Identifier Shelf Expiration Date Model / Serial / Lot Biocomposite Knotless Swivelock [place] Implanted:Qty: 1 on 11/08/2021 by Saqib Edmond, DO at OR [facility] Left: Shoulder [employer] 09/09/2025 [id number] C / / [id number] Description:with Blue #2 Sut ure documented as of this encounter Visit Diagnoses Diagnosis Dyslipidemia, goal LDL below 70- Primary Other and unspecified hyperlipidemia documented in this encounter Care Teams Paper Cone Machine Tender Relationship Specialty Start Date End Date Ivan Templeton MD [address] [place] [address] PCP - General Family Medicine 07/29/12 documented as of this encounter
--- OUTSIDE RECORDS SUMMARY | 2023-11-05 11:46 | External Medical Summary | Summary of Care ---
Author Name Unknown Organization [facility] Address [address] [place] [facility] [address] Phone [phone] Care Team Providers Care Cattle Tester Name Role Phone Ivan Templeton MD Primary Care Provider [phone]- [phone] Encounter Details Date Type Department Care Team (Late st Contact Info) Description 06/05/2023 Telephone Cardiology, [facility] [address] [place] [address] [facility] [address] [place], [place] [address] Allergies Active Allergy Reactions Criticality Noted Date Comments Rosuvastatin Muscle pain 04/27/2023 documented as of this encounter (statuses as of 06/05/2023) Medications Medication Sig Dispensed Refills Start Date End Date Status Glucose Blood (ONETOUCH ULTRA BLUE) STRPIndications:DM type 2, not at goal ([facility]),Type 2 diabetes mellitus with hemoglobin A1c goal of less than 7.0% ([facility]) Use 2 times a day as directed DX:E11.9 Diabetes Type 2 uncontrolled 300 Strip 5 04/15/2018 Active ONETOUCH LANCETS MISCIndications:Type 2 diabetes mellitus with hemoglobin A1c goal of less than 7.0% ([facility]),DM type 2, not at goal ([facility]) Use to test blood sugar up to twice daily: dx 250.00 3 Box Dosing Unit 5 04/15/2018 Active Lidocaine, Anorectal, 5 % CREAIndications:Exte rnal hemorrhoid, thrombosed Apply to affected area 3-4 times as needed for pain 28 g 0 07/07/2018 Active FreeStyle Alice 14 Day [place] Device Use as directed. 1 Each 0 [...] of anterior wall (HCC),Coronary artery disease involving curyung coronary artery of curyung heart without angina pectoris Take 1 Tablet [...] as of this encounter (statuses as of 06/05/2023) Active Problems Problem Noted Date Diagnosed Date [...] as of this encounter (statuses as of 06/05/2023) Resolved Problems Problem Noted Date Diagnosed Date [...] as of this encounter (statuses as of 06/05/2023) Immunizations Name Administration Dates Next Due COVID-19 [...] encounter Miscellaneous Notes * Telephone Encounter - Cecilia Sánchez [facility] - 06/05/2023 1:25 PM EDT PCSK-9 Inhibitor [...] mg/dL Route referral message to CARDIOLOGY PHARMACIST [place] [[id number]]. Please submit to BOTH primary insurance and secondary insurance (ex PACE/PACENET) if applicable. documented in this encounter Plan of Treatment Upcoming Encounters Date Type Department Care Team (Late st Contact Info) Description 07/20/2023 1:20 PM EST Office Visit [facility] [address] [facility] [address] Ivan Templeton MD [address] [facility] [place] [id number] 09/14/2023 2:00 PM EST Office Visit Cardiology, [address] [place] [address] Miryam Oviedo PA-C [address] [place] [address] 09/17/2023 5:30 PM EST Pharmacy Cardiology [facility] [address] [address] [place] [address] [facility] [address] [place] [address] 10/02/2023 11:30 AM EST Office Visit Cardiology, [facility] [address] [place] [address] [facility] Cardiology [facility] [address] [place] [address] Scheduled Procedures Name Priority Associated Diagnoses Date/Ti me COLONOSCOPY FLEXIBLE PROXIMAL DIAGNOSTIC Recall History of colon polyps Health Maintenance Due Date Last Done Comments Hepatitis B (1 of 3 - Risk 3-dose series) 2012 DTaP,Tdap,and Td Vaccines (2 - Td or Tdap) 07/24/2018 07/24/2008 Diabetic Foot Exam 07/27/2021 07/27/2020, 0 05/09/2019, 05/06/2018, Additional history exists COVID-19 Vaccine (2022- season) 2023 06/29/2022, 06/19/2021, 10/03/2020, Additional history exists Influenza Vaccine (FLU shot) (#1) 2023 05/01/2022, 05/15/2020, 05/09/2019, Additional history exists DIABETES-EYE EXAM 07/14/2023 07/14/2022, , 01/18/2018, Additional history exists [...] exists LUNG CANCER SCREENING - USE SMARTSET 87733 Completed 01/26/2023 GARDASIL-HPV IMMUNIZATION SERIES Aged Out No longer eligible based on patient's age to complete this topic MENINGOCOCCAL (MENACTRA/MENVEO) Aged Out No longer eligible based on patient's age to complete this topic documented as of this encounter Medical Devices Implanted Type Area Supervisor Labor Gang Device Identifier Shelf Expiration Date Model / Serial / Lot Biocomposite Knotless Swivelock [place] Implanted:Qty: 1 on 11/08/2021 by Saqib Edmond, at OR [facility] Left: Shoulder [employer] 09/09/2025 [id number] C / / [id number] Description:with Blue #2 Sut ure documented as of this encounter Care Teams Cattle Tester Relationship Specialty Start Date End Date Ivan Templeton MD [address], [place] [phone] PCP - General Family Medicine 07/29/12 documented as of this encounter
--- OUTSIDE RECORDS SUMMARY | 2023-11-05 11:46 | External Medical Summary | Summary of Care ---
Author Name Unknown Organization [facility] Address [address] [place] [address] Phone [phone] Care Team Providers Care Thermostat Maker Name Role Phone Ivan Templeton MD Primary Care Provider +1- [phone] Reason for Visit * Reason Onset Date Comments Medication Pre-auth 2023 Incokana 300 mg Encounter Details Date Type Department Care Team Description 2023 Telephone [facility] [address] [place] [address] Ivan Templeton MD [address] [place] [address] Medication Pre-auth (Incokana 300mg) Allergies Active Allergy Reactions Severity Noted Date Comments Rosuvastatin Muscle pain 04/27/2023 documented as of this encounter (statuses as of 05/12/2023) Medications Medication Sig Dispensed Refills Start Date [...] 0 8 Active FreeStyle Alice 14 Day [place] Device Use as directed. 1 Each 0 [...] or juice. 850 g 1 2 Active Cyanocobalamin 1000 MCG Oral Tablet (Cyanocobalamin) Take 1 Tablet by mouth in the morning. 90 Tablet 1 3 Active Nitroglycerin 0.4 MG Sublingual Tablet Sublingual [...] Capsule before bedtime. 180 Capsule 0 3 Active Isosorbide Mononitrate ER 30 MG Oral Tablet Extended Release 24 Hour (Imdur)Indications: ST elevation myocardial infarction (STEMI) of anterior wall (HCC),Coronary artery disease involving match-[place]-be-n[place]-wish band coronary artery of match-e-[place]ish band heart without angina pectoris Take 1 Tablet by mouth in the morning. 90 Tablet 3 3 Active Lisinopril 2.5 MG Oral Tablet (Prinivil) Take 1 Tablet by mouth in the morning. 90 Tablet 3 3 Active metFORMIN HCl 500 MG Oral Tablet (Glucophage)Indicat [...] a week. 6 mL 3 3 Active Aspirin 81 MG Oral Tablet Delayed Release Take 1 Tablet by mouth in the morning. 90 Tablet 3 3 Active Empagliflozin 25 MG Oral Tablet (Jardiance)Indicati ons:Type 2 diabetes mellitus with hemoglobin A1c goal of less than 7.0% (HCC) Take 1 Tablet by mouth in the morning. 90 Tablet 3 3 Active Canagliflozin 300 MG Oral Tablet (Invokana)Indicatio ns:Type 2 diabetes mellitus with hemoglobin A1c goal of less than 7.0% (HCC) Take 1 Tablet by mouth in the morning. 90 Tablet 3 3 05/12/20 23 Discontinu ed(Formula ry/Cost) documented as of this encounter (statuses as of 05/12/2023) Active Problems Problem Noted Date Type 2 diabetes mellitus with diabetic p olyneuropathy 10/27/2018 History of tobacco use 05/06/2018 Overview: 40 pack years HTN, goal below 140/90 11/12/2017 Dyslipidemia, goal LDL below 70 01/10/20 17 Old [place] (myocardial infarction) 2 Overview: Coronary disease, single vessel, status post PTCA of the right coronary artery in 2005. 2. Anterior STEMI 12/20/22 receiving GRADY to the mid LAD with moderate 50-60% stenosis circumflex extending into OM1; Patent prox to mid RCA stents with mild in stent restenosis. Inferior branch of D3 remained occluded with residual thrombus. 2.Stable class I angina pectoris. Type 2 diabetes mellitus with hemoglobin A1c goal of less than 7.0% 10/18/2008 Overview: ICD-10 update of inactive term Chronic ischemic heart disease 8 documented as of this encounter (statuses as of 05/12/2023) Resolved Problems Problem Noted Date Resolved Date Chronic ischemic heart disease 12/12/2019 0 11/26/2020 Other specified inflammatory spondylopathies, corrie ar region 05/05/2019 05/09/2019 Overview: Lumbar Facet Arthropathy Sprain of anterior talofibular ligament of left ankle 04/08/2018 10/27/2018 Inflamed seborrheic keratosis 07/04/2014 Type 2 diabetes mellitus wit h hemoglobin A1c goal of less than 7.0% 10/04/2013 01/09/2017 Overview: ICD-10 update of inactive term Nail disorder 02/01/2013 07/10/2017 Dermatitis 02/01/2013 07/10/2017 Dyslipidemia, goal LDL below 70 07/24/2009 01/09/2017 Overview: Per Lipid Taxonomy. DM type 2, not at goal 02/13/2009 1 Benign neoplasm of colon 05/26/2008 017 Overview: benign/repeat colonoscopy in 5 yrs Mixed 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 02/08/2008 07/24/2009 Overview: Per Lipid Taxonomy. AORTOCORONARY BYPASS STATUS 07/200602/08/2008 03/31/2012 ACUTE [place] NOS (07/14/06) 11/22/2007 7 Tobacco use disorder 11/22/2007 11/12/2017 ADVANCE DIRECTIVE INFORMATION 07/27/2007 Overview: Yes, Patient instructed to provide copy of advance directive for provider to review and to be scanned into Electronic Medical Record Rosajimenaa 06/14/2004 07/10/2017 documented as of this encounter (statuses as of 05/12/2023) Immunizations Name Administration Dates Next Due COVID-19 [...] drink = 0.6 oz pur e alcohol) Food Insecurity Answer Date Recorded Within the past 12 months, y ou worried that your food would run out before you got money to buy more. Never true 11/21/2022 Within the past 12 months, t he food you bought just didn't last and you didn't have money to get more. Never true 11/21/2022 Sex Assigned at Date Recorded Male 11/25/2019 11:52 AM EDT Job Start Date Occupation Industry Not on file Not on file Not on file documented as of this encounter Miscellaneous Notes * Telephone Encounter - Esme Dsouza RPh - 05/12/2023 9:09 AM EDT Attempted patient outreach to inform Jardiance sent to replace Invokana due to ins formulary - LMOVM EC. If pt returns call, please transfer to me. If I am not available, please transfer to the next available RP. MyG sent. Please discuss med change with patient and advise to repeat A1C 3 months. Thank you, Esme Dsouza PharmD Clinical Pharmacist [facility] ([facility]) (formerly [employer]) 05/12/23 9:10 AM [phone] * Telephone Encounter - Esme Dsouza [facility] - 2023 10:09 AM EDT Invokana is non-preferred on [employer]. Attempted patient outreach to discuss alterative - VM full. If pt returns call, please transfer to me. If I am not available, please transfer to the next available RP. Pended preferred [id number] - please issue if appropriate and route back to me so I can discuss with pt. Thank you, Esme Dsouza PharmD Clinical Pharmacist Centralized Clinical Pharmacy Services ([facility]) (formerly [employer]) 05/11/23 10:12 AM [phone] * Telephone Encounter - Ollie Diaz CPhT - 2023 9:56 AM EDT This is a new [place] request. Upon review of this prior authorization request, I verified this request is appropriate. This is prescribed by a department for which [facility] is authorized to review prior authorizations This is not a duplicate encounter regarding the same prior authorization The patient is planning to use insurance The insurance information listed in previous note is correct and the plan that is requiring prior authorization The insurance does not cover either brand or generic forms of this script as written without prior authorization The insurance does not cover any NDCs of this script without prior authorization RX Estimate tool confirms this script needs prior authorization Of note, there is nothing currently pending in [facility] for this request. Please advise how to proceed. Thank you, Raymundo Diaz ([facility]) Hardware Designer III [facility] ([facility]) (formerly Tele[facility]) 2023, 9:56 AM * Telephone Encounter - Deepika Wood CPhT - 2023 9:25 AM EDT Images from the original note were not included. Pharmacy calling to inform doctor that the patient's insurance will not pay for this medication without a completed prior authorization. Did confirm this information with the pharmacy. Pt's current insurance information is as follows: Patient name: Ousmane Wilkerson ID number: [id number] BIN number: [id number] PCN number: [id number] Group number: Subscriber name: Ousmane Wilkerson Primary or Secondary Insurance:Primary Medication: invokana 300mg Reason for Request: Pharmacy and phone number: [facility] [phone] Rx plan and phone number: [facility] [phone] Is this a new medication for the patient? No. How did the patient obtain the medication on the lastfill? What alternative medications does the pharmacy have in stock?: Thank you, Deepika Wood [facility] Hardware Designer [facility] ([facility]) (Formerly [facility]) 2023, 9:26 AM documented in this encounter Plan of Treatment Upcoming Encounters Date Type Specialty Care Team Description 06/05/2023 Office Visit [facility] Cardiology [place] [address] [facility] [place] [address] 07/20/2023 Office Visit Family Medicine Ivan Templeton [facility] [address] [facility] [place] [address] Scheduled Orders Name Type Priority Associated Diagnoses Orde r Schedule HEMOGLOBIN A1C Lab Routine Type 2 diabetes mellitus with hemoglobin A1c goal of less than 7.0% ([facility]) Routine medical exam Encounter for long-term (current) use of medications Expected: 08/12/2023 (Approximate), Expires: 05/12/2024 Scheduled Procedures Name Priority Associated Diagnoses Date/Ti [...] exists LUNG CANCER SCREENING - USE SMARTSET 83944 Completed 01/26/2023 GARDASIL-HPV IMMUNIZATION SERIES Aged Out No longer eligible based on patient's age to complete this topic Hepatitis B Aged Out No longer eligi ble based on patient's age to complete this topic MENINGOCOCCAL (MENACTRA/MENVEO) Aged Out No longer eligible based on patient's age to complete this topic documented as of this encounter Medical Devices Implanted Type Area Blender Device Identifier Shelf Expiration Date Model / Serial / Lot Biocomposite Knotless Swivelock [place] Implanted:Qty: 1 on 11/08/2021 by Saqib Edmond, at OR [facility] Left: Shoulder [employer] 09/09/2025 [id number] C / / [id number] Description:with Blue #2 Sut ure documented as of this encounter Visit Diagnoses Diagnosis Routine medical exam- Primary Routine general medical examination at a [facility] care facility Type 2 diabetes mellitus with hemoglobin A1c goal of less than 7.0% (HCC) Encounter for long-term (current) use of medications Encounter for long-term (current) use of other medications documented in this encounter Care Teams Thermostat Maker Relationship Specialty Start Date End Date Ivan Templeton MD [address], [place] [phone] PCP - General Family Medicine 07/29/12 documented as of this encounter
--- OUTSIDE RECORDS SUMMARY | 2023-11-05 11:46 | External Medical Summary | Summary of Care ---
Author Name Unknown Organization [facility] Address [address] [facility] [place] [address] Phone [phone] Care Team Providers Care Registered Nurse Maternal Child Name Role Phone Ivan Templeton MD Primary Care Provider [phone]- [phone] Reason for Visit * Reason Onset Date Comments Precert In Process 06/05/2023 27 [place] [facility] REP ATHA Precert Approved 06/05/2023 REPATHA Encounter Details Date Type Department Care Team (Late st Contact Info) Description 06/05/2023 Telephone Cardiology, [facility] [address] [facility] [[email or web address] [place] [address] [facility] [address] [place], [place] [id number] Precert In Process (27 [place] [facility] REPATHA); Pr... Allergies Active Allergy Reactions Criticality Noted Date Comments Rosuvastatin Muscle pain 04/27/2023 documented as of this encounter (statuses as of 06/10/2023) Medications Medication Sig Dispensed Refills Start Date [...] 0 07/07/2018 Active FreeStyle Alice 14 Day [place] Device Use as directed. 1 Each 0 [...] of anterior wall (HCC),Coronary artery disease involving [place] coronary artery of [place] heart without angina pectoris Take 1 Tablet [...] as of this encounter (statuses as of 06/10/2023) Active Problems Problem Noted Date Diagnosed Date Type 2 diabetes mellitus with diabetic polyneuro fanta 10/27/2018 History of tobacco use 05/06/2018 Overview: 40 pack years HTN, goal below 140/90 11/12/2017 Dyslipidemia, goal LDL below 70 01/09/2017 Old NM (myocardial infarction) 03/31/2012 Overview: Coronary disease, single [...] as of this encounter (statuses as of 06/10/2023) Resolved Problems Problem Noted Date Diagnosed Date [...] Taxonomy. AORTOCORONARY BYPASS STATUS 07/200602/08/2008 03/31/2012 ACUTE NM NOS (07/14/06) 11/22/200701/09 Tobacco use disorder 11/22/2007 018 ADVANCE DIRECTIVE INFORMATION 07/27/2007 01/09/2017 Overview: Yes, Patient instructed to provide copy of advance directive for provider to review and to be scanned into Electronic Medical Record Govind 06/14/2004 07/10/2017 documented as of this encounter (statuses as of 06/10/2023) Immunizations Name Administration Dates Next Due COVID-19 [...] Notes * Telephone Encounter - Cecilia Sánchez RPh [...] mg/dL Route referral message to CARDIOLOGY PHARMACIST BRYANT [[id number]]. Please submit to BOTH primary insurance and secondary insurance (ex PACE/PACENET) if applicable. documented in this encounter Plan of Treatment Upcoming Encounters Date Type Department Care Team (Late st Contact Info) Description 07/20/2023 1:20 PM EST Office Visit [facility] [address] [facility] [place] [address] Ivan Templeton MD [address] [place] [address] 09/14/2023 2:00 PM EST Office Visit Cardiology, [facility] [address] [facility] [place] [address] Miryam Oviedo, GIOVANNI [address] [place] [address] 09/17/2023 5:30 PM EST Pharmacy [place] Trevon Li [address] [place] [address] [facility] [address] [place] [address] 10/02/2023 11:30 AM EST Office Visit Cardiology, [facility] [address] [facility] [facility] [place] [address] [facility] Cardiology [facility] [address] [facility] [place] [address] Scheduled Procedures Name Priority Associated Diagnoses Date/Ti [...] 01/18/2018, Additional history exists HbA1c 10/08/2023 04/08/2023, 01/2023, 05/21/2022, Additional history exists Albumin/Creatinine Ratio [...] exists LUNG CANCER SCREENING - USE SMARTSET 60937 Completed 01/26/2023 GARDASIL-HPV IMMUNIZATION SERIES Aged Out No longer eligible based on patient's age to complete this topic MENINGOCOCCAL (MENACTRA/MENVEO) Aged Out No longer eligible based on patient's age to complete this topic documented as of this encounter Medical Devices Implanted Type Area Fire Patroller Device Identifier Shelf Expiration Date Model / Serial / Lot Biocomposite Knotless Swivelock [place] Implanted:Qty: 1 on 11/08/2021 by Saqib Edmond, at OR [facility] Left: Shoulder [employer] 09/09/2025 [id number] C / / [id number] Description:with Blue #2 Sut ure documented as of this encounter Care Teams Registered Nurse Maternal Child Relationship Specialty Start Date End Date Ivan Templeton MD [address] [place] [facility] [address] PCP - General Family Medicine 07/29/12 documented as of this encounter
--- OUTSIDE RECORDS SUMMARY | 2023-11-05 11:46 | External Medical Summary | Summary of Care ---
Author Name Unknown Organization [facility] Address [address] [place] [address] Phone [phone] Care Team Providers Care Excelsior Cutter Name Role Phone Ivan Templeton MD Primary Care Provider [phone]- [phone] Reason for Visit * Reason Onset Date Comments Medication Pre-auth 2023 Incokana 300 mg Returning Call 2023 Encounter Details Date Type Department Care Team Description 2023 Telephone [facility] [address] [place] [address] Ivan Templeton MD [address] [place] [address] Medication Pre-auth (Incokana 300mg); Retu... Allergies Active Allergy Reactions Severity Noted Date Comments Rosuvastatin Muscle pain 04/27/2023 documented as of this encounter (statuses as of 05/13/2023) Medications Medication Sig Dispensed Refills Start Date End Date Status Glucose Blood (ONETOUCH ULTRA BLUE) STRPIndications:DM type 2, not at goal (HCC),Type 2 diabetes mellitus with hemoglobin A1c goal of less than 7.0% ([facility]) Use 2 times a day [...] 0 8 Active FreeStyle Alice 14 Day [place] Device Use as directed. 1 Each 0 [...] of anterior wall (HCC),Coronary artery disease involving [place] coronary artery of [place] heart without angina pectoris Take 1 Tablet [...] as of this encounter (statuses as of 05/13/2023) Active Problems Problem Noted Date Type 2 diabetes mellitus with diabetic p olyneuropathy 10/27/2018 History of tobacco use 05/06/2018 Overview: 40 pack years HTN, goal below 140/90 11/12/2017 Dyslipidemia, goal LDL below 70 01/10/20 17 Old MS (myocardial infarction) 2 Overview: Coronary disease, single [...] as of this encounter (statuses as of 05/13/2023) Resolved Problems Problem Noted Date Resolved Date Chronic ischemic heart disease 12/12/2019 0 11/26/2020 Other specified inflammatory spondylopathies, corrie mbar region 05/05/2019 05/09/2019 Overview: Lumbar Facet Arthropathy [...] STATUS 07/200602/08/2008 03/31/2012 ACUTE MS NOS (07/14/06) 11/22/2007 7 Tobacco use disorder 11/22/2007 11/12/2017 ADVANCE DIRECTIVE INFORMATION 07/27/2007 Overview: Yes, Patient instructed to provide copy of advance directive for provider to review and to be scanned into Electronic Medical Record Rosacea 06/14/2004 07/10/2017 documented as of this encounter (statuses as of 05/13/2023) Immunizations Name Administration Dates Next Due COVID-19 [...] encounter Miscellaneous Notes * Addendum Note - Esme Rendon [facility] - 05/12/2023 1:43 PM EDTAddended by: ESME RENDON on: 05/12/2023 01:43 PM Modules accepted: Orders * Telephone Encounter - Esmeluis manuel Rendon [facility] - 05/12/2023 1:40 PM EDT Discussed Jardiance with patient and counseled on med. Pt agreeable to change and will finish remaining supply of Invokana and then start Jardiance. Pt prefers to repeat A1C before 07/20/23 OV - order updated. Advised pt to contact clinic with any questions/concerns. Pt thankful and verbalized understanding. Thank you, Esme Rendon PharmD Clinical Pharmacist [facility] ([facility]) (formerly Telepharm[facility]) 05/12/23 1:41 PM [phone] * Telephone Encounter - Swathi Morse CPhT - 05/12/2023 1:26 PM EDT Pt returning a call. Transferring back to [facility] as requested in another note. Thank you, Nathalie Morse Visual Effects Editor I [facility] ([facility]) (Formerly [facility]pharm[facility]) 05/12/2023,1:27 PM * Telephone Encounter - Esme Rendon [facility] - 05/12/2023 9:09 AM EDT Attempted patient outreach to inform Jardiance sent to replace Invokana due to ins formulary - LMOVM EC. If pt returns call, please transfer to me. If I am not available, please transfer to the next available [facility]. MyG sent. Please discuss med change with patient and advise to repeat A1C 3 months. Thank you, Esme Rendon PharmD Clinical Pharmacist [facility] ([facility]) (formerly Telepharmacy) 05/12/23 9:10 AM [phone] * Telephone Encounter - Esme Rendon [facility] - 2023 10:09 AM EDT Invokana is non-preferred on [employer]. Attempted patient outreach to discuss alterative - VM full. If pt returns call, please transfer to me. If I am not available, please transfer to the next available [facility]. Pended preferred SGLT2i - please issue if appropriate and route back to me so I can discuss with pt. Thank you, Esme Rendon PharmD Clinical Pharmacist [facility] Clinical Pharmacy Services ([facility]) (formerly Telepharmacy) 05/11/23 10:12 AM [phone] * Telephone Encounter - Ollie Diaz CPhT - 2023 9:56 AM EDT This is a new [place] request. Upon review of this prior authorization request, I verified this request is appropriate. This is prescribed by a department for which [facility] is authorized to review prior authorizations [...] note, there is nothing currently pending in [facility] for this request. Please advise how to proceed. Thank you, Raymundo Diaz (Ruel) Machine Buffer III [facility] ([facility]) (formerly [...] follows: Patient name: Ousmane Wilkerson ID number: [id number] BIN number: [id number] PCN number: [id number] Group number: Subscriber name: Ousmane Wilkerson Primary or Secondary Insurance:Primary Medication: invokana 300mg Reason for Request: Pharmacy and phone number: [facility] [phone] Rx plan and phone number: [facility] [phone] Is this a new medication for the patient? No. How did the patient obtain the medication on the lastfill? What alternative medications does the pharmacy have in stock?: Thank you, Deepika Wood CPhT Machine Buffer [facility] ([facility]) ([facility]) 2023, 9:26 AM documented in this encounter Plan of Treatment Upcoming Encounters Date Type Specialty Care Team Description 06/05/2023 Office Visit [facility]iology [facility] Cardiology [address] [address] 07/20/2023 Office Visit Family Medicine Ivan Templeton MD [address] [place] [address] Scheduled Orders Name Type Priority Associated Diagnoses Orde r Schedule HEMOGLOBIN A1C Lab Routine Type 2 diabetes mellitus with hemoglobin A1c goal of less than 7.0% (HCC) Routine medical exam Encounter for long-term (current) use of medications Expected: 07/09/2023 (Approximate), Expires: 05/12/2024 Scheduled Procedures Name Priority Associated Diagnoses Date/Ti me COLONOSCOPY FLEXIBLE PROXIMAL DIAGNOSTIC Recall History of colon polyps Health Maintenance Due Date Last Done Comments DTaP,Tdap,and Td Vaccines (2 - Td or Tdap) 07/24/2018 07/24/2008 Diabetic Foot Exam 07/27/2021 07/27/2020, 0 05/09/2019, 05/06/2018, Additional history exists COVID-19 Vaccine ( - 2022- season) 2023 06/29/2022, 06/19/2021, 10/03/2020, Additional history [...] exists LUNG CANCER SCREENING - USE SMARTSET 09839 Completed 01/26/2023 GARDASIL-HPV IMMUNIZATION SERIES Aged Out No longer eligible based on patient's age to complete this topic Hepatitis B Aged Out No longer eligi ble based on patient's age to complete this topic MENINGOCOCCAL (MENACTRA/MENVEO) Aged Out No longer eligible based on patient's age to complete this topic documented as of this encounter Medical Devices Implanted Type Area Blow Pit Operator Device Identifier Shelf Expiration Date Model / Serial / Lot Biocomposite Knotless Swivelock [place] Implanted:Qty: 1 on 11/08/2021 by Saqib Edmond, DO at OR [facility] Left: Shoulder [employer] 09/09/2025 [id number] C / / [id number] Description:with Blue #2 Sut ure documented as of this encounter Visit Diagnoses Diagnosis Routine medical exam- Primary Routine general medical examination at a [facility] facility Type 2 diabetes mellitus with hemoglobin A1c goal of less than 7.0% ([facility]) Encounter for long-term (current) use of medications Encounter for long-term (current) use of other medications documented in this encounter Care Teams Excelsior Cutter Relationship Specialty Start Date End Date Ivan Templeton MD [address] [place] [address] PCP - General Family Medicine 07/29/12 documented as of this encounter
--- OUTSIDE RECORDS SUMMARY | 2023-11-05 11:46 | External Medical Summary | Summary of Care ---
Author Name Unknown Organization [facility] Address [address] [facility] [place] [address] Phone [phone] Care Team Providers Care Credit Checker Name Role Phone Ivan Templeton MD Primary Care Provider +1- [phone] Encounter Details Date Type Department Care Team Description 02/06/2023 Telephone Cardiology, [facility] [address] [place] [id number] Miryam Oviedo, [place] [address] [place] [id number] Allergies Active Allergy Reactions Severity Noted Date Comments Rosuvastatin Muscle pain 04/27/2023 documented as of this encounter (statuses as of 05/08/2023) Medications Medication Sig Dispensed Refills Start Date End Date Status Glucose Blood (ONETOUCH ULTRA BLUE) STRPIndications:DM type 2, not at goal ([facility]),Type 2 diabetes mellitus with hemoglobin A1c goal of less than 7.0% ([facility]) Use 2 times a day as directed DX:E11.9 Diabetes Type 2 uncontrolled 300 Strip 5 04/15/20 18 Active ONETOUCH LANCETS MISCIndications:Ty pe 2 diabetes mellitus with hemoglobin A1c goal of less than 7.0% ([facility]),DM type 2, not at goal ([facility]) Use to test blood sugar up to twice daily: dx 250.00 3 Box Dosing Unit 5 04/15/20 18 Active Lidocaine, Anorectal, 5 % CREAIndications:Ex ternal hemorrhoid, thrombosed Apply to affected area 3-4 times as needed for pain 28 g 0 07/07/20 18 Active FreeStyle Alice 14 Day [place] Device Use as directed. 1 Each 0 07/27/20 Active FreeStyle Alice 14 Day Sensor Use as directed. Use as directed to check blood sugars 4 times per day. 2 Each 4 07/27/20 20 Active Polyethylene Glycol 3350 17 GM/SCOOP Oral Powder (MiraLax)Indicatio ns:Constipation, unspecified constipation type Take 17 g as needed by mouth for Constipation. Dissolve one heaping tablespoon in 8 ounces of water or juice. 850 g 1 09/03/19 22 Active Cyanocobalamin 1000 MCG Oral Tablet (Cyanocobalamin) Take 1 Tablet by mouth in the morning. 90 Tablet 1 08/28/19 23 Active Nitroglycerin 0.4 MG Sublingual Tablet Sublingual (Nitrostat) Place 1 Tablet under the tongue as needed. 0 12/22/19 23 Active Aleve PM 220-25 MG Oral Tablet (Naproxen Sod-diphenhydrAMIN E) Take 1 Tablet by mouth at bedtime. 0 Active Lisinopril 2.5 MG Oral Tablet (Prinivil) TAKE 1 TABLET IN THE MORNING 90 Tablet 3 08/28/19 23 023 Discontinued(Re fill) Invokana 300 MG Oral Tablet (Canagliflozin)Ind ications:Type 2 diabetes mellitus with hemoglobin A1c goal of less than 7.0% (HCC) TAKE 1 TABLET BY MOUTH ONCE DAILY BEFORE FIRST MEAL OF THE DAY 90 Tablet 1 10/27/19 23 023 Discontinued Gabapentin 300 MG Oral Capsule (Neurontin)Indicat ions:Diabetic polyneuropathy associated with type 2 diabetes mellitus (HCC) Take 1 Capsule by mouth in the morning and 1 Capsule before bedtime. 60 Capsule 0 11/14/19 23 023 Discontinued(Re fill) metFORMIN HCl 500 MG Oral Tablet (Glucophage)Indica tions:Type 2 diabetes mellitus without complications (HCC) TAKE 2 TABLETS TWICE A DAY WITH MORNING AND EVENING MEALS 360 Tablet 3 11/27/19 23 023 Discontinued(Re fill) Aspirin 81 MG Oral Tablet Delayed Release Take 1 Tablet by mouth in the morning. 0 023 Discontinued(Re fill) Trulicity 4.5 MG/0.5ML Subcutaneous Solution Pen-injector (Dulaglutide)Indic ations:Type 2 diabetes mellitus with hemoglobin A1c goal of less than 7.0% (HCC) Inject 4.5 mg under the skin once a week. 6 mL 4 12/24/19 23 023 Discontinued(Re fill) Metoprolol Succinate ER 25 MG Oral Tablet Extended Release 24 Hour (toPROL XL) Take 1 Tablet by mouth in the morning and 1 Tablet before bedtime. 180 Tablet 3 01/08/20 23 023 Discontinued(Re fill) Rosuvastatin Calcium 20 MG Oral Tablet (Crestor) Take 1 Tablet by mouth in the morning. 90 Tablet 3 02/04/20 23 023 Discontinued Clopidogrel Bisulfate 75 MG Oral Tablet (pLAVix)Indication s:ST elevation myocardial infarction (STEMI) of anterior wall ([facility]),History of heart artery stent Take 1 Tablet by mouth in the morning. 90 Tablet 3 02/04/20 23 023 Discontinued(Re fill) Isosorbide Mononitrate ER 30 MG Oral Tablet Extended Release 24 Hour (Imdur)Indications :ST elevation myocardial infarction (STEMI) of anterior wall ([facility]),Coronary artery disease involving [place] coronary artery of [place] heart without angina pectoris Take 1 Tablet by mouth in the morning. 90 Tablet 3 02/04/20 23 023 Discontinued(Re fill) documented as of this encounter (statuses as of 05/08/2023) Active Problems Problem Noted Date Type 2 diabetes mellitus with diabetic p olyneuropathy 10/27/2018 History of tobacco use 05/06/2018 Overview: 40 pack years HTN, goal below 140/90 11/12/2017 Dyslipidemia, goal LDL below 70 01/10/20 17 Old AR (myocardial infarction) 2 Overview: Coronary disease, single [...] as of this encounter (statuses as of 05/08/2023) Resolved Problems Problem Noted Date Resolved Date [...] Taxonomy. AORTOCORONARY BYPASS STATUS 07/200602/08/2008 03/31/2012 ACUTE [place] NOS (07/14/06) 11/22/2007 7 Tobacco use disorder 11/22/2007 11/12/2017 ADVANCE DIRECTIVE INFORMATION 07/27/2007 Overview: Yes, Patient instructed to provide copy of advance directive for provider to review and to be scanned into Electronic Medical Record Rosacea 06/14/2004 07/10/2017 documented as of this encounter (statuses as of 05/08/2023) Immunizations Name Administration Dates Next Due COVID-19 [...] Telephone Encounter - Miryam Oviedo PA-C - 02/09/2023 1:04 PM EDT Noted. Agree with plan to resume ASA and plavix and continue to hold Crestor. Will discuss at upcoming visit and reassess symptoms at that time. * Telephone Encounter - Delores Barnes CMA - 02/09/2023 12:02 PM EDT Spoke with patient by phone. States he had an appointment with Dr. Arellano on 02/07 to discuss his symptoms. He was given instructions to remain on ASA and Plavix at that time and to hold Crestor. Patient stopped Crestor that evening and has noticed some improvement in his sx so far. He states he will go on a 5 mg dose but refuses to take a 20 mg dose. Advised patient to continue to hold statin until appointment with Miryam on 02/25 and will address options for management at time of appointment. * Telephone Encounter - ZARINA Vidal - 02/06/2023 10:38 AM EDT Chart reviewed in coverage of Miryam Oviedo PA-C I am not confident to saw that the Plavix is causing his symptoms- this is not a common side effect. He is on an increased dose of Crestor since his STEMI and he has a history of statin- induced myalgias. Recommend holding Crestor x2-3 weeks. Then reduce down to 10 mg daily. Repeat Lipids in 6 weeks. Ifsymptoms improve off statin and restarting at a lower dose causes further weakness/discomfort will need referred for a possible PCSK9i. Stress compliance with ASA and Plavix without interruption. ZARINA Thorpe * Telephone Encounter - Elle Gao LPN - 02/06/2023 10:29 AM EDT Patient thinking he is having issues with plavix. Having a lot of bilateral leg pain to the point that he can barely stand at times from a sitting position. Weakness. Please advise? documented in this encounter Plan of Treatment Upcoming Encounters Date Type Specialty Care Team Description 06/05/2023 Office Visit Cardiology [facility] Cardiology [place] [address] [place] [address] 07/20/2023 Office Visit Family Medicine [facility] [address] [facility] [address] Scheduled Procedures Name Priority Associated Diagnoses Date/Ti [...] 07/27/2017 Zoster Vaccines Completed 09/09/2018, 06/11, 04/25/2013 COVID-19 Vaccine Completed 06/29/2022, 05/2021, 10/03/2020, Additional history exists Pneumococcal Vaccine: 65+ Years Completed 06/29/2022, 12/01/2019, 11/12/2017, Additional history exists LUNG CANCER SCREENING - USE SMARTSET 40447 Completed 01/26/2023 GARDASIL-HPV IMMUNIZATION SERIES Aged Out No longer eligible based on patient's age to complete this topic Hepatitis B Aged Out No longer eligi ble based on patient's age to complete this topic MENINGOCOCCAL (MENACTRA/MENVEO) Aged Out No longer eligible based on patient's age to complete this topic documented as of this encounter Medical Devices Implanted Type Area Physical Education Instructor Device Identifier Shelf Expiration Date Model / Serial / Lot Biocomposite Knotless Swivelock [place] Implanted:Qty: 1 on 11/08/2021 by Saqib Edmond, DO at OR [facility] Left: Shoulder [employer] 09/09/2025 [id number] C / / [id number] Description:with Blue #2 Sut ure documented as of this encounter Care Teams Credit Checker Relationship Specialty Start Date End Date Ivan Templeton MD [address] [place] [address] PCP - General Family Medicine 07/29/12 documented as of this encounter
--- OUTSIDE RECORDS SUMMARY | 2023-11-05 11:46 | External Medical Summary | Summary of Care ---
Author Name Unknown Organization [facility] Address [address] [place] [address] Phone [phone] Care Team Providers Care Grit Blaster Name Role Phone Ivan Templeton MD Primary Care Provider +1- [phone] Reason for Visit * Reason Onset Date Comments Medication Pre-auth 2023 Incokana 300 mg Returning Call 2023 Encounter Details Date Type Department Care Team Description 2023 Telephone [facility] [address] [place] [address] Ivan Templeton MD [address] [place] [address] Medication Pre-auth (Incokana 300mg); Retu... Allergies Active Allergy Reactions Severity Noted Date Comments Rosuvastatin Muscle pain 04/27/2023 documented as of this encounter (statuses as of 05/12/2023) Medications Medication Sig Dispensed Refills Start Date End Date Status Glucose Blood (ONETOUCH ULTRA BLUE) STRPIndications:DM type 2, not at goal (HCC),Type 2 diabetes mellitus with hemoglobin A1c goal of less than 7.0% ([facility]) Use 2 times a day as [...] 0 8 Active FreeStyle Alice 14 Day [place] Device Use as directed. 1 Each 0 [...] of anterior wall (HCC),Coronary artery disease involving [place] coronary artery of [place] heart without angina pectoris Take 1 Tablet [...] goal LDL below 70 01/10/20 17 Old [place] (myocardial infarction) 2 Overview: Coronary disease, single [...] Taxonomy. AORTOCORONARY BYPASS STATUS 07/200602/08/2008 03/31/2012 ACUTE [place] NOS (07/14/06) 11/22/2007 7 Tobacco use disorder [...] encounter Miscellaneous Notes * Telephone Encounter - Swathi Morse [facility] - 05/12/2023 1:26 PM EDT Pt returning a call. Transferring back to [facility] as requested in another note. Thank you, Nathalie Morse Grain Sacker I Centralized Clinical Pharmacy Services ([facility]) (Formerly Telepharmacy) 05/12/2023,1:27 PM * [facility] - [facility] 9[facility]09 AM EDT Attempted patient outreach to inform Jardiance sent to replace Invokana due to ins formulary - LMOVM EC. If pt returns call, please transfer to me. If I am not available, please transfer to the next available [facility]. MyG sent. Please discuss med change with patient and advise to repeat A1C 3 months. Thank you, Esme Dsouza PharmD Clinical Pharmacist Centralized Clinical Pharmacy Services ([facility]) (formerly Telepharmacy) 05/12/23 9:10 AM [phone] * [facility] - [facility] 10[facility]09 AM EDT Invokana is non-preferred on GHP Gold. Attempted patient outreach to discuss alterative - VM full. If pt returns call, please transfer to me. If I am not available, please transfer to the next available [facility]. Pended preferred SGLT2i - please issue if appropriate and route back to me so I can discuss with pt. Thank you, Esme Dsouza PharmD Clinical Pharmacist Centralized Clinical Pharmacy Services ([facility]) (formerly Telepharmacy) 05/11/23 10:12 AM [phone] * Telephone Encounter - Ollie Diaz [facility] - 2023 9:56 AM EDT This is a new [place] request. Upon review of this prior authorization request, I verified this request is appropriate. This is prescribed by a department for which [facility] is authorized to review prior authorizations This [...] note, there is nothing currently pending in Center for this request. Please advise how to proceed. Thank you, [facility]) Grease And Tallow Pumper III Centralized Clincal Pharmacy Services ([facility]) (formerly [...] follows: Patient name: Ousmane Wilkerson ID number: [id number] BIN number: [id number] PCN number: [id number] Group number: Subscriber name: Ousmane Wilkerson Primary or Secondary Insurance:Primary Medication: invokana 300mg Reason for Request: Pharmacy and phone number: [facility] [phone] Rx plan and phone number: [facility] [phone] Is this a new medication for the patient? No. How did the patient obtain the medication on the lastfill? What alternative medications does the pharmacy have in stock?: Thank you, Deepika Wood CPhT Grease And Tallow Pumper Centralized Clinical Pharmacy Services ([facility]) (Formerly Telepharmacy) 2023, 9:26 AM documented in this encounter Plan of Treatment Upcoming Encounters Date Type Specialty Care Team Description 06/05/2023 Office Visit Cardiology [facility] Cardiology Elizabeth [address] [place] [address] 07/20/2023 Office Visit Family Medicine Ivan Templeton MD [address] [facility] [place] [address] Scheduled Orders Name Type Priority Associated Diagnoses [...] exists LUNG CANCER SCREENING - USE SMARTSET 22018 Completed 01/26/2023 GARDASIL-HPV IMMUNIZATION SERIES Aged Out No longer eligible based on patient's age to complete this topic Hepatitis B Aged Out No longer eligi ble based on patient's age to complete this topic MENINGOCOCCAL (MENACTRA/MENVEO) Aged Out No longer eligible based on patient's age to complete this topic documented as of this encounter Medical Devices Implanted Type Area Coke Burner Device Identifier Shelf Expiration Date Model / Serial / Lot Biocomposite Knotless Swivelock [place] Implanted:Qty: 1 on 11/08/2021 by Saqib Edmond, at OR [facility] Left: Shoulder [employer] 09/09/2025 [id number] C / / [id number] Description:with Blue #2 Sut ure documented as of this encounter Visit Diagnoses Diagnosis Routine medical exam- Primary Routine general medical examination at a health care facility Type 2 diabetes mellitus with hemoglobin A1c goal of less than 7.0% (HCC) Encounter for long-term (current) use of medications Encounter for long-term (current) use of other medications documented in this encounter Care Teams Grit Blaster Relationship Specialty Start Date End Date Ivan Tmepleton MD [address] [place], [place] [id number] PCP - General Family Medicine 07/29/12 documented as of this encounter
--- OUTSIDE RECORDS SUMMARY | 2023-11-05 11:46 | External Medical Summary | Summary of Care ---
Author Name Unknown Organization [facility] Address [address] [place] [address] Phone [phone] Care Team Providers Care Roller Varnisher Name Role Phone Ivan Templeton MD Primary Care Provider +1- [phone] Reason for Visit * Reason Onset Date Comments Medication Pre-auth 2023 Incokana 300 mg Returning Call 2023 Encounter Details Date Type Department Care Team Description 2023 Telephone [facility] [address] [place] [address] Ivan Templeton MD [address] [place] [address] Medication Pre-auth (Incokana 300mg); Retu... Allergies Active Allergy Reactions Severity Noted Date Comments Rosuvastatin Muscle pain 04/27/2023 documented as of this encounter (statuses as of 05/12/2023) Medications Medication Sig Dispensed Refills Start Date End Date Status Glucose Blood (ONETOUCH ULTRA BLUE) STRPIndications:DM type 2, not at goal (HCC),Type 2 diabetes mellitus with hemoglobin A1c goal of less than 7.0% ([facility]) Use 2 times a day [...] 0 8 Active FreeStyle Alice 14 Day [place] Device Use as directed. 1 Each 0 [...] goal LDL below 70 01/10/20 17 Old [place] (myocardial infarction) 2 Overview: Coronary disease, single [...] Taxonomy. AORTOCORONARY BYPASS STATUS 07/200602/08/2008 03/31/2012 ACUTE [place] NOS (07/14/06) 11/22/2007 7 Tobacco use disorder [...] Notes * Addendum Note - Esme Rendon [facility] - 05/12/2023 1:43 PM EDTAddended by: ESME RENDON on: 05/12/2023 01:43 PM Modules accepted: Orders * Telephone Encounter - Esmeluis manuel Rendon [facility] - 05/12/2023 1:40 PM EDT Discussed [...] Services ([facility]PS) (formerly Telepharmacy) 05/12/23 1:41 PM [phone] * Telephone Encounter - Swathi Morse CPhT - 05/12/2023 1:26 PM EDT Pt returning a call. Transferring back to [facility] as requested in another note. Thank you, Nathalie Morse Automation Control Integrator I Centralized Clinical Pharmacy Services ([facility]) (Formerly Telepharmacy) 05/12/2023,1:27 PM * Telephone Encounter - Esme Rendon [facility] - 05/12/2023 9:09 AM EDT Attempted patient outreach to inform Jardiance sent to replace Invokana due to ins formulary - LMOVM EC. If pt returns call, please transfer to me. If I am not available, please transfer to the next available [facility]. MyG sent. Please discuss med change with patient and advise to repeat A1C 3 months. Thank you, Esme Rendon PharmD Clinical Pharmacist Centralized Clinical Pharmacy Services ([facility]) (formerly Telepharmacy) 05/12/23 9:10 AM [phone] * Telephone Encounter - Esme Rendon [facility] - 2023 10:09 AM EDT Invokana is non-preferred on GHP Gold. Attempted patient outreach to discuss alterative - VM full. If pt returns call, please transfer to me. If I am not available, please transfer to the next available [facility]. Pended preferred SGLT2i - please issue if appropriate and route back to me so I can discuss with pt. Thank you, Esme Rendon PharmD Clinical Pharmacist [facility] Clinical Pharmacy Services ([facility]) (formerly Telepharmacy) 05/11/23 10:12 AM [phone] * Telephone Encounter - Ollie Diaz CPhT - 2023 9:56 AM EDT This is a new [place] request. Upon review of this prior authorization request, I verified this request is appropriate. This is prescribed by a department for which [facility] is authorized to review prior authorizations [...] note, there is nothing currently pending in [facility] for this request. Please advise how to proceed. Thank you, Raymundo Diaz (Ruel) Bowling Alley Floors Installer III Centralized Clincal Pharmacy Services ([facility]) (formerly [...] follows: Patient name: Ousmane Wilkerson ID number: [id number] BIN number: [id number] PCN number: [id number] Group number: Subscriber name: Ousmane Wilkerson Primary or Secondary Insurance:Primary Medication: invokana 300mg Reason for Request: Pharmacy and phone number: [facility] [phone] Rx plan and phone number: [facility] [phone] Is this a new medication for the patient? No. How did the patient obtain the medication on the lastfill? What alternative medications does the pharmacy have in stock?: Thank you, Deepika Wood CPhT Bowling Alley Floors Installer Centralized Clinical Pharmacy Services ([facility]) (Formerly Telepharmacy) 2023, 9:26 AM documented in this encounter Plan of Treatment Upcoming Encounters Date Type Specialty Care Team Description 06/05/2023 Office Visit Cardiology Jose [facility] Cardiology [address] [address] 07/20/2023 Office Visit Family Medicine Ivan Templeton MD [address] [place] [address] Scheduled Orders Name Type Priority Associated Diagnoses [...] exists LUNG CANCER SCREENING - USE SMARTSET 71329 Completed 01/26/2023 GARDASIL-HPV IMMUNIZATION SERIES Aged Out No longer eligible based on patient's age to complete this topic Hepatitis B Aged Out No longer eligi ble based on patient's age to complete this topic MENINGOCOCCAL (MENACTRA/MENVEO) Aged Out No longer eligible based on patient's age to complete this topic documented as of this encounter Medical Devices Implanted Type Area Stereoptic Projection Topographer Device Identifier Shelf Expiration Date Model / Serial / Lot Biocomposite Knotless Swivelock [place] Implanted:Qty: 1 on 11/08/2021 by Saqib Edmond, DO at OR [facility] Left: Shoulder [employer] 09/09/2025 [id number] C / / [id number] Description:with Blue #2 Sut ure documented as of this encounter Visit Diagnoses Diagnosis Routine medical exam- Primary [facility] Type 2 diabetes mellitus with hemoglobin A1c goal of less than 7.0% ([facility]) Encounter for long-term (current) use of medications Encounter for long-term (current) use of other medications documented in this encounter Care Teams Roller Varnisher Relationship Specialty Start Date End Date Ivan Templeton MD [address] [place] [address] PCP - General Family Medicine 07/29/12 documented as of this encounter
--- OUTSIDE RECORDS SUMMARY | 2023-11-05 11:46 | External Medical Summary | Summary of Care ---
Author Name Unknown Organization [facility] Address [address] [facility] [place] [place] [address] Phone [phone] Care Team Providers Care Homeworker Name Role Phone Ivan Templeton MD Primary Care Provider +1- [phone] Reason for Visit * Reason Onset Date Comments Precert In Process 06/05/2023 27 [place] GHP REP ATHA Encounter Details Date Type Department Care Team (Late st Contact Info) Description 06/05/2023 Telephone Cardiology, [facility] [address] [facility] [place] [id number] [facility] [address] [facility] [place] [address] Precert In Process (27 [place] GHP REPATHA) Allergies Active Allergy Reactions Criticality Noted Date Comments Rosuvastatin Muscle pain 04/27/2023 documented as of this encounter (statuses as of 06/05/2023) Medications Medication Sig Dispensed Refills Start Date End Date Status Glucose Blood (ONETOUCH ULTRA BLUE) STRPIndications:DM type 2, not at goal (HCC),Type 2 diabetes mellitus with hemoglobin A1c goal of less than 7.0% ([facility]) Use 2 times a day as directed [...] 0 07/07/2018 Active FreeStyle Alice 14 Day [place] Device Use as directed. 1 Each 0 [...] of anterior wall (HCC),Coronary artery disease involving [place] coronary artery of [place] heart without angina pectoris Take 1 Tablet [...] Notes * Telephone Encounter - Cecilia Sánchez [facility] - 06/05/2023 1:25 PM EDT PCSK-9 Inhibitor [...] mg/dL Route referral message to CARDIOLOGY PHARMACIST [place] [[id number]]. Please submit to BOTH primary insurance and secondary insurance (ex PACE/PACENET) if applicable. documented in this encounter Plan of Treatment Upcoming Encounters Date Type Department Care Team (Late st Contact Info) Description 07/20/2023 1:20 PM EST Office Visit [facility] [address] [place] [facility] [place] [address] Ivan Templeton MD [address] [place] [facility] [place] [address] 09/14/2023 2:00 PM EST Office Visit Cardiology, [facility] [address] [facility] [place] [address] Miryam Oviedo PA-C [address] [place] [address] 09/17/2023 5:30 PM EST Pharmacy Cardiology [place] [address] [place] [address] [place] [address] [facility] [address] [facility] [place] [address] 10/02/2023 11:30 AM EST Office Visit Cardiology, [facility] [address] [place] [address] [facility] Cardiology [facility] [address] [place] [address] Scheduled Procedures Name Priority Associated Diagnoses Date/Ti [...] exists LUNG CANCER SCREENING - USE SMARTSET 40144 Completed 01/26/2023 GARDASIL-HPV IMMUNIZATION SERIES Aged Out No longer eligible based on patient's age to complete this topic MENINGOCOCCAL (MENACTRA/MENVEO) Aged Out No longer eligible based on patient's age to complete this topic documented as of this encounter Medical Devices Implanted Type Area Freelance Digital Project Manager Device Identifier Shelf Expiration Date Model / Serial / Lot Biocomposite Knotless Swivelock [place] Implanted:Qty: 1 on 11/08/2021 by Saqib Edmond, at OR [facility] Left: Shoulder [employer] 09/09/2025 [id number] C / / [id number] Description:with Blue #2 Sut ure documented as of this encounter Care Teams Homeworker Relationship Specialty Start Date End Date Ivan Templeton MD [address] [place] [address] PCP - General Family Medicine 07/29/12 documented as of this encounter
--- OUTSIDE RECORDS SUMMARY | 2023-11-05 11:46 | External Medical Summary | Summary of Care ---
Author Name Unknown Organization [facility] Address [address] [place] [facility] [place] [address] Phone [phone] Care Team Providers Care Swing Saw Operator Name Role Phone Ivan Templeton MD Primary Care Provider +1- [phone] Encounter Details Date Type Department Care Team (Late st Contact Info) Description 06/05/2023 Telephone Cardiology, [facility] [address] [place] [address] [facility] [address] [place], [place] [phone] Allergies Active Allergy Reactions Criticality Noted Date Comments Rosuvastatin Muscle pain 04/27/2023 documented as of this encounter (statuses as of 06/05/2023) Medications Medication Sig Dispensed Refills Start Date End Date Status Glucose Blood (ONETOUCH ULTRA BLUE) STRPIndications:DM type 2, not at goal ([facility]),Type 2 diabetes mellitus with hemoglobin A1c goal of less than 7.0% ([facility]) Use 2 times a day as directed DX:E11.9 Diabetes Type 2 uncontrolled 300 Strip 5 04/15/2018 Active ONETOUCH LANCETS MISCIndications:Type 2 diabetes mellitus with hemoglobin A1c goal of less than 7.0% ([facility]),DM type 2, not at goal ([facility]) Use to test blood sugar up to twice daily: dx 250.00 3 Box Dosing Unit 5 04/15/2018 Active Lidocaine, Anorectal, 5 % CREAIndications:Exte rnal hemorrhoid, thrombosed Apply to affected area 3-4 times as needed for pain 28 g 0 07/07/2018 Active FreeStyle Alice 14 Day Closplint Device Use as directed. 1 Each 0 [...] of anterior wall (HCC),Coronary artery disease involving tribe coronary artery of tribe heart without angina pectoris Take 1 Tablet [...] Dyslipidemia, goal LDL below 70 01/09/2017 Old [place] (myocardial infarction) 03/31/2012 Overview: Coronary disease, single [...] Taxonomy. AORTOCORONARY BYPASS STATUS 07/200602/08/2008 03/31/2012 ACUTE [place] NOS (07/14/06) 11/22/200701/09 Tobacco use disorder 11/22/2007 [...] Miscellaneous Notes * Telephone Encounter - Cecilia Sánchez, [facility] - 06/05/2023 2:18 PM EDT Spoke with pt today at cardiology visit regarding new insurance, GHP Gold, and switch to Mailorder.Now pt states the cost of the Trulicity and Jardiance is high. Copay for Trulicity ~$70 and Jardiance ~$400 pt states. Pt is afraid he will enter the donut hole. Pt has 2 months of previous SGLT2i, invokanna, left prior to switch to Jardiance. Screened pt for PACE and pt states he is above income requirements. Discussed possible qualification for [employer] PAP for Trulicity but pt is unsure he qualifies. Please also screen for Jardiance. Would appreciate assistance with cost. Thank you, Cecilia Sánchez, PharmD PGY1 Voice Data Communications Engineer 06/05/2023 2:25 PM documented in this encounter Plan of Treatment Upcoming Encounters Date Type Department Care Team (Late st Contact Info) Description 07/20/2023 1:20 PM EST Office Visit [facility] [address] [place] [address] Ivan Templeton MD [address] [place] [address] 09/14/2023 2:00 PM EST Office Visit [facility] [address] [facility] [place] [address] Miryam Oviedo PA-C [address] [facility] [address] 09/17/2023 5:30 PM EST Pharmacy Cardiology Trevon Carrillo [address] [place] [address] [facility] Cardiology [address] [place] [address] 10/02/2023 11:30 AM EST Office Visit Cardiology, [facility] [address] [facility] [place] [address] [facility] Cardiology Elizabeth [address] [place] [address] Scheduled Procedures Name Priority Associated Diagnoses Date/Ti [...] exists LUNG CANCER SCREENING - USE SMARTSET 45405 Completed 01/26/2023 GARDASIL-HPV IMMUNIZATION SERIES Aged Out No longer eligible based on patient's age to complete this topic MENINGOCOCCAL (MENACTRA/MENVEO) Aged Out No longer eligible based on patient's age to complete this topic documented as of this encounter Medical Devices Implanted Type Area Dumpster Operator Device Identifier Shelf Expiration Date Model / Serial / Lot Biocomposite Knotless Swivelock [place] Implanted:Qty: 1 on 11/08/2021 by Saqib Edmond, DO at OR [facility] Left: Shoulder [employer] 09/09/2025 [id number] C / / [id number] Description:with Blue #2 Sut ure documented as of this encounter Care Teams Swing Saw Operator Relationship Specialty Start Date End Date Ivan Templeton MD [address] [place] [address] PCP - General Family Medicine 07/29/12 documented as of this encounter
--- OUTSIDE RECORDS SUMMARY | 2023-11-05 11:46 | External Medical Summary | Summary of Care ---
Author Name Unknown Organization [facility] Address [address] [facility] [place] [address] Phone [phone] Care Team Providers Care Hearing Aid Mechanic Name Role Phone Ivan Templeton MD Primary Care Provider [phone]- [phone] Reason for Visit * Reason Onset Date Comments Precert In Process 06/05/2023 27 [place] [facility] REP ATHA Precert Approved 06/05/2023 REPATHA Encounter Details Date Type Department Care Team (Late st Contact Info) Description 06/05/2023 Telephone Cardiology, [facility] [address] [facility] [place] [address] [facility] [address] [place], [place] [id number] Precert In Process (27 [place] [facility] REPATHA); Pr... Allergies Active Allergy Reactions Criticality Noted Date Comments Rosuvastatin Muscle pain 04/27/2023 documented as of this encounter (statuses as of 06/08/2023) Medications Medication Sig Dispensed Refills Start Date End Date Status Glucose Blood (ONETOUCH ULTRA BLUE) STRPIndications:DM type 2, not at goal (HCC),Type 2 diabetes mellitus with hemoglobin A1c goal of less than 7.0% ([facility]) Use 2 times a day as [...] 0 07/07/2018 Active FreeStyle Alice 14 Day [place] Device Use as directed. 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 AORTOCORONARY BYPASS STATUS 07/200602/08/2008 03/31/2012 ACUTE [place] NOS (07/14/06) 11/22/200701/09 Tobacco use disorder 11/22/2007 018 ADVANCE DIRECTIVE INFORMATION 07/27/2007 01/09/2017 Overview: Yes, Patient instructed to provide copy of advance directive for provider to review and to be scanned into Electronic Medical Record Govind 06/14/2004 07/10/2017 documented as of this encounter (statuses as of 06/08/2023) Immunizations Name Administration Dates Next Due COVID-19 [...] mg/dL Route referral message to CARDIOLOGY PHARMACIST [facility] [[id number]]. Please submit to BOTH primary insurance and secondary insurance (ex PACE/PACENET) if applicable. documented in this encounter Plan of Treatment Upcoming Encounters Date Type Department Care Team (Late st Contact Info) Description 07/20/2023 1:20 PM EST Office Visit [facility] [address] [place] [address] Ivan Templeton MD [address] [place] [address] 09/14/2023 2:00 PM EST Office Visit Cardiology, [facility] [address] [facility] [place] [address] Miryam Oviedo, GIOVANNI [address] [place] [address] 09/17/2023 5:30 PM EST Pharmacy Cardiology [place] [facility] Li [address] [place] [address] [facility] [address] [place] [address] 10/02/2023 11:30 AM EST Office Visit Cardiology, [facility] [address] [facility] [place] [address] [facility] Cardiology [facility] [place] [address] Scheduled Procedures Name Priority Associated Diagnoses Date/Ti [...] exists LUNG CANCER SCREENING - USE SMARTSET [id number] Completed 01/26/2023 GARDASIL-HPV IMMUNIZATION SERIES Aged Out No longer eligible based on patient's age to complete this topic MENINGOCOCCAL (MENACTRA/MENVEO) Aged Out No longer eligible based on patient's age to complete this topic documented as of this encounter Medical Devices Implanted Type Area Medical Genetics Director Device Identifier Shelf Expiration Date Model / Serial / Lot Biocomposite Knotless Swivelock [place] Implanted:Qty: 1 on 11/08/2021 by Saqib Edmond, at OR [facility] Left: Shoulder [employer] 09/09/2025 [id number] C / / [id number] Description:with Blue #2 Sut ure documented as of this encounter Care Teams Hearing Aid Mechanic Relationship Specialty Start Date End Date Ivan Templeton MD [address] [facility] [place] [address] PCP - General Family Medicine 07/29/12 documented as of this encounter
--- OUTSIDE RECORDS SUMMARY | 2023-11-05 11:46 | External Medical Summary | Summary of Care ---
Author Name Unknown Organization [facility] Address [address] [facility] [place] [address] Phone [phone] Care Team Providers Care Remediation Project Engineer Name Role Phone Ivan Templeton MD Primary Care Provider [phone]- [phone] Reason for Visit * Reason Comments Dosage Adjustment In Person (Anticoag Cl inic) Hypercholesterolemia * Evaluate & Treat - Unlimited Visits (Within 30 days (routine)) - Pending Review Specialty Diagnoses / Procedures Referred By Contac t Referred To Contact Pharmacist / Pharmacy Diagnoses Dyslipidemia, goal LDL below 70 Coronary artery disease involving [place] coronary artery of [place] heart without angina pectoris ST elevation myocardial infarction (STEMI) of anterior wall (HCC) Statin intolerance Miryam Oviedo PA-C [address] [place] [address] Referral ID Status Reason Start Date Expiration Date Visits Requested Visits Authorized [id number] Pending Review Specialty Services Required 05/01/2023 99 99 Encounter Details Date Type Department Care Team (Late st Contact Info) Description 06/05/2023 11:00 AM EDT [facility] [address] [place] [address] [facility] Cardiology [facility] [address] [place] [address] Dyslipidemia, goal LDL below 70*; Type 2 diabetes mellitus with hemoglobin A1c goal of less than 7.0% (HCC) Allergies Active Allergy Reactions Criticality Noted Date Comments Rosuvastatin Muscle pain 04/27/2023 documented as of this encounter (statuses as of 06/05/2023) Medications Medication Sig Dispensed Refills Start Date End Date Status Glucose Blood (ONETOUCH ULTRA BLUE) STRPIndications:DM type 2, not at goal ([facility]),Type 2 diabetes mellitus with hemoglobin A1c goal of less than 7.0% ([facility]) Use 2 times a day as directed DX:E11.9 Diabetes Type 2 uncontrolled 300 Strip 5 04/15/2018 Active ONETOUCH LANCETS MISCIndications:Type 2 diabetes mellitus with hemoglobin A1c goal of less than 7.0% ([facility]),DM type 2, not at goal ([facility]) Use to test blood sugar up to twice daily: dx 250.00 3 Box Dosing Unit 5 04/15/2018 Active Lidocaine, Anorectal, 5 % CREAIndications:Exte rnal hemorrhoid, thrombosed Apply to affected area 3-4 times as needed for pain 28 g 0 07/07/2018 Active FreeStyle Alice 14 Day [place] Device Use as directed. 1 Each 0 [...] elevation myocardial infarction (STEMI) of anterior wall ([facility]),History of heart artery stent Take 1 Tablet by mouth in the morning. 90 Tablet 3 04/28/2023 Active Gabapentin 300 MG Oral Capsule (Neurontin)Indicatio ns:Diabetic polyneuropathy associated with type 2 diabetes mellitus ([facility]) Take 1 Capsule by mouth in the morning and 1 Capsule before bedtime. 180 Capsule 0 04/28/2023 Active Isosorbide Mononitrate ER 30 MG Oral Tablet Extended Release 24 Hour (Imdur)Indications:S T elevation myocardial infarction (STEMI) of anterior wall (HCC),Coronary artery disease involving [place] coronary artery of [place] heart without angina pectoris Take 1 Tablet [...] Dyslipidemia, goal LDL below 70 01/09/2017 Old [place] (myocardial infarction) 03/31/2012 Overview: Coronary disease, single [...] Taxonomy. AORTOCORONARY BYPASS STATUS 07/200602/08/2008 03/31/2012 ACUTE [place] NOS (07/14/06) 11/22/200701/09 Tobacco use disorder 11/22/2007 [...] following reasons: The patient has a prior UT or stroke diagnosis Diet review: BF: cereal once a week, strawberry waffles L: soup, sandwich S: out to eat, turkey, mashed potatoes, corn, hoagie, croatian fries S: banana popsicle 2-3, fudge, chips D: crystal lite lemonade, OJ , water Exercise review: Gym 5 days a week- 1 mile & weights training Patient Active Problem List Diagnosis Code Chronic ischemic heart disease I25.9 Type 2 diabetes mellitus with hemoglobin A1c goal of less than 7.0% ([facility]) E11.9 Old [place] (myocardial infarction) I25.2 Dyslipidemia, goal LDL below [...] 03/18/2018 12:00 AM No components found for: "[id number]" Current Hyperlipidemia Medication(s): Nitro 0.4 mg PRN [...] average 40 minutes per session and involving oefrfzdi-[id number] intensity physical activity. Pt stated he walks [...] Pt worried about cost bringing pt to [facility].Informed pt that assistance team will reach out [...] dose and resume original schedule. If an [id number] dose is not administered within 7 days, wait until the next dose on the original schedule. If a once-monthly dose is not administered within 7 days, administer the dose and start a new schedule based on this date. 2. ASCVD - STEMI 12/20/22 receiving GRADY to the mid LAD with moderate 50-60% stenosis -UT in 2011 -Continue ASA, Plavis, metoprolol, lisinopril [...] appt in July. Pt switched insurance to [employer] and now receives medications from [facility]. Stated cost of Trulicity, Jardiance, and Repatha will bring him into [facility]. Pt does not meet PACE income requirements. Will involve patient assistance team to help with cost of Jardiance and Trulicity. Pt has 2 month supply of Invokana left. Informed pt to finish invokana supply then switch to Jardiance. Pt assista nce team will reach out to screen pts for PAP. Pt may qualify for Fernanda Yousuf PAP for Trulicity. Pt aware he may make too much income for cost assistance. 6. Angina - stable -Used Nitro once for localized chest pain Medication changes: Nitro 0.4 mg PRN Metoprolol Succinate ER 25 mg once daily Lisinopril 2.5 mg once daily Isosorbide mononitrate ER 30 mg once daily Plavis 75 mg once daily ASA 81 mg once daily START Repatha 1420 mg once monthly Invokana 300 mg once daily for 2 months then will start Jardiance 25 mg once daily Metformin HCL 500 mg -2 tabs BID Trulicity 4.5 mg once weekly Labs Due: (ordered) Lipid panel 3 months A1c 07/09/23 Follow up: 4 months Cecilia Sánchez [facility] Clinical Pharmacist 10:23 PM, 06/04/23 documented in this encounter Plan of Treatment Upcoming Encounters Date Type Department Care Team (Late st Contact Info) Description 07/20/2023 1:20 PM EST Office Visit [facility] [address] [facility] [place] [id number] Ivan Templeton MD [address] [place] [address] 09/14/2023 2:00 PM EST Office Visit Cardiology, [facility] [address] [place] [address] Miryam Oviedo PA-C [address] [place] [address] 09/17/2023 5:30 PM EST Pharmacy Cardiology [address] [place] [address] [facility] [address] [place], [place] [address] [address] 10/02/2023 11:30 AM EST Office Visit Cardiology, [facility] [address] [place] [address] [facility] [address] Cardiology [facility] [address] [place] [address] Scheduled Orders Name Type Priority Associated Diagnoses [...] exists LUNG CANCER SCREENING - USE SMARTSET [id number] Completed 01/26/2023 GARDASIL-HPV IMMUNIZATION SERIES Aged Out No longer eligible based on patient's age to complete this topic MENINGOCOCCAL (MENACTRA/MENVEO) Aged Out No longer eligible based on patient's age to complete this topic documented as of this encounter Medical Devices Implanted Type Area Chef Head Device Identifier Shelf Expiration Date Model / Serial / Lot Biocomposite Knotless Swivelock [place] Implanted:Qty: 1 on 11/08/2021 by Saqib Edmond DO at OR [facility] Left: Shoulder [employer] 09/09/2025 [id number] C / / [id number] Description:with Blue #2 Sut ure documented as of this encounter Visit Diagnoses Diagnosis Dyslipidemia, goal LDL below 70- Primary Other and unspecified hyperlipidemia Type 2 diabetes mellitus with hemoglobin A1c goal of less than 7.0% (HCC) documented in this encounter Care Teams Remediation Project Engineer Relationship Specialty Start Date End Date Ivan Templeton MD [address] [place], [place] [phone] PCP - General Family Medicine 07/29/12 documented as of this encounter
--- NOTE | 2023-11-05 12:20 | Electrocardiogram Report ---
Test Reason : Blood Pressure : / mmHG Vent. Rate : 135 BPM Atrial Rate : 270 BPM P-R Int : 000 ms QRS Dur : 094 ms QT Int : 270 ms P-R-T Axes : 250 032 238 degrees QTc Int : 405 ms Probable Atrial flutter with 2:1 A-V conduction Nonspecific ST and T wave abnormality Abnormal ECG When compared with ECG of 20-DEC-2022 06:42, Atrial flutter has replaced Sinus rhythm Vent. rate has increased BY 66 BPM Borderline criteria for Anterolateral infarct are no longer Present ST now depressed in Inferior leads ST now depressed in Lateral leads Nonspecific T wave abnormality now evident in Inferior leads Confirmed by Stephane Schulz ([id number]) on 11/05/2023 12:20:01 PM Referred By: REFERRED SELF Confirmed By:Stephane Schulz
--- NOTE | 2023-11-05 14:02 | Electrocardiogram Report ---
Test Reason : Blood Pressure : / mmHG Vent. Rate : 077 BPM Atrial Rate : 077 BPM P-R Int : 168 ms QRS Dur : 098 ms QT Int : 382 ms P-R-T Axes : 054 031 092 degrees QTc Int : 432 ms Normal sinus rhythm Nonspecific T wave abnormality Abnormal ECG When compared with ECG of 04-NOV-2023 17:11, Sinus rhythm has replaced Atrial flutter Vent. rate has decreased BY [address] no longer depressed in Inferior leads ST no longer depressed in Lateral leads Nonspecific T wave abnormality no longer evident in Inferior leads Confirmed by Stephane Schulz ([id number]) on 11/05/2023 2:02:50 PM Referred By: REFERRED SELF Confirmed By:Stephane Schulz
--- NOTE | 2023-11-05 15:10 | Cardiology Consultation ---
Date of Consultation November 05, 2023 Assessment & Plan (1) Paroxysmal atrial flutter: (2) Atrial flutter with rapid ventricular response: (3) Chronic coronary artery disease: Plan Patient is a 73-year-old male with cardiac history as well outlined, known chronic stable coronary artery disease with class I angina pectoris who presented with symptoms of vague chest pressure and wearable heart monitor alarming for elevated heart rate. Cardiac enzymes negative echocardiogram with preserved LV systolic function Patient treated with IV and additional oral beta-sara with subsequent spontaneous conversion to sinus rhythm Discussed in detail with patient Recommendations: Increase metoprolol succinate to 25 mg twice per day Transition anticoagulation to Eliquis 5 mg twice per day. Discontinue aspirin. Will likely discontinue clopidogrel in 1 month Patient to contact immediately with any further heart rate alarms Stable for discharge with above. Will arrange follow-up with cardiology 3 to 6 weeks History of Present Illness Reason for Consultation: Paroxysmal atrial flutter Attending Physician: Froilan Be MD History of Present Illness Patient is a 73-year-old male with ongoing cardiac history per outpatient records 1.1. Coronary disease, single vessel, status post PTCA of the right coronary artery in 2005. 2. Anterior STEMI 12/20/22 receiving GRADY to the mid LAD with moderate 50-60% stenosis circumflex extending into OM1; Patent prox to mid RCA stents with mild in stent restenosis. Inferior branch of D3 remained occluded with residual thrombus. 2. Stable class I angina pectoris. 3. Hyperlipidemia. 4. Hypertension. 5. Type 2 diabetes mellitus. 6. Past statin-induced myalgias on low-dose Crestor now tolerating PCSK9 inhibitor Patient presents now doing well until past day. Notes no recent anginal symptoms. Exercises at the gym multiple days per week with good tolerance. Yesterday felt fatigued slight odd sensation in the chest. Was concerned as Apple Watch kept alarming about elevated heart rate. Ultimately contacted outpatient office who recommended ER evaluation. Patient found to be in atrial flutter on presentation. He has had a recent cough and URI symptoms which have improved. No signs or symptoms of fluid and retention. No nitroglycerin use. No TIA or stroke. No syncope or near syncope. Appetite and weight are stable. Tolerating current medications. On ER presentation heart rate slowed with additional treatment with beta-sara therapy but blood pressures soft. Referred now for further evaluation. At time of assessment patient had spontaneously converted to sinus rhythm and blood pressures improved. Allergies Allergy/AdvReac Type Severity Reaction Status Date / Time rosuvastatin AdvReac Muscle Pain Verified 11/04/23 19:37 Home Medications Medication Instructions Recorded Confirmed Type gabapentin 300 mg capsule 300 mg PO AMHS 09/04/22 11/04/23 History lisinopril 2.5 mg tablet 2.5 mg PO QAM 09/04/22 11/04/23 History metoprolol tartrate 25 mg tablet 25 mg PO BID 09/04/22 11/04/23 History aspirin 81 mg tablet,delayed 81 mg PO QAM #30 tabs 12/21/22 11/04/23 Rx release clopidogrel 75 mg tablet 75 mg PO QAM #30 tabs 12/21/22 11/04/23 Rx nitroglycerin 0.4 mg sublingual 0.4 mg sublingual Q5M PRN chest 12/21/22 11/04/23 Rx tablet pain #30 tabs isosorbide mononitrate 30 mg 30 mg PO QAM 03/13/23 11/04/23 History tablet,extended release 24 hr dulaglutide 3 mg/0.5 mL 3 mg subcut .QSUN 11/04/23 11/04/23 History subcutaneous pen injector (Trulicity) empagliflozin 25 mg tablet 25 mg PO QAM 11/04/23 11/04/23 History (Jardiance) evolocumab 420 mg/3.5 mL 420 mg subcut .QMONTH 11/04/23 11/04/23 History subcutaneous wearable injector (Repatha Pushtronex) metformin 500 mg tablet 500 mg PO BID 11/04/23 11/04/23 History Patient History Medical History (Updated 11/05/23 @ 15:20 by Didier Prakash MD) CAD (coronary artery disease) follows with Dr. Prakash. Carotid artery stenosis Myocardial Infarction 12/2022 -- hospitalized at [facility] - 1 stent placed. [facility] 2005, no longer follows with cardio Diabetes mellitus, type 2 Hypertension Hyperlipidemia Surgical History History of cardiac catheterization most recent 12/2022 [facility] - [place] - 1 stent 2 stents placed 2005 History of colonoscopy History of surgery surgery on nose skin lesion-pt unsure History of coronary artery stent placement 12/2022 x 1 stent 2006, stents x 2 Social History Smoking Status: Never smoker Second Hand Exposure: No; Do You Dip or Chew Tobacco: No; Hx Alcohol Use: Yes Alcohol type: wine Hx Substance Use: No Preferred Language: Slovenian Communication Ability: Effective Ultrasound Sonographer Required: No Beliefs That Will Affect Care: None Current Living Situation: Spouse Other Information That Helps Us Care for You: No Feels Safe at Home: Yes Safety Concerns: Feels Safe At This Time Assistive Devices: None Review of Systems Review of Systems: All systems reviewed & are unremarkable except as noted in HPI & below Results & Data Vital Signs (Past 12 Hours) Vital Signs Temp Pulse Pulse Resp BP BP Pulse Ox 11/05/23 11:20 36.6 C 78 18 90/73 L 95 11/05/23 10:45 76 11/05/23 10:06 137 H 17 105/74 11/05/23 09:51 135 H 22 94/72 L 11/05/23 09:41 137 H 18 84/70 L 11/05/23 07:51 36.5 C 138 H 18 102/81 92 11/05/23 06:02 137 H 110/70 O2 Del Method 11/05/23 11:20 Room Air 11/05/23 10:45 11/05/23 10:06 Room Air 11/05/23 09:51 Room Air 11/05/23 09:41 Room Air 11/05/23 07:51 Room Air 11/05/23 06:02 Laboratory Results Laboratory Results - last 24 hr 11/04/23 11/04/23 11/04/23 17:16 17:28 19:45 WBC 11.25 H RBC 5.26 Hgb 15.8 Hct 47.0 MCV 89.4 MCH 30.0 MCHC 33.6 RDW Std Deviation 40.6 RDW Coeff of Darlene 12.4 Plt Count 272 MPV 9.2 L Immature Gran % (Auto) 0.4 Neut % (Auto) 64.8 Lymph % (Auto) 24.1 [place] % (Auto) 9.2 Eos % (Auto) 1.1 Baso % (Auto) 0.4 Neut # (Auto) 7.29 H Lymph # (Auto) 2.71 [place] # (Auto) 1.04 H Eos # (Auto) 0.12 Baso # (Auto) 0.04 Immature Gran # (Auto) 0.05 Heparin Anti-Xa, Unfract Sodium 135 L Potassium 4.1 Chloride 101 Carbon Dioxide 26 Anion Gap 8 BUN 21 Creatinine 0.96 Est Cr Clr Drug Dosing 75.1 Est GFR ( Amer) 91.8 Est GFR (Non-Af Amer) 79.2 BUN/Creatinine Ratio 21.9 H Glucose 291 H POC Glucose Estimat Average Glucose Hemoglobin A1c Calcium 9.2 Magnesium Total Bilirubin 0.4 AST 12 L ALT 16 Alkaline Phosphatase 75 Troponin I High Sens 14.0 14.2 Total Protein 7.2 Albumin 4.3 Globulin 2.9 Albumin/Globulin Ratio 1.5 Lipase 25 Adenovirus (PCR) Not Detected B. pertussis DNA (PCR) Not Detected B.parapertussis DNA PCR Not Detected C. pneumoniae DNA (PCR) Not Detected Coronavirus OC43 (PCR) Not Detected Coronavirus HKU1 (PCR) Not Detected Coronavirus 229E (PCR) Not Detected SARS-CoV-2 (PCR) Not Detected Coronavirus NL63 (PCR) Not Detected Human Metapneumovir PCR Not Detected Influenza Type A (PCR) Not Detected Influenza Type B (PCR) Not Detected M. pneumoniae (PCR) Not Detected Parainfluenza 1 (PCR) Not Detected Parainfluenza 2 (PCR) Not Detected Parainfluenza 3 (PCR) Not Detected Parainfluenza 4 (PCR) Not Detected RSV (PCR) Not Detected Entero/Rhino (PCR) Not Detected 11/04/23 11/05/23 11/05/23 20:57 03:22 03:24 WBC RBC Hgb Hct MCV MCH MCHC RDW Std Deviation RDW Coeff of Darlene Plt Count MPV Immature Gran % (Auto) Neut % (Auto) Lymph % (Auto) [place] % (Auto) Eos % (Auto) Baso % (Auto) Neut # (Auto) Lymph # (Auto) [place] # (Auto) Eos # (Auto) Baso # (Auto) Immature Gran # (Auto) Heparin Anti-Xa, Unfract 0.36 Sodium Potassium Chloride Carbon Dioxide Anion Gap BUN Creatinine Est Cr Clr Drug Dosing Est GFR ( Amer) Est GFR (Non-Af Amer) BUN/Creatinine Ratio Glucose POC Glucose 248 H 153 H Estimat Average Glucose Hemoglobin A1c Calcium Magnesium Total Bilirubin AST ALT Alkaline Phosphatase Troponin I High Sens Total Protein Albumin Globulin Albumin/Globulin Ratio Lipase Adenovirus (PCR) B. pertussis DNA (PCR) B.parapertussis DNA PCR C. pneumoniae DNA (PCR) Coronavirus OC43 (PCR) Coronavirus HKU1 (PCR) Coronavirus 229E (PCR) SARS-CoV-2 (PCR) Coronavirus NL63 (PCR) Human Metapneumovir PCR Influenza Type A (PCR) Influenza Type B (PCR) M. pneumoniae (PCR) Parainfluenza 1 (PCR) Parainfluenza 2 (PCR) Parainfluenza 3 (PCR) Parainfluenza 4 (PCR) RSV (PCR) Entero/Rhino (PCR) 11/05/23 11/05/23 11/05/23 07:07 07:38 09:34 WBC 9.31 RBC 4.77 Hgb 14.2 Hct 42.4 MCV 88.9 MCH 29.8 MCHC 33.5 RDW Std Deviation 40.8 RDW Coeff of Darlene 12.4 Plt Count 234 MPV 9.3 L Immature Gran % (Auto) 0.3 Neut % (Auto) 56.0 Lymph % (Auto) 31.8 [place] % (Auto) 9.1 Eos % (Auto) 2.3 Baso % (Auto) 0.5 Neut # (Auto) 5.21 Lymph # (Auto) 2.96 [place] # (Auto) 0.85 H Eos # (Auto) 0.21 Baso # (Auto) 0.05 Immature Gran # (Auto) 0.03 Heparin Anti-Xa, Unfract 0.50 Sodium 140 Potassium 4.1 Chloride 108 H Carbon Dioxide 25 Anion Gap 7 BUN 22 Creatinine 0.78 Est Cr Clr Drug Dosing 93.5 Est GFR ( Amer) 105.3 Est GFR (Non-Af Amer) 90.8 BUN/Creatinine Ratio 28.2 H Glucose 167 H POC Glucose 172 H Estimat Average Glucose 220 Hemoglobin A1c 9.3 H Calcium 8.3 L Magnesium 1.8 Total Bilirubin AST ALT Alkaline Phosphatase Troponin I High Sens 12.5 Total Protein Albumin Globulin Albumin/Globulin Ratio Lipase Adenovirus (PCR) B. pertussis DNA (PCR) B.parapertussis DNA PCR C. pneumoniae DNA (PCR) Coronavirus OC43 (PCR) Coronavirus HKU1 (PCR) Coronavirus 229E (PCR) SARS-CoV-2 (PCR) Coronavirus NL63 (PCR) Human Metapneumovir PCR Influenza Type A (PCR) Influenza Type B (PCR) M. pneumoniae (PCR) Parainfluenza 1 (PCR) Parainfluenza 2 (PCR) Parainfluenza 3 (PCR) Parainfluenza 4 (PCR) RSV (PCR) Entero/Rhino (PCR) 11/05/23 11/05/23 11:00 12:07 WBC RBC Hgb Hct MCV MCH MCHC RDW Std Deviation RDW Coeff of Darlene Plt Count MPV Immature Gran % (Auto) Neut % (Auto) Lymph % (Auto) [place] % (Auto) Eos % (Auto) Baso % (Auto) Neut # (Auto) Lymph # (Auto) [place] # (Auto) Eos # (Auto) Baso # (Auto) Immature Gran # (Auto) Heparin Anti-Xa, Unfract Sodium Potassium Chloride Carbon Dioxide Anion Gap BUN Creatinine Est Cr Clr Drug Dosing Est GFR ( Amer) Est GFR (Non-Af Amer) BUN/Creatinine Ratio Glucose POC Glucose 168 H Estimat Average Glucose Hemoglobin A1c Calcium Magnesium Total Bilirubin AST ALT Alkaline Phosphatase Troponin I High Sens 10.8 Total Protein Albumin Globulin Albumin/Globulin Ratio Lipase Adenovirus (PCR) B. pertussis DNA (PCR) B.parapertussis DNA PCR C. pneumoniae DNA (PCR) Coronavirus OC43 (PCR) Coronavirus HKU1 (PCR) Coronavirus 229E (PCR) SARS-CoV-2 (PCR) Coronavirus NL63 (PCR) Human Metapneumovir PCR Influenza Type A (PCR) Influenza Type B (PCR) M. pneumoniae (PCR) Parainfluenza 1 (PCR) Parainfluenza 2 (PCR) Parainfluenza 3 (PCR) Parainfluenza 4 (PCR) RSV (PCR) Entero/Rhino (PCR)
--- NOTE | 2023-11-05 15:48 | Hospitalist Progress Note ---
Date of Service November 05, 2023 Assessment & Plan (1) Atrial flutter with rapid ventricular response: Plan: 73-year-old male with past medical history significant for CAD and ST elevated [place] s/p stents, hyperlipidemia, diabetes, hypertension presents with chest di scomfort and found to be in atrial flutter. A flutter with rapid ventricular response Patient came to the hospital after he noted that his heart rate was elevated in his smart watch. EKG on admission showed atrial flutter with 2 :1 AV conduction Echocardiogram shows EF of 60 to 65%. Patient is spontaneously converted to sinus rhythm Discussed with cardiology ;will switch to metoprolol to succinate 25 mg twice a day Will stop heparin at 7 PM; switch over to Eliquis 5 mg twice a day for 2 hours. Discussed with nursing Continue monitor on telemetry LR at 100 cc/h for hypotension History of CAD s/p stents On aspirin, Plavix, lisinopril mononitrate, metoprolol Aspirin stopped Type 2 diabetes mellitus Hold metformin and Jardiance Sliding scale A1c of 9% Hyperlipidemia On Repatha shots DVT prophylaxis Heparin Disposition Telemetry Full code Time spent evaluating patient, direct bedside care, chart review, placing orders, interpretation of diagnostic studies, discussion with consultants, patient, and family members, as well as other required patient management activ ities is 60-minute Please note the above document was generated using voice recognition software. It may contain grammatical, syntax or spelling errors. Any formal questions or concerns about the content, text or information contained within the body of this dictation should be directly addressed to the provider for clarification Admission and Anticipated Discharge Date Admission Date: November 04, 2023 Subjective Patient seen and examined at bedside. He continues to be in a flutter with ventricular rate of 130s. Hypotensive; required IV LR bolus. He denies any chest pain or shortness of breath. Review of Systems Review of Systems: All systems reviewed & are unremarkable except as noted in Subjective Physical Exam Physical Exam: Constitutional: WD/WN, vitals as above, NAD, sitting up in bed, pleasant, conversing easily Respiratory: normal respiratory effort, lungs clear to auscultation, no wheeze, rales, rhonchi. Normal insp/exp effort, no accessory muscle use Cardiovascular: Irregular, no murmur, no edema Vessels: no JVD or carotid bruit Chest: normal inspection of chest Abdomen: normal bowel sounds, soft, nontender, no hepatosplenomegaly Musculoskeletal: no cyanosis or clubbing, extremities motor strength 5/5 Skin: no rashes, warm and dry normal turgor Neurologic: PERRL, EOMI, accommodation nl, no face palsy, no dysarthria CN's II- XI intact bilaterally and moves all extremities Psychiatric: A+Ox3, euthymic affect Results & Data Results & Data Vital Signs (Past 12 Hours) Vital Signs Temp Pulse Pulse Resp BP BP Pulse Ox 11/05/23 11:20 36.6 C 78 18 90/73 L 95 11/05/23 10:45 76 11/05/23 10:06 137 H 17 105/74 11/05/23 09:51 135 H 22 94/72 L 11/05/23 09:41 137 H 18 84/70 L 11/05/23 07:51 36.5 C 138 H 18 102/81 92 11/05/23 06:02 137 H 110/70 O2 Del Method 11/05/23 11:20 Room Air 11/05/23 10:45 11/05/23 10:06 Room Air 11/05/23 09:51 Room Air 11/05/23 09:41 Room Air 11/05/23 07:51 Room Air 11/05/23 06:02
[2023-11-05] MEDS: LACTATED RINGER'S 1,000 ML IV SCH (15:50)
[2023-11-05] MEDS: INSULIN ASPART PER UNIT CHARGE SC SCH (17:02)
[2023-11-05] MEDS: APIXABAN 5 MG TABLET PO SCH (20:32)
[2023-11-05] MEDS: METOPROLOL SUCC 25MG EXT REL TAB PO SCH (20:32)
[2023-11-06 06:44] LABS: ANTI-Xa, UFH(UnfractionatedHep 0.47 IU/ml (0.3-0.7)
[2023-11-06 06:46] LABS: Basophils # (auto) 0.05 K/uL (0.00-0.20); Basophils % (auto) 0.7 %; Eosinophils # (auto) 0.24 K/uL (0.00-0.50); Eosinophils % (auto) 3.4 %; Hematocrit (blood only) 38.6 % (42.0-52.0); Hemoglobin 13.2 g/dl (14.0-18.0); Immature Granulocytes # (auto) 0.02 K/uL (0.01-0.20); Immature Granulocytes % (auto) 0.3 %; Lymphocytes # (auto) 2.42 K/uL (1.20-3.40); Lymphocytes % (auto) 33.9 %; Mean Corpuscular Hemoglobin 30.3 pg (25.0-34.0); Mean Corpuscular Hgb Conc 34.2 g/dL (32.0-36.0); Mean Corpuscular Volume 88.5 fL (80.0-100.0); Mean Platelet Volume 9.1 fL (9.4-12.4); Monocytes # (auto) 0.66 K/uL (0.11-0.59); Monocytes % (auto) 9.2 %; Neutrophils # (auto) 3.75 K/uL (1.40-6.50); Neutrophils % (auto) 52.5 %; Platelet Count 228 K/uL (130-400); RDW Coefficient of Variation 12.2 % (11.5-14.5); RDW Standard Deviation 39.8 fL (36.4-46.3); Red Blood Count 4.36 M/uL (4.70-6.10); White Blood Count 7.14 K/ul (4.8-10.8)
[2023-11-06 07:02] LABS: BUN Creatinine Ratio 24.1 (10-20); Calcium 8.5 mg/dl (8.6-10.3); Creatinine Clr Calc Pharmacy 83.5 ml/min; Est GFR (African American) 100.6 ml/min; Est GFR (Non-African American) 86.8 ml/min; Potassium 4.3 mmol/L (3.5-5.1)
--- NOTE | 2023-11-06 12:36 | Cardiology Progress Note ---
Date of Service November 06, 2023 Assessment & Plan (1) Paroxysmal atrial flutter: (2) Atrial flutter with rapid ventricular response: (3) Chronic coronary artery disease: Plan Patient is a 73-year-old male with cardiac history as well outlined, known chronic stable coronary artery disease with class I angina pectoris who presented with symptoms of vague chest pressure and wearable heart monitor alarming for elevated heart rate. Cardiac enzymes negative echocardiogram with preserved LV systolic function Patient treated with IV and additional oral beta-sara with subsequent spontaneous conversion to sinus rhythm Discussed in detail with patient Recommendations: Increase metoprolol succinate to 25 mg twice per day Transition anticoagulation to Eliquis 5 mg twice per day. Discontinue aspirin. Will likely discontinue clopidogrel in 1 month Patient to contact immediately with any further heart rate alarms Stable for discharge with above. Will arrange follow-up with cardiology 3 to 6 weeks 11/06/2023 Continue plan as outlined above, pending formulary review of Eliquis Admission and Anticipated Discharge Date Admission Date: November 04, 2023 Subjective Patient seen and examined, telemetry reviewed. Feels well this morning no chest pain or shortness of breath. No arrhythmias on telemetry tolerating increasing metoprolol dose Anticoagulation formulary issues being resolved Review of Systems Review of Systems: All systems reviewed & are unremarkable except as noted in Subjective Results & Data Vital Signs (Past 12 Hours) Vital Signs Temp Pulse Resp BP Pulse Ox O2 Del Method 11/06/23 11:05 36.5 C 67 16 108/83 94 11/06/23 10:55 36.5 C 67 16 108/83 94 Room Air 11/06/23 07:14 36.5 C 71 14 117/69 95 Room Air 11/06/23 03:32 36.6 C 69 18 137/88 95 Room Air
--- NOTE | 2023-11-06 13:08 | Discharge Summary ---
Date of Service November 06, 2023 Admission HPI Per Admitting Provider 73-year-old male with past medical history significant for CAD and ST elevated [place] s/p stents, hyperlipidemia, diabetes, hypertension presents with chest discomfort and found to be in atrial flutter. Patient states since last couple of days he has some sore throat and cough. Has some runny nose. 5 days a week he goes to the gym and walks 1 mile on treadmill 2.5 mph and also does light weights. Today morning when he was in gym was not feeling well and after the gym he felt some mild chest discomfort. And felt dizzy. Not feeling well. And his Apple Watch showing his heart rate in 140s. As not getting better he called [facility] and advised to come to the ER. In the ER he was found to be in a flutter. Received IV Lopressor. Current resting comfortably . States that his chest discomfort comes and goes. Denies any shortness of breath. No headache. No blurred visions or double visions. Some mild runny nose. No earaches. No nausea or vomiting. No abdominal pain. Normal bowel and bl adder movements. Denies any blood in the stools. Denies any hematuria. No swelling the legs. Past medical history. As mentioned above Past surgical history. Left shoulder arthroscopy. Colonoscopy. S/p cardiac cath and s/p stents Social history. . Quit smoking in 2017. Smoked 1 pack a day for 40 years. No alcohol use. No drug use. Family history. Mother had glaucoma. Sister had eye problems. Aunt had glaucoma. Admission Exam Per Admitting Provider General- Not in distress Head- atraumatic Eyes- PERR. ENT- oropharynx clear Neck- supple, no JVD Lungs- clear to auscultation no wheezing or crackles. Heart- irregular rhythm;Tachycardia, no murmur, no gallop. Abdomen- normal bowel sounds, soft, nontender, no distension. Extremities- no pretibial edema, no erythema seen. Neuro- alert, oriented PERRL, no facial palsy; no dysarthria; moves extremities. Skin- warm & dry Principal Diagnosis A flutter with RVR Discharge Exam Constitutional: WD/WN, vitals as above, NAD, sitting up in bed, pleasant, conversing easily Respiratory: normal respiratory effort, lungs clear to auscultation, no wheeze, rales, rhonchi. Normal insp/exp effort, no accessory muscle use Cardiovascular: Regular no murmur, no edema Vessels: no JVD or carotid bruit Chest: normal inspection of chest Abdomen: normal bowel sounds, soft, nontender, no hepatosplenomegaly Musculoskeletal: no cyanosis or clubbing, extremities motor strength 5/5 Skin: no rashes, warm and dry normal turgor Neurologic: PERRL, EOMI, accommodation nl, no face palsy, no dysarthria CN's II- XI intact bilaterally and moves all extremities Psychiatric: A+Ox3, euthymic affect Discharge Data Allergies Allergy/AdvReac Type Severity Reaction Status Date / Time rosuvastatin AdvReac Muscle Pain Verified 11/04/23 19:37 Consultations 11/04/23 19:25 ED Decision to Admit Stat 11/05/23 09:17 Consult Cardiology Routine Procedures Performed Operation Date: 11/05/23 13:00 <No data on this case meets the specified criteria> Diabetes Follow up Diabetes Follow-up Needed for HgbA1c >9% Hospital Course (1) Atrial flutter with rapid ventricular response: 73-year-old male with past medical history significant for CAD and ST elevated [place] s/p stents, hyperlipidemia, diabetes, hypertension presents with chest discomfort and found to be in atrial flutter. A flutter with rapid ventricular response Patient came to the hospital after he noted that his heart rate was elevated in his smart watch. EKG on admission showed atrial flutter with 2 :1 AV conduction Echocardiogram shows EF of 60 to 65%. Patient spontaneously converted to sinus rhythm Allergy was consulted during the hospitalization; patient switched from met oprolol to tartrate to succinate 25 mg twice a day Started on Eliquis 5 mg twice a day for anticoagulation Aspirin was stopped. Patient was recommended to continue with Plavix Patient to follow-up with primary care doctor and cardiology as outpatient Please note the above document was generated using voice recognition software. It may contain grammatical, syntax or spelling errors. Any formal questions or concerns about the content, text or information contained within the body of this dictation should be directly addressed to the provider for clarification Total Time Total Time Spent Total Time Spent (In Minutes): 35 Total Time Includes: Examination of the Patient, Discharge Planning, Medication Reconciliation, Communication With Other Providers and Other Discharge Plan Discharge Items Patient Disposition: Home - Self-Care Reason For Visit: ATRIAL FLUTTER Discharge Diagnosis: A flutter Activity: Resume your previous activity Non-emergency contact: Primary Care Provider Call non-emergency contact if: you have any medication questions and your symptoms worsen Follow-up/Referrals: Didier Prakash MD [Physician] - (The Cardiology office will contact you for a follow up appointment.) Ivan Templeton MD [Primary Care Provider] - (Date & Time 11/12/2023 11:20 AM Provider Ivan Templetno MD Department [facility] ) Diet: Regular Addtl Attending Provider Instructions: You were admitted to the hospital with irregular heart rhythm called atrial flutter. Your heart rate converted to normal rhythm spontaneously. You were evaluated by cardiology during the hospitalization. They recommend following c hanges to your medication regimen: 1) Stop taking aspirin. You are Eliquis 5mg twice a day. This is to prevent clot formation in your heart and prevent stroke 2) Stop taking metoprolol tartrate. You are prescribed different metoprolol which is long-acting. Please take it twice a day. An appointment with your primary care doctor will be set up for sometime next week You will also have follow-up set up with cardiology as outpatient. Pending Studies at Discharge: No Stand-Alone Forms: [facility], Smoking Cessation Medications and DC Order Prescriptions: New metoprolol succinate 25 mg Tablet Extended Release 24 Hr 25 mg PO BID Qty: 60 0RF Eliquis 5 mg tablet 5 mg PO BID Qty: 60 0RF Continued isosorbide mononitrate 30 mg Tablet Extended Release 24 Hr 30 mg PO QAM gabapentin 300 mg Capsule 300 mg PO AMHS lisinopril 2.5 mg Tablet 2.5 mg PO QAM clopidogrel 75 mg Tablet 75 mg PO QAM Qty: 30 0RF nitroglycerin 0.4 mg tablet, sublingual 0.4 mg sublingual Q5M PRN (Reason: chest pain) Qty: 30 0RF metformin 500 mg tablet 500 mg PO BID Trulicity 3 mg/0.5 mL pen injector 3 mg SUBCUT .QSUN Jardiance 25 mg tablet 25 mg PO QAM Repatha Pushtronex 420 mg/3.5 mL wearable injector 420 mg SUBCUT .QMONTH Rx Instructions: Takes on Discontinued metoprolol tartrate 25 mg Tablet 25 mg PO BID aspirin 81 mg Tablet,Delayed Release (Dr/Ec) 81 mg PO QAM Qty: 30 0RF Discharge Orders: Discharge Order (Routine); Ordered 11/06/23 Ordered By: Froilan Moralez/Other Patient Handouts: High Blood Sugar (Hyperglycemia), Managing Type 2 Diabetes, Diabetes: Meal Planning Admission Data Admit Date/Time: 11/04/23 18:46 Attending Provider: Froilan Be Admit Provider: Iesha Morris Primary Care Provider: Ivan Templeton Other Providers: Iesha Morris; Trang Pal; Johnathan Underwood; Didier Prakash; Davidson Beaulieu; Saqib Ponce; Eduar Powers; Miryam Oviedo; Simona Duarte; Shasha Hernandez; Trang Sandoval; Jeremy Solorio; Pascual Cantrell; Zandra Woods; Julieta Noble; Nolvia Nj; Yoel Kirby Other Interventions: Discharge Summary Assessment (RN) Last Done: 11/06/23 11:05
== END 2023-11-06 13:29 | disposition home or self-care (01) | DRG 310 ==
LOC: ED 16:59 → 2E 18:46 → SUATTDRO 18:46 → 2E 20:12